=== PATIENT | male | born 1955 | race Caucasian/White ===

== ENCOUNTER → 2018-11-08 15:10 | Outpatient (CLI) | payer MEDICAID, SELFPAY ==
[2017-02-10 04:08] VITALS: BMI 25.1
[2018-11-08 17:39] LABS: Absolute Lymphocyte Count 2.79 X10^3/ul (0.83-4.51); Absolute Neutrophil Count 4.8 X10^3/uL (2.0-7.7); Basophil# 0.07 X10^3/uL; Basophil% 0.8 % (0-1); Eosinophil# 0.18 X10^3/uL; Eosinophils% 2.1 % (0-5); Hematocrit 41.3 % (40-54); Hemoglobin 13.8 g/dl (13.0-16.5); Lymphocyte # 2.79 X10^3/ul (4.0); Lymphocyte % 32.8 % (19-41); Mean Corp Hgb Conc 33.4 g/gl (32-36); Mean Corpuscular Hgb 28.4 pg (27.0-32.0); Mean Platelet Vol. 10.1 fl (6.2-12.0); Monocyte# 0.67 X10^3/uL; Monocyte% 7.9 % (0-10); Neutrophil # 4.79 X10^3/uL (2.7-7.7); Neutrophil % 56.3 % (47-70); Platelet Count 292 K/mm3 (150-450); RBC Distribution Width SD 39.9 fl (35.1-43.9); Red Blood Count 4.86 M/mm3 (4.6-6.2); White Blood Count 8.5 K/mm3 (4.4-11.0)
[2018-11-08 17:46] LABS: Amphetamine Urine VISTA NEGATIVE (<1000 ng/mL); Barbiturate Urine VISTA NEGATIVE (< 200 ng/mL); Benzodiazepine Urine VISTA NEGATIVE (< 200 ng/mL); Cocaine Urine VISTA NEGATIVE (< 300 ng/mL); Ecstacy Urine VISTA NEGATIVE (< 500 ng/mL); Methadone Urine VISTA NEGATIVE (< 300 ng/mL); PCP Urine VISTA NEGATIVE (< 25 ng/mL); POSITIVE COUNT NO; POSITIVE DIFFERENTIAL NO; POSITIVE MORPHOLOGY NO; THC Urine VISTA NEGATIVE (< 50 ng/mL); Vista UDS pH Range 7
[2018-11-08 17:51] LABS: Vitamin B12 648 pg/mL (211-911)
[2018-11-08 17:52] LABS: ALB/GLOB Ratio 0.9 RATIO (0.9-2.4); AST(SGOT) 13 U/L (15-37); Alanine Aminotransfer ALT/SGPT 19 U/L (16-61); Albumin, Serum 3.7 g/dL (3.2-5.0); Alkaline Phosphatase 95 U/L (45-117); Anion Gap 12 (5-15); BUN 20 mg/dL (7-18); BUN/Creat Ratio 15.2 RATIO (10-20); Calcium,Total 9.2 mg/dL (8.5-10.1); Chloride 95 mmol/L (98-107); Cholesterol 237 mg/dL (200); Creatinine, Serum 1.32 mg/dL (0.70-1.30); EST Glomerular Filtration Rate 59 mL/min (>60); Est Glom Filt Rate - Afr Amer 71 mL/min (>60); Globulin 4.1 g/dL (2.2-4.2); Glucose 356 mg/dL (74-106); High Density Lipoprotein 45 mg/dL; Potassium 4.4 mmol/L (3.5-5.1); Protein, Total 7.8 g/dL (6.4-8.2); Sodium Level 131 mmol/L (136-145); T4 Free Direct 1.13 ng/dL (0.76-1.46); Thyroid Stim Hormone (TSH) 1.14 uIU/mL (0.358-3.74); Triglycerides 310 mg/dL; Very Low Density Lipoprotein 62 mg/dL (5-40)
[2018-11-10 00:50] LABS: Rapid Plasmin Reagin (RPR) NONREACTIVE (NONREACTIVE)
[2018-11-13 15:20] LABS: Vitamin B1, Thiamine 103.8 nmol/L (66.5-200.0)
== END ==
PROVIDERS: Family Provider Family Medicine; PCP Family Medicine; Referring Provider Family Medicine; Visit Provider Family Medicine
DX: I10 Essential (primary) hypertension (principal); E11.9 Type 2 diabetes mellitus without complications; R41.3 Other amnesia; E04.1 Nontoxic single thyroid nodule
CPT/HCPCS: 36415; 80053; 80061; 80307; 82043; 82570; 82607; 83036; 84425; 84439; 84443; 85025; 86592

== ENCOUNTER → 2018-11-21 13:55 | Outpatient (CLI) | payer MEDICAID, SELFPAY ==
--- NOTE | 2018-11-21 14:02 | ART_ITS ---
Reason For Study: Decreased pedal pulses Procedure A bilateral lower extremity continuous wave Doppler with analog waveform analysis and ankle brachial indexes. Left Segmental Pressures Left brachial= 157mmHg. Left posterior tibial artery = 186mmHg. Left dorsalis pedis artery = 187mmHg. The left dorsalis pedis waveforms are triphasic. The left posterior tibial artery waveforms are triphasic. Right Segmental Pressures Right brachial= 151mmHg. Right posterior tibial artery = 190mmHg. Right dorsalis pedis artery = NCmmHg. Right digit = 124 mmHg. The right dorsalis pedis waveforms are triphasic. The right posterior tibial artery waveforms are triphasic. Indices The right ankle brachial index by the dorsalis pedis is NC. The right ankle brachial index by the posterior tibial artery is 1.2. The right digital-brachial index is .79. The left ankle brachial index by the dorsalis pedis is 1.2. The left ankle brachial index by the posterior tibial artery is 1.2. Interpretation Summary Triphasic Doppler waveforms are noted at ankle level bilaterally. Resting ankle-brachial indices are normal bilaterally. The right digital-brachial index is normal. The left digital brachial index was not determined due to the presence of an ulcer. There is no evidence of significant arterial occlusive disease. Ordering Physician: Tony Topete Referring Physician: Tony Topete Performed By: Tess Martin Uriel
--- NOTE | 2018-11-21 14:04 | US_ITS ---
STUDY: THYROID ULTRASOUND REASON FOR EXAM: Male, 63 years old. History of thyroid nodule. TECHNIQUE: Ultrasound evaluation of the thyroid was performed with real-time and static vera-scale imaging. COMPARISON: None. FINDINGS: RIGHT LOBE: The right lobe of the thyroid gland measures 4.4 cm x 1.9 cm x 1.9 cm. There is a homogeneous echotexture. There are no demonstrated solid, cystic or complex lesions. LEFT LOBE: The left lobe of the thyroid gland measures 4.1 cm x 1.7 cm x 1.4 cm. There is a homogeneous echotexture. There are no demonstrated solid, cystic or complex lesions. ISTHMUS: The isthmus measures 3.0 mm. The regional lymph nodes are normal. US/Thyroid IMPRESSION: Normal ultrasound examination of the thyroid. Electronically Signed: Ángel Banks, at 10:47 EST , Service support ,
== END ==
PROVIDERS: Family Provider Family Medicine; PCP Family Medicine; Referring Provider Family Medicine; Visit Provider Family Medicine
DX: E04.1 Nontoxic single thyroid nodule (principal); R09.89 Other specified symptoms and signs involving the circulatory and respiratory systems
CPT/HCPCS: 76536; 93922

== ENCOUNTER 2018-11-21 15:21 | Inpatient (IN) | payer MEDICAID, SELFPAY ==
[2018-11-21 15:23] VITALS: PULSE 86; RESP 16; TEMP 36.8; O2SAT 99; BMI 16.2
[2018-11-21 15:25] VITALS: BP 171/81; PULSE 71; RESP 14; TEMP 37.2; O2SAT 97
--- NOTE | 2018-11-21 15:47 | RAD_ITS ---
STUDY: X-RAY - LEFT FOOT CLINICAL: Male, 63 years old. PLANTAR WOUND, INFECTION TECHNIQUE: 3 view(s) of the foot. COMPARISON: 02/10/2017. FINDINGS: Status post amputations of the second, third, and fifth digits. These findings are similar to prior exam. Again seen is extensive irregularity of the first metatarsophalangeal joint with osteolysis and expansion of the bone surfaces. The appearance is consistent with a destructive process such as infection, as was considered on previous exam, but may be currently inactive. Nevertheless, active osteomyelitis or septic arthritis is not excluded. Degenerative changes of the midfoot. Markedly abnormal appearance of the soft tissues of the forefoot including in the areas of amputation. There is soft tissue gas and the findings are consistent with infection with gas-forming organism. RAD/Foot min 3 Views IMPRESSION: Relatively stable appearance of the foot with previous septations, and destructive process of the first metatarsophalangeal joint. Current osteomyelitis or septic arthritis cannot be excluded. Abnormal soft tissues with soft tissue air consistent with infection. Electronically Signed: Ha Chavez MD at 16:46 EST , Service support ,
--- NOTE | 2018-11-21 15:52 | ED.DCSUM_ITS ---
- ER Visit Summary Date of Service: 11/21/18 Chief Complaint: Left foot wound History of Present Illness: The patient is a 63 M presenting with left foot wound. Patient states he believes this began 2 days ago. He has history of previous infection to this foot. He has required previous toe amputations. He states his foot was well healed until 2 days ago when he started noticing a foul odor. He denies fever. Denies other complaints. Physical Examination: Vitals are stable. Patient is afebrile. Alert no acute distress. HEENT exam is unremarkable. Neck is supple. Lungs are clear and equal bilaterally. Heart is regular rate and rhythm. Abdomen is soft nontender nondistended. Extremities left distal foot wound with purulent drainage. Left second and third toe amputations. Normal DP pulse. Skin is warm and dry. Remainder of exam is unremarkable. Emergency Department Course and Treatment: Left foot xray shows relatively stable appearance of the foot with previous septations, and destructive process of the first metatarsophalangeal joint. Current osteomyelitis or septic arthritis cannot be excluded. Abnormal soft tissues with soft tissue air consistent with infection. CBC shows hemoglobin 11.6. Chemistries show sodium 127, glucose 402, BUN 22. CRP 60.7. ESR 78. Patient was given vancomycin and Zosyn. Discussed with the hospitalist for admission. Disposition: Admission Impression: Diabetic foot infection This note was generated with [facility] dictation software. It may contain incorrect words, spelling, and punctuation that were not noted in review of the chart mp or to signing ED Disposition - Plan for ED Patient: Referrals: Tony Topete MD [Primary Care Provider] -
[2018-11-21 16:39] LABS: Absolute Lymphocyte Count 1.82 X10^3/ul (0.83-4.51); Basophil# 0.07 X10^3/uL; Basophil% 0.7 % (0-1); Eosinophil# 0.17 X10^3/uL; Eosinophils% 1.7 % (0-5); Hematocrit 35.5 % (40-54); Hemoglobin 11.6 g/dl (13.0-16.5); Lymphocyte # 1.82 X10^3/ul (4.0); Lymphocyte % 18.1 % (19-41); Mean Corp Hgb Conc 32.7 g/gl (32-36); Mean Corpuscular Hgb 28.4 pg (27.0-32.0); Monocyte# 0.99 X10^3/uL; Monocyte% 9.8 % (0-10); Neutrophil # 6.98 X10^3/uL (2.7-7.7); Neutrophil % 69.2 % (47-70); Platelet Count 280 K/mm3 (150-450); RBC Distribution Width CV 12.6 % (11.6-14.6); RBC Distribution Width SD 40.4 fl (35.1-43.9); Red Blood Count 4.08 M/mm3 (4.6-6.2); White Blood Count 10.1 K/mm3 (4.4-11.0)
[2018-11-21 16:52] LABS: Anion Gap 10 (5-15); BUN 22 mg/dL (7-18); BUN/Creat Ratio 18.3 RATIO (10-20); Calcium,Total 9.1 mg/dL (8.5-10.1); Chloride 93 mmol/L (98-107); EST Glomerular Filtration Rate 65 mL/min (>60); Est Glom Filt Rate - Afr Amer 79 mL/min (>60); Estimated Creatinine Clearance 49.77 ml/min; Glucose 402 mg/dL (74-106); Potassium 4.5 mmol/L (3.5-5.1); Sodium Level 127 mmol/L (136-145)
[2018-11-21 16:56] LABS: POSITIVE COUNT NO; POSITIVE DIFFERENTIAL NO; POSITIVE MORPHOLOGY NO
[2018-11-21 17:17] LABS: Erythrocyte Sedimentation Rate 78 mm/hr (0-20)
[2018-11-21 17:25] VITALS: BP 168/86; PULSE 79; RESP 18; TEMP 37.2; O2SAT 99
--- NOTE | 2018-11-21 17:41 | NURSING ---
MED SURG DIABETIC FOOT INFECTION LIDIA
[2018-11-21 17:47] VITALS: BP 168/86; PULSE 79; RESP 16; O2SAT 98
--- NOTE | 2018-11-21 17:58 | CASEMGMT ---
RN CM Assessment Introduced role of RN CM to patient and sister Glory at bedside. Patient is alert, oriented and able to participate in RN CM Assessment. Care providers, pharmacy, and demographics verified. Presentation: CC: Left foot Wound, previous h/o toe amputations. PCP: Dr Tony Topete- Recently established. Has Dr Appointment tomorrow 11/22/18- to cancel if admitted. Needs re-scheduled. Specialists: Was seeing a Tractor Trailer Mechanic at the [place]- unsure of name. [facility]erred [facility] [place]. Trying to transition care [place] to [facility]. Prescription Benefit: Yes LNOK: Mother Pearl Babb Living Arrangements: [place], Lives with mother is Home with approx 4steps to enter, lives in Basement with approx 14 stairs. Independent with ambulation and ADL's. Transportation: Patient drives, sister Glory # [phone] [place]. DME: Glucometer, Preference through Insurance. HHC: None in past, Preference through Insurance. SNF: None in past, Preference through insurance. [place] PLAN: Home with possible HH RN for wound care. Possible HH IVABX. Galo Durham RNCM
--- NOTE | 2018-11-21 18:17 | HP.PCM_ITS ---
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 The patient is a 63 year old M who presents emergency room due to left foot wound. Patient asked how long the wound has been present and he states I do not know. He reports he had an infection of the left foot initially 4 years ago. He states he has had infections of the left foot intermittently. He states prior to 2 days ago his foot was healed. 2 days ago he noticed a foul odor and mild discharge from the left foot plantar area. He has a history of osteomyelitis of the left foot with previous left second, third and fifth toe amputations. He reports he had surgery on his left foot in the past against his will. He has a history of noncompliance. He does report he has been checking his blood sugar at home. He has a past medical history of type 2 diabetes mellitus, chronic renal insufficiency, peripheral neuropathy and noncompliance with medication regimen. Past Medical History Past Medical History (Chronic Problems): Chronic Problems Diabetes mellitus with polyneuropathy (Chronic) Renal insufficiency (Chronic) Left second and third toe amputation (Chronic) Peripheral neuropathy (Chronic) Hypertension (Chronic) Type 2 diabetes mellitus (Chronic) Allergies No Known Allergies Allergy (Verified 11/21/18 15:22) Home Medications: Ambulatory Orders Medication Instructions Recorded Insulin Aspart [Novolog Flexpen] 10 units SC TIDCM #1 box 02/11/17 Insulin Detemir [Levemir FlexPen] 25 units SC BID #1 box 02/11/17 Linezolid [Zyvox] 600 mg PO Q12H #14 tablet 02/11/17 Surgical History: - - Amputation of the left second, third and fifth toe. Psychiatric History: No pertinent psych hx Lives: With Family - With mother. Smoking Status: Unknown if ever smoked Tobacco Use: Non-smoker Alcohol: None Drugs: None - *Family History Maternal History Items: Diabetes Paternal History Items: - - before I was born. Unknown cause. Review of Systems Constitutional: Denies: Chills, Fever, Weight Change HEENT: Denies: Head Aches, Sinus Congestion, Sinus Drainage Cardiovascular: Denies: Chest Pain, Palpitations Respiratory: Denies: Cough, Shortness of breath at rest, Sputum production Gastrointestinal: Denies: Abdominal Pain, Nausea, Vomiting Genitourinary: Denies: Dysuria Musculoskeletal: Denies: Joint Pain, Joint Tenderness Skin: Reports: Wounds - Left foot Neurological: Denies: Numbness, Tingling, Focal weakness Psychiatric: Denies: Anxiety, Depression, Homicidal Ideations, Suicidal Ideations Hematologic/ Lymphatic: Denies: Easy Bruising, Easy Bleeding VTE Information - Inpt Only VTE Present on Admission: No VTE Mechan Device Prophylaxis: None VTE Pharm Prophylaxis ordered?: Yes - Physical Exam General: Alert, Oriented x3, Cooperative HEENT: Atraumatic, PERRLA, EOMI, Normocephalic Oral: Moist Mucosa Neck: Supple, No JVD, Negative Carotid Bruits Lungs: Clear to auscultation, Normal air movement Cardiovascular: Regular rate, Regular Rhythm, Normal S1, Normal S2, No murmurs Abdomen: Bowel Sounds Present, Soft, Non Tender, Non-Distended Extremities: No clubbing, No cyanosis, No edema Skin: No rashes, - - Left plantar foot wound with foul smelling drainage, boggy appearance. Left 2nd, 3rd and 5th toe amputations. Musculoskeletal: No Tenderness to Palpation of Joints or Extremities Neurological: Cranial nerves II-XII grossly intact, Neuro grossly intact Psych/Mental Status: Normal Affect Vital Signs Temp Pulse Resp BP Pulse Ox 99 F 79 16 168/86 H 98 11/21/18 17:25 11/21/18 17:47 11/21/18 17:47 11/21/18 17:47 11/21/18 17:47 Oxygen Delivery Method Room Air Weight: 120 lb Body Mass Index (BMI) 16.2 Finger Stick Blood Glucose 279 Laboratory Tests Past 24 Hrs 11/21/18 11/21/18 16:15 16:15 WBC 10.1 RBC 4.08 L Hgb 11.6 L Hct 35.5 L MCV 87.0 MCH 28.4 MCHC 32.7 RDW 12.6 RDW Differential 40.4 Plt Count 280 MPV 10.0 Immature Gran % (Auto) 0.500 Neut % (Auto) 69.2 Lymph % (Auto) 18.1 L Crenshaw % (Auto) 9.8 Eos % (Auto) 1.7 Baso % (Auto) 0.7 Absolute Neuts (auto) 7.0 Absolute Lymphs (auto) 1.82 Total Counted Not Reportable ESR 78 H Sodium 127 L Potassium 4.5 Chloride 93 L Carbon Dioxide 24.0 Anion Gap 10 BUN 22 H Creatinine 1.20 Estim Creat Clear Calc 49.77 Est GFR (MDRD) Af Amer 79 Est GFR (MDRD) Non-Af 65 BUN/Creatinine Ratio 18.3 Glucose 402 H Calcium 9.1 C-React Prot Ext Range 60.70 H Assessment/Plan All Active Problems Infected left foot ulcer (Acute) 1. Infected left diabetic foot ulcer-history of left second, third and fifth toe amputation and left foot osteomyelitis. Foot x-ray showed stable appearance of the foot with previous septations, and destructive process of the first metatarsophalangeal joint. Current osteomyelitis or septic arthritis cannot be excluded. Abnormal soft tissues with soft tissue air consistent with infection. ESR and CRP elevated. IV Zosyn and IV vancomycin. Consult podiatry. Wound culture. Obtain left foot MRI. Consult wound RN. 2. Type 2 diabetes mellitus, poorly controlled with associated peripheral neuropathy-glucose 402 on admission. Accu-Cheks ACHS with sliding scale insulin. Hemoglobin A1c 11/08/18 14%. Continue home Levemir and mealtime insulin. Adjust as necessary. 3. Hypertension-patient is not currently on regimen. Has been in the past. Begin lisinopril 10 mg daily. Continue to monitor. As needed hydralazine for systolic greater than 160. 4. Hyponatremia-suspect pseudohyponatremia secondary to hyperglycemia. IV fluids. Trend BMP. 5. Chronic kidney disease stage II-stable, trend BMP. DVT prophylaxis-heparin subcu This patient was seen by BAKARI Curtis under the supervision of Dr. Rich. <Jessica Milan - Last Filed: 11/21/18 21:37> History of Present Illness The patient is a 63 year old M [] Past Medical History Allergies No Known Allergies Allergy (Verified 11/21/18 15:22) - Physical Exam Vital Signs Temp Pulse Resp BP Pulse Ox 97.9 F 77 16 133/75 H 96 11/21/18 21:20 11/21/18 21:20 11/21/18 21:20 11/21/18 21:20 11/21/18 21:20 Oxygen Delivery Method Room Air Weight: 177 lb 0.499 oz Body Mass Index (BMI) 26.9 Finger Stick Blood Glucose 279 Laboratory Tests Past 24 Hrs 11/21/18 11/21/18 11/21/18 16:15 16:15 21:05 WBC 10.1 RBC 4.08 L Hgb 11.6 L Hct 35.5 L MCV 87.0 MCH 28.4 MCHC 32.7 RDW 12.6 RDW Differential 40.4 Plt Count 280 MPV 10.0 Immature Gran % (Auto) 0.500 Neut % (Auto) 69.2 Lymph % (Auto) 18.1 L Crenshaw % (Auto) 9.8 Eos % (Auto) 1.7 Baso % (Auto) 0.7 Absolute Neuts (auto) 7.0 Absolute Lymphs (auto) 1.82 Total Counted Not Reportable ESR 78 H Sodium 127 L Potassium 4.5 Chloride 93 L Carbon Dioxide 24.0 Anion Gap 10 BUN 22 H Creatinine 1.20 Estim Creat Clear Calc 49.77 Est GFR (MDRD) Af Amer 79 Est GFR (MDRD) Non-Af 65 BUN/Creatinine Ratio 18.3 Glucose 402 H Calcium 9.1 C-React Prot Ext Range 60.70 H S.aureus Protein A PCR Pending MRSA (PCR) Pending Assessment/Plan Patient seen by Kindra Mendoza under my supervision Patient admitted with a complaint of ulceration and discharge from his left foot. Patient has a history of osteomyelitis of the left foot and is status post amputation of the second, third and fifth toes. He states this current ulceration and discharge has been going on for a few days. Due to neuropathy, patient has limited sensation in his left foot. He denied any fever chills, palpitations or dizziness, abdominal pain, diarrhea vomiting. Review of systems otherwise negative. X-ray of the foot done showed stable appearance of the foot with previous septations and destructive process of the first metatarsophalangeal joint, and Current osteomyelitis or septic arthritis cannot be excluded. Abnormal soft tissues with soft tissue air consistent with infection was also visualized. o/e: Vital Signs Height 5 ft 8 in Weight: 177 lb 0.499 oz Weight in Pounds 177.0 lbs Pulse Ox 96 Temperature 97.9 F Pulse Rate 77 Respiratory Rate 16 Blood Pressure 133/75 Blood Pressure Position Semi-Fowlers General: Alert, Oriented x3, Cooperative HEENT: Atraumatic, PERRLA, EOMI, Normocephalic Oral: Moist Mucosa Neck: Supple, No JVD, Negative Carotid Bruits Lungs: Clear to auscultation, Normal air movement Cardiovascular: Regular rate, Regular Rhythm, Normal S1, Normal S2, No murmurs Abdomen: Bowel Sounds Present, Soft, Non Tender, Non-Distended Extremities: No clubbing, No cyanosis, No edema Skin: No rashes, - - Left plantar foot abscess formation, fluctuant, with very foul smelling drainage from dorsum of left foot. Foot is warm to touch, no tenderness with palpation. Left 2nd, 3rd and 5th toe amputations. Musculoskeletal: No Tenderness to Palpation of Joints or Extremities Neurological: Cranial nerves II-XII grossly intact, Neuro grossly intact Psych/Mental Status: Normal Affect Patient has been managed for diabetic foot ulceration with possible ost eomyelitis of the left foot. ESR was 78 and CRP was 60.7. Blood and wound cultures have been taken and are pending. Start IV vancomycin and Zosyn. Consult podiatry. Of note, patient also has hyponatremia which is chronic. Sodium was 127 and this is likely also affected by hypoglycemia as blood glucose was 402. Corrected sodium is 132. MRI of the left foot done and results are pending. Last A1c on November 08, 2018 was 14. Patient admits to not being compliant with his diabetes medication. Will get nutrition consult and diabetes education consult. Rest of management as per Kindra Mendoza VP OF CUST[employer]ER [employer]ATE[employer] C's note which I have reviewed and agree with. Code Visit Inpatient E&M: 50121 Subs Hosp L3
--- NOTE | 2018-11-21 18:49 | MRI_ITS ---
STUDY: MRI LEFT FOREFOOT WITH AND WITHOUT CONTRAST REASON FOR EXAM: Wound at the ball of of left foot, diabetes, prior amputation. TECHNIQUE: Standardized fat and water weighted pulse sequences were obtained in all 3 orthogonal planes, post contrast administration. Gadavist 7 IV was administered for the contrast portion of the examination. COMPARISON: Radiographs 11/21/2018 and 02/10/2017. FINDINGS: Status post amputation of the second, third and fifth toes. There is bone resorption or amputation of the of the distal phalanx of the fourth digit as on the prior study. There is bone resorption of the head of the first metatarsal and base of the first proximal phalanx as on the prior study, a sequelae of septic arthritis. There is bone edema of the distal first metatarsal and first proximal phalanx (inversion recovery sagittal image 6) with mild contrast enhancement (T1 sagittal image 7), substantially decreased since the prior study, likely representing chronic osteomyelitis. There is no bone edema of the distal phalanx of the great toe. There is bone resorption of the distal second metatarsal (T1 sagittal image 12) without corresponding bone edema is similar to the prior study, suggestive of neuropathic osteoarthropathy. There is no bone edema of the third through fifth metatarsals. There is edema in the subcutis adipose space of the forefoot with contrast enhancement consistent with cellulitis. There are ill-defined fluid collections deep to the ulcer of the forefoot distal to the third and fourth metatarsals with mild peripheral contrast enhancement suggesting a phlegmon (T1 sagittal images 18-20) without a drainable abscess. There is flexor tenosynovitis at the level of the forefoot with contrast enhancement (T1 series 9 images 16-28). There is atrophy with fat replacement of the intrinsic muscles of the forefoot consistent with peripheral neuropathy. There is mild arthrosis of the third through fifth tarsometatarsal joints (T2 series 4 images 13-20). There is no bone edema of the tarsal bones of the midfoot. MRI/Lower Ext No Joint W/WO Cont IMPRESSION: Sequelae of septic arthritis of the first metatarsophalangeal joint with bone edema of the distal first metatarsal and first proximal phalanx with contrast enhancement suggestive of chronic osteomyelitis, substantially decreased since the prior study. Ill-defined fluid collections with mild peripheral contrast enhancement forefoot distal to the third and fourth metatarsals suggesting a phlegmon without a drainable abscess at this time. Cellulitis. Flexor tenosynovitis of the forefoot. Atrophy of the intrinsic muscles of the forefoot consistent with peripheral neuropathy. Electronically Signed: Jourdan Wharton MD at 8:01 EST Tel , Service support ,
[2018-11-21 19:00] VITALS: RESP 17
--- NOTE | 2018-11-21 20:17 | ED.RN ---
1930 PT TAKEN TO MRI PER ORDERS WITH RN LACTATION
--- NOTE | 2018-11-21 20:28 | PCM.RX.CS ---
Consult Pharmacy has been consulted to manage selected antiobiotic: Vancomycin Type of Consult: New start Suspected Infection: Skin/Soft tissue Prior Doses of Antibiotics Received/Current Regimen: Vancomycin 1000mg IV x1 given in the ER on 11/21/18 at 1812 Labs: Sodium 127 mmol/L (136-145) L 11/21/18 16:15 Potassium 4.5 mmol/L (3.5-5.1) 11/21/18 16:15 Chloride 93 mmol/L (98-107) L 11/21/18 16:15 Carbon Dioxide 24.0 mmol/L (21.0-32.0) 11/21/18 16:15 Anion Gap 10 (5-15) 11/21/18 16:15 BUN 22 mg/dL (7-18) H 11/21/18 16:15 Creatinine 1.20 mg/dL (0.70-1.30) 11/21/18 16:15 Est GFR (MDRD) Af Amer 79 mL/min (>60) 11/21/18 16:15 Est GFR (MDRD) Non-Af 65 mL/min (>60) 11/21/18 16:15 BUN/Creatinine Ratio 18.3 RATIO (10-20) 11/21/18 16:15 Glucose 402 mg/dL (74-106) H 11/21/18 16:15 Weight used for dosin kg Estimated Creatinine Clearance: 55ml/min Goal Trough: 10-15 mcg/mL Pharmacy Plan for Drug Dosing: Recommend Vancomycin 1000mg IV q24h to give an est trough of 10-15. Will check trough before the 3rd total dose on 11/23/18. Pharmacy Service will continue to monitor and adjust dosing as required. Follow-Up Labs: Trough Vancomycin - 11/23/18 Labs to be done on [date and time ordered]: trough level 11/23/18 at 1730
[2018-11-21 20:48] VITALS: BMI 26.9
[2018-11-21 21:20] VITALS: BP 133/75; PULSE 77; RESP 16; TEMP 36.6; O2SAT 96
[2018-11-21] MEDS: 0.9% Normal Saline 1,000 ML 125 ML IV (21:47)
[2018-11-21] MEDS: Insulin Lispro 100 UNIT/ML INSULN.PEN SQ (21:49)
--- NOTE | 2018-11-21 21:51 | PCA ---
this HEADER SETUP OPERATOR filled out a patient valuables form with patient and with RN Adelaide in room, patient signed form and this HEADER SETUP OPERATOR witnessed signature and delivered form to be put in the safe.
[2018-11-21 22:25] LABS: Bedside Glucose 373 mg/dL (70-110)
[2018-11-21 22:59] LABS: M R Staph aureus DNA By PCR POSITIVE (Negative); Probe Check PASS; Staph aureus DNA By PCR POSITIVE (Negative)
--- NOTE | 2018-11-22 00:22 | NURSING ---
Patient is unsteady when ambulates. Patient is hooked up to IV antibiotics and he forgets to take his IV pole with him when he gets up by himself. This nurse, the charge nurse and [employer]IEF [employer]IAN [employer] have all explained to patient that if he needs to get up to use the bathroom or ambulate for his safety he call for assistance because he is unsteady and is a fall risk. Pt. very agitated with this request. Pt. states you are treating me like a child and you are not allowed to hold me against my will. This nurse explained to patient that we are not holding him against his will and that as long as he has a ride set up he is free to leave at any time. Per pt. request tried to get a hold of his mother and his sister, left voicemail. Pt. did comply and get back in bed at this time. Pt. is currently resting comfortably.
[2018-11-22 03:21] VITALS: BP 183/102; PULSE 65; RESP 16; TEMP 36.5; O2SAT 100
[2018-11-22] MEDS: Clonidine HCl 0.1 MG, Clonidine HCl 0.2 MG 0.3 MG PO (05:17)
[2018-11-22] MEDS: 0.9% Normal Saline 1,000 ML 125 ML IV (05:17)
[2018-11-22 06:35] LABS: Anion Gap 8 (5-15); BUN 17 mg/dL (7-18); BUN/Creat Ratio 14.4 RATIO (10-20); Calcium,Total 8.7 mg/dL (8.5-10.1); Chloride 100 mmol/L (98-107); Creatinine, Serum 1.18 mg/dL (0.70-1.30); EST Glomerular Filtration Rate 67 mL/min (>60); Est Glom Filt Rate - Afr Amer 81 mL/min (>60); Glucose 176 mg/dL (74-106); Potassium 3.8 mmol/L (3.5-5.1); Sodium Level 135 mmol/L (136-145)
[2018-11-22 06:54] VITALS: BP 113/72
--- NOTE | 2018-11-22 07:44 | CON.PCM_ITS ---
Problem List (1) Chronic ulcer of left foot with necrosis of muscle Status: Chronic (2) Infected left foot ulcer Status: Acute (3) Malnutrition Status: Chronic (4) Osteomyelitis Status: Chronic Qualifiers: Osteomyelitis type: subacute Osteomyelitis location: foot Laterality: left Qualified Code(s): M86.272 - Subacute osteomyelitis, left ankle and foot (5) Diabetes mellitus with polyneuropathy Status: Chronic Qualifiers: Diabetes mellitus type: type 2 Qualified Code(s): E11.42 - Type 2 diabetes mellitus with diabetic polyneuropathy (6) Left second and third toe amputation Status: Chronic Reason for Consult Date of Consultation: 11/22/18 Reason for Consultation: Left foot ulcer History of Present Illness: The patient is a 63 year old M was seen bedside for left foot infection and ulcer this morning. He reports his initial infection to the left foot was 4 years ago and when she had some toe amputations performed. He is not sure how recent his current infection has developed but it has at least been 1 week. He denies pain. He does note an odor. He is not able to provide additional details on previous workup or home care. He denies leg cramping while walking. He does report some loss of sensation of his foot at rest. Past Medical History Past Medical History (Chronic Problems): Chronic Problems Malnutrition (Chronic) Chronic ulcer of left foot with necrosis of muscle (Chronic) Osteomyelitis (Chronic) Diabetes mellitus with polyneuropathy (Chronic) Renal insufficiency (Chronic) Left second and third toe amputation (Chronic) Peripheral neuropathy (Chronic) Hypertension (Chronic) Type 2 diabetes mellitus (Chronic) Allergies No Known Allergies Allergy (Verified 11/21/18 15:22) Home Medications: Ambulatory Orders Medication Instructions Recorded Insulin Aspart [Novolog Flexpen] 10 units SC TIDCM #1 box 02/11/17 Insulin Detemir [Levemir FlexPen] 25 units SC BID #1 box 02/11/17 Linezolid [Zyvox] 600 mg PO Q12H #14 tablet 02/11/17 Surgical History: - - Amputation of the left second, third and fifth toe. Psychiatric History: No pertinent psych hx Lives: With Family - With mother. Smoking Status: Never smoker Tobacco Use: Non-smoker Alcohol: None Drugs: None - *Family History Maternal History Items: Diabetes Paternal History Items: - - before I was born. Unknown cause. Review of Systems Constitutional: Denies: Chills, Fever Cardiovascular: Reports: Edema. Denies: Chest Pain, Claudication Respiratory: Denies: Shortness of Breath Gastrointestinal: Denies: Nausea, Vomiting Musculoskeletal: Denies: Foot Pain, Joint Tenderness, Leg Pain Neurological: Reports: Numbness Psychiatric: Denies: Anxiety, Depression Hematologic/ Lymphatic: Denies: Easy Bruising, Easy Bleeding - Physical Exam General: Alert, Oriented x3, Cooperative HEENT: Atraumatic Extremities: No cyanosis, Capillary Refill Less than 3 Seconds - To the remaining digits on the left foot and stump site and all digits on the right foot, No Calf Tenderness - Negative Aric and Bowman bilateral, Diminished Peripheral Pulses - 2 out of 4 DP pulse, left and nonpalpable PT., Edema, - - Second and third toe amputation. Prominent metatarsal head left with dorsal contraction of the remaining toes Skin: Ulcer/ Wound - There is a fibrin necrotic plug to the distal plantar and dorsal distal second and third metatarsal region. There is purulence on expression and odor noted there is a partially drained bulla overlying this area. This wound does probe to bone and there is some distal stump site fluctuance on palpation. The peripheral skin is hairless and atrophic. There is no ulcer, maceration, or infection to the right lower extremity. Musculoskeletal: No Tenderness to Palpation of Joints or Extremities, Muscle Wasting Neurological: - - Lack of epicritic sensation light touch consistent with neuropathy bilateral lower extremities Psych/Mental Status: Normal Affect, Appropriate Vital Signs Temp Pulse Resp BP Pulse Ox 97.7 F L 65 16 113/72 100 11/22/18 03:21 11/22/18 03:21 11/22/18 03:21 11/22/18 06:54 11/22/18 03:21 Oxygen Delivery Method Room Air Weight: 80.3 kg Body Mass Index (BMI) 26.9 Finger Stick Blood Glucose 279 Intake and Output for Last 24 Hours 11/20/18 11/21/18 11/22/18 23:59 23:59 23:59 Intake Total 1510 / 1510 Balance 1510 / 1510 Laboratory Tests Past 24 Hrs 11/21/18 11/21/18 11/21/18 16:15 16:15 21:05 WBC 10.1 RBC 4.08 L Hgb 11.6 L Hct 35.5 L MCV 87.0 MCH 28.4 MCHC 32.7 RDW 12.6 RDW Differential 40.4 Plt Count 280 MPV 10.0 Immature Gran % (Auto) 0.500 Neut % (Auto) 69.2 Lymph % (Auto) 18.1 L [place] % (Auto) 9.8 Eos % (Auto) 1.7 Baso % (Auto) 0.7 Absolute Neuts (auto) 7.0 Absolute Lymphs (auto) 1.82 Total Counted Not Reportable ESR 78 H Sodium 127 L Potassium 4.5 Chloride 93 L Carbon Dioxide 24.0 Anion Gap 10 BUN 22 H Creatinine 1.20 Estim Creat Clear Calc 49.77 Est GFR (MDRD) Af Amer 79 Est GFR (MDRD) Non-Af 65 BUN/Creatinine Ratio 18.3 Glucose 402 H Calcium 9.1 C-React Prot Ext Range 60.70 H S.aureus Protein A PCR POSITIVE H MRSA (PCR) POSITIVE H 11/22/18 05:35 WBC RBC Hgb Hct MCV MCH MCHC RDW RDW Differential Plt Count MPV Immature Gran % (Auto) Neut % (Auto) Lymph % (Auto) [place] % (Auto) Eos % (Auto) Baso % (Auto) Absolute Neuts (auto) Absolute Lymphs (auto) Total Counted ESR Sodium 135 L Potassium 3.8 Chloride 100 Carbon Dioxide 27.0 Anion Gap 8 BUN 17 Creatinine 1.18 Estim Creat Clear Calc 63.60 Est GFR (MDRD) Af Amer 81 Est GFR (MDRD) Non-Af 67 BUN/Creatinine Ratio 14.4 Glucose 176 H Calcium 8.7 C-React Prot Ext Range S.aureus Protein A PCR MRSA (PCR) POC Glucose 11/21/18 21:23 POC Glucose 373 H Assessment/Plan All Active Problems Infected left foot ulcer (Acute) Left foot abscess and osteomyelitis Diabetes with neuropathy Previous amputations left foot Forefoot deformities left Other comorbidities I reviewed and discussed the case this morning with the patient during his clinical examination. Subcutaneous excisional debridement was performed with a pickup and medical scissor to remove nonviable and devitalized fibrous tissue and subcutaneous tissue and fibrin necrotic plug. There was purulence on expression and Betadine with gauze packing was applied deep to the wound. Pressure was applied to maintain hemostasis and this was performed after verbal consent was obtained. Due to his neuropathy he did not have pain in local anesthetic was not necessary. He tolerated this well. His x-ray was reviewed with previous amputations noted and soft tissue edema. There was no yousif osseous destruction adjacent to the ulcer site however there was demineralization noted to the distal second and third metatarsal heads and some destructive changes to the first metatarsal phalangeal joint consistent with septic joint. There was also an MRI completed and there is evidence of osteomyelitis particularly to the second and third metatarsal heads and also septic joint changes to the first metatarsal phalangeal joint complex. There is also evidence of abscess and fluid collection to the entire submetatarsal head region and this correlates clinically with his signs of infection and purulence. It is noted his vital signs remained stable and he will count is stabilizing (~10); repeat test this morning were pending. His ESR was 78 and C-reactive protein 60.7. I do recommend surgical drainage and debridement of nonviable tissue including up to a transmetatarsal amputation. Additional posterior leg lengthening to address his contracture will be considered when there is no acute infection going on. The patient reports this morning he will need to think about this prior to making final decision I will review this again with him this afternoon. I recommend performing this procedure tomorrow afternoon. The preoperative indications, planned procedure, possible benefits, risks, complications, and anticipated healing time and management were discussed with the patient. Informed surgical consent will need to be obtained. Medical management per primary team is appreciated and medical optimization will be required. I also recommend infectious disease consultation. It is noted that he had a MRSA positive PCR. He continues on vancomycin and Zosyn. I recommend he only places weight on his heel for transfers at this time and a surgical shoe will be provided. Nutrition supplement and continued proper glycemic control is recommended to optimize healing. I answered his questions and will continue to follow him closely while in house. Thank you very much for the consultation. Please not hesitate to call if you have any questions. Vashti Bailon DPM, [facility] [phone]
[2018-11-22] MEDS: Insulin Lispro 100 UNIT/ML INSULN.PEN 10 UNIT SC ×3 (08:21→17:48)
[2018-11-22] MEDS: Insulin Lispro 100 UNIT/ML INSULN.PEN SQ ×2 (08:21→11:56)
[2018-11-22 08:50] VITALS: BP 148/87; PULSE 56; RESP 16; TEMP 36.6; O2SAT 100
--- NOTE | 2018-11-22 10:19 | NURSING ---
wound photo: left foot
--- NOTE | 2018-11-22 10:20 | NURSING ---
wound photo: left foot
[2018-11-22] MEDS: Glucerna Shake 120 ML LIQUID PO ×4 (10:22→22:25)
[2018-11-22] MEDS: Lisinopril 40 MG Tablet PO (10:22)
[2018-11-22] MEDS: hydroCHLOROthiazide 25 MG Tablet PO (10:22)
[2018-11-22 12:05] LABS: Bedside Glucose 189 mg/dL (70-110)
--- NOTE | 2018-11-22 12:46 | CON.PCM_ITS ---
Reason for Consult: osteo Consulted by: Dr. Rowan History of Present Illness: The patient is a 63 year old M with DM neuropathy and recurrent MRSA osteomyelitis who presented 3/5 with 3-4 days of L foot redness, purulent drainage, swelling. No known inciting events. Last admit here was in 2016 when he left AMA for same issue. Denies fever or chills. Admitted here on vanc/zosyn. MRI shows osteo and septic arthritis. He is adamant he is not getting surgery. Full ROS performed and neg except as noted above. Denies pain, denies numbness/tingling. - Medical History Past Medical History (Chronic Problems): Chronic Problems Diabetes mellitus with polyneuropathy (Chronic) Renal insufficiency (Chronic) Left second and third toe amputation (Chronic) Peripheral neuropathy (Chronic) Hypertension (Chronic) Type 2 diabetes mellitus (Chronic) Allergies/Adverse Reactions: Allergies No Known Allergies Allergy (Verified 11/21/18 15:22) Home Medications: Ambulatory Orders Medication Instructions Recorded Insulin Aspart [Novolog Flexpen] 10 units SC TIDCM #1 box 02/11/17 Insulin Detemir [Levemir FlexPen] 25 units SC BID #1 box 02/11/17 Linezolid [Zyvox] 600 mg PO Q12H #14 tablet 02/11/17 - Social History Tobacco Use: non-smoker Vital Signs Temp Pulse Resp BP Pulse Ox 97.8 F 56 L 16 148/87 H 100 11/22/18 08:50 11/22/18 08:50 11/22/18 08:50 11/22/18 08:50 11/22/18 08:50 Oxygen Delivery Method Room Air Weight: 80.3 kg Body Mass Index (BMI) 26.9 Finger Stick Blood Glucose 279 Microbiology Past 72 Hours 11/21/18 21:05 Gram Stain - Final Wound - Left Foot Wound Culture - Preliminary Staphylococcus species Gram positive organism Laboratory Tests Past 24 Hrs 11/21/18 11/21/18 11/21/18 16:15 16:15 21:05 WBC 10.1 RBC 4.08 L Hgb 11.6 L Hct 35.5 L MCV 87.0 MCH 28.4 MCHC 32.7 RDW 12.6 RDW Differential 40.4 Plt Count 280 MPV 10.0 Immature Gran % (Auto) 0.500 Neut % (Auto) 69.2 Lymph % (Auto) 18.1 L [place] % (Auto) 9.8 Eos % (Auto) 1.7 Baso % (Auto) 0.7 Absolute Neuts (auto) 7.0 Absolute Lymphs (auto) 1.82 Total Counted Not Reportable ESR 78 H Sodium 127 L Potassium 4.5 Chloride 93 L Carbon Dioxide 24.0 Anion Gap 10 BUN 22 H Creatinine 1.20 Estim Creat Clear Calc 49.77 Est GFR (MDRD) Af Amer 79 Est GFR (MDRD) Non-Af 65 BUN/Creatinine Ratio 18.3 Glucose 402 H Calcium 9.1 C-React Prot Ext Range 60.70 H S.aureus Protein A PCR POSITIVE H MRSA (PCR) POSITIVE H 11/22/18 05:35 WBC RBC Hgb Hct MCV MCH MCHC RDW RDW Differential Plt Count MPV Immature Gran % (Auto) Neut % (Auto) Lymph % (Auto) [place] % (Auto) Eos % (Auto) Baso % (Auto) Absolute Neuts (auto) Absolute Lymphs (auto) Total Counted ESR Sodium 135 L Potassium 3.8 Chloride 100 Carbon Dioxide 27.0 Anion Gap 8 BUN 17 Creatinine 1.18 Estim Creat Clear Calc 63.60 Est GFR (MDRD) Af Amer 81 Est GFR (MDRD) Non-Af 67 BUN/Creatinine Ratio 14.4 Glucose 176 H Calcium 8.7 C-React Prot Ext Range S.aureus Protein A PCR MRSA (PCR) - Other Studies Radiology: [] reviewed Other Studies: [] Route of nutrition/ use of supplements: [] Nutritional Intake: [] IV Site: [] Crawley Catheter: [] - Physical Exam General: Alert, Oriented x3, Cooperative, No apparent distress HEENT: Atraumatic, PERRLA, EOMI Neck: Supple, No Nodes Lungs: Clear to auscultation, Normal air movement Cardiovascular: Regular rate, Regular Rhythm Abdomen: Soft, Non Tender, Non-Distended Extremities: No edema Skin: Ulcer/ Wound - L foot photo reviewed IV Site: Peripheral, without redness Musculoskeletal: No Tenderness to Palpation of Joints or Extremities Neurological: Cranial nerves II-XII grossly intact - Assessment/Plan Antibiotics: [] Assessment/Plan: [] L foot MRSA osteo and septic arthritis - pt refuses surgery. Dr. Henryone to see. I think without surgery chance of antibiotics alone being able to cure this is low. Counseled him he would risk greater limb involvement. Cont vanc/zosyn. Cxs showing staph and gram positives so far. Will follow, thank you.
--- NOTE | 2018-11-22 13:09 | PCM.RX.CS ---
Consult Pharmacy has been consulted to manage selected antiobiotic: Vancomycin Type of Consult: Follow-up Suspected Infection: Osteomyelitis Labs: Sodium 135 mmol/L (136-145) L 11/22/18 05:35 Potassium 3.8 mmol/L (3.5-5.1) 11/22/18 05:35 Chloride 100 mmol/L (98-107) 11/22/18 05:35 Carbon Dioxide 27.0 mmol/L (21.0-32.0) 11/22/18 05:35 Anion Gap 8 (5-15) 11/22/18 05:35 BUN 17 mg/dL (7-18) 11/22/18 05:35 Creatinine 1.18 mg/dL (0.70-1.30) 11/22/18 05:35 Est GFR (MDRD) Af Amer 81 mL/min (>60) 11/22/18 05:35 Est GFR (MDRD) Non-Af 67 mL/min (>60) 11/22/18 05:35 BUN/Creatinine Ratio 14.4 RATIO (10-20) 11/22/18 05:35 Glucose 176 mg/dL (74-106) H 11/22/18 05:35 Microbiology: Microbiology 11/21/18 21:05 Wound - Left Foot Gram Stain - Final 11/21/18 21:05 Wound - Left Foot Wound Culture - Preliminary Staphylococcus species Gram positive organism Weight used for dosin kg Estimated Creatinine Clearance: 64 Goal Trough: 15-20 mcg/mL Pharmacy Plan for Drug Dosing: D/W Kindra. Will increase goal trough to 15-20 mcg/mL. Keep on same schedule, will likely need homegoing antibiotics. Check prior to 4th dose from new schedule. Pharmacy Service will continue to monitor and adjust dosing as required. Follow-Up Labs: Trough Vancomycin - 11/24 @ 6188
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
--- NOTE | 2018-11-22 14:00 | PN_ITS ---
Subjective: Patient seen and examined. Upset that his breakfast has not yet arrived. States he has not eaten in 5 days. Reports he is not going to let anybody take a knife to his foot. Denies fever, chills. Denies pain. - Physical Exam General: Alert, Oriented x3, Cooperative HEENT: Atraumatic, PERRLA, EOMI, Normocephalic Oral: Moist Mucosa Neck: Supple, No JVD, Negative Carotid Bruits Lungs: Clear to auscultation, Normal air movement Cardiovascular: Regular rate, Regular Rhythm, Normal S1, Normal S2, No murmurs Abdomen: Bowel Sounds Present, Soft, Non Tender, Non-Distended Extremities: No clubbing, No cyanosis, No edema, Capillary Refill Less than 3 Seconds Skin: No rashes, - - Left 2nd, 3rd and 5th toe amputations. Left plantar foot wound, dressing applied by podiatry this morning, dressing intact. Musculoskeletal: No Tenderness to Palpation of Joints or Extremities Neurological: Cranial nerves II-XII grossly intact, Neuro grossly intact Psych/Mental Status: Agitated Vital Signs Temp Pulse Resp BP Pulse Ox 97.8 F 56 L 16 148/87 H 100 11/22/18 08:50 11/22/18 08:50 11/22/18 08:50 11/22/18 08:50 11/22/18 08:50 Oxygen Delivery Method Room Air Weight: 177 lb 0.499 oz Body Mass Index (BMI) 26.9 Finger Stick Blood Glucose 279 Intake and Output for Last 24 Hours 11/20/18 11/21/18 11/22/18 23:59 23:59 23:59 Intake Total 2880.4 / 2880.4 Balance 2880.4 / 2880.4 Microbiology Past 72 Hours 11/21/18 21:05 Gram Stain - Final Wound - Left Foot Wound Culture - Preliminary Staphylococcus species Gram positive organism Laboratory Tests Past 24 Hrs 11/21/18 11/21/18 11/21/18 16:15 16:15 21:05 WBC 10.1 RBC 4.08 L Hgb 11.6 L Hct 35.5 L MCV 87.0 MCH 28.4 MCHC 32.7 RDW 12.6 RDW Differential 40.4 Plt Count 280 MPV 10.0 Immature Gran % (Auto) 0.500 Neut % (Auto) 69.2 Lymph % (Auto) 18.1 L [place] % (Auto) 9.8 Eos % (Auto) 1.7 Baso % (Auto) 0.7 Absolute Neuts (auto) 7.0 Absolute Lymphs (auto) 1.82 Total Counted Not Reportable ESR 78 H Sodium 127 L Potassium 4.5 Chloride 93 L Carbon Dioxide 24.0 Anion Gap 10 BUN 22 H Creatinine 1.20 Estim Creat Clear Calc 49.77 Est GFR (MDRD) Af Amer 79 Est GFR (MDRD) Non-Af 65 BUN/Creatinine Ratio 18.3 Glucose 402 H Calcium 9.1 C-React Prot Ext Range 60.70 H S.aureus Protein A PCR POSITIVE H MRSA (PCR) POSITIVE H 11/22/18 05:35 WBC RBC Hgb Hct MCV MCH MCHC RDW RDW Differential Plt Count MPV Immature Gran % (Auto) Neut % (Auto) Lymph % (Auto) [place] % (Auto) Eos % (Auto) Baso % (Auto) Absolute Neuts (auto) Absolute Lymphs (auto) Total Counted ESR Sodium 135 L Potassium 3.8 Chloride 100 Carbon Dioxide 27.0 Anion Gap 8 BUN 17 Creatinine 1.18 Estim Creat Clear Calc 63.60 Est GFR (MDRD) Af Amer 81 Est GFR (MDRD) Non-Af 67 BUN/Creatinine Ratio 14.4 Glucose 176 H Calcium 8.7 C-React Prot Ext Range S.aureus Protein A PCR MRSA (PCR) POC Glucose 11/22/18 11/21/18 11:54 21:23 POC Glucose 189 H 373 H Medical Necessity - Tobacco Use Smoking Status: Never smoker Tobacco Use: Non-smoker Assessment/Plan All Active Problems Infected left foot ulcer (Acute) 1. Left foot MRSA osteomyelitis and septic arthritis secondary to diabetic foot ulceration-history of left second, third and fifth toe amputation and left foot osteomyelitis. Foot x-ray showed stable appearance of the foot with previous septations, and destructive process of the first metatarsophalangeal joint. Current osteomyelitis or septic arthritis cannot be excluded. Abnormal soft tissues with soft tissue air consistent with infection. ESR and CRP elevated. Podiatry consulted. MRSA/MSSA PCR positive. MRI of the left foot shows evidence of osteomyelitis involving the second and third metatarsal heads and also septic joint changes to the first metatarsophalangeal joint complex. Evidence of abscess and fluid collection to the entire submetatarsal head region. Surgical drainage and debridement recommended by podiatry. Patient refusing surgical intervention at this time. ID consulted. IV Zosyn and IV vancomycin. Wound culture showing staph and gram-positive preliminary, final pending. Per ID, chance of cure is low without surgical intervention. PT/OT. Wound RN consult. 2. Type 2 diabetes mellitus, poorly controlled with associated peripheral neuropathy-glucose 402 on admission. Accu-Cheks ACHS with sliding scale insulin. Hemoglobin A1c 11/08/18 14%. Continue home Levemir and mealtime insulin. Adjust as necessary. 3. Hypertension-patient is not currently on regimen. Has been in the past. Started on lisinopril 40 mg daily and HCTZ 25 mg daily. Continue to monitor. 4. Hyponatremia-suspect pseudohyponatremia secondary to hyperglycemia. Improved. Trend BMP. 5. Chronic kidney disease stage II-stable, trend BMP. DVT prophylaxis-Lovenox sc This patient was seen by BAKARI Curtis under the supervision of Dr. Rowan.
[2018-11-22 14:17] VITALS: BP 130/75; PULSE 67; RESP 14; TEMP 36.9; O2SAT 100
--- NOTE | 2018-11-22 14:53 | NURSING ---
pt ambulating childress refusing to return to room. assisted pt to room near nurses station [id number] and obtained vitals and assessment. pt resting comfortably in bed at this time.
--- NOTE | 2018-11-22 15:00 | CASEMGMT ---
SUSHILA CARPENTER NOTE: To room to talk with pt. Intro self and role of SUSHILA CARPENTER. Discussed IV antibiotics with pt and discharge planning. Pt continues to be adamant that he does not want surgery but is agreeable to IV antibiotics. Pt states he has used a [facility] agency in the past but does not remember what agency it was and states no preference of agency on discharge. Talked to pt re: if there is anyone willing/able to learn how to administer IV antibiotics and he states, My mother isn't up to doing that and I don't have anyone else that would be able to either. Discussed option of SNF on discharge and pt stated he would consider it but would like to think about it and wants to wait and see how often IV antibiotics will be needed on discharge and if there would be a C agency available. Pt states has no preference for C agency. Call placed to Jody Larson @ [facility] @ [phone]. She states they are in network with [facility] and they do have [facility] that can administer IV Antibiotics. She states they can go to a pt's home up to 3 x's/day as long as they have staffing to cover this. No referral made as of yet d/t discharge plan, medication and anticipated d/c date is unknown at this time. Pt states that if he would need a walker that his mother has several that I could use. Pt states he usually gets his medication at the [facility] but could get his medication at a local pharmacy if needed but he is unsure of where he would go. He also states he is still active with [facility], stating that he has not cut off the [place] doctors, just that wanted to start seeing another doctor locally. Call placed to [facility]. Spoke with SUSHILA Allen. Pt usually sees Shikha Pearson NP, from [facility]. Alejandro states Yocasta is usually the RN for [facility]. Alejandro states pt was just seen by Shikha Pearson NP, on Oct 26, 2018. States he does not have any follow-up appt's scheduled. He also states pt has seen the steamship agent @ the [place], but that he has not been seen by podiatry since 09/2017 and has no follow-up appts scheduled. Alejandro is aware that pt just recently started seeing a PCP from [place], [place]. [facility] *Alejandro asks if discharge summary/instructions can be faxed to [facility] on discharge @ . Call placed to Dr Topete's office. They stated pt's appt today was already cancelled with them. Ju MCKENNAN RN CM
[2018-11-22 15:19] LABS: Absolute Lymphocyte Count 3.39 X10^3/ul (0.83-4.51); Absolute Neutrophil Count 5.3 X10^3/uL (2.0-7.7); Basophil# 0.08 X10^3/uL; Basophil% 0.8 % (0-1); Eosinophil# 0.35 X10^3/uL; Eosinophils% 3.5 % (0-5); Hematocrit 33.3 % (40-54); Lymphocyte # 3.39 X10^3/ul (4.0); Mean Corpuscular Hgb 28.1 pg (27.0-32.0); Mean Corpuscular Volume 85.2 fL (80-94); Mean Platelet Vol. 9.3 fl (6.2-12.0); Monocyte# 0.81 X10^3/uL; Monocyte% 8.1 % (0-10); Neutrophil # 5.29 X10^3/uL (2.7-7.7); Platelet Count 346 K/mm3 (150-450); RBC Distribution Width CV 12.7 % (11.6-14.6); RBC Distribution Width SD 38.9 fl (35.1-43.9); Red Blood Count 3.91 M/mm3 (4.6-6.2)
[2018-11-22 15:22] LABS: POSITIVE COUNT NO; POSITIVE DIFFERENTIAL NO; POSITIVE MORPHOLOGY NO
[2018-11-22 16:56] LABS: Bedside Glucose 93 mg/dL (70-110)
[2018-11-22 22:22] VITALS: BP 109/70; PULSE 87; RESP 18; TEMP 37; O2SAT 99
[2018-11-22] MEDS: 0.9% NaCl Peripheral Flush Adult/Peds IV (22:42)
[2018-11-22 23:20] LABS: Bedside Glucose 145 mg/dL (70-110)
[2018-11-23 05:00] VITALS: BP 130/80; PULSE 79; RESP 20; TEMP 37.3; O2SAT 100
[2018-11-23] MEDS: 0.9% NaCl Peripheral Flush Adult/Peds IV ×2 (06:35→14:23)
[2018-11-23] MEDS: Insulin Lispro 100 UNIT/ML INSULN.PEN SQ ×3 (08:18→22:41)
[2018-11-23] MEDS: Insulin Lispro 100 UNIT/ML INSULN.PEN 10 UNIT SC ×3 (08:18→17:05)
--- NOTE | 2018-11-23 10:33 | PCM.PN.ID ---
Subjective: Calmer this AM. No fever, denies pain in foot. No n/v/d. - Physical Exam General: Alert, Cooperative, No apparent distress Lungs: Clear to auscultation, Normal air movement Cardiovascular: Regular rate, Regular Rhythm Abdomen: Soft, Non Tender, Non-Distended Skin: Ulcer/ Wound - foot wrapped Vital Signs Temp Pulse Resp BP Pulse Ox 99.1 F 79 20 H 130/80 H 100 11/23/18 05:00 11/23/18 05:00 11/23/18 05:00 11/23/18 05:00 11/23/18 05:00 Oxygen Delivery Method Room Air Weight: 80.3 kg Body Mass Index (BMI) 26.9 Finger Stick Blood Glucose 279 Intake and Output for Last 24 Hours 11/21/18 11/22/18 11/23/18 23:59 23:59 23:59 Intake Total 3742.4 / 3742.4 829 / 829 Balance 3742.4 / 3742.4 829 / 829 Microbiology Past 72 Hours 11/21/18 21:05 Gram Stain - Final Wound - Left Foot Wound Culture - Preliminary Staphylococcus species Gram positive organism Laboratory Tests Past 24 Hrs 11/22/18 14:45 WBC 10.0 RBC 3.91 L Hgb 11.0 L Hct 33.3 L MCV 85.2 MCH 28.1 MCHC 33.0 RDW 12.7 RDW Differential 38.9 Plt Count 346 MPV 9.3 Immature Gran % (Auto) 0.600 Neut % (Auto) 53.0 Lymph % (Auto) 34.0 [place] % (Auto) 8.1 Eos % (Auto) 3.5 Baso % (Auto) 0.8 Absolute Neuts (auto) 5.3 Absolute Lymphs (auto) 3.39 Total Counted Not Reportable POC Glucose 11/22/18 11/22/18 11/22/18 22:20 16:45 11:54 POC Glucose 145 H 93 189 H Medical Necessity - Tobacco Use Smoking Status: Never smoker Tobacco Use: Non-smoker Route of nutrition/ use of supplements: [] Nutritional Intake: [] IV Site: [] Crawley Catheter: [] - Assessment/Plan Antibiotics: [] Assessment/Plan: [] 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 Counseled him he would risk greater limb involvement. Cont vanc/zosyn. Cxs showing staph and gram positives so far. He is now willing to consider surgical debridement (not amputation) and ECF placement. Will follow, d/w case management.
--- NOTE | 2018-11-23 10:35 | CASEMGMT ---
RN CM Note: Per Dr. Luna, pt is agreeable to short term SNF stay and debridement of wound. He contacted Dr. Bailon. Referral to [facility] for possible SNF placement. Pt will need IV antibiotics on discharge. Gen MCKENNAN RN AC
[2018-11-23 10:54] VITALS: BP 98/62; PULSE 74; RESP 16; TEMP 36.6; O2SAT 100
[2018-11-23] MEDS: Calcium Carbonate 500 MG Tablet 1000 MG PO (10:58)
[2018-11-23] MEDS: Glucerna Shake 120 ML LIQUID PO ×3 (10:58→22:41)
[2018-11-23 11:15] LABS: Bedside Glucose 217 mg/dL (70-110)
[2018-11-23 11:55] LABS: Bedside Glucose 279 mg/dL (70-110)
--- NOTE | 2018-11-23 12:35 | NURSING ---
Sister Jaquelin came in and was asking about patient. She states that she has been assisting patient and their mother and is attempting to get them into an assisted living facility within the next 2 weeks or so. She states that [facility] and that they wanted a local doctor and went to Dr. Fletcher. She states that he was here this past Tuesday for blood work and that they haven't had the chance to get back to his office yet. She states that she is very concerned about his dementia and is wondering if there is anything that can be done here. She states that Dr. Fletcher had been working on- testing regarding confusion/ dementia. Notified that since this isn't the diagnosis pt came in for and due to it being chronic issue to make sure that he continues to follow Dr. Fletcher- but that hospitalist will be made aware.
[2018-11-23 14:03] VITALS: BP 135/76; PULSE 77; RESP 18; TEMP 36.6; O2SAT 98
--- NOTE | 2018-11-23 14:32 | PN_ITS ---
Subjective: This 63-year-old male with significant past medical history of diabetes with neuropathy was seen bedside for follow-up of left foot infection with abscess and osteomyelitis and septic joint. He is calmer this afternoon. He denies fever, chill, nausea, vomiting. I was informed by another provider that he may consider surgical debridement but not amputation. This option was discussed this afternoon and he continues to refuse any surgical intervention. He is amenable to proceed with antibiotics and a washout today bedside with continued wound care. - Physical Exam General: Alert, Cooperative - intermittent, Confused - intermittent Extremities: No cyanosis, Capillary Refill Less than 3 Seconds, No Calf Tenderness - Negative Aric and Bowman, Diminished Peripheral Pulses - Palpable dorsalis pedis pulse 2 out of 4, - - Digital remaining deformities of the first and fourth toe with prominent metatarsal head left foot Skin: Ulcer/ Wound - The erythema and streaking have resolved. There is continued edema and odor. There is no continued yousif purulence on expression. There is no eschar. There is continued probe to bone and fluctuance on palpation plantarly. The wound bed is fibrous and granular with deep devitalized tissue Musculoskeletal: No Tenderness to Palpation of Joints or Extremities, Muscle Wasting Neurological: - - Lack of epicritic sensation light touch consistent with neuro [place] left lower extremity Psych/Mental Status: Normal Affect, Appropriate Vital Signs Temp Pulse Resp BP Pulse Ox 97.9 F 77 18 135/76 H 98 11/23/18 14:03 11/23/18 14:03 11/23/18 14:03 11/23/18 14:03 11/23/18 14:03 Oxygen Delivery Method Room Air Weight: 80.3 kg Body Mass Index (BMI) 26.9 Finger Stick Blood Glucose 279 Intake and Output for Last 24 Hours 11/21/18 11/22/18 11/23/18 23:59 23:59 23:59 Intake Total 3742.4 / 3742.4 1429 / 1429 Balance 3742.4 / 3742.4 1429 / 1429 Microbiology Past 72 Hours 11/21/18 21:05 Gram Stain - Final Wound - Left Foot Wound Culture - Preliminary Staphylococcus aureus Gram positive organism Gram negative carrington Laboratory Tests Past 24 Hrs 11/22/18 14:45 WBC 10.0 RBC 3.91 L Hgb 11.0 L Hct 33.3 L MCV 85.2 MCH 28.1 MCHC 33.0 RDW 12.7 RDW Differential 38.9 Plt Count 346 MPV 9.3 Immature Gran % (Auto) 0.600 Neut % (Auto) 53.0 Lymph % (Auto) 34.0 [place] % (Auto) 8.1 Eos % (Auto) 3.5 Baso % (Auto) 0.8 Absolute Neuts (auto) 5.3 Absolute Lymphs (auto) 3.39 Total Counted Not Reportable POC Glucose 11/23/18 11/23/18 11/22/18 11:34 08:05 22:20 POC Glucose 279 H 217 H 145 H 11/22/18 16:45 POC Glucose 93 Medical Necessity - Tobacco Use Smoking Status: Never smoker Tobacco Use: Non-smoker Assessment/Plan All Active Problems Infected left foot ulcer (Acute) Left foot abscess and osteomyelitis Diabetes with neuropathy Previous amputations left foot Forefoot deformities left Other comorbidities I reviewed and discussed the case this afternoon with the patient during his clinical examination. Copious saline irrigation was performed with 1 mL. Antimicrobial with gauze was packed into the wound bed with additional saline wet-to-dry. I recommend this is changed daily. I do recommend surgical drainage and debridement of nonviable tissue including up to a transmetatarsal amputation. He refuses amputation and he also refuses any debridement or drainage procedure in the operating room. He is adamant about this decision and he would like to proceed with antibiotics. He has been informed that this is not expected to be a curative treatment approach. Input by infectious disease physician is greatly appreciated. Medical management per primary team is appreciated. It is noted that he had a MRSA positive PCR. His culture results are growing Staphylococcus aureus, gram-positive and gram- negative rods. He continues on vancomycin and Zosyn. I recommend he only places weight on his heel for transfers at this time and a surgical shoe will be provided. Nutrition supplement and continued proper glycemic control is recommended to optimize healing. I answered his questions. I will follow him while in house. Upon discharged I recommend he follow-up with the wound healing center. Vashti Bailon DPM, [facility] [phone]
--- NOTE | 2018-11-23 14:43 | PCM.PROGNOTE ---
Subjective: Pt intermittently agitated. Currently calm, in chair. He does have some pain and neuropathy of the LLE. He has no fever/ chills. He primarily complains about the delay in receiving food after ordering food, and that he has acid reflux that pepcid isnt helping. No n/v. - Physical Exam General: Alert, Oriented x3, Cooperative HEENT: Atraumatic, PERRLA, EOMI, Normocephalic Neck: Supple, No JVD, Negative Carotid Bruits Lungs: Clear to auscultation, Normal air movement Cardiovascular: Regular rate, No murmurs Abdomen: Bowel Sounds Present, Soft, Non Tender Extremities: No edema, Capillary Refill Less than 3 Seconds Skin: No rashes, No breakdown Musculoskeletal: No Tenderness to Palpation of Joints or Extremities, - - extremity dressed appopriately. Neurological: Cranial nerves II-XII grossly intact Psych/Mental Status: Normal Affect, Appropriate Vital Signs Temp Pulse Resp BP Pulse Ox 97.9 F 77 18 135/76 H 98 11/23/18 14:03 11/23/18 14:03 11/23/18 14:03 11/23/18 14:03 11/23/18 14:03 Oxygen Delivery Method Room Air Weight: 177 lb 0.499 oz Body Mass Index (BMI) 26.9 Finger Stick Blood Glucose 279 Intake and Output for Last 24 Hours 11/21/18 11/22/18 11/23/18 23:59 23:59 23:59 Intake Total 3742.4 / 3742.4 1429 / 1429 Balance 3742.4 / 3742.4 1429 / 1429 Microbiology Past 72 Hours 11/21/18 21:05 Gram Stain - Final Wound - Left Foot Wound Culture - Preliminary Staphylococcus aureus Gram positive organism Gram negative carrington Laboratory Tests Past 24 Hrs 11/22/18 14:45 WBC 10.0 RBC 3.91 L Hgb 11.0 L Hct 33.3 L MCV 85.2 MCH 28.1 MCHC 33.0 RDW 12.7 RDW Differential 38.9 Plt Count 346 MPV 9.3 Immature Gran % (Auto) 0.600 Neut % (Auto) 53.0 Lymph % (Auto) 34.0 [place] % (Auto) 8.1 Eos % (Auto) 3.5 Baso % (Auto) 0.8 Absolute Neuts (auto) 5.3 Absolute Lymphs (auto) 3.39 Total Counted Not Reportable POC Glucose 11/23/18 11/23/18 11/22/18 11:34 08:05 22:20 POC Glucose 279 H 217 H 145 H 11/22/18 16:45 POC Glucose 93 Medical Necessity - Tobacco Use Smoking Status: Never smoker Tobacco Use: Non-smoker Assessment/Plan All Active Problems Infected left foot ulcer (Acute) 1. LLE cellulitis/osteomyelitis/septic arthritis - ID following. Podiatry following. Pt refused surgery again after seeing podiatry - washout done and care instructions noted on chart. No fever/leukocytosis. Continue vanc and zosyn. Cultures pending. CRP 60 ESR 78. Without surgical intervention, this will likely not heal, and is potentially lethal. If he does not improve with abx and continues to refuse surgery, would likely benefit from palliative / hospice consideration. 2. T2DM - october a1c 14. Continue current regiment of insulins and titrate. fluctuant but overall improved. 3. HTN - stable. Will need new rx at dc. 4. Pseudohyponatremia 2/2 poorly controlled t2dm - improved. 5. CKDII - stable DVT ppx: lovenox DC planning: PTOT, needs SNF, will need IV abx. Consider palliative consult. This patient was seen by Ever Lozada PA-C under the supervision of Doctor Rowan.
--- NOTE | 2018-11-23 14:49 | CASEMGMT ---
RN CM Note: Intro role of CM to patient. [facility] explained. Pt does not wish to transfer to [facility] and is aware [facility] stay will be billed to insurance. Form signed and faxed to [facility] with clinicals. -Per Dr. Rowan- pt is agreeable to go to SNF on dc. Will likely need Vancomycin and another IV antibiotic. No I/D planned at this time. [facility] updated and will work on SNF placement. -PICC line needed prior to dc. Gen MCKENNAN RN ACM
--- NOTE | 2018-11-23 15:07 | CASEMGMT ---
SW informed pt will need SNF placement and pt is agreeable. SW met w/pt in room, reviewed the idea of going to a fpc for the IV antibiotics. Pt stated that this was not a bad idea. After much redirection, pt agreeable to a referral being sent to [facility]. SW called [facility], spoke w/Erin and faxed referral. SW will continue to follow. ANTONETTE Steen, ASSISTANT BRANCH MANAGER
--- NOTE | 2018-11-23 15:23 | NURSING ---
PT REFUSES TO WEAR SURGICAL SHOE.
--- NOTE | 2018-11-23 15:25 | NURSING ---
Notified Florin with head loader of order for PICC placement.
[2018-11-23] MEDS: Pantoprazole Sodium 40 MG Tablet PO (15:51)
[2018-11-23] MEDS: Acetaminophen 325 MG Tablet 650 MG PO (15:51)
[2018-11-23] MEDS: oxyCODONE 5 MG Tablet PO (16:29)
[2018-11-23 17:02] VITALS: BP 169/87; PULSE 66; RESP 18; TEMP 36.9; O2SAT 100
[2018-11-23 17:15] LABS: Bedside Glucose 98 mg/dL (70-110)
[2018-11-23] MEDS: Vancomycin IV 1,000 MG/200 ML BAG 200 MG IV (19:04)
[2018-11-23 22:05] VITALS: BP 133/67; PULSE 82; RESP 18; TEMP 37; O2SAT 100
[2018-11-23 22:55] LABS: Bedside Glucose 335 mg/dL (70-110)
[2018-11-24 03:58] VITALS: BP 148/90; PULSE 72; RESP 18; TEMP 37.3; O2SAT 100
--- NOTE | 2018-11-24 05:35 | NURSING ---
Pt can get confused and his mother stated he has undiagnosed dementia. Pt is forgetful and impulsive, twice during the shift he has snapped his Iv tubing running to his picc line in half. PICC line was inserted last night 11/23/18.
[2018-11-24] MEDS: Vancomycin IV 1,000 MG/200 ML BAG 200 MG IV (05:49)
[2018-11-24] MEDS: Enoxaparin 40 MG/0.4 ML Syringe SC (05:49)
[2018-11-24] MEDS: 0.9% NaCl Peripheral Flush Adult/Peds IV ×3 (05:50→13:55)
[2018-11-24 06:22] LABS: Anion Gap 8 (5-15); BUN 14 mg/dL (7-18); BUN/Creat Ratio 9.9 RATIO (10-20); Calcium,Total 8.6 mg/dL (8.5-10.1); Chloride 101 mmol/L (98-107); Creatinine, Serum 1.41 mg/dL (0.70-1.30); EST Glomerular Filtration Rate 54 mL/min (>60); Est Glom Filt Rate - Afr Amer 66 mL/min (>60); Estimated Creatinine Clearance 53.23 ml/min; Glucose 225 mg/dL (74-106); Sodium Level 136 mmol/L (136-145)
[2018-11-24 06:24] LABS: Vancomycin, Trough Level 16.5 ug/mL (5.0-15.0)
--- NOTE | 2018-11-24 06:42 | PCM.RX.CS ---
Consult Pharmacy has been consulted to manage selected antiobiotic: Vancomycin Type of Consult: Follow-up Suspected Infection: Skin/Soft tissue Prior Doses of Antibiotics Received/Current Regimen: Medications Vancomycin HCl (Vancomycin) 1,000 mg in 200 mls @ 200 mls/hr IV Q12H SARITHA Last Admin: 11/24/18 05:49 Dose: 200 mls/hr Labs: Sodium 136 mmol/L (136-145) 11/24/18 05:40 Potassium 4.0 mmol/L (3.5-5.1) 11/24/18 05:40 Chloride 101 mmol/L (98-107) 11/24/18 05:40 Carbon Dioxide 27.0 mmol/L (21.0-32.0) 11/24/18 05:40 Anion Gap 8 (5-15) 11/24/18 05:40 BUN 14 mg/dL (7-18) 11/24/18 05:40 Creatinine 1.41 mg/dL (0.70-1.30) H 11/24/18 05:40 Est GFR (MDRD) Af Amer 66 mL/min (>60) 11/24/18 05:40 Est GFR (MDRD) Non-Af 54 mL/min (>60) L 11/24/18 05:40 BUN/Creatinine Ratio 9.9 RATIO (10-20) L 11/24/18 05:40 Glucose 225 mg/dL (74-106) H 11/24/18 05:40 Vancomycin Trough 16.5 ug/mL (5.0-15.0) H 11/24/18 05:40 Microbiology: Microbiology 11/21/18 21:05 Wound - Left Foot Gram Stain - Final 11/21/18 21:05 Wound - Left Foot Wound Culture - Preliminary Staphylococcus aureus Gram positive organism Gram negative carrington Weight used for dosin.3 kg Estimated Creatinine Clearance: 53 Goal Trough: 10-15 mcg/mL Pharmacy Plan for Drug Dosing: Trough level of 16.5 was slightly over target of 10-15. Will continue same dose of 1g q12h and redraw trough in 4 doses. Pharmacy Service will continue to monitor and adjust dosing as required. Follow-Up Labs: Trough Vancomycin Labs to be done on [date and time ordered]: 11/25/18 @2003
[2018-11-24 07:11] LABS: Bedside Glucose 248 mg/dL (70-110)
[2018-11-24] MEDS: Insulin Lispro 100 UNIT/ML INSULN.PEN SQ ×2 (08:16→12:19)
[2018-11-24] MEDS: Insulin Lispro 100 UNIT/ML INSULN.PEN 10 UNIT SC ×2 (08:16→12:20)
--- NOTE | 2018-11-24 09:47 | PN_ITS ---
Subjective: This 63-year-old male with diabetic neuropathy was seen bedside for infected left foot. He denies pain, fever, chill, nausea, vomiting. He is pleasant and eating breakfast this morning. He is amenable to have a dressing change and irrigation, but not surgery. - Physical Exam General: Alert, Oriented x3, Cooperative Extremities: Capillary Refill Less than 3 Seconds - Hallux and remaining lesser toe, No Calf Tenderness - Negative Aric and Bowman bilateral, Diminished Peripheral Pulses - weak pt , 2/4 DP; left, Edema - Lower extremity, - - No pain with wound manipulation Skin: Ulcer/ Wound - Erythema and edema have resolved. There is still an odor however it is not as foul. There is no additional purulence on expression. The wound bed is granular and fibrous and devitalized. The open skin discontinuity is at the second and third distal metatarsal regions with deep probing to bones and the plantar foot Musculoskeletal: No Tenderness to Palpation of Joints or Extremities, Muscle Wasting, - - Central toe amputations noted. Compartments remain soft left foot Neurological: - - Lack of normal epicritic sensation light touch consistent with neuropathy left foot Psych/Mental Status: Normal Affect, Appropriate Vital Signs Temp Pulse Resp BP Pulse Ox 99.2 F H 72 18 148/90 H 100 11/24/18 03:58 11/24/18 03:58 11/24/18 03:58 11/24/18 03:58 11/24/18 03:58 Oxygen Delivery Method Room Air Weight: 80.3 kg Body Mass Index (BMI) 26.9 Finger Stick Blood Glucose 279 Intake and Output for Last 24 Hours 11/22/18 11/23/18 11/24/18 23:59 23:59 23:59 Intake Total 3742.4 / 3742.4 2409 / 2409 480 / 480 Balance 3742.4 / 3742.4 2409 / 2409 480 / 480 Microbiology Past 72 Hours 11/21/18 21:05 Gram Stain - Final Wound - Left Foot Wound Culture - Preliminary Meth. resistant Staph. aureus Strep anginosus Klebsiella pneumoniae sp pneum Anaerobic Culture - Preliminary Checking for anaerobes, further studies to follow. Laboratory Tests Past 24 Hrs 11/24/18 11/24/18 05:40 05:40 Sodium 136 Potassium 4.0 Chloride 101 Carbon Dioxide 27.0 Anion Gap 8 BUN 14 Creatinine 1.41 H Estim Creat Clear Calc 53.23 Est GFR (MDRD) Af Amer 66 Est GFR (MDRD) Non-Af 54 L BUN/Creatinine Ratio 9.9 L Glucose 225 H Calcium 8.6 Vancomycin Trough 16.5 H POC Glucose 11/24/18 11/23/18 11/23/18 07:06 22:35 17:00 POC Glucose 248 H 335 H 98 11/23/18 11/23/18 11:34 08:05 POC Glucose 279 H 217 H Medical Necessity - Tobacco Use Smoking Status: Never smoker Tobacco Use: Non-smoker Assessment/Plan All Active Problems Infected left foot ulcer (Acute) Left foot abscess and osteomyelitis Diabetes with neuropathy Previous amputations left foot Forefoot deformities left Other comorbidities Clinical improvement is noted and his foot is stabilizing. Morning CBC is pending. His vitals are stable. Copious saline irrigation was performed with 1 L. Betadine soaked gauze was packed into the wound bed with additional saline wet-to-dry. I recommend this is changed daily. He is only amendable to proceed with non surgical intervention regardless of the recommendations. To continue with IV antibiotics and local wound care at this time. Infectious disease input is greatly appreciated. Medical management per primary team is appreciated. He continues on vancomycin and Zosyn. I recommend he only places weight on his heel for transfers at this time and a surgical shoe will be provided. Nutrition supplement and continued proper glycemic control is recommended to optimize healing. I answered his questions. I will follow him while in house. Upon discharged I recommend he follow-up with the wound healing center. Vashti Bailon DPM, [facility] [phone]
[2018-11-24 10:01] LABS: Hematocrit 35.1 % (40-54); Hemoglobin 11.5 g/dl (13.0-16.5); Mean Corp Hgb Conc 32.8 g/gl (32-36); Mean Corpuscular Hgb 27.9 pg (27.0-32.0); Mean Corpuscular Volume 85.2 fL (80-94); Mean Platelet Vol. 9.6 fl (6.2-12.0); POSITIVE COUNT YES; POSITIVE DIFFERENTIAL NO; POSITIVE MORPHOLOGY YES; Platelet Count 391 K/mm3 (150-450); RBC Distribution Width CV 12.9 % (11.6-14.6); RBC Distribution Width SD 39.8 fl (35.1-43.9); Red Blood Count 4.12 M/mm3 (4.6-6.2); White Blood Count 8.3 K/mm3 (4.4-11.0)
[2018-11-24 10:02] LABS: Differential Indicated MANUAL DIFF
--- NOTE | 2018-11-24 10:18 | CASEMGMT ---
Addendum entered by Lainey Ramírez 11/24/18 11:07: SW spoke w/Erin at [facility], they have precert. The IV's have changed however, LEONIDES called Erin and left a message, faxed the new orders. LEONIDES left Erin a message to let her know the IV antibiotic scripts are being faxed over and to let this SW know if pt can still come today. ANTONETTE Steen, HEEL TURNER Original Note: Addendum entered by Lainey Ramírez 11/24/18 10:28: staffing clerk report pt's mother came in yesterday and was confused, drove here. A sister of either the pt's or mother's was also in, her name is Phoebe Berg, and she states she is working on getting both pt and pt's mother into assisted living. LEONIDES called [facility], message left in regard to pt's mother. ANTONETTE Steen, HEEL TURNER Original Note: [facility] is able to take pt, asking when to start precert. It is still not definite what antibiotics pt will need at discharge. LEONIDES called [facility], message left letting Erin know what IV's pt is on now, and faxed the med list. LEONIDES explained this may change, if she is able to start precert without the definite IV meds she can do so, otherwise SW will call her back once we know the IV's for certain. LEONIDES will continue to follow. ANTONETTE Steen, HEEL TURNER
[2018-11-24 10:31] VITALS: BP 159/81; PULSE 77; RESP 18; TEMP 36.6; O2SAT 100
[2018-11-24] MEDS: Lisinopril 40 MG Tablet PO (10:34)
[2018-11-24] MEDS: Pantoprazole Sodium 40 MG Tablet PO (10:34)
[2018-11-24] MEDS: hydroCHLOROthiazide 25 MG Tablet PO (10:34)
[2018-11-24 10:37] LABS: Basophil 3 % (0-1); Eosinophil 2 % (0-5); Lymphocyte 33 % (19-41); Monocyte 5 % (0-10); Myelocyte 1 (0-0); Neutrophil-Segmented 51 % (47-70); Plasma Cell 3 %; Platelet Estimate ADEQUATE (ADEQ); Promyelocyte 2 (0-0); Red Cell Morphology NORM C+C NORMAL (NORM C&C); Total Cells Counted 100 (MANUAL DIFF)
[2018-11-24 10:38] LABS: Absolute Neutrophil Count 4.2 X10^3/uL (2.0-7.7)
[2018-11-24 10:39] LABS: Absolute Lymphocyte Count 2.74 X10^3/ul (0.83-4.51); Lymphocyte # 2.74 X10^3/ul (4.0)
--- NOTE | 2018-11-24 11:18 | PCM.EXTCARCO ---
- Diet 11/22/18 08:25 Diet: Carbohydrate Controlled Food consistency:: Mechanical Soft/Ground Is pt able to select menu?: No Diet Comments: likes fish,meatloaf,beef tips, very soft easy to chew foods please, no peas - Routine Orders/Code Status Suppository Type: Dulcolax 10mg Suppository Frequency: Daily PRN Routine Lab Work: CBC - 1 week, BMP - 1 week - Wound(s) left foot Wound Type: Neuropathic/Diabetic Foot Ulcer Dressing Change: Betadine soaked gauze was packed into the wound bed with additional saline wet-to-dry. I recommend this is changed daily. - Therapies Weight Bearing: recommend he only places weight on his heel for transfers at this time and use the surgical shoe. - Per Podiatry Physical Therapy: Eval and Treat Occupational Therapy: Eval and Treat - Problem/Diagnosis (1) Osteomyelitis Status: Acute Current Visit: No (2) Infected left foot ulcer Status: Acute Current Visit: No (3) Dementia Status: Chronic Current Visit: Yes (4) Chronic ulcer of left foot with necrosis of muscle Status: Chronic Current Visit: Yes (5) Malnutrition Status: Chronic Current Visit: Yes (6) Diabetes mellitus with polyneuropathy Status: Chronic Current Visit: No (7) Hypertension Status: Chronic Current Visit: No (8) Left second and third toe amputation Status: Chronic Current Visit: No (9) Renal insufficiency Status: Chronic Current Visit: No (10) Type 2 diabetes mellitus Status: Chronic Current Visit: No - Allergies/Procedures Done in Hospital Allergies/Adverse Reactions: Allergies No Known Allergies Allergy (Verified 11/21/18 15:22) Procedures: None - Type of Care/Length of Stay Estimated LOS: Convalescent Care Less Than 30 days Type of Care Needed: Skilled Rehab Potential: Fair Prognosis: Fair - Additional Orders/Day of Discharge Day of Discharge: 11/24/18 - Dietary and Speech Recommendations Dietitian Recommendations/Changes: Check A1C. No dentures- will provide soft foods. Rec continue CHO controlled diet. Rec 1 packet Gerard BID for wound healing. Continue Glucerna 120 mL 4x/day until adequate PO at meals is established. - Follow Up Care Primary Care Physician: Tony Topete MD [Primary Care Provider] - Please follow up with your Primary Care Physician in: 1-2 weeks Please Follow Up With: Vashti Bailon DPM When: 1 week Please Follow Up With: Kingston Luna MD When: 1-2 weeks
--- NOTE | 2018-11-24 11:54 | PCM.PN.ID ---
Subjective: Feeling ok, no fever, no issues with picc. - Physical Exam General: Alert, Cooperative, No apparent distress Lungs: Clear to auscultation, Normal air movement Cardiovascular: Regular rate, Regular Rhythm Abdomen: Soft, Non Tender, Non-Distended Skin: Ulcer/ Wound - foot wrapped Vital Signs Temp Pulse Resp BP Pulse Ox 97.8 F 77 18 159/81 H 100 11/24/18 10:31 11/24/18 10:31 11/24/18 10:31 11/24/18 10:31 11/24/18 10:31 Oxygen Delivery Method Room Air Weight: 80.3 kg Body Mass Index (BMI) 26.9 Finger Stick Blood Glucose 279 Intake and Output for Last 24 Hours 11/22/18 11/23/18 11/24/18 23:59 23:59 23:59 Intake Total 3742.4 / 3742.4 2409 / 2409 480 / 480 Balance 3742.4 / 3742.4 2409 / 2409 480 / 480 Microbiology Past 72 Hours 11/21/18 21:05 Gram Stain - Final Wound - Left Foot Wound Culture - Preliminary Meth. resistant Staph. aureus Strep anginosus Klebsiella pneumoniae sp pneum Gram positive carrington Anaerobic Culture - Preliminary Checking for anaerobes, further studies to follow. Laboratory Tests Past 24 Hrs 11/24/18 11/24/18 11/24/18 05:40 05:40 05:40 WBC 8.3 RBC 4.12 L Hgb 11.5 L Hct 35.1 L MCV 85.2 MCH 27.9 MCHC 32.8 RDW 12.9 RDW Differential 39.8 Plt Count 391 MPV 9.6 Neut % (Auto) Not Reportable Absolute Neuts (auto) 4.2 Absolute Lymphs (auto) 2.74 Total Counted 100 Neutrophils % (Manual) 51 Lymphocytes % (Manual) 33 Monocytes % (Manual) 5 Eosinophils % (Manual) 2 Basophils % (Manual) 3 H Myelocytes % 1 H Promyelocytes % 2 H Plasma Cell % (Manual) 3 Diff Path Review May foll Platelet Estimate ADEQUATE RBC Morphology NORM C+C Sodium 136 Potassium 4.0 Chloride 101 Carbon Dioxide 27.0 Anion Gap 8 BUN 14 Creatinine 1.41 H Estim Creat Clear Calc 53.23 Est GFR (MDRD) Af Amer 66 Est GFR (MDRD) Non-Af 54 L BUN/Creatinine Ratio 9.9 L Glucose 225 H Calcium 8.6 Vancomycin Trough 16.5 H POC Glucose 11/24/18 11/23/18 11/23/18 07:06 22:35 17:00 POC Glucose 248 H 335 H 98 11/23/18 11:34 POC Glucose 279 H Medical Necessity - Tobacco Use Smoking Status: Never smoker Tobacco Use: Non-smoker Route of nutrition/ use of supplements: [] Nutritional Intake: [] IV Site: [] Crawley Catheter: [] - Assessment/Plan Antibiotics: [] Assessment/Plan: [] 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 Counseled him he would risk greater limb involvement. Cont vanc/zosyn. Cxs showing MRSA, k.pneumo, and strep. Will narrow abx to vanc/ceftriaxone and po flagyl, stop date 01/01/19. Weekly bmp, cbc, esr, and vanc trough. ID followup in 2-3 weeks. Rx written. Will follow, d/w case management.
--- NOTE | 2018-11-24 12:15 | NURSING ---
Patient's sister, Glory Aaron called in at this time and requested to know plan of care- was able to speak with psych social worker Lainey. Glory states her phone number is . She states that patient's son is GUILLERMO Retana, S.W. has phone number for him and will notify him of plan. Patient's mother called in and had home health aide ask this RN if pt will be d/c'ed home today. She states that patient called and notified her of home d/c. Notified that patient will not be coming home today but instead will need to go to a facility for IV antibiotics. Patient's mother relieved- denied further questions.
[2018-11-24] MEDS: metroNIDAZOLE 500 MG Tablet PO (12:16)
--- NOTE | 2018-11-24 12:20 | CASEMGMT ---
Addendum entered by Lainey Ramírez 11/24/18 13:38: APS called back and left a message, SW called back and left Maria Isabel a message regarding concerns for this pt's mother at home. ANTONETTE Steen [facility] Original Note: Addendum entered by Lainey Ramírez 11/24/18 13:06: SW spoke w/Erin, gave her this pt's sister's and son's contact information, and she is aware pt is set up to leave at 2pm today. ANTONETTE Steen, DESKTOP ANALYST Original Note: SW received a message from Erin at [facility] saying pt can come today with the change in antibiotics. LEONIDES completed the hospital exemption, faxed this along w/discharge instructions to [facility], also faxed information regarding pt's PICC line. Pt's sister Keyana Ferraro([phone]) called in, SW spoke w/her. Keyana explained that pt has memory issue, and has for some time. She states pt does not have any formal psychiatric diagnoses. She states she was trying to get pt and their mother into assisted living, pt's mother is insisting on staying at home. Keyana states their mother does have someone who comes in to help her a few times per week, and that there is another son who lives in the basement--though is not willing to help too much. Keyana also confirmed pt does have several children, and his son in [place] is trying to get pt to move down there into assisted living, he is trying to get pt on Medicaid in [place]. This son, Mejia(Alessio) Presley III is actually pt's POA. LEONIDES asked pt's sister to bring those papers into the hospital and to [facility] so copies can be placed on the chart. She states will do so. Keyana also gave SW pt's son's number([phone]), SW will call him shortly. LEONIDES explained to Keyana pt will be going to [facility] from here, will call her back with what time pt is leaving. She states is okay to leave a message if she does not answer, states she is relieved pt is going to a prison as she does not feel pt would be able to manage the IV antibiotics at home. LEONIDES set up a 2pm ambulance w/[facility]. SW let pt know he will be leaving today at 2pm, to [facility]. Pt still agreeable to go, states his family will not know where he is, and he has not been able to reach them. SW let pt know that SW just spoke w/his sister Keyana and let her know he is going to [facility], let him know will call Keyana back to let her know what time pt is going and will put him on the phone w/her should she answer. Pt states she never answers. SW let him know if SW leaves her a message will let her know that pt would like to speak w/her. SW left a message for Erin at [facility] letting her know pt is leaving at 2pm and to call this SW back for numbers for pt's family members. SW called sister Keyana, did leave a message letting her know pt is leaving at 2pm. SW also gave her the number to [facility] and to the pt's room here, asked if she would call him as pt would like to speak w/her. LEONIDES called pt's son and POA as identified by his sister, Mejia([place]), at the number listed above. He did not continuous pickling line pickler however and his voicemail is full. ANTONETTE Steen, DESKTOP ANALYST
[2018-11-24 12:25] LABS: Bedside Glucose 295 mg/dL (70-110)
--- NOTE | 2018-11-24 13:09 | DS.PCM_ITS ---
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 Current osteomyelitis or septic arthritis cannot be excluded. Abnormal soft tissues with soft tissue air consistent with infection. MRI/Lower Ext No Joint W/WO Cont IMPRESSION: Sequelae of septic arthritis of the first metatarsophalangeal joint with bone edema of the distal first metatarsal and first proximal phalanx with contrast enhancement suggestive of chronic osteomyelitis, substantially decreased since the prior study. Ill-defined fluid collections with mild peripheral contrast enhancement forefoot distal to the third and fourth metatarsals suggesting a phlegmon without a drainable abscess at this time. Cellulitis. Flexor tenosynovitis of the forefoot. Atrophy of the intrinsic muscles of the forefoot consistent with peripheral neuropathy. Consultations ID - [facility] - Fascione 11/21/18 18:43 Consult: Onc/Wound/manager of application development Routine Comment: Reason for Consult:: Left foot ulcer Operations: None Procedures: None Summary of Care Provided: Hospital Course: The patient is a 63 year old M with pmhx of PTSD, Dementia, DMt2, chronic foot wounds, prior left toe amputation, who presented to the ER with a large left foot wound with increased discharge and odor. He had a prior amputation here and has been dealing with this for 4 years. Foot xray showed osteo and septic arthritis, his blood sugar was elevated and he was hyponatremic. He was admitted to the med surg floor. ID and podiatry were consulted. MRI showed septic arthritis, osteomyeltitis, phlegmon, and cellulitis. He was placed on vanc and zosyn and wound care was consulted. Cultures demonstrated MRSA, Strep anginosis, and Klebsiella pneumoniae. During his stay his memory, mental status, and mood was fluctuant. We did recommend surgery as this infection may not respond to antibiotics only, however the patient refused to consider debridement or amputation, and became angry when this was discussed. He was transitioned to IV flagyl, vanc, and rocephin. He will complete this while at retirement with a stop date of 01/01/2019. A PICC line was insterted. Blood cultures are NTD. He was emotionally labile, going from excitedly telling grandiose stories, to crying, to angry. This will complicate his care going forward given that there is also some underlying dementia. BLAKE is his son in [place]. Another brother lives at his house. His sister Glory also assisted with his care plan. He was agreeable to SNF placement. He was discharged to SNF in stable condition. He will need follow up with podiatry in the wound center in the next week. He will need to see ID in 2-3 weeks. He will need to see his PCP in 1-2 weeks. He should continue wound care and weight bearing as directed per podiatry. This patient was seen by Ever Lozada PA-C under the supervision of Dr. Rowan. [] - Physical Exam General: Alert, Oriented x3, Cooperative HEENT: Atraumatic, PERRLA, EOMI, Normocephalic Neck: Supple, No JVD, Negative Carotid Bruits Lungs: Clear to auscultation, Normal air movement Cardiovascular: Regular rate, No murmurs Abdomen: Bowel Sounds Present, Soft, Non Tender Extremities: No edema, Capillary Refill Less than 3 Seconds Skin: No rashes, No breakdown Musculoskeletal: No Tenderness to Palpation of Joints or Extremities Neurological: Cranial nerves II-XII grossly intact Psych/Mental Status: Normal Affect, Appropriate, Alert and oriented to time, place, person, mood and affect Vital Signs Temp Pulse Resp BP Pulse Ox 97.8 F 77 18 159/81 H 100 11/24/18 10:31 11/24/18 10:31 11/24/18 10:31 11/24/18 10:31 11/24/18 10:31 Oxygen Delivery Method Room Air Weight: 177 lb 0.499 oz Body Mass Index (BMI) 26.9 Finger Stick Blood Glucose 279 Intake and Output for Last 24 Hours 11/22/18 11/23/18 11/24/18 23:59 23:59 23:59 Intake Total 3742.4 / 3742.4 2409 / 2409 480 / 480 Balance 3742.4 / 3742.4 2409 / 2409 480 / 480 Microbiology Past 72 Hours 11/21/18 21:05 Gram Stain - Final Wound - Left Foot Wound Culture - Preliminary Meth. resistant Staph. aureus Strep anginosus Klebsiella pneumoniae sp pneum Gram positive carrington Anaerobic Culture - Preliminary Checking for anaerobes, further studies to follow. Laboratory Tests Past 24 Hrs 11/24/18 11/24/18 11/24/18 05:40 05:40 05:40 WBC 8.3 RBC 4.12 L Hgb 11.5 L Hct 35.1 L MCV 85.2 MCH 27.9 MCHC 32.8 RDW 12.9 RDW Differential 39.8 Plt Count 391 MPV 9.6 Neut % (Auto) Not Reportable Absolute Neuts (auto) 4.2 Absolute Lymphs (auto) 2.74 Total Counted 100 Neutrophils % (Manual) 51 Lymphocytes % (Manual) 33 Monocytes % (Manual) 5 Eosinophils % (Manual) 2 Basophils % (Manual) 3 H Myelocytes % 1 H Promyelocytes % 2 H Plasma Cell % (Manual) 3 Diff Path Review May foll Platelet Estimate ADEQUATE RBC Morphology NORM C+C Sodium 136 Potassium 4.0 Chloride 101 Carbon Dioxide 27.0 Anion Gap 8 BUN 14 Creatinine 1.41 H Estim Creat Clear Calc 53.23 Est GFR (MDRD) Af Amer 66 Est GFR (MDRD) Non-Af 54 L BUN/Creatinine Ratio 9.9 L Glucose 225 H Calcium 8.6 Vancomycin Trough 16.5 H POC Glucose 11/24/18 11/24/18 11/23/18 12:14 07:06 22:35 POC Glucose 295 H 248 H 335 H 11/23/18 17:00 POC Glucose 98 Discharge Diet: Low fat/ Low Cholesterol, 1800 Calorie Control Diet, 2000 mg Sodium Diet Discharge Activity: Return to Normal Activity Home Medications: Medications to take at Discharge Insulin Aspart [Novolog Flexpen] 10 units SC TIDCM #1 box 02/11/17 Insulin Detemir [Levemir FlexPen] 25 units SC BID #1 box 02/11/17 Acetaminophen [Tylenol Tablet] 650 mg PO Q6H PRN PRN tablet 11/24/18 Ceftriaxone 2 gm IV Q24 39 Days #39 vial 11/24/18 Hydrochlorothiazide [Hctz] 25 mg PO DAILY tablet 11/24/18 Lisinopril [Zestril] 40 mg PO DAILY tablet 11/24/18 Metronidazole [Flagyl] 500 mg PO TID 39 Days #117 tab 11/24/18 Nutritional Supplement [Gerard - ORANGE FLAVOR] 1 packet PO BIDCM packet 11/24 Pantoprazole Sodium [Protonix] 40 mg PO DAILY tablet 11/24/18 Vancomycin IV [Vancomycin] 1,000 mg IV Q12H 39 Days #78 bag 11/24/18 Following Prescrptions Were Given to Patient: Ceftriaxone 2 gm IV Q24 39 Days #39 vial Metronidazole [Flagyl] 500 mg PO TID 39 Days #117 tab Vancomycin IV [Vancomycin] 1,000 mg IV Q12H 39 Days #78 bag Primary Care Physician: Tony Topete MD [Primary Care Provider] - Please follow up with your Primary Care Physician in: 1-2 weeks Please Follow Up With: Vashti Bailon DPM When: 1 week Please Follow Up With: Kingston Luna MD When: 2-3 weeks Disposition: Home Minutes spent on discharge:: 35 Patient Condition:: Stable Medical Necessity - Tobacco Use Smoking Status: Never smoker Tobacco Use: Non-smoker Meaningful Use Info Meaningful Use Diagnoses (Choose all that apply): None applicable
[2018-11-28 13:08] LABS: Pathologist Review Reviewed
== END 2018-11-24 14:43 | disposition skilled nursing facility (03) | DRG 344 ==
LOC: ED 15:59 → MS2 17:55
PROVIDERS: Nurse Practitioner Family; Physician Assistant; Podiatrist; Admitting Provider Student in an Organized Health Care Education/Training Program; Emergency Provider Emergency Medicine; Family Provider Family Medicine; PCP Family Medicine; Visit Provider Internal Medicine
DX: E11.621 Type 2 diabetes mellitus with foot ulcer (principal); E87.1 Hypo-osmolality and hyponatremia; E11.65 Type 2 diabetes mellitus with hyperglycemia; L03.116 Cellulitis of left lower limb; E11.22 Type 2 diabetes mellitus with diabetic chronic kidney disease; M00.9 Pyogenic arthritis, unspecified; E11.69 Type 2 diabetes mellitus with other specified complication; M86.172 Other acute osteomyelitis, left ankle and foot; E11.42 Type 2 diabetes mellitus with diabetic polyneuropathy; M86.672 Other chronic osteomyelitis, left ankle and foot; B95.62 Methicillin resistant Staphylococcus aureus infection as the cause of diseases classified elsewhere; L97.523 Non-pressure chronic ulcer of other part of left foot with necrosis of muscle; I12.9 Hypertensive chronic kidney disease with stage 1 through stage 4 chronic kidney disease, or unspecified chronic kidney disease; N18.2 Chronic kidney disease, stage 2 (mild); F03.90 Unspecified dementia, unspecified severity, without behavioral disturbance, psychotic disturbance, mood disturbance, and anxiety; F43.10 Post-traumatic stress disorder, unspecified; Z79.4 Long term (current) use of insulin; Z89.422 Acquired absence of other left toe(s); E46 Unspecified protein-calorie malnutrition; Z68.26 Body mass index [BMI] 26.0-26.9, adult; B95.1 Streptococcus, group B, as the cause of diseases classified elsewhere; B96.1 Klebsiella pneumoniae [K. pneumoniae] as the cause of diseases classified elsewhere; E04.1 Nontoxic single thyroid nodule; R09.89 Other specified symptoms and signs involving the circulatory and respiratory systems
CPT/HCPCS: 36415; 36569; 73630; 73720; 76536; 80048; 80202; 82962; 85025; 85652; 86140; 87040; 87070; 87075; 87077; 87186; 87205; 87640; 93922; 97161; 97165; 97802; 99284; A9585; J7030; J7040; J7050; A4216; J0696

== ENCOUNTER 2018-12-13 09:45 | Outpatient (RCR) | payer MEDICAID, SELFPAY ==
[2018-11-21 20:48] VITALS: BMI 26.9
[2018-11-29 13:33] VITALS: BP 139/87; PULSE 78; RESP 18; TEMP 36.8; BMI 24.0
--- NOTE | 2018-11-29 15:44 | PCM.WC.PN ---
(1) Chronic ulcer of left foot with necrosis of muscle Status: Chronic Code(s): L97.523 - Non-pressure chronic ulcer of other part of left foot with necrosis of muscle (2) Hammer toe of left foot Status: Chronic Code(s): M20.42 - Other hammer toe(s) (acquired), left foot (3) Malnutrition Status: Chronic Code(s): E46 - Unspecified protein-calorie malnutrition (4) Diabetes mellitus with polyneuropathy Status: Chronic Qualifiers: Diabetes mellitus type: type 2 Qualified Code(s): E11.42 - Type 2 diabetes mellitus with diabetic polyneuropathy Code(s): E11.42 - Type 2 diabetes mellitus with diabetic polyneuropathy Type of Wound Date of Service: 11/29/18 Chief Complaint: Left foot ulcer History of Wound: This 63-year-old male with multiple comorbidities was seen for follow-up of infected left foot ulcer. His MRI, previous clinical exam, and x-ray were consistent with abscess and devitalized phlebolith near the resected second and third toes, and septic first metatarsophalangeal joint. He was started on IV antibiotics via PICC during his last hospital admission and is now reside at [facility]. He denies fever, chill, nausea, vomiting. He refuses surgical intervention. He is pleasant today. Progress of Wound: Improving compared to recent hospital admission - Physical Exam Vital Signs Temp Pulse Resp BP 98.2 F 78 18 139/87 H 11/29/18 13:33 11/29/18 13:33 11/29/18 13:33 11/29/18 13:33 General: Alert, Oriented x3, Cooperative HEENT: Atraumatic Extremities: No cyanosis, No Calf Tenderness - Negative Aric and Bowman sign, Diminished Peripheral Pulses, Edema, - - Second and third toe previous amputations noted and floppy lateral lesser toe Skin: Ulcer/ Wound - No purulence, erythema, streaking, odor, or acute signs of infection today. There is no maceration. There is deep probing noted. His skin is hairless and atrophic. There is no eschar Wound Measurements and Assessment WC - Nurse 1 - General Ulcer Measurement Start: 11/29/18 13:05 Freq: Status: Active Protocol: Activity Type Activity Date Activity User E-Sign Co-Sign Detail Recorded Client Recorded Date Recorded By Document 11/29/18 13:33 [facility] [id number] 11/29/18 13:53 [facility] 11/29/18 13:33 Wound Center Nurse 1 [Ulcer Assessment] #1 L Plantar -Current Size (cm) - Length 2.2 -Current Size (cm) - Width 2.3 -Current Size (cm) - Depth 0.3 -Total Square Cm 5.06 -Photo Taken Yes -Exudate Amt Small -Exudate Type Serosanguineous -Wound Margin Thickened -Granulation Amt Large (67-100%) -Granulation Quality [place] -Necrosis Amt Small (1-33%) -Necrotic Tissue Type Adherent Slough -Structure Exposed N/A -Texture (Charlene-wound Skin Appearance) Callus Scarring -Moisture (Charlene-wound Skin Appearance Dry/Scaly ) -Color (Charlene-wound Skin Appearance) No Abnormality -Temperature (Charlene-wound Skin No Abnormality Appearance) (Pt Warm) -Tenderness on Palpation (Charlene-wound No Skin Appearance) -Ulcer Cleansing Wound Cleanser -Foul Odor after Cleansing No -Anesthetic Used 5% Lidocaine Gel [Edema Assessment] -Right Calf (cm) 35.3 -Right Ankle (cm) 21.6 -Left Calf (cm) 35.8 -Left Ankle (cm) 25.1 WC - Nurse 2 - General Ulcer CM Notes Start: 11/29/18 13:05 Freq: Status: Active Protocol: Activity Type Activity Date Activity User E-Sign Co-Sign Detail Recorded Client Recorded Date Recorded By Document 11/29/18 14:25 AN [id number] 11/29/18 14:33 AN 11/29/18 14:25 Wound Center Nurse 2 [Procedure/Treatment] #1 L Plantar -Time 14:28 -Correct Patient Yes -Correct Side, Site, Position Yes -Correct Procedure Yes -Procedure Performed Yes -Type of Procedure Debridement -Clinical Debridement Subcutaneous -Post Debridement Size (cm) - Length 2.3 -Post Debridement Size (cm) - Width 2.4 -Post Debridement Size (cm) - Depth 0.3 -Total Square Cm 5.52 -Wound/Ulcer Outcome Not Healed -Ulcer Cleansing Rinsed/ Irrigated with Saline -Foul Odor after Cleansing No -Bioengineered Tissue No -Bleeding Controlled with Pressure -Offloading Yes -Type of Offloading Surgical Shoe -Treatment Response Procedure Tolerated Well [See Physician Procedure note for Specifics] Pain Scale: 0-10 Numeric [Pain] -Is Patient Pain Free? Yes Musculoskeletal: No Tenderness to Palpation of Joints or Extremities, Muscle Wasting Neurological: - - Lack of epicritic sensation light touch consistent with neuropathy left lower extremity Psych/Mental Status: Normal Affect, Appropriate Debridement Note Post-Debridement Measurements/Treatment WC - Nurse 2 - General Ulcer CM Notes Start: 11/29/18 13:05 Freq: Status: Active Protocol: Activity Type Activity Date Activity User E-Sign Co-Sign Detail Recorded Client Recorded Date Recorded By Document 11/29/18 14:25 AN [id number] 11/29/18 14:33 AN 11/29/18 14:25 Wound Center Nurse 2 #1 L Plantar -Time 14:28 -Correct Patient Yes -Correct Side, Site, Position Yes -Correct Procedure Yes -Procedure Performed Yes -Type of Procedure Debridement -Clinical Debridement Subcutaneous -Post Debridement Size (cm) - Length 2.3 -Post Debridement Size (cm) - Width 2.4 -Post Debridement Size (cm) - Depth 0.3 -Total Square Cm 5.52 -Wound/Ulcer Outcome Not Healed -Ulcer Cleansing Rinsed/ Irrigated with Saline -Foul Odor after Cleansing No -Bioengineered Tissue No -Bleeding Controlled with Pressure -Offloading Yes -Type of Offloading Surgical Shoe -Treatment Response Procedure Tolerated Well Pain Scale: 0-10 Numeric Is Patient Pain Free? Yes Wound debrided: plantar distal foot Laterality: Left Wound Grade/Stage: grade 3 Type of Debridement: Excisional debridement Anesthesia Used: 5% Lidocaine Gel Depth: in the subcutaneous layer Percentage of wound debrided: 100 Instrument Used: #15 blade Tissue Removed: fibrous, devitalized subcutaneous, biofilm, slough Severity: Fat Layer Exposed Amount of bleeding with debridement: Mild Bleeding Controlled with: Pressure Patient tolerated procedure well Assessment/Plan Assessment: Left foot ulcer with fat layer exposed. Osteomyelitis and septic joint treated medically with PICC line at this time left foot. Diabetic neuropathy. Malnutrition. Delayed healing Plan: I reviewed and discussed his treatment plan. Subcutaneous excisional debridement was performed as noted in the clinical panel. He is clinically improved compared to his recent hospital admission. To continue IV antibiotics per infectious disease management. It is noted his previous wound cultures demonstrated multi-organism growth. His last set of labs from his hospital admission demonstrate a white blood cell count of 8.3, ESR of 78, C-reactive protein of 60.7, and hemoglobin A1c of 14%. His x-rays demonstrated previous toe amputations and edema. His MRI was consistent with septic first metatarsophalangeal joint, abscess near his open ulcer site distal to the second and third remaining partial rays he refused surgical intervention.. He currently reside at [facility]. I recommend changing his dressing daily with Aquacel AG packed into the deeper wound part and to the outer surface. To keep weight off the ulcer by wearing a surgical shoe and to continue with heel weightbearing walking pattern. I recommend nutritional supplementation optimize healing including Gerard twice daily. I reviewed his most recent noninvasive vascular studies which include triphasic waveforms and bilateral ankle-brachial indices of 1.2. It is noted he has noncompressible vessels at the ankle level and this may not render accurate result. If lack of healing is noted vascular surgery referral will be considered. I answered his questions. To return to clinic in at the wound healing center 1 week or to call sooner if he has any questions or concerns.
[2018-12-06 10:04] VITALS: BP 108/70; PULSE 87; RESP 16; TEMP 36; BMI 24.0
--- NOTE | 2018-12-06 12:58 | PCM.WC.PN ---
(1) Chronic ulcer of left foot with necrosis of muscle Status: Chronic Current Visit: Yes Code(s): L97.523 - Non-pressure chronic ulcer of other part of left foot with necrosis of muscle (2) Hammer toe of left foot Status: Chronic Current Visit: Yes Code(s): M20.42 - Other hammer toe(s) (acquired), left foot (3) Malnutrition Status: Chronic Current Visit: Yes Code(s): E46 - Unspecified protein-calorie malnutrition (4) Diabetes mellitus with polyneuropathy Status: Chronic Current Visit: Yes Qualifiers: Diabetes mellitus type: type 2 Qualified Code(s): E11.42 - Type 2 diabetes mellitus with diabetic polyneuropathy Code(s): E11.42 - Type 2 diabetes mellitus with diabetic polyneuropathy Type of Wound Date of Service: 12/06/18 Chief Complaint: Left foot ulcer History of Wound: This 63-year-old male with multiple comorbidities was seen for follow-up of infected left foot ulcer. His MRI, previous clinical exam, and x-ray were consistent with abscess and devitalized tissue near the resected second and third toes, and septic first metatarsophalangeal joint. He was started on IV antibiotics via PICC during his last hospital admission and is now reside at [facility]. He denies fever, chill, nausea, vomiting. He refuses surgical intervention. He is pleasant today. Progress of Wound: Improving - Physical Exam Vital Signs Temp Pulse Resp BP 96.8 F L 87 16 108/70 12/06/18 10:04 12/06/18 10:04 12/06/18 10:04 12/06/18 10:04 General: Alert, Oriented x3, Cooperative Extremities: No cyanosis, Capillary Refill Less than 3 Seconds, No Calf Tenderness - negative vikram and aguilera, Diminished Peripheral Pulses, Edema - mild, - - Left central ray resection and remaining toe deformities noted with contraction Skin: Ulcer/ Wound - No purulence, erythema, streaking, odor, or infection. There is deep probing to 2 cm however this is not directly to bone anymore. The peripheral skin is hairless and atrophic. The base is granular and is demonstrating peripheral epithelialization Wound Measurements and Assessment WC - Nurse 1 - General Ulcer Measurement Start: 11/29/18 13:05 Freq: Status: Active Protocol: Activity Type Activity Date Activity User E-Sign Co-Sign Detail Recorded Client Recorded Date Recorded By Document 12/06/18 10:04 JF [id number] 12/06/18 10:05 12/06/18 10:04 Wound Center Nurse 1 [Ulcer Assessment] #1 L Plantar -Combined with other wound No -Current Size (cm) - Length 2.8 -Current Size (cm) - Width 1.8 -Current Size (cm) - Depth 0.2 -Total Square Cm 5.04 -Photo Taken No -Epithelialization Small 1-33% -Tunneling No -Undermining/Tunneling No -Circular Undermining No -Exudate Amt Small -Exudate Type Serosanguineous -Wound Margin Flat & Intact -Granulation Amt Medium (34-66%) -Granulation Quality Red -Slough/Fibrin Yes -Necrosis Amt Medium (34-66%) -Necrotic Tissue Type Adherent Slough -Structure Exposed N/A -Texture (Charlene-wound Skin Appearance) Assessed Callus -Moisture (Charlene-wound Skin Appearance Assessed ) Dry/Scaly -Color (Charlene-wound Skin Appearance) Assessed -Temperature (Charlene-wound Skin No Abnormality Appearance) (Pt Warm) -Tenderness on Palpation (Charlene-wound No Skin Appearance) -Ulcer Cleansing Rinsed/ Irrigated with Saline -Foul Odor after Cleansing No -Anesthetic Used 4% Lidocaine Solution [Edema Assessment] -Lower Limb Edema Present Yes -Left Calf (cm) 36.5 -Left Ankle (cm) 23.0 WC - Nurse 2 - General Ulcer CM Notes Start: 11/29/18 13:05 Freq: Status: Active Protocol: Activity Type Activity Date Activity User E-Sign Co-Sign Detail Recorded Client Recorded Date Recorded By Document 12/06/18 10:19 JF [id number] 12/06/18 10:23 12/06/18 10:19 Wound Center Nurse 2 [Procedure/Treatment] #1 L Plantar -Time 10:21 -Correct Patient Yes -Correct Side, Site, Position Yes -Correct Procedure Yes -Procedure Performed Yes -Type of Procedure Debridement -Clinical Debridement Subcutaneous -Post Debridement Size (cm) - Length 3 -Post Debridement Size (cm) - Width 1.8 -Post Debridement Size (cm) - Depth 2.0 -Total Square Cm 5.4 -Wound/Ulcer Outcome Not Healed -Ulcer Cleansing Rinsed/ Irrigated with Saline -Foul Odor after Cleansing No -Bioengineered Tissue No -Bleeding Controlled with Pressure -Offloading Yes -Type of Offloading Surgical Shoe -Treatment Response Procedure Tolerated Well [See Physician Procedure note for Specifics] Pain Scale: 0-10 Numeric [Pain] -Is Patient Pain Free? Yes Musculoskeletal: No Tenderness to Palpation of Joints or Extremities, Muscle Wasting Neurological: - - Lack of epicritic sensation light touch consistent with neuropathy Psych/Mental Status: Normal Affect, Appropriate Debridement Note Post-Debridement Measurements/Treatment WC - Nurse 2 - General Ulcer CM Notes Start: 11/29/18 13:05 Freq: Status: Active Protocol: Activity Type Activity Date Activity User E-Sign Co-Sign Detail Recorded Client Recorded Date Recorded By Document 11/29/18 14:25 AN [id number] 11/29/18 14:33 AN Document 12/06/18 10:19 JF [id number] 12/06/18 10:23 JF 11/29/18 12/06/18 14:25 10:19 Wound Center Nurse 2 #1 L Plantar -Time 14:28 10:21 -Correct Patient Yes Yes -Correct Side, Site, Position Yes Yes -Correct Procedure Yes Yes -Procedure Performed Yes Yes -Type of Procedure Debridement Debridement -Clinical Debridement Subcutaneous Subcutaneous -Post Debridement Size (cm) - Length 2.3 3 -Post Debridement Size (cm) - Width 2.4 1.8 -Post Debridement Size (cm) - Depth 0.3 2.0 -Total Square Cm 5.52 5.4 -Wound/Ulcer Outcome Not Healed Not Healed -Ulcer Cleansing Rinsed/ Rinsed/ Irrigated with Irrigated with Saline Saline -Foul Odor after Cleansing No No -Bioengineered Tissue No No -Bleeding Controlled with Pressure Pressure -Offloading Yes Yes -Type of Offloading Surgical Shoe Surgical Shoe -Treatment Response Procedure Procedure Tolerated Well Tolerated Well Pain Scale: 0-10 Numeric Is Patient Pain Free? Yes Yes Wound debrided: central distal foot Laterality: Left Wound Grade/Stage: grade 3 Type of Debridement: Excisional debridement Anesthesia Used: 5% Lidocaine Gel Depth: in the subcutaneous layer Percentage of wound debrided: 100 Instrument Used: #15 blade Tissue Removed: fibrous, devitalized subcutaneous, biofilm, slough Severity: Fat Layer Exposed Amount of bleeding with debridement: Mild Bleeding Controlled with: Pressure Patient tolerated procedure well Assessment/Plan Active Problems Malnutrition (Chronic) Chronic ulcer of left foot with necrosis of muscle (Chronic) Hammer toe of left foot (Chronic) Diabetes mellitus with polyneuropathy (Chronic) Assessment: Left foot ulcer with fat layer exposed. Osteomyelitis and septic joint treated medically with PICC line at this time left foot. Diabetic neuropathy. Malnutrition. Delayed healing Plan: I reviewed and discussed his treatment plan. Subcutaneous excisional debridement was performed as noted in the clinical panel. He is clinically improving. To continue IV antibiotics per infectious disease management. It is noted his previous wound cultures demonstrated multi-organism growth. His last set of labs from his hospital admission demonstrate a white blood cell count of 8.3, ESR of 78, C-reactive protein of 60.7, and hemoglobin A1c of 14%. His x-rays demonstrated previous toe amputations and edema. His MRI was consistent with septic first metatarsophalangeal joint, abscess near his open ulcer site distal to the second and third remaining partial rays he refused surgical intervention. He currently resides at [facility]. I recommend changing his dressing daily with Aquacel AG packed into the deeper wound part and to the outer surface. I recommend application of an advanced wound care product to optimize healing. This is medically necessary for limb salvage. A prior authorization will be initiated for amniotic and umbilical cord cell derived advance wound care products, epi fix and epi cord. To keep weight off the ulcer by wearing a surgical shoe and to continue with heel weightbearing walking pattern. I recommend nutritional supplementation optimize healing including Gerard twice daily. I reviewed his most recent noninvasive vascular studies which include triphasic waveforms and bilateral ankle-brachial indices of 1.2. It is noted he has noncompressible vessels at the ankle level and this may not render accurate result. If lack of healing is noted vascular surgery referral will be considered. I answered his questions. To return to clinic in at the wound healing center 1 week or to call sooner if he has any questions or concerns.
[2018-12-13 10:03] VITALS: BP 126/81; PULSE 84; RESP 16; TEMP 36.8; BMI 24.0
--- NOTE | 2018-12-13 14:25 | PN.PCM_ITS ---
(1) Chronic ulcer of left foot with necrosis of muscle Status: Chronic Code(s): L97.523 - Non-pressure chronic ulcer of other part of left foot with necrosis of muscle (2) Hammer toe of left foot Status: Chronic Code(s): M20.42 - Other hammer toe(s) (acquired), left foot (3) Malnutrition Status: Chronic Code(s): E46 - Unspecified protein-calorie malnutrition (4) Diabetes mellitus with polyneuropathy Status: Chronic Qualifiers: Diabetes mellitus type: type 2 Qualified Code(s): E11.42 - Type 2 diabetes mellitus with diabetic polyneuropathy Code(s): E11.42 - Type 2 diabetes mellitus with diabetic polyneuropathy Type of Wound Date of Service: 12/13/18 Chief Complaint: Left foot ulcer History of Wound: This 63-year-old male with multiple comorbidities was seen for follow-up of infected left foot ulcer. His MRI, previous clinical exam, and x- ray were consistent with abscess and devitalized tissue near the resected second and third toes, and septic first metatarsophalangeal joint. He was started on IV antibiotics via PICC during his last hospital admission and is now reside at [facility]. He denies fever, chill, nausea, vomiting. He refuses surgical intervention. He is pleasant today. Progress of Wound: Improving - Physical Exam Vital Signs Temp Pulse Resp BP 98.2 F 84 16 126/81 H 12/13/18 10:03 12/13/18 10:03 12/13/18 10:03 12/13/18 10:03 General: Alert, Oriented x3, Cooperative HEENT: Atraumatic Extremities: No cyanosis, Capillary Refill Less than 3 Seconds, No Calf Tenderness, Diminished Peripheral Pulses, Edema Skin: Ulcer/ Wound - No purulence, erythema, streaking, odor, or infection. The ulcer bed is less deep and there is improved granulation tissue. The peripheral skin is hairless and atrophic. No new ulcers are noted. Wound Measurements and Assessment WC - Nurse 1 - General Ulcer Measurement Start: 11/29/18 13:05 Freq: Status: Active Protocol: Activity Type Activity Date Activity User E-Sign Co-Sign Detail Recorded Client Recorded Date Recorded By Document 12/13/18 10:03 [email or web address] [id number] 12/13/18 10:13 [email or web address] 12/13/18 10:03 Wound Center Nurse 1 [Ulcer Assessment] 2-left inferior plantar -Combined with other wound No -Current Size (cm) - Length 0.2 -Current Size (cm) - Width 0.2 -Current Size (cm) - Depth 2.0 -Total Square Cm 0.04 -Photo Taken Yes -Epithelialization None Present -Tunneling No -Undermining/Tunneling No -Circular Undermining No -Exudate Amt None Present -Wound Margin Flat & Intact -Granulation Amt Medium (34-66%) -Granulation Quality [place] -Slough/Fibrin Yes -Necrosis Amt Small (1-33%) -Necrotic Tissue Type Adherent Slough -Structure Exposed N/A -Texture (Charlene-wound Skin Appearance) Assessed Callus -Moisture (Charlene-wound Skin Appearance Assessed ) Dry/Scaly -Color (Charlene-wound Skin Appearance) Assessed -Temperature (Charlene-wound Skin No Abnormality Appearance) (Pt Warm) -Tenderness on Palpation (Charlene-wound No Skin Appearance) -Ulcer Cleansing Rinsed/ Irrigated with Saline -Foul Odor after Cleansing No -Anesthetic Used 4% Lidocaine Solution #1 L Plantar -Combined with other wound No -Current Size (cm) - Length 2.0 -Current Size (cm) - Width 0.8 -Current Size (cm) - Depth 0.2 -Total Square Cm 1.60 -Photo Taken No -Epithelialization Medium 34-66% -Tunneling No -Undermining/Tunneling No -Circular Undermining No -Exudate Amt Small -Exudate Type Serosanguineous -Wound Margin Flat & Intact -Granulation Amt Medium (34-66%) -Granulation Quality [place] -Slough/Fibrin Yes -Necrosis Amt Medium (34-66%) -Necrotic Tissue Type Adherent Slough -Structure Exposed N/A -Texture (Charlene-wound Skin Appearance) Assessed Callus -Moisture (Charlene-wound Skin Appearance Assessed ) Dry/Scaly -Color (Charlene-wound Skin Appearance) Assessed -Temperature (Charlene-wound Skin No Abnormality Appearance) (Pt Warm) -Tenderness on Palpation (Charlene-wound No Skin Appearance) -Ulcer Cleansing Rinsed/ Irrigated with Saline -Foul Odor after Cleansing No -Anesthetic Used 4% Lidocaine Solution [Edema Assessment] -Lower Limb Edema Present Yes -Left Calf (cm) 35.6 -Left Ankle (cm) 21.6 Musculoskeletal: No Tenderness to Palpation of Joints or Extremities, Muscle Wasting, - - Partial second and third ray amputations noted to the left foot. Compartments are soft to left foot. Neurological: - - Lack of epicritic sensation is intact to light touch consistent with neuropathy left Psych/Mental Status: Normal Affect, Appropriate Debridement Note Post-Debridement Measurements/Treatment WC - Nurse 2 - General Ulcer CM Notes Start: 11/29/18 13:05 Freq: Status: Active Protocol: Activity Type Activity Date Activity User E-Sign Co-Sign Detail Recorded Client Recorded Date Recorded By Document 11/29/18 14:25 AN [id number] 11/29/18 14:33 AN Document 12/06/18 10:19 JF [id number] 12/06/18 10:23 JF 11/29/18 12/06/18 14:25 10:19 Wound Center Nurse 2 #1 L Plantar -Time 14:28 10:21 -Correct Patient Yes Yes -Correct Side, Site, Position Yes Yes -Correct Procedure Yes Yes -Procedure Performed Yes Yes -Type of Procedure Debridement Debridement -Clinical Debridement Subcutaneous Subcutaneous -Post Debridement Size (cm) - Length 2.3 3 -Post Debridement Size (cm) - Width 2.4 1.8 -Post Debridement Size (cm) - Depth 0.3 2.0 -Total Square Cm 5.52 5.4 -Wound/Ulcer Outcome Not Healed Not Healed -Ulcer Cleansing Rinsed/ Rinsed/ Irrigated with Irrigated with Saline Saline -Foul Odor after Cleansing No No -Bioengineered Tissue No No -Bleeding Controlled with Pressure Pressure -Offloading Yes Yes -Type of Offloading Surgical Shoe Surgical Shoe -Treatment Response Procedure Procedure Tolerated Well Tolerated Well Pain Scale: 0-10 Numeric Is Patient Pain Free? Yes Yes Wound debrided: distal foot Laterality: Left Wound Grade/Stage: grade 3 Type of Debridement: Excisional debridement Anesthesia Used: 5% Lidocaine Gel Depth: in the subcutaneous layer Percentage of wound debrided: 100 Instrument Used: #15 blade Tissue Removed: fibrous, devitalized subcutaneous, biofilm, slough Severity: Fat Layer Exposed Amount of bleeding with debridement: Mild Bleeding Controlled with: Pressure Patient tolerated procedure well Assessment/Plan Assessment: Left foot ulcer with fat layer exposed. Osteomyelitis and septic joint treated medically with PICC line at this time left foot. Diabetic stewart ropathy. Malnutrition. Delayed healing Plan: I reviewed and discussed his treatment plan. Subcutaneous excisional debridement was performed as noted in the clinical panel. He is clinically improving. To continue IV antibiotics per infectious disease management. It is noted his previous wound cultures demonstrated multi-organism growth. His last set of labs from his hospital admission demonstrate a white blood cell count of 8.3, ESR of 78, C-reactive protein of 60.7, and hemoglobin A1c of 14%. His x- rays demonstrated previous toe amputations and edema. His MRI was consistent with septic first metatarsophalangeal joint, abscess near his open ulcer site distal to the second and third remaining partial rays he refused surgical intervention. He currently resides at [facility]. I recommend application of an advanced wound care product to optimize healing. This is medically necessary for limb salvage. A prior authorization will be initiated for amniotic and umbilical cord cell derived advance wound care products, epi fix and epi cord. Epi fix was applied today according to standard protocol and this was secured in place as the wound veil and Steri-Strips. To keep this clean, dry, and intact until follow-up visit next week. Verbal consent was obtained and he tolerated this well. To keep weight off the ulcer by wearing a surgical shoe and to continue with heel weightbearing walking pattern. I recommend nutritional supplementation optimize healing including Gerard twice daily. I reviewed his most recent noninvasive vascular studies which include triphasic waveforms and bilateral ankle-brachial indices of 1.2. It is noted he has noncompressible vessels at the ankle level and this may not render accurate result. If lack of healing is noted vascular surgery referral will be considered. I answered his questions. To return to clinic in at the wound healing center 1 week or to call sooner if he has any questions or concerns.
== END 2018-12-17 23:59 ==
LOC: WC 09:45
PROVIDERS: Family Provider Family Medicine; PCP Family Medicine; Visit Provider Podiatrist
DX: E11.621 Type 2 diabetes mellitus with foot ulcer (principal); E11.42 Type 2 diabetes mellitus with diabetic polyneuropathy; M20.42 Other hammer toe(s) (acquired), left foot; L97.522 Non-pressure chronic ulcer of other part of left foot with fat layer exposed; M86.8X7 Other osteomyelitis, ankle and foot
CPT/HCPCS: 11042; 15271; 99202; Q4186; G0463

== ENCOUNTER 2019-01-10 10:45 | Outpatient (RCR) | payer MEDICAID, SELFPAY ==
[2018-12-18 01:34] VITALS: BP 126/81; PULSE 84; RESP 16; TEMP 36.8
[2018-12-20 09:47] VITALS: BP 152/89; PULSE 88; RESP 16; TEMP 36.6; BMI 24.0
--- NOTE | 2018-12-20 10:41 | PN.PCM_ITS ---
(1) Osteomyelitis Status: Chronic Current Visit: Yes Qualifiers: Osteomyelitis type: chronic, with draining sinus Osteomyelitis location: foot Laterality: left Qualified Code(s): M86.472 - Chronic osteomyelitis with draining sinus, left ankle and foot Code(s): M86.9 - Osteomyelitis, unspecified (2) Chronic ulcer of left foot with necrosis of muscle Status: Chronic Current Visit: Yes Code(s): L97.523 - Non-pressure chronic ulcer of other part of left foot with necrosis of muscle (3) Malnutrition Status: Chronic Current Visit: Yes Code(s): E46 - Unspecified protein- calorie malnutrition (4) Diabetes mellitus with polyneuropathy Status: Chronic Current Visit: Yes Qualifiers: Diabetes mellitus type: type 2 Qualified Code(s): E11.42 - Type 2 diabetes mellitus with diabetic polyneuropathy Code(s): E11.42 - Type 2 diabetes mellitus with diabetic polyneuropathy (5) Delayed wound healing Status: Chronic Current Visit: Yes Code(s): T14.8XXD - Other injury of unspecified body region, subsequent encounter Type of Wound Date of Service: 12/20/18 Chief Complaint: Left foot ulcer History of Wound: This 63-year-old male with multiple comorbidities was seen for follow-up of infected left foot ulcer. His MRI, previous clinical exam, and x-ray were consistent with abscess and devitalized tissue (including chronic osteomyelitis) near the resected second and third toes, and septic first metatarsophalangeal joint (including chronic osteomyelitis). He was started on IV antibiotics via PICC during his last hospital admission and is now residing at [facility]. He denies fever, chill, nausea, vomiting. During his last hospital visit, he refused the recommended surgical intervention including transmetatarsal amputation or even local debridement and drainage in the operating room. He recently started having advanced wound healing products placed, epi fix. He has been compliant. He is scheduled to get discharged home once his IV antibiotics are completed in 2 weeks. At that time he relates he is amenable interested in proceeding forward hyperbaric oxygen therapy. He is pleasant today. Progress of Wound: Improving - Physical Exam Vital Signs Temp Pulse Resp BP 97.8 F 88 16 152/89 H 12/20/18 09:47 12/20/18 09:47 12/20/18 09:47 12/20/18 09:47 General: Alert, Oriented x3, Cooperative HEENT: Atraumatic Extremities: No cyanosis, Capillary Refill Less than 3 Seconds, No Calf Tenderness, Diminished Peripheral Pulses, Edema Skin: Ulcer/ Wound - No purulence, erythema, streaking, odor, or process. The main ulcer site has granulation progression and has granular and fibrous base. There is a satellite ulcer plantar lateral location that does probe approximately 2 cm to deep tissue but not directly to bone as compared to his last hospital admission. It is noted there was previous communication to the first, second, and third rays. His peripheral skin is hairless and atrophic. Wound Measurements and Assessment WC - Nurse 1 - General Ulcer Measurement Start: 12/20/18 09:47 Freq: Status: Active Protocol: Activity Type Activity Date Activity User E-Sign Co-Sign Detail Recorded Client Recorded Date Recorded By Document 12/20/18 09:47 [id number] 12/20/18 09:53 12/20/18 09:47 Wound Center Nurse 1 [Ulcer Assessment] 2-left inferior plantar -Combined with other wound No -Current Size (cm) - Length 0.2 -Current Size (cm) - Width 0.2 -Current Size (cm) - Depth 2.0 -Total Square Cm 0.04 -Photo Taken No -Epithelialization None Present -Tunneling No -Undermining/Tunneling No -Circular Undermining No -Exudate Amt Small -Exudate Type Serosanguineous -Wound Margin Flat & Intact -Granulation Amt None Present (0 %) -Slough/Fibrin No -Structure Exposed N/A -Texture (Charlene-wound Skin Appearance) Assessed Callus -Moisture (Charlene-wound Skin Appearance Assessed ) Dry/Scaly -Color (Charlene-wound Skin Appearance) Assessed -Temperature (Charlene-wound Skin No Abnormality Appearance) (Pt Warm) -Tenderness on Palpation (Charlene-wound No Skin Appearance) -Ulcer Cleansing Wound Cleanser -Foul Odor after Cleansing No -Anesthetic Used 4% Lidocaine Solution #1 L Plantar -Combined with other wound No -Current Size (cm) - Length 1.5 -Current Size (cm) - Width 1.2 -Current Size (cm) - Depth 0.2 -Total Square Cm 1.80 -Photo Taken No -Epithelialization Small 1-33% -Tunneling No -Undermining/Tunneling No -Circular Undermining No -Exudate Amt Small -Exudate Type Serosanguineous -Wound Margin Flat & Intact -Granulation Amt Medium (34-66%) -Granulation Quality Red -Slough/Fibrin Yes -Necrosis Amt Small (1-33%) -Necrotic Tissue Type Adherent Slough -Structure Exposed N/A -Texture (Charlene-wound Skin Appearance) Assessed Callus -Moisture (Charlene-wound Skin Appearance Assessed ) Dry/Scaly -Color (Charlene-wound Skin Appearance) Assessed -Temperature (Charlene-wound Skin No Abnormality Appearance) (Pt Warm) -Tenderness on Palpation (Charlene-wound No Skin Appearance) -Ulcer Cleansing Wound Cleanser -Foul Odor after Cleansing No -Anesthetic Used 4% Lidocaine Solution [Edema Assessment] -Lower Limb Edema Present No -Left Calf (cm) 35.7 -Left Ankle (cm) 22.0 WC - Nurse 2 - General Ulcer CM Notes Start: 12/20/18 09:47 Freq: Status: Active Protocol: Activity Type Activity Date Activity User E-Sign Co-Sign Detail Recorded Client Recorded Date Recorded By Document 12/20/18 10:20 AN [id number] 12/20/18 10:27 AN 12/20/18 10:20 Wound Center Nurse 2 [Procedure/Treatment] 2-left inferior plantar -Time 10:25 -Correct Patient Yes -Correct Side, Site, Position Yes -Correct Procedure Yes -Procedure Performed Yes -Type of Procedure Debridement -Clinical Debridement Subcutaneous -Post Debridement Size (cm) - Length 0.3 -Post Debridement Size (cm) - Width 0.3 -Post Debridement Size (cm) - Depth 2.0 -Total Square Cm 0.09 -Wound/Ulcer Outcome Not Healed -Ulcer Cleansing Rinsed/ Irrigated with Saline -Foul Odor after Cleansing No -Bioengineered Tissue Yes -Type of bioengineered Tissue EPIFIX -Expiration Date 05/20/23 -Product Lot Number [id number] -Percent Used 100 -Saline Lot Number [id number] -Bleeding Controlled with Pressure -Offloading Yes -Type of Offloading Surgical Shoe -Treatment Response Procedure Tolerated Well #1 L Plantar -Time 10:26 -Correct Patient Yes -Correct Side, Site, Position Yes -Correct Procedure Yes -Procedure Performed Yes -Type of Procedure Debridement -Clinical Debridement Subcutaneous -Post Debridement Size (cm) - Length 1.6 -Post Debridement Size (cm) - Width 1.3 -Post Debridement Size (cm) - Depth 0.2 -Total Square Cm 2.08 -Wound/Ulcer Outcome Not Healed -Ulcer Cleansing Rinsed/ Irrigated with Saline -Foul Odor after Cleansing No -Bioengineered Tissue Yes -Type of bioengineered Tissue EPIFIX -Percent Used 100 -Bleeding Controlled with Pressure -Type of Offloading Surgical Shoe -Treatment Response Procedure Tolerated Well [See Physician Procedure note for Specifics] Pain Scale: 0-10 Numeric [Pain] -Is Patient Pain Free? Yes Musculoskeletal: No Tenderness to Palpation of Joints or Extremities, Muscle Wasting, - - Second and third toe amputation previous noted. Dorsal contraction of remaining left third digit and hallux noted. Compartments remain soft left lower extremity. No pain with ulcer manipulation left foot Neurological: - - Lack of normal epicritic sensation to light touch consistent with neuropathy Psych/Mental Status: Normal Affect, Appropriate Debridement Note Post-Debridement Measurements/Treatment WC - Nurse 2 - General Ulcer CM Notes Start: 12/20/18 09:47 Freq: Status: Active Protocol: Activity Type Activity Date Activity User E-Sign Co-Sign Detail Recorded Client Recorded Date Recorded By Document 12/20/18 10:20 AN [id number] 12/20/18 10:27 AN 12/20/18 10:20 Wound Center Nurse 2 2-left inferior plantar -Time 10:25 -Correct Patient Yes -Correct Side, Site, Position Yes -Correct Procedure Yes -Procedure Performed Yes -Type of Procedure Debridement -Clinical Debridement Subcutaneous -Post Debridement Size (cm) - Length 0.3 -Post Debridement Size (cm) - Width 0.3 -Post Debridement Size (cm) - Depth 2.0 -Total Square Cm 0.09 -Wound/Ulcer Outcome Not Healed -Ulcer Cleansing Rinsed/ Irrigated with Saline -Foul Odor after Cleansing No -Bioengineered Tissue Yes -Type of bioengineered Tissue EPIFIX -Expiration Date 05/20/23 -Product Lot Number [id number] -Percent Used 100 -Saline Lot Number [id number] -Bleeding Controlled with Pressure -Offloading Yes -Type of Offloading Surgical Shoe -Treatment Response Procedure Tolerated Well #1 L Plantar -Time 10:26 -Correct Patient Yes -Correct Side, Site, Position Yes -Correct Procedure Yes -Procedure Performed Yes -Type of Procedure Debridement -Clinical Debridement Subcutaneous -Post Debridement Size (cm) - Length 1.6 -Post Debridement Size (cm) - Width 1.3 -Post Debridement Size (cm) - Depth 0.2 -Total Square Cm 2.08 -Wound/Ulcer Outcome Not Healed -Ulcer Cleansing Rinsed/ Irrigated with Saline -Foul Odor after Cleansing No -Bioengineered Tissue Yes -Type of bioengineered Tissue EPIFIX -Percent Used 100 -Bleeding Controlled with Pressure -Type of Offloading Surgical Shoe -Treatment Response Procedure Tolerated Well Pain Scale: 0-10 Numeric Is Patient Pain Free? Yes Wound debrided: distal foot Laterality: Left Wound Grade/Stage: grade 3 Type of Debridement: Excisional debridement Anesthesia Used: 4% Lidocaine Solution Depth: in the subcutaneous layer Percentage of wound debrided: 100 Instrument Used: #15 blade Tissue Removed: fibrous, devitalized subcutaneous, biofilm, slough Severity: Fat Layer Exposed Amount of bleeding with debridement: Mild Bleeding Controlled with: Pressure Assessment/Plan Active Problems Delayed wound healing (Chronic) Malnutrition (Chronic) Chronic ulcer of left foot with necrosis of muscle (Chronic) Osteomyelitis (Chronic) Diabetes mellitus with polyneuropathy (Chronic) Assessment: Left foot ulcer with fat layer exposed. Osteomyelitis (chronic) and septic joint treated medically with PICC line at this time left foot. Diabetic neuropathy. Malnutrition. Delayed healing Plan: I reviewed and discussed his treatment plan. Subcutaneous excisional debridement was performed as noted in the clinical panel. He is clinically improving. To continue IV antibiotics per infectious disease management. It is noted his previous wound cultures demonstrated multi-organism growth. His last set of labs from his hospital admission demonstrate a white blood cell count of 8.3, ESR of 78, C-reactive protein of 60.7, and hemoglobin A1c of 14%. His x- rays demonstrated previous toe amputations and edema. His MRI was consistent with septic first metatarsophalangeal joint, chronic osteomyelitis metatarsals, abscess near his open ulcer site distal to the second and third remaining partial rays. He currently resides at [place] less than and about 2 weeks left of his IV antibiotic course.has I recommend application of an advanced wound care product to optimize healing. This is medically necessary for limb salvage. Epi fix was applied today according to standard protocol and this was secured in place with wound veil and Steri-Strips. To keep this clean, dry, and intact until follow-up visit next week. Verbal consent was obtained and he tolerated this well. To keep weight off the ulcer by wearing a surgical shoe and to continue with heel weightbearing walking pattern. I recommend nutritional supplementation optimize healing including Gerard twice daily. I reviewed his most recent noninvasive vascular studies which include triphasic waveforms and bilateral ankle-brachial indices of 1.2. It is noted he has noncompressible vessels at the ankle level and this may not render accurate result. If lack of healing is noted vascular surgery referral will be considered. We also discussed the treatment option of hyperbaric oxygen therapy at this time. Indications, planned administration of approximately 40 sessions, purpose, benefits, risks, and anticipated healing time and management were discussed. I recommend he watch the hyperbaric oxygen therapy educational video. It is noted he is unable to attend due to his penitentiary status. He reports he is able to make it on a daily basis once he is discharged home; I recommend confirming this with his sister who often comes appointments with him. Medical screening and clearance will be obtained to ensure this is a safe application for him. I ordered CBC, CMP, EKG, and chest x-ray. The results are pending. A referral was provided to Dr. London for history and physical; this is greatly appreciated. He understands further workup or testing may be required. I answered his questions. To return to clinic in at the wound healing center 1 week or to call sooner if he has any questions or concerns.
[2018-12-27 10:43] VITALS: BP 163/80; PULSE 74; RESP 20; TEMP 36.6; BMI 24.0
--- NOTE | 2018-12-27 11:26 | PCM.WC.PN ---
(1) Osteomyelitis Status: Chronic Current Visit: Yes Qualifiers: Osteomyelitis type: chronic, with draining sinus Osteomyelitis location: foot Laterality: left Qualified Code(s): M86.472 - Chronic osteomyelitis with draining sinus, left ankle and foot Code(s): M86.9 - Osteomyelitis, unspecified (2) Chronic ulcer of left foot with necrosis of muscle Status: Chronic Current Visit: Yes Code(s): L97.523 - Non-pressure chronic ulcer of other part of left foot with necrosis of muscle (3) Malnutrition Status: Chronic Current Visit: Yes Code(s): E46 - Unspecified protein-calorie malnutrition (4) Diabetes mellitus with polyneuropathy Status: Chronic Current Visit: Yes Qualifiers: Diabetes mellitus type: type 2 Qualified Code(s): E11.42 - Type 2 diabetes mellitus with diabetic polyneuropathy Code(s): E11.42 - Type 2 diabetes mellitus with diabetic polyneuropathy (5) Delayed wound healing Status: Chronic Current Visit: Yes Code(s): T14.8XXD - Other injury of unspecified body region, subsequent encounter (6) Hammer toe of left foot Status: Chronic Current Visit: Yes Code(s): M20.42 - Other hammer toe(s) (acquired), left foot Type of Wound Date of Service: 12/27/18 Chief Complaint: Left foot ulcer History of Wound: This 63-year-old male with multiple comorbidities was seen for follow-up of infected left foot ulcer. His MRI, previous clinical exam, and x-ray were consistent with abscess and devitalized tissue (including chronic osteomyelitis) near the resected second and third toes, and septic first metatarsophalangeal joint (including chronic osteomyelitis). He was started on IV antibiotics via PICC during his last hospital admission and is now residing at [facility]. He denies fever, chill, nausea, vomiting. During his last hospital visit, he refused the recommended surgical intervention including transmetatarsal amputation or even local debridement and drainage in the operating room. He recently started having advanced wound healing products placed, epi fix. He has been compliant. He is scheduled to get discharged home once his IV antibiotics are completed in 1 week. At that time he relates he is amenable interested in proceeding forward hyperbaric oxygen therapy. He is pleasant today. Progress of Wound: Improving - Physical Exam Vital Signs Temp Pulse Resp BP 97.8 F 74 20 H 163/80 H 12/27/18 10:43 12/27/18 10:43 12/27/18 10:43 12/27/18 10:43 General: Alert, Oriented x3, Cooperative HEENT: Atraumatic Extremities: No cyanosis, Capillary Refill Less than 3 Seconds, No Calf Tenderness, Diminished Peripheral Pulses, Edema - Left lower extremity, - - Previous amputation of toes right foot. Dorsal contraction of all remaining toes of the right foot with prominent metatarsal head Skin: Ulcer/ Wound - No purulence, erythema, streaking, odor, or acute infection. There is deep probing and this is not to bone. There is no necrosis visualized. The peripheral skin is hairless and atrophic Wound Measurements and Assessment WC - Nurse 1 - General Ulcer Measurement Start: 12/20/18 09:47 Freq: Status: Active Protocol: Activity Type Activity Date Activity User E-Sign Co-Sign Detail Recorded Client Recorded Date Recorded By Document 12/27/18 10:43 DL [id number] 12/27/18 10:55 DL 12/27/18 10:43 Wound Center Nurse 1 [Ulcer Assessment] 2-left inferior plantar -Current Size (cm) - Length 0.4 -Current Size (cm) - Width 0.3 -Current Size (cm) - Depth 1.9 -Total Square Cm 0.12 -Photo Taken No -Exudate Amt Small -Exudate Type Serosanguineous -Wound Margin Distinct, Outline Attached -Granulation Amt Small (1-33%) -Granulation Quality [place] -Necrosis Amt Small (1-33%) -Necrotic Tissue Type Adherent Slough -Structure Exposed N/A -Texture (Charlene-wound Skin Appearance) Localized Edema Scarring -Moisture (Charlene-wound Skin Appearance Maceration ) -Color (Charlene-wound Skin Appearance) Hemosiderin Staining -Temperature (Charlene-wound Skin No Abnormality Appearance) (Pt Warm) -Tenderness on Palpation (Charlene-wound No Skin Appearance) -Ulcer Cleansing Wound Cleanser -Foul Odor after Cleansing No -Anesthetic Used 4% Lidocaine Solution #1 L Plantar -Current Size (cm) - Length 2.5 -Current Size (cm) - Width 2 -Current Size (cm) - Depth 0.1 -Total Square Cm 5.0 -Photo Taken No -Exudate Amt Small -Exudate Type Serosanguineous -Wound Margin Thickened -Granulation Amt Medium (34-66%) -Granulation Quality [place] -Necrosis Amt Medium (34-66%) -Necrotic Tissue Type Adherent Slough -Structure Exposed N/A -Texture (Charlene-wound Skin Appearance) Localized Edema Scarring -Moisture (Charlene-wound Skin Appearance Dry/Scaly ) -Color (Charlene-wound Skin Appearance) Hemosiderin Staining -Temperature (Charlene-wound Skin No Abnormality Appearance) (Pt Warm) -Tenderness on Palpation (Charlene-wound No Skin Appearance) -Ulcer Cleansing Wound Cleanser -Foul Odor after Cleansing No -Anesthetic Used 4% Lidocaine Solution [Edema Assessment] -Left Calf (cm) 34 -Left Ankle (cm) 21.5 Musculoskeletal: No Tenderness to Palpation of Joints or Extremities, Muscle Wasting, - - Compartments soft right lower extremity Neurological: - - Lack of epicritic sensation light touch consistent with neuropathy Psych/Mental Status: Normal Affect, Appropriate Debridement Note Post-Debridement Measurements/Treatment WC - Nurse 2 - General Ulcer CM Notes Start: 12/20/18 09:47 Freq: Status: Active Protocol: Activity Type Activity Date Activity User E-Sign Co-Sign Detail Recorded Client Recorded Date Recorded By Document 12/20/18 10:20 AN [id number] 12/20/18 10:27 AN 12/20/18 10:20 Wound Center Nurse 2 2-left inferior plantar -Time 10:25 -Correct Patient Yes -Correct Side, Site, Position Yes -Correct Procedure Yes -Procedure Performed Yes -Type of Procedure Debridement -Clinical Debridement Subcutaneous -Post Debridement Size (cm) - Length 0.3 -Post Debridement Size (cm) - Width 0.3 -Post Debridement Size (cm) - Depth 2.0 -Total Square Cm 0.09 -Wound/Ulcer Outcome Not Healed -Ulcer Cleansing Rinsed/ Irrigated with Saline -Foul Odor after Cleansing No -Bioengineered Tissue Yes -Type of bioengineered Tissue EPIFIX -Expiration Date 05/20/23 -Product Lot Number [id number] -Percent Used 100 -Saline Lot Number [id number] -Bleeding Controlled with Pressure -Offloading Yes -Type of Offloading Surgical Shoe -Treatment Response Procedure Tolerated Well #1 L Plantar -Time 10:26 -Correct Patient Yes -Correct Side, Site, Position Yes -Correct Procedure Yes -Procedure Performed Yes -Type of Procedure Debridement -Clinical Debridement Subcutaneous -Post Debridement Size (cm) - Length 1.6 -Post Debridement Size (cm) - Width 1.3 -Post Debridement Size (cm) - Depth 0.2 -Total Square Cm 2.08 -Wound/Ulcer Outcome Not Healed -Ulcer Cleansing Rinsed/ Irrigated with Saline -Foul Odor after Cleansing No -Bioengineered Tissue Yes -Type of bioengineered Tissue EPIFIX -Percent Used 100 -Bleeding Controlled with Pressure -Type of Offloading Surgical Shoe -Treatment Response Procedure Tolerated Well Pain Scale: 0-10 Numeric Is Patient Pain Free? Yes Wound debrided: distal foot Laterality: Right Wound Grade/Stage: grade 3 Type of Debridement: Excisional debridement Depth: in the subcutaneous layer Percentage of wound debrided: 100 Instrument Used: #15 blade Tissue Removed: fibrous, devitalized subcutaneous, biofilm, slough Severity: Fat Layer Exposed Amount of bleeding with debridement: Mild Bleeding Controlled with: Pressure Patient tolerated procedure well Assessment/Plan Active Problems Delayed wound healing (Chronic) Malnutrition (Chronic) Chronic ulcer of left foot with necrosis of muscle (Chronic) Hammer toe of left foot (Chronic) Osteomyelitis (Chronic) Diabetes mellitus with polyneuropathy (Chronic) Assessment: Left foot ulcer with fat layer exposed. Osteomyelitis (chronic) and septic joint treated medically with PICC line at this time left foot. Diabetic neuropathy. Malnutrition. Delayed healing Plan: I reviewed and discussed his treatment plan. Subcutaneous excisional debridement was performed as noted in the clinical panel. He is clinically improving. To continue IV antibiotics per infectious disease management. It is noted his previous wound cultures demonstrated multi-organism growth. His last set of labs from his hospital admission demonstrate a white blood cell count of 8.3, ESR of 78, C-reactive protein of 60.7, and hemoglobin A1c of 14%. His x-rays demonstrated previous toe amputations and edema. His MRI was consistent with septic first metatarsophalangeal joint, chronic osteomyelitis metatarsals, abscess near his open ulcer site distal to the second and third remaining partial rays. He currently resides at [facility] with less than and about one weeks left of his IV antibiotic course. I recommend application of an advanced wound care product to optimize healing. This is medically necessary for limb salvage. Epi fix was applied today according to standard protocol and this was secured in place with wound veil and Steri-Strips. To keep this clean, dry, and intact until follow-up visit next week. Verbal consent was obtained and he tolerated this well. To keep weight off the ulcer by wearing a surgical shoe and to continue with heel weightbearing walking pattern. I recommend nutritional supplementation optimize healing including Gerard twice daily. I reviewed his most recent noninvasive vascular studies which include triphasic waveforms and bilateral ankle-brachial indices of 1.2. It is noted he has noncompressible vessels at the ankle level and this may not render accurate result. If lack of healing is noted vascular surgery referral will be considered. We also discussed the treatment option of hyperbaric oxygen therapy at this time. Indications, planned administration of approximately 40 sessions, purpose, benefits, risks, and anticipated healing time and management were discussed. I recommend he watch the hyperbaric oxygen therapy educational video. It is noted he is unable to attend due to his residential status. He reports he is able to make it on a daily basis once he is discharged home; I recommend confirming this with his sister who often comes appointments with him. Medical screening and clearance will be obtained to ensure this is a safe application for him. I ordered CBC, CMP, EKG, and chest x-ray. I was informed today that the residential forgot to complete these diagnostic tests as ordered we will try again for next week. He had a reported chest x-ray performed at [facility] at the end of November and this will likely not need to be repeated. We will request for the copies of this information including the images to review. The other results are pending. A referral was recommended for next week after he completes his screening diagnostic data to Dr. London for history and physical; this is greatly appreciated. I answered his questions. To return to clinic in at the wound healing center 1 week or to call sooner if he has any questions or concerns.
[2019-01-03 10:29] VITALS: BP 141/88; PULSE 83; RESP 18; TEMP 36.7; BMI 24.0
--- NOTE | 2019-01-03 11:23 | PCM.WC.PN ---
(1) Osteomyelitis Status: Chronic Qualifiers: Osteomyelitis type: chronic, with draining sinus Osteomyelitis location: foot Laterality: left Qualified Code(s): M86.472 - Chronic osteomyelitis with draining sinus, left ankle and foot Code(s): M86.9 - Osteomyelitis, unspecified (2) Chronic ulcer of left foot with necrosis of muscle Status: Chronic Code(s): L97.523 - Non-pressure chronic ulcer of other part of left foot with necrosis of muscle (3) Malnutrition Status: Chronic Code(s): E46 - Unspecified protein-calorie malnutrition (4) Diabetes mellitus with polyneuropathy Status: Chronic Qualifiers: Diabetes mellitus type: type 2 Qualified Code(s): E11.42 - Type 2 diabetes mellitus with diabetic polyneuropathy Code(s): E11.42 - Type 2 diabetes mellitus with diabetic polyneuropathy (5) Delayed wound healing Status: Chronic Code(s): T14.8XXD - Other injury of unspecified body region, subsequent encounter (6) Hammer toe of left foot Status: Chronic Code(s): M20.42 - Other hammer toe(s) (acquired), left foot Type of Wound Date of Service: 01/06/19 Chief Complaint: Left foot ulcer History of Wound: This 63-year-old male with multiple comorbidities was seen for follow-up of infected left foot ulcer. His MRI, previous clinical exam, and x-ray were consistent with abscess and devitalized tissue (including chronic osteomyelitis) near the resected second and third toes, and septic first metatarsophalangeal joint (including chronic osteomyelitis). He was started on IV antibiotics via PICC during his last hospital admission and is now residing at [facility]. He denies fever, chill, nausea, vomiting. During his last hospital visit, he refused the recommended surgical intervention including transmetatarsal amputation or even local debridement and drainage in the operating room. He recently started having advanced wound healing products placed, epi fix. He has been compliant. He is scheduled to get discharged home once his IV antibiotics soon. At that time he relates he is amenable interested in proceeding forward hyperbaric oxygen therapy. He is pleasant today. He obtained his pre-hyperbaric oxygen initial diagnostic data screening process, and his results were reviewed from [facility]. He is also scheduled to see Dr. London for medical clearance for this treatment modality. Progress of Wound: Improving - Physical Exam Vital Signs Temp Pulse Resp BP 98.0 F 83 18 141/88 H 01/03/19 10:29 01/03/19 10:29 01/03/19 10:29 01/03/19 10:29 General: Alert, Oriented x3, Cooperative Extremities: No cyanosis, Capillary Refill Less than 3 Seconds, No Calf Tenderness - Negative Homans present bilateral, Diminished Peripheral Pulses, Edema - Left foot mild to moderate, - - Central lesser toe amputations noted and floppy left fifth toe noted. Dorsal contraction of toes with prominent metatarsal head left foot Skin: Ulcer/ Wound - No purulence, erythema patient, odor, or infection. The ulcer bed is granular and fibrous. There is reduced deep probing. There is no fluctuance or bogginess on palpation. There is no eschar or necrosis noted today. There was previous probe to bone and devitalized necrotic tissue corresponding with MRI osteomyelitis and septic joint., - - The peripheral skin is hairless and atrophic left foot Wound Measurements and Assessment WC - Nurse 1 - General Ulcer Measurement Start: 12/20/18 09:47 Freq: Status: Active Protocol: Activity Type Activity Date Activity User E-Sign Co-Sign Detail Recorded Client Recorded Date Recorded By Document 01/03/19 10:29 DV [id number] 01/03/19 10:38 DV 01/03/19 10:29 Wound Center Nurse 1 [Ulcer Assessment] 2-left inferior plantar -Combined with other wound No -Current Size (cm) - Length 0.5 -Current Size (cm) - Width 1.2 -Current Size (cm) - Depth 0.1 -Total Square Cm 0.60 -Photo Taken No -Epithelialization None Present -Tunneling No -Undermining/Tunneling No -Circular Undermining No -Wound Margin Indistinct, Non -Visible -Granulation Amt None Present (0 %) -Granulation Quality N/A -Slough/Fibrin Yes -Necrosis Amt Small (1-33%) -Necrotic Tissue Type Adherent Slough -Structure Exposed None/Limited to Skin Breakdown -Texture (Charlene-wound Skin Appearance) Assessed Scarring -Moisture (Charlene-wound Skin Appearance Assessed ) Dry/Scaly -Color (Charlene-wound Skin Appearance) No Abnormality Assessed -Temperature (Charlene-wound Skin No Abnormality Appearance) (Pt Warm) -Ulcer Cleansing Rinsed/ Irrigated with Saline -Foul Odor after Cleansing Yes -Anesthetic Used 4% Lidocaine Solution #1 L Plantar -Combined with other wound No -Current Size (cm) - Length 1.0 -Current Size (cm) - Width 0.9 -Current Size (cm) - Depth 0.1 -Total Square Cm 0.90 -Photo Taken No -Epithelialization None Present -Tunneling No -Undermining/Tunneling No -Circular Undermining No -Classification - Thickness Full Thickness without Exposed Support Structure -Exudate Amt None Present -Wound Margin Indistinct, Non -Visible -Granulation Amt None Present (0 %) -Granulation Quality N/A -Slough/Fibrin Yes -Necrosis Amt Large (67-100%) -Necrotic Tissue Type Adherent Slough -Structure Exposed None/Limited to Skin Breakdown -Texture (Charlene-wound Skin Appearance) Assessed Scarring -Moisture (Charlene-wound Skin Appearance Assessed ) Dry/Scaly -Color (Charlene-wound Skin Appearance) No Abnormality Assessed -Temperature (Charlene-wound Skin No Abnormality Appearance) (Pt Warm) -Tenderness on Palpation (Charlene-wound No Skin Appearance) -Ulcer Cleansing Rinsed/ Irrigated with Saline -Foul Odor after Cleansing No -Anesthetic Used 4% Lidocaine Solution WC - Nurse 2 - General Ulcer CM Notes Start: 12/20/18 09:47 Freq: Status: Active Protocol: Activity Type Activity Date Activity User E-Sign Co-Sign Detail Recorded Client Recorded Date Recorded By Document 01/03/19 10:46 [email or web address] [id number] 01/03/19 10:50 [email or web address] 01/03/19 10:46 Wound Center Nurse 2 [Procedure/Treatment] 2-left inferior plantar -Time 10:46 -Correct Patient Yes -Correct Side, Site, Position Yes -Correct Procedure Yes -Procedure Performed Yes -Type of Procedure Debridement -Clinical Debridement Subcutaneous -Post Debridement Size (cm) - Length 0.3 -Post Debridement Size (cm) - Width 0.2 -Post Debridement Size (cm) - Depth 1.9 -Total Square Cm 0.06 -Wound/Ulcer Outcome Not Healed -Ulcer Cleansing Rinsed/ Irrigated with Saline -Foul Odor after Cleansing No -Bioengineered Tissue Yes -Type of bioengineered Tissue EPIFIX -Expiration Date 05/20/23 -Product Lot Number [id number] -Percent Used 100 -Saline Lot Number [id number] -Bleeding Controlled with Pressure -Offloading Yes -Type of Offloading Surgical Shoe -Treatment Response Procedure Tolerated Well #1 L Plantar -Time 10:49 -Correct Patient Yes -Correct Side, Site, Position Yes -Correct Procedure Yes -Procedure Performed Yes -Type of Procedure Debridement -Clinical Debridement Subcutaneous -Post Debridement Size (cm) - Length 0.5 -Post Debridement Size (cm) - Width 1.2 -Post Debridement Size (cm) - Depth 0.2 -Total Square Cm 0.60 -Wound/Ulcer Outcome Not Healed -Ulcer Cleansing Rinsed/ Irrigated with Saline -Foul Odor after Cleansing No -Bioengineered Tissue Yes -Type of bioengineered Tissue EPIFIX -Expiration Date 05/20/23 -Product Lot Number [id number] -Percent Used 100 -Saline Lot Number [id number] -Bleeding Controlled with Pressure -Offloading Yes -Type of Offloading Surgical Shoe -Treatment Response Procedure Tolerated Well [See Physician Procedure note for Specifics] Pain Scale: 0-10 Numeric [Pain] -Is Patient Pain Free? Yes Musculoskeletal: No Tenderness to Palpation of Joints or Extremities, Muscle Wasting Neurological: - - Lack of epicritic sensation light touch consistent with neuropathy left foot Psych/Mental Status: Normal Affect, Appropriate Debridement Note Post-Debridement Measurements/Treatment WC - Nurse 2 - General Ulcer CM Notes Start: 12/20/18 09:47 Freq: Status: Active Protocol: Activity Type Activity Date Activity User E-Sign Co-Sign Detail Recorded Client Recorded Date Recorded By Document 12/20/18 10:20 AN [id number] 12/20/18 10:27 AN Document 12/27/18 11:18 AN [id number] 12/27/18 11:28 AN Document 01/03/19 10:46 [id number] 01/03/19 10:50 JF 12/20/18 12/27/18 01/03/19 10:20 11:18 10:46 Wound Center Nurse 2 2-left inferior plantar -Time 10:25 11:25 10:46 -Correct Patient Yes Yes Yes -Correct Side, Site, Position Yes Yes Yes -Correct Procedure Yes Yes Yes -Procedure Performed Yes Yes Yes -Type of Procedure Debridement Debridement Debridement -Clinical Debridement Subcutaneous Subcutaneous Subcutaneous -Post Debridement Size (cm) - Length 0.3 0.5 0.3 -Post Debridement Size (cm) - Width 0.3 0.4 0.2 -Post Debridement Size (cm) - Depth 2.0 1.9 1.9 -Total Square Cm 0.09 0.20 0.06 -Wound/Ulcer Outcome Not Healed Not Healed Not Healed -Ulcer Cleansing Rinsed/ Rinsed/ Rinsed/ Irrigated with Irrigated with Irrigated with Saline Saline Saline -Foul Odor after Cleansing No No No -Bioengineered Tissue Yes Yes Yes -Type of bioengineered Tissue EPIFIX EPIFIX EPIFIX -Expiration Date 05/20/23 05/20/23 05/20/23 -Product Lot Number [id number] -Percent Used 100 100 100 -Saline Lot Number [id number] -Bleeding Controlled with Pressure Pressure Pressure -Offloading Yes Yes Yes -Type of Offloading Surgical Shoe Surgical Shoe Surgical Shoe -Treatment Response Procedure Procedure Procedure Tolerated Well Tolerated Well Tolerated Well #1 L Plantar -Time 10:26 11:26 10:49 -Correct Patient Yes Yes Yes -Correct Side, Site, Position Yes Yes Yes -Correct Procedure Yes Yes Yes -Procedure Performed Yes Yes Yes -Type of Procedure Debridement Debridement Debridement -Clinical Debridement Subcutaneous Subcutaneous Subcutaneous -Post Debridement Size (cm) - Length 1.6 2.6 0.5 -Post Debridement Size (cm) - Width 1.3 2.1 1.2 -Post Debridement Size (cm) - Depth 0.2 0.1 0.2 -Total Square Cm 2.08 5.46 0.60 -Wound/Ulcer Outcome Not Healed Not Healed Not Healed -Ulcer Cleansing Rinsed/ Rinsed/ Rinsed/ Irrigated with Irrigated with Irrigated with Saline Saline Saline -Foul Odor after Cleansing No No No -Bioengineered Tissue Yes No Yes -Type of bioengineered Tissue EPIFIX EPIFIX -Expiration Date 05/20/23 -Product Lot Number [id number] -Percent Used 100 100 -Saline Lot Number [id number] -Bleeding Controlled with Pressure Pressure Pressure -Offloading Yes Yes -Type of Offloading Surgical Shoe Surgical Shoe Surgical Shoe -Treatment Response Procedure Procedure Procedure Tolerated Well Tolerated Well Tolerated Well Pain Scale: 0-10 Numeric Is Patient Pain Free? Yes Yes Yes Wound debrided: distal forefoot Laterality: Left Wound Grade/Stage: grade 3 Type of Debridement: Excisional debridement Anesthesia Used: 5% Lidocaine Gel Depth: in the subcutaneous layer Percentage of wound debrided: 100 Instrument Used: #15 blade Tissue Removed: fibrous, devitalized subcutaneous, biofilm, slough Severity: Fat Layer Exposed Amount of bleeding with debridement: Mild Bleeding Controlled with: Pressure Patient tolerated procedure well Assessment/Plan Assessment: Left foot ulcer with fat layer exposed. Osteomyelitis (chronic) and septic joint treated medically with PICC line at this time left foot. Diabetic neuropathy. Malnutrition. Delayed healing Plan: I reviewed and discussed his treatment plan. Subcutaneous excisional debridement was performed as noted in the clinical panel. He is clinically improving. To continue IV antibiotics per infectious disease management. It is noted his previous wound cultures demonstrated multi-organism growth. His last set of labs from his hospital admission demonstrate a white blood cell count of 8.3, ESR of 78, C-reactive protein of 60.7, and hemoglobin A1c of 14%. His x-rays demonstrated previous toe amputations and edema. His MRI was consistent with septic first metatarsophalangeal joint, chronic osteomyelitis metatarsals, abscess near his open ulcer site distal to the second and third remaining partial rays. He currently resides at [facility] with less than and about one weeks left of his IV antibiotic course. I recommend application of an advanced wound care product to optimize healing. This is medically necessary for limb salvage. Epi fix was applied today according to standard protocol and this was secured in place with wound veil and Steri-Strips. To keep this clean, dry, and intact until follow-up visit next week. Verbal consent was obtained and he tolerated this well. To keep weight off the ulcer by wearing a surgical shoe and to continue with heel weightbearing walking pattern. I recommend nutritional supplementation optimize healing including Gerard twice daily. I reviewed his most recent noninvasive vascular studies which include triphasic waveforms and bilateral ankle-brachial indices of 1.2. It is noted he has noncompressible vessels at the ankle level and this may not render accurate result. If lack of healing is noted vascular surgery referral will be considered. We also discussed the treatment option of hyperbaric oxygen therapy at this time. Indications, planned administration of approximately 40 sessions, purpose, benefits, risks, and anticipated healing time and management were discussed. I recommend he watch the hyperbaric oxygen therapy educational video. It is noted he is unable to attend due to his fci status. He reports he is able to make it on a daily basis once he is discharged home; I recommend confirming this with his sister who often comes appointments with him. Medical screening and clearance will be obtained to ensure this is a safe application for him. I ordered CBC, CMP, EKG, and chest x-ray. The lab work did not demonstrate gross abnormalities. The EKG was normal. And the chest x-ray did not demonstrate any acute cardiac or pulmonary issues. A referral was recommended with Dr. London for history and physical prehyperbarix oxygen therapy; this is greatly appreciated. I answered his questions. This modality is medically necessary for limb salvage. He is high risk for continued limb loss and due to this condition. To return to clinic in at the wound healing center 1 week or to call sooner if he has any questions or concerns.
--- NOTE | 2019-01-03 13:22 | PCM.CONHBO ---
(1) Delayed wound healing Status: Chronic Current Visit: Yes Code(s): T14.8XXD - Other injury of unspecified body region, subsequent encounter (2) Diabetes mellitus with polyneuropathy Status: Chronic Current Visit: Yes Qualifiers: Diabetes mellitus type: type 2 Qualified Code(s): E11.42 - Type 2 diabetes mellitus with diabetic polyneuropathy Code(s): E11.42 - Type 2 diabetes mellitus with diabetic polyneuropathy (3) Osteomyelitis Status: Chronic Current Visit: Yes Qualifiers: Osteomyelitis type: chronic, with draining sinus Osteomyelitis location: foot Laterality: left Qualified Code(s): M86.472 - Chronic osteomyelitis with draining sinus, left ankle and foot Code(s): M86.9 - Osteomyelitis, unspecified (4) Infected left foot ulcer Status: Acute Current Visit: Yes (5) Type 2 diabetes mellitus Status: Chronic Current Visit: Yes Code(s): E11.9 - Type 2 diabetes mellitus without complications History of Present Illness Presenting Chief Complaint: Nonhealing diabetic foot ulcer with chronic osteomyelitis. The patient is a 63 year old M who [facility] the possibility of initiating hyperbaric oxygen therapy for treatment of nonhealing diabetic foot ulcer with chronic osteomyelitis. He is status post surgical debridement, IV antibiotics and use, advance wound care with some progress so far however not optimal. Due to the chronicity, osteomyelitis and diabetic foot ulcer, hyperbaric oxygen therapy is being considered. He denies any concerns at this time and has never been in HBO chamber. He however has watched the video and raises no concerns. He has also had his EKG, chest x-ray and blood work done. 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) Dementia (Chronic) Hammer toe of left foot (Chronic) Osteomyelitis (Chronic) Diabetes mellitus with polyneuropathy (Chronic) Renal insufficiency (Chronic) Left second and third toe amputation (Chronic) Peripheral neuropathy (Chronic) Hypertension (Chronic) Type 2 diabetes mellitus (Chronic) Allergies/Adverse Reactions: Allergies No Known Allergies Allergy (Verified 11/29/18 13:58) Home Medications: Ambulatory Orders Medication Instructions Recorded Insulin Aspart [Novolog Flexpen] 10 units SC TIDCM #1 box 02/11/17 Acetaminophen [Tylenol Tablet] 650 mg PO Q6H PRN PRN tablet 11/24/18 Hydrochlorothiazide [Hctz] 25 mg PO DAILY tablet 11/24/18 Lisinopril [Zestril] 40 mg PO DAILY tablet 11/24/18 Nutritional Supplement [Gerard - 1 packet PO BIDCM packet 11/24/18 ORANGE FLAVOR] Pantoprazole Sodium [Protonix] 40 mg PO DAILY tablet 11/24/18 Bisacodyl 10 mg RC DAILY PRN 11/29/18 Dextrose [Glucose Gel] 38 gm PO X1 PRN 11/29/18 Glucagon,Human Recombinant 1 mg IJ X1 PRN 11/29/18 [Glucagon Emergency Kit] Guaifenesin [Robitussin] 10 ml PO Q4H PRN PRN 11/29/18 Insulin Glargine,Hum.rec.anlog 25 unit SQ BID 11/29/18 [Basaglar Kwikpen U-100] Mag Hydrox/Al Hydrox/Simeth 30 ml PO Q4H PRN PRN 11/29/18 [Mylanta II] Na Phos,M-B/Na Phos,Di-Ba [Fleet 1 bottle RECTAL X1 PRN 11/29/18 Enema] Povidone-Iodine [Betadine] ml TP DAILY 11/29/18 Maternal Family History: Diabetes Paternal Family History: - - before I was born. Unknown cause. Smoking Status: Never smoker Review of Systems Constitutional: Denies: Anorexia, Chills, Fever, Malaise, Weakness Eyes: Denies: Blurred vision, Pain HEENT: Denies: Difficulty Swallowing Cardiovascular: Denies: Chest Pain, Chest Tightness Respiratory: Denies: Cough, Hemoptysis Gastrointestinal: Denies: Abdominal Pain, Hematemesis, Vomiting Skin: Denies: Jaundice Psychiatric: Denies: Anxiety - Physical Exam Vital Signs Temp Pulse Resp BP 98.0 F 83 18 141/88 H 01/03/19 10:29 01/03/19 10:29 01/03/19 10:29 01/03/19 10:29 General: Alert, Oriented x3, Cooperative, No apparent distress HEENT: Atraumatic, Normocephalic - Right ear canal occluded by wax. Tympanic membrane not visualized. Also tender. Oral: Moist Mucosa Neck: Supple, No JVD Lungs: Normal air movement Cardiovascular: Regular rate, Regular Rhythm Abdomen: Soft, Non Tender Extremities: No cyanosis Skin: Ulcer/ Wound Wound Measurements and Assessment WC - Nurse 1 - General Ulcer Measurement Start: 12/20/18 09:47 Freq: Status: Active Protocol: Activity Type Activity Date Activity User E-Sign Co-Sign Detail Recorded Client Recorded Date Recorded By Document 01/03/19 10:29 DV [id number] 01/03/19 10:38 DV 01/03/19 10:29 Wound Center Nurse 1 [Ulcer Assessment] 2-left inferior plantar -Combined with other wound No -Current Size (cm) - Length 0.5 -Current Size (cm) - Width 1.2 -Current Size (cm) - Depth 0.1 -Total Square Cm 0.60 -Photo Taken No -Epithelialization None Present -Tunneling No -Undermining/Tunneling No -Circular Undermining No -Wound Margin Indistinct, Non -Visible -Granulation Amt None Present (0 %) -Granulation Quality N/A -Slough/Fibrin Yes -Necrosis Amt Small (1-33%) -Necrotic Tissue Type Adherent Slough -Structure Exposed None/Limited to Skin Breakdown -Texture (Charlene-wound Skin Appearance) Assessed Scarring -Moisture (Charlene-wound Skin Appearance Assessed ) Dry/Scaly -Color (Charlene-wound Skin Appearance) No Abnormality Assessed -Temperature (Charlene-wound Skin No Abnormality Appearance) (Pt Warm) -Ulcer Cleansing Rinsed/ Irrigated with Saline -Foul Odor after Cleansing Yes -Anesthetic Used 4% Lidocaine Solution #1 L Plantar -Combined with other wound No -Current Size (cm) - Length 1.0 -Current Size (cm) - Width 0.9 -Current Size (cm) - Depth 0.1 -Total Square Cm 0.90 -Photo Taken No -Epithelialization None Present -Tunneling No -Undermining/Tunneling No -Circular Undermining No -Classification - Thickness Full Thickness without Exposed Support Structure -Exudate Amt None Present -Wound Margin Indistinct, Non -Visible -Granulation Amt None Present (0 %) -Granulation Quality N/A -Slough/Fibrin Yes -Necrosis Amt Large (67-100%) -Necrotic Tissue Type Adherent Slough -Structure Exposed None/Limited to Skin Breakdown -Texture (Charlene-wound Skin Appearance) Assessed Scarring -Moisture (Charlene-wound Skin Appearance Assessed ) Dry/Scaly -Color (Charlene-wound Skin Appearance) No Abnormality Assessed -Temperature (Charlene-wound Skin No Abnormality Appearance) (Pt Warm) -Tenderness on Palpation (Charlene-wound No Skin Appearance) -Ulcer Cleansing Rinsed/ Irrigated with Saline -Foul Odor after Cleansing No -Anesthetic Used 4% Lidocaine Solution WC - Nurse 2 - General Ulcer CM Notes Start: 12/20/18 09:47 Freq: Status: Active Protocol: Activity Type Activity Date Activity User E-Sign Co-Sign Detail Recorded Client Recorded Date Recorded By Document 01/03/19 10:46 MARYCARMEN [id number] 01/03/19 10:50 MARYCARMEN 01/03/19 10:46 Wound Center Nurse 2 [Procedure/Treatment] 2-left inferior plantar -Time 10:46 -Correct Patient Yes -Correct Side, Site, Position Yes -Correct Procedure Yes -Procedure Performed Yes -Type of Procedure Debridement -Clinical Debridement Subcutaneous -Post Debridement Size (cm) - Length 0.3 -Post Debridement Size (cm) - Width 0.2 -Post Debridement Size (cm) - Depth 1.9 -Total Square Cm 0.06 -Wound/Ulcer Outcome Not Healed -Ulcer Cleansing Rinsed/ Irrigated with Saline -Foul Odor after Cleansing No -Bioengineered Tissue Yes -Type of bioengineered Tissue EPIFIX -Expiration Date 05/20/23 -Product Lot Number [id number] -Percent Used 100 -Saline Lot Number [id number] -Bleeding Controlled with Pressure -Offloading Yes -Type of Offloading Surgical Shoe -Treatment Response Procedure Tolerated Well #1 L Plantar -Time 10:49 -Correct Patient Yes -Correct Side, Site, Position Yes -Correct Procedure Yes -Procedure Performed Yes -Type of Procedure Debridement -Clinical Debridement Subcutaneous -Post Debridement Size (cm) - Length 0.5 -Post Debridement Size (cm) - Width 1.2 -Post Debridement Size (cm) - Depth 0.2 -Total Square Cm 0.60 -Wound/Ulcer Outcome Not Healed -Ulcer Cleansing Rinsed/ Irrigated with Saline -Foul Odor after Cleansing No -Bioengineered Tissue Yes -Type of bioengineered Tissue EPIFIX -Expiration Date 05/20/23 -Product Lot Number [id number] -Percent Used 100 -Saline Lot Number [id number] -Bleeding Controlled with Pressure -Offloading Yes -Type of Offloading Surgical Shoe -Treatment Response Procedure Tolerated Well [See Physician Procedure note for Specifics] Pain Scale: 0-10 Numeric [Pain] -Is Patient Pain Free? 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 Hyperbaric Oxygen Therapy would be an essential adjunct in the resolution and treatment of this patient's presenting problem. This patient has sufficient physiologic and psychological stamina to undergo the rigors of hyperbaric oxygen therapy. As such, I recommend the following: Hyperbaric Oxygen Treatments at 2.0 JUVENAL in 100% Oxygen for 90 minutes per treatment, for 40 treatments. I have discussed the possible benefits of hyperbaric oxygen therapy with this patient. I have also presented and described the risks, including: air gas embolism, pneumothorax, central nervous system and pulmonary oxygen toxicity, flash pulmonary edema, hypoglycemia, reversible visual refractive changes, ear and sinus dale-trauma, and confinement anxiety. The patient has verbalized understanding of these risks, and is still wanting to undergo hyperbaric oxygen therapy. The patient understands the significant time and transportation commitment involved in daily treatments of up to two hours duration and has stated that they are willing to commit to this therapy. - HBOT Diagnosis Chronic Refractory Osteomyelitis (730.1) EKG and chest x-ray reviewed. No history of heart disease or COPD. Denies tobacco abuse. No abnormality. He was advised to follow-up with and referred to an ENT physician due to wax impaction and tenderness on the right ear. He expressed understanding.
[2019-01-10 11:48] VITALS: BP 140/110; PULSE 94; RESP 16; TEMP 37.1; BMI 24.0
--- NOTE | 2019-01-10 13:54 | PN.PCM_ITS ---
(1) Osteomyelitis Status: Chronic Current Visit: Yes Qualifiers: Osteomyelitis type: other Osteomyelitis location: foot Laterality: left Qualified Code(s): M86.8X7 - Other osteomyelitis, ankle and foot Code(s): M86.9 - Osteomyelitis, unspecified Comment: chronic refractory osteomyelitis (2) Chronic ulcer of left foot with necrosis of muscle Status: Chronic Current Visit: Yes Code(s): L97.523 - Non-pressure chronic ulcer of other part of left foot with necrosis of muscle (3) Malnutrition Status: Chronic Current Visit: Yes Code(s): E46 - Unspecified protein- calorie malnutrition (4) Diabetes mellitus with polyneuropathy Status: Chronic Current Visit: Yes Qualifiers: Diabetes mellitus type: type 2 Qualified Code(s): E11.42 - Type 2 diabetes mellitus with diabetic polyneuropathy Code(s): E11.42 - Type 2 diabetes mellitus with diabetic polyneuropathy (5) Delayed wound healing Status: Chronic Current Visit: Yes Code(s): T14.8XXD - Other injury of unspecified body region, subsequent encounter (6) Hammer toe of left foot Status: Chronic Current Visit: Yes Code(s): M20.42 - Other hammer toe(s) (acquired), left foot Type of Wound Date of Service: 01/10/19 Chief Complaint: Left foot ulcer History of Wound: This 63-year-old male with multiple comorbidities was seen for follow-up of infected left foot ulcer. His MRI, previous clinical exam, and x- ray were consistent with abscess and devitalized tissue (including chronic osteomyelitis) near the resected second and third toes, and septic first metatarsophalangeal joint (including chronic osteomyelitis). He was started on IV antibiotics via PICC during his last hospital admission. This has been completed and he has recently been discharged from the senior care; he resides at home and now available to start hyperbaric oxygen therapy. He asked on the progress of this and when he can start. He denies fever, chill, nausea, vomiting. During his last hospital visit, he refused the recommended surgical intervention including transmetatarsal amputation or even local debridement and drainage in the operating room. He recently started having advanced wound healing products placed, epi fix, and is doing well. He has been compliant. Progress of Wound: Stable - Physical Exam Vital Signs Temp Pulse Resp BP 98.7 F 94 16 140/110 H 04/24/19 11:48 01/10/19 11:48 01/10/19 11:48 01/10/19 11:48 General: Alert, Oriented x3, Cooperative Extremities: No cyanosis, Capillary Refill Less than 3 Seconds, No Calf Tenderness - Negative Bowman and Aric, Diminished Peripheral Pulses, Edema - Mild left foot Skin: Ulcer/ Wound - No purulence, erythema, streaking, odor, or infection. No deep probing as previously noted. No exposed bone. The peripheral skin is hairless and atrophic. There is no maceration. Wound Measurements and Assessment WC - Nurse 1 - General Ulcer Measurement Start: 12/20/18 09:47 Freq: Status: Active Protocol: Activity Type Activity Date Activity User E-Sign Co-Sign Detail Recorded Client Recorded Date Recorded By Document 01/10/19 11:48 [facility] [id number] 01/10/19 11:56 [facility] 01/10/19 11:48 Wound Center Nurse 1 [Ulcer Assessment] 2-left inferior plantar -Combined with other wound No -Current Size (cm) - Length 0.1 -Current Size (cm) - Width 0.1 -Current Size (cm) - Depth 0.1 -Total Square Cm 0.01 -Epithelialization Large 67-100% -Tunneling No -Undermining/Tunneling No -Circular Undermining No #1 L Plantar -Combined with other wound No -Current Size (cm) - Length 1 -Current Size (cm) - Width 0.4 -Current Size (cm) - Depth 0.1 -Total Square Cm 0.4 -Photo Taken No -Epithelialization Small 1-33% -Tunneling No -Undermining/Tunneling No -Circular Undermining No -Exudate Amt Medium -Exudate Type Serosanguineous -Wound Margin Flat & Intact -Granulation Amt Small (1-33%) -Granulation Quality Red -Slough/Fibrin Yes -Necrosis Amt Medium (34-66%) -Necrotic Tissue Type Adherent Slough -Texture (Charlene-wound Skin Appearance) Callus Scarring -Moisture (Charlene-wound Skin Appearance Assessed ) Dry/Scaly -Color (Charlene-wound Skin Appearance) Assessed -Temperature (Charlene-wound Skin No Abnormality Appearance) (Pt Warm) -Tenderness on Palpation (Charlene-wound No Skin Appearance) -Ulcer Cleansing Wound Cleanser -Foul Odor after Cleansing No -Anesthetic Used 4% Lidocaine Solution [Edema Assessment] -Lower Limb Edema Present Yes -Left Calf (cm) 35.2 -Left Ankle (cm) 21.6 WC - Nurse 2 - General Ulcer CM Notes Start: 12/20/18 09:47 Freq: Status: Active Protocol: Activity Type Activity Date Activity User E-Sign Co-Sign Detail Recorded Client Recorded Date Recorded By Document 01/10/19 12:15 MARYCARMEN [id number] 01/10/19 12:25 MARYCARMEN 01/10/19 12:15 Wound Center Nurse 2 [Procedure/Treatment] 2-left inferior plantar -Time 12:23 -Correct Patient Yes -Correct Side, Site, Position Yes -Correct Procedure Yes -Procedure Performed Yes -Type of Procedure Debridement -Clinical Debridement Subcutaneous -Post Debridement Size (cm) - Length 0.1 -Post Debridement Size (cm) - Width 0.1 -Post Debridement Size (cm) - Depth 0.1 -Total Square Cm 0.01 -Wound/Ulcer Outcome Not Healed -Ulcer Cleansing Rinsed/ Irrigated with Saline -Foul Odor after Cleansing No -Bioengineered Tissue No -Bleeding Controlled with Pressure -Offloading Yes -Type of Offloading Surgical Shoe -Treatment Response Procedure Tolerated Well #1 L Plantar -Time 12:24 -Correct Patient Yes -Correct Side, Site, Position Yes -Correct Procedure Yes -Procedure Performed Yes -Type of Procedure Debridement -Clinical Debridement Subcutaneous -Post Debridement Size (cm) - Length 1 -Post Debridement Size (cm) - Width 0.5 -Post Debridement Size (cm) - Depth 0.2 -Total Square Cm 0.5 -Wound/Ulcer Outcome Not Healed -Ulcer Cleansing Rinsed/ Irrigated with Saline -Foul Odor after Cleansing No -Bioengineered Tissue Yes -Type of bioengineered Tissue [place]IN -Expiration Date 06/19/23 -Product Lot Number [id number] -Percent Used 100 -Saline Lot Number [id number] -Bleeding Controlled with Pressure -Offloading Yes -Type of Offloading Surgical Shoe -Treatment Response Procedure Tolerated Well [See Physician Procedure note for Specifics] Pain Scale: 0-10 Numeric [Pain] -Is Patient Pain Free? Yes Musculoskeletal: No Tenderness to Palpation of Joints or Extremities, Muscle Wasting, - - Left central ray resection and amputation resection of the toes Neurological: - - Lack of normal epicritic sensation light touch Psych/Mental Status: Normal Affect, Appropriate Debridement Note Post-Debridement Measurements/Treatment WC - Nurse 2 - General Ulcer CM Notes Start: 12/20/18 09:47 Freq: Status: Active Protocol: Activity Type Activity Date Activity User E-Sign Co-Sign Detail Recorded Client Recorded Date Recorded By Document 12/20/18 10:20 AN [id number] 12/20/18 10:27 AN Document 12/27/18 11:18 AN [id number] 12/27/18 11:28 AN Document 01/03/19 10:46 JF [id number] 01/03/19 10:50 JF Document 01/10/19 12:15 JF [id number] 01/10/19 12:25 JF 12/20/18 12/27/18 01/03/19 10:20 11:18 10:46 Wound Center Nurse 2 2-left inferior plantar -Time 10:25 11:25 10:46 -Correct Patient Yes Yes Yes -Correct Side, Site, Position Yes Yes Yes -Correct Procedure Yes Yes Yes -Procedure Performed Yes Yes Yes -Type of Procedure Debridement Debridement Debridement -Clinical Debridement Subcutaneous Subcutaneous Subcutaneous -Post Debridement Size (cm) - Length 0.3 0.5 0.3 -Post Debridement Size (cm) - Width 0.3 0.4 0.2 -Post Debridement Size (cm) - Depth 2.0 1.9 1.9 -Total Square Cm 0.09 0.20 0.06 -Wound/Ulcer Outcome Not Healed Not Healed Not Healed -Ulcer Cleansing Rinsed/ Rinsed/ Rinsed/ Irrigated with Irrigated with Irrigated with Saline Saline Saline -Foul Odor after Cleansing No No No -Bioengineered Tissue Yes Yes Yes -Type of bioengineered Tissue EPIFIX EPIFIX EPIFIX -Expiration Date 05/20/23 05/20/23 05/20/23 -Product Lot Number [id number] -Percent Used 100 100 100 -Saline Lot Number [id number] -Bleeding Controlled with Pressure Pressure Pressure -Offloading Yes Yes Yes -Type of Offloading Surgical Shoe Surgical Shoe Surgical Shoe -Treatment Response Procedure Procedure Procedure Tolerated Well Tolerated Well Tolerated Well #1 L Plantar -Time 10:26 11:26 10:49 -Correct Patient Yes Yes Yes -Correct Side, Site, Position Yes Yes Yes -Correct Procedure Yes Yes Yes -Procedure Performed Yes Yes Yes -Type of Procedure Debridement Debridement Debridement -Clinical Debridement Subcutaneous Subcutaneous Subcutaneous -Post Debridement Size (cm) - Length 1.6 2.6 0.5 -Post Debridement Size (cm) - Width 1.3 2.1 1.2 -Post Debridement Size (cm) - Depth 0.2 0.1 0.2 -Total Square Cm 2.08 5.46 0.60 -Wound/Ulcer Outcome Not Healed Not Healed Not Healed -Ulcer Cleansing Rinsed/ Rinsed/ Rinsed/ Irrigated with Irrigated with Irrigated with Saline Saline Saline -Foul Odor after Cleansing No No No -Bioengineered Tissue Yes No Yes -Type of bioengineered Tissue EPIFIX EPIFIX -Expiration Date 05/20/23 -Product Lot Number [id number] -Percent Used 100 100 -Saline Lot Number [id number] -Bleeding Controlled with Pressure Pressure Pressure -Offloading Yes Yes -Type of Offloading Surgical Shoe Surgical Shoe Surgical Shoe -Treatment Response Procedure Procedure Procedure Tolerated Well Tolerated Well Tolerated Well Pain Scale: 0-10 Numeric Is Patient Pain Free? Yes Yes Yes 01/10/19 12:15 Wound Center Nurse 2 2-left inferior plantar -Time 12:23 -Correct Patient Yes -Correct Side, Site, Position Yes -Correct Procedure Yes -Procedure Performed Yes -Type of Procedure Debridement -Clinical Debridement Subcutaneous -Post Debridement Size (cm) - Length 0.1 -Post Debridement Size (cm) - Width 0.1 -Post Debridement Size (cm) - Depth 0.1 -Total Square Cm 0.01 -Wound/Ulcer Outcome Not Healed -Ulcer Cleansing Rinsed/ Irrigated with Saline -Foul Odor after Cleansing No -Bioengineered Tissue No -Type of bioengineered Tissue -Expiration Date -Product Lot Number -Percent Used -Saline Lot Number -Bleeding Controlled with Pressure -Offloading Yes -Type of Offloading Surgical Shoe -Treatment Response Procedure Tolerated Well #1 L Plantar -Time 12:24 -Correct Patient Yes -Correct Side, Site, Position Yes -Correct Procedure Yes -Procedure Performed Yes -Type of Procedure Debridement -Clinical Debridement Subcutaneous -Post Debridement Size (cm) - Length 1 -Post Debridement Size (cm) - Width 0.5 -Post Debridement Size (cm) - Depth 0.2 -Total Square Cm 0.5 -Wound/Ulcer Outcome Not Healed -Ulcer Cleansing Rinsed/ Irrigated with Saline -Foul Odor after Cleansing No -Bioengineered Tissue Yes -Type of bioengineered Tissue [place] -Expiration Date 06/19/23 -Product Lot Number [id number] -Percent Used 100 -Saline Lot Number [id number] -Bleeding Controlled with Pressure -Offloading Yes -Type of Offloading Surgical Shoe -Treatment Response Procedure Tolerated Well Pain Scale: 0-10 Numeric Is Patient Pain Free? Yes Wound debrided: distal foot Laterality: Left Wound Grade/Stage: grade 3 Type of Debridement: Excisional debridement Anesthesia Used: 5% Lidocaine Gel Depth: in the subcutaneous layer Percentage of wound debrided: 100 Instrument Used: #15 blade Tissue Removed: fibrous, devitalized subcutaneous, biofilm, slough Severity: Fat Layer Exposed Amount of bleeding with debridement: Mild Bleeding Controlled with: Pressure Patient tolerated procedure well Assessment/Plan Active Problems Delayed wound healing (Chronic) Malnutrition (Chronic) Chronic ulcer of left foot with necrosis of muscle (Chronic) Hammer toe of left foot (Chronic) Osteomyelitis (Chronic) chronic refractory osteomyelitis Diabetes mellitus with polyneuropathy (Chronic) Assessment: Left foot ulcer with fat layer exposed. Osteomyelitis (chronic and refractory) and septic joint treated medically with PICC line at this time left foot. Diabetic neuropathy. Malnutrition. Delayed healing Plan: I reviewed and discussed his treatment plan. Subcutaneous excisional debridement was performed as noted in the clinical panel. He has completed IV antibiotics per infectious disease management. It is noted his previous wound cultures demonstrated multi-organism growth. His last set of labs from his hospital admission demonstrate a white blood cell count of 8.3, ESR of 78, C- reactive protein of 60.7, and hemoglobin A1c of 14%. His x-rays demonstrated previous toe amputations and edema. His MRI was consistent with septic first metatarsophalangeal joint, chronic osteomyelitis metatarsals, abscess near his open ulcer site distal to the second and third remaining partial rays. He now resides at home. I recommend application of an advanced wound care product to optimize healing. This is medically necessary for limb salvage. Epi fix was applied today according to standard protocol and this was secured in place with wound veil and Steri-Strips. To keep this clean, dry, and intact until follow- up visit next week. Verbal consent was obtained and he tolerated this well. To keep weight off the ulcer by wearing a surgical shoe and to continue with heel weightbearing walking pattern. I recommend nutritional supplementation optimize healing including Gerard twice daily. I reviewed his most recent noninvasive vascular studies which include triphasic waveforms and bilateral ankle-brachial indices of 1.2. It is noted he has noncompressible vessels at the ankle level and this may not render accurate result. If lack of healing is noted vascular surgery referral will be considered. We also discussed the treatment option of hyperbaric oxygen therapy at this time. Indications, planned administration of approximately 40 sessions, purpose, benefits, risks, and anticipated healing time and management were discussed. Medical screening and clearance is in process. He did go for a consultation with Dr. London who recommended: Hyperbaric Oxygen Treatments at 2.0 JUVENAL in 100% Oxygen for 90 minutes per treatment, for 40 treatments. It is noted that he will get an ENT clearance to the right ear tenderness prior to proceeding for treatment of chronic refractory osteomyelitis. His transportation will also be confirmed and staff is working on assisting him with this. I answered his questions. This modality is medically necessary for limb salvage. He is high risk for continued limb loss and due to this condition. To return to clinic in at the wound healing center 1 week or to call sooner if he has any questions or concerns.
== END 2019-01-16 23:59 ==
LOC: WC 10:45
PROVIDERS: Family Provider Family Medicine; PCP Family Medicine; Visit Provider Podiatrist
DX: E11.621 Type 2 diabetes mellitus with foot ulcer (principal); E11.42 Type 2 diabetes mellitus with diabetic polyneuropathy; L97.522 Non-pressure chronic ulcer of other part of left foot with fat layer exposed; M86.8X7 Other osteomyelitis, ankle and foot; M20.42 Other hammer toe(s) (acquired), left foot; E11.69 Type 2 diabetes mellitus with other specified complication; I12.9 Hypertensive chronic kidney disease with stage 1 through stage 4 chronic kidney disease, or unspecified chronic kidney disease; N18.9 Chronic kidney disease, unspecified; Z79.899 Other long term (current) drug therapy; F03.90 Unspecified dementia, unspecified severity, without behavioral disturbance, psychotic disturbance, mood disturbance, and anxiety; Z79.4 Long term (current) use of insulin
CPT/HCPCS: 15275; 99212; Q4186; G0463

== ENCOUNTER 2019-01-24 13:15 | Outpatient (RCR) | payer MEDICAID, SELFPAY ==
[2019-01-17 01:31] VITALS: BP 140/110; PULSE 94; RESP 16; TEMP 37.1
[2019-01-17 10:40] VITALS: BP 145/88; PULSE 83; RESP 18; TEMP 36.6; BMI 24.0
--- NOTE | 2019-01-17 11:39 | PN.PCM_ITS ---
(1) Chronic ulcer of left foot with necrosis of muscle Status: Chronic Current Visit: Yes Code(s): L97.523 - Non-pressure chronic ulcer of other part of left foot with necrosis of muscle (2) Delayed wound healing Status: Chronic Current Visit: Yes Code(s): T14.8XXD - Other injury of unspecified body region, subsequent encounter (3) Left foot infection Status: Acute Current Visit: Yes Code(s): L08.9 - Local infection of the skin and subcutaneous tissue, unspecified (4) Malnutrition Status: Chronic Current Visit: Yes Code(s): E46 - Unspecified protein- calorie malnutrition (5) Osteomyelitis Status: Chronic Current Visit: Yes Qualifiers: Code(s): M86.9 - Osteomyelitis, unspecified Comment: chronic refractory osteomyelitis (6) Diabetes mellitus with polyneuropathy Status: Chronic Current Visit: Yes Qualifiers: Diabetes mellitus type: type 2 Code(s): E11.42 - Type 2 diabetes mellitus with diabetic polyneuropathy Type of Wound Date of Service: 01/17/19 Chief Complaint: Left foot ulcer History of Wound: This 63-year-old male with multiple comorbidities was seen for follow-up of infected left foot ulcer. His MRI, previous clinical exam, and x- ray were consistent with abscess and devitalized tissue (including chronic osteomyelitis) near the resected second and third toes, and septic first metatarsophalangeal joint (including chronic osteomyelitis). He was started on IV antibiotics via PICC during his last hospital admission. This has been comp leted and he has recently been discharged from the [place] [facility]; he resides at home and now available to start hyperbaric oxygen therapy. He denies fever, chill, nausea, vomiting. He has kept his advanced wound care product clean and intact since his last visit and appears to be doing well. Progress of Wound: Improving - Physical Exam Vital Signs Temp Pulse Resp BP 97.8 F 83 18 145/88 H 01/17/19 10:40 01/17/19 10:40 01/17/19 10:40 01/17/19 10:40 General: Alert, Oriented x3, Cooperative Extremities: No cyanosis, Capillary Refill Less than 3 Seconds, No Calf Tenderness - Negative Aric and Bowman sign left, Diminished Peripheral Pulses, Edema - Decreased left foot, - - Previous lesser toe amputations noted left foot Skin: Ulcer/ Wound - No purulence, erythema, streaking, odor, or infection clinical signs left foot. There is no deep probing. There is a very small skin discontinuity with granular base and peripheral epithelialization is apparent. The peripheral skin is hairless and atrophic left foot and there is no interd igital maceration or necrosis. Wound Measurements and Assessment WC - Nurse 1 - General Ulcer Measurement Start: 01/17/19 10:38 Freq: Status: Active Protocol: Activity Type Activity Date Activity User E-Sign Co-Sign Detail Recorded Client Recorded Date Recorded By Document 01/17/19 10:40 [facility] [id number] 01/17/19 10:51 [facility] 01/17/19 10:40 Wound Center Nurse 1 [Ulcer Assessment] 2-left inferior plantar -Combined with other wound No -Current Size (cm) - Length 0.1 -Current Size (cm) - Width 0.1 -Current Size (cm) - Depth 0.1 -Total Square Cm 0.01 -Epithelialization Large 67-100% -Tunneling No -Undermining/Tunneling No -Circular Undermining No -Exudate Amt None Present -Temperature (Charlene-wound Skin No Abnormality Appearance) (Pt Warm) -Tenderness on Palpation (Charlene-wound No Skin Appearance) -Ulcer Cleansing Wound Cleanser -Foul Odor after Cleansing No -Anesthetic Used 5% Lidocaine Gel #1 L Plantar -Combined with other wound No -Current Size (cm) - Length 0.6 -Current Size (cm) - Width 0.1 -Current Size (cm) - Depth 0.1 -Total Square Cm 0.06 -Photo Taken No -Epithelialization Small 1-33% -Tunneling No -Undermining/Tunneling No -Circular Undermining No -Exudate Amt None Present -Wound Margin Flat & Intact -Granulation Amt Small (1-33%) -Slough/Fibrin Yes -Necrosis Amt Medium (34-66%) -Necrotic Tissue Type Adherent Slough -Texture (Charlene-wound Skin Appearance) Callus Scarring -Moisture (Charlene-wound Skin Appearance Assessed ) Dry/Scaly -Color (Charlene-wound Skin Appearance) Assessed -Temperature (Charlene-wound Skin No Abnormality Appearance) (Pt Warm) -Tenderness on Palpation (Charlene-wound No Skin Appearance) -Ulcer Cleansing Wound Cleanser -Foul Odor after Cleansing No -Anesthetic Used 5% Lidocaine Gel [Edema Assessment] -Left Calf (cm) 35.8 -Left Ankle (cm) 22.6 - Nurse 2 - General Ulcer CM Notes Start: 01/17/19 10:38 Freq: Status: Active Protocol: Activity Type Activity Date Activity User E-Sign Co-Sign Detail Recorded Client Recorded Date Recorded By Document 01/17/19 11:18 AN [id number] 01/17/19 11:22 AN 01/17/19 11:18 Wound Center Nurse 2 [Procedure/Treatment] #1 L Plantar -Time 11:20 -Correct Patient Yes -Correct Side, Site, Position Yes -Correct Procedure Yes -Procedure Performed Yes -Type of Procedure Debridement -Clinical Debridement Subcutaneous -Post Debridement Size (cm) - Length 0.7 -Post Debridement Size (cm) - Width 0.2 -Post Debridement Size (cm) - Depth 0.1 -Total Square Cm 0.14 -Wound/Ulcer Outcome Not Healed -Ulcer Cleansing Rinsed/ Irrigated with Saline -Foul Odor after Cleansing No -Bioengineered Tissue No -Bleeding Controlled with Pressure -Type of Offloading Surgical Shoe -Treatment Response Procedure Tolerated Well [See Physician Procedure note for Specifics] Pain Scale: 0-10 Numeric [Pain] -Is Patient Pain Free? Yes Musculoskeletal: No Tenderness to Palpation of Joints or Extremities, Muscle Wasting Neurological: - - Lack of normal epicritic sensation light touch consistent with neuropathy left foot Psych/Mental Status: Normal Affect, Appropriate Debridement Note Post-Debridement Measurements/Treatment - Nurse 2 - General Ulcer CM Notes Start: 01/17/19 10:38 Freq: Status: Active Protocol: Activity Type Activity Date Activity User E-Sign Co-Sign Detail Recorded Client Recorded Date Recorded By Document 01/17/19 11:18 AN [id number] 01/17/19 11:22 AN 01/17/19 11:18 Wound Center Nurse 2 #1 L Plantar -Time 11:20 -Correct Patient Yes -Correct Side, Site, Position Yes -Correct Procedure Yes -Procedure Performed Yes -Type of Procedure Debridement -Clinical Debridement Subcutaneous -Post Debridement Size (cm) - Length 0.7 -Post Debridement Size (cm) - Width 0.2 -Post Debridement Size (cm) - Depth 0.1 -Total Square Cm 0.14 -Wound/Ulcer Outcome Not Healed -Ulcer Cleansing Rinsed/ Irrigated with Saline -Foul Odor after Cleansing No -Bioengineered Tissue No -Bleeding Controlled with Pressure -Type of Offloading Surgical Shoe -Treatment Response Procedure Tolerated Well Pain Scale: 0-10 Numeric Is Patient Pain Free? Yes Wound debrided: distal foot Laterality: Left Wound Grade/Stage: grade 3 Type of Debridement: Excisional debridement Anesthesia Used: 5% Lidocaine Gel Depth: in the subcutaneous layer Percentage of wound debrided: 100 Instrument Used: #15 blade Tissue Removed: fibrous, devitalized subcutaneous, biofilm, slough Severity: Fat Layer Exposed Amount of bleeding with debridement: Mild Bleeding Controlled with: Pressure Patient tolerated procedure well Assessment/Plan Active Problems Delayed wound healing (Chronic) Left foot infection (Acute) Malnutrition (Chronic) Chronic ulcer of left foot with necrosis of muscle (Chronic) Osteomyelitis (Chronic) chronic refractory osteomyelitis Diabetes mellitus with polyneuropathy (Chronic) Assessment: Left foot ulcer with fat layer exposed. Osteomyelitis (chronic and refractory) and septic joint treated medically with PICC line at this time left foot. Diabetic neuropathy. Malnutrition. Delayed healing Plan: I reviewed and discussed his treatment plan. Subcutaneous excisional debridement was performed as noted in the clinical panel. He has completed IV antibiotics per infectious disease management. It is noted his previous wound cultures demonstrated multi-organism growth. His last set of labs from his hospital admission demonstrate a white blood cell count of 8.3, ESR of 78, C- reactive protein of 60.7, and hemoglobin A1c of 14%. His x-rays demonstrated previous toe amputations and edema. His MRI was consistent with septic first metatarsophalangeal joint, chronic osteomyelitis metatarsals, abscess near his open ulcer site distal to the second and third remaining partial rays. He now resides at home. He has done well with advanced wound care product application and the ulcer size has significantly reduced. Recommend changing the dressing daily with Aquacel. To keep weight off the ulcer by wearing a surgical shoe and to continue with heel weightbearing walking pattern. I recommend nutritional supplementation optimize healing including Gerard twice daily. I reviewed his most recent noninvasive vascular studies which include triphasic waveforms and bilateral ankle-brachial indices of 1.2. It is noted he has noncompressible vessels at the ankle level and this may not render accurate result. If lack of healing is noted vascular surgery referral will be considered. We also discussed the treatment option of hyperbaric oxygen therapy at this time. Indications, planned administration of approximately 40 sessions, purpose, benefits, risks, and anticipated healing time and management were discussed. Medical screening and clearance is in process. He did go for a consultation with Dr. London who recommended: Hyperbaric Oxygen Treatments at 2.0 JUVENAL in 100% Oxygen for 90 minutes per treatment, for 40 treatments. It is noted that he will get an ENT clearance to the right ear tenderness prior to proceeding for treatment of chronic refractory osteomyelitis. His transportation will also be confirmed and staff is working on assisting him with this. This will be canceled if his ulcer site heals; it is not healed yet. I answered his questions. This modality is medically necessary for limb salvage. He is high risk for continued limb loss and due to this condition. To return to clinic in at the wound healing center 1 week or to call sooner if he has any questions or concerns.
[2019-01-24 13:39] VITALS: BP 123/91; PULSE 86; RESP 18; TEMP 36.6; BMI 24.0
--- NOTE | 2019-01-24 17:05 | PN.PCM_ITS ---
(1) Chronic ulcer of left foot with necrosis of muscle Status: Resolved Current Visit: Yes Code(s): L97.523 - Non-pressure chronic ulcer of other part of left foot with necrosis of muscle (2) Delayed wound healing Status: Chronic Current Visit: Yes Code(s): T14.8XXD - Other injury of unspecified body region, subsequent encounter (3) Left foot infection Status: Acute Current Visit: Yes Code(s): L08.9 - Local infection of the skin and subcutaneous tissue, unspecified (4) Malnutrition Status: Chronic Current Visit: Yes Code(s): E46 - Unspecified protein- calorie malnutrition (5) Osteomyelitis Status: Chronic Current Visit: Yes Qualifiers: Code(s): M86.9 - Osteomyelitis, unspecified Comment: chronic refractory osteomyelitis (6) Diabetes mellitus with polyneuropathy Status: Chronic Current Visit: Yes Qualifiers: Diabetes mellitus type: type 2 Qualified Code(s): E11.42 - Type 2 diabetes mellitus with diabetic polyneuropathy Code(s): E11.42 - Type 2 diabetes mellitus with diabetic polyneuropathy Type of Wound Date of Service: 01/24/19 Chief Complaint: Left foot ulcer History of Wound: This 63-year-old male with multiple comorbidities was seen for follow-up of infected left foot ulcer. His MRI, previous clinical exam, and x- ray were consistent with abscess and devitalized tissue (including chronic osteomyelitis) near the resected second and third toes, and septic first metatarsophalangeal joint (including chronic osteomyelitis). He was started on IV antibiotics via PICC during his last hospital admission. This has been completed and [facility] he resides at home and now available to start hyperbaric oxygen therapy. He denies fever, chill, nausea, vomiting. He has kept his advanced wound care product clean and intact since his last visit and appears to be doing well. He denies dressing drainage and thinks his ulcer site may be healed today. Progress of Wound: Healed - Physical Exam Vital Signs Temp Pulse Resp BP 98 F 86 18 123/91 H 01/24/19 13:39 01/24/19 13:39 01/24/19 13:39 01/24/19 13:39 General: Alert, Oriented x3, Cooperative Extremities: No cyanosis, Capillary Refill Less than 3 Seconds, No Calf Tenderness - Negative Aric and Bowman, Diminished Peripheral Pulses, Edema - Decreased, - - Lesser toe amputations and dorsal contraction of remaining toes are noted. The plantar metatarsal head area is very prominent Skin: Ulcer/ Wound - No purulence, erythema, streaking, odor, or infection. The peripheral skin is hairless and atrophic. There is no ulcer noted today with full epithelialization present. There is no maceration. Wound Measurements and Assessment WC - Nurse 1 - General Ulcer Measurement Start: 01/17/19 10:38 Freq: Status: Active Protocol: Activity Type Activity Date Activity User E-Sign Co-Sign Detail Recorded Client Recorded Date Recorded By Document 01/24/19 13:39 [facility] [id number] 01/24/19 13:45 [facility] 01/24/19 13:39 Wound Center Nurse 1 [Ulcer Assessment] #1 L Plantar -Combined with other wound No -Current Size (cm) - Length 0.1 -Current Size (cm) - Width 0.1 -Current Size (cm) - Depth 0.1 -Total Square Cm 0.01 -Epithelialization Large 67-100% [Edema Assessment] -Lower Limb Edema Present No WC - Nurse 2 - General Ulcer CM Notes Start: 01/17/19 10:38 Freq: Status: Active Protocol: Activity Type Activity Date Activity User E-Sign Co-Sign Detail Recorded Client Recorded Date Recorded By Document 01/24/19 14:10 [id number] 01/24/19 14:10 01/24/19 14:10 Wound Center Nurse 2 [Procedure/Treatment] #1 L Plantar -Correct Patient No -Correct Side, Site, Position No -Correct Procedure No -Procedure Performed No -Post Debridement Size (cm) - Length 0 -Post Debridement Size (cm) - Width 0 -Post Debridement Size (cm) - Depth 0 -Total Square Cm 0 -Wound/Ulcer Outcome Healed- Epithelialized [See Physician Procedure note for Specifics] Pain Scale: 0-10 Numeric [Pain] -Is Patient Pain Free? Yes Musculoskeletal: No Tenderness to Palpation of Joints or Extremities, Muscle Wasting Neurological: - - Lack of epicritic sensation light touch consistent with neuropathy Psych/Mental Status: Normal Affect, Appropriate Debridement Note Post-Debridement Measurements/Treatment - Nurse 2 - General Ulcer CM Notes Start: 01/17/19 10:38 Freq: Status: Active Protocol: Activity Type Activity Date Activity User E-Sign Co-Sign Detail Recorded Client Recorded Date Recorded By Document 01/17/19 11:18 AN [id number] 01/17/19 11:22 AN Document 01/24/19 14:10 MARYCARMEN [id number] 01/24/19 14:10 MARYCARMEN 01/17/19 01/24/19 11:18 14:10 Wound Center Nurse 2 #1 L Plantar -Time 11:20 -Correct Patient Yes No -Correct Side, Site, Position Yes No -Correct Procedure Yes No -Procedure Performed Yes No -Type of Procedure Debridement -Clinical Debridement Subcutaneous -Post Debridement Size (cm) - Length 0.7 0 -Post Debridement Size (cm) - Width 0.2 0 -Post Debridement Size (cm) - Depth 0.1 0 -Total Square Cm 0.14 0 -Wound/Ulcer Outcome Not Healed Healed- Epithelialized -Ulcer Cleansing Rinsed/ Irrigated with Saline -Foul Odor after Cleansing No -Bioengineered Tissue No -Bleeding Controlled with Pressure -Type of Offloading Surgical Shoe -Treatment Response Procedure Tolerated Well Pain Scale: 0-10 Numeric Is Patient Pain Free? Yes Yes No debridement was completed today - The ulcer site has healed Assessment/Plan Active Problems Delayed wound healing (Chronic) Left foot infection (Acute) Malnutrition (Chronic) Osteomyelitis (Chronic) chronic refractory osteomyelitis Diabetes mellitus with polyneuropathy (Chronic) Assessment: Left foot ulcer with fat layer exposed -- healed today. Osteomyelitis (chronic and refractory) and septic joint treated medically with PICC line previously. Diabetic neuropathy. Malnutrition. Delayed healing Plan: I reviewed and discussed his treatment plan. Debridement was not performed today because the ulcer site has healed. He should discontinue all dressing care and nutritional supplementation at this time. To avoid soaking. To allow the skin to remodel protecting this fragile site. To continue offloading for couple weeks while the skin remodels. And he can transition into extra-depth diabetic shoes with dual density Plastizote liners. A referral was given to obtain this and get fitted at the [facility] to prevent recurrence. It is noted he has completed IV antibiotics per infectious disease management. It is noted his previous wound cultures demonstrated multi-organism growth. His last set of labs from his hospital admission demonstrate a white blood cell count of 8.3, ESR of 78, C-reactive protein of 60.7, and hemoglobin A1c of 14%. His x-rays demonstrated previous toe amputations and edema. His MRI was consistent with septic first metatarsophalangeal joint, chronic osteomyelitis metatarsals, abscess near his open ulcer site distal to the second and third remaining partial rays. He now resides at home. I reviewed his most recent noninvasive vascular studies which include triphasic waveforms and bilateral ankle-brachial indices of 1.2. It is noted he has noncompressible vessels at the ankle level and this may not render accurate result. If lack of healing is noted vascular surgery referral will be considered. I do not recommend proceeding with hyperbaric oxygen therapy at this time because the ulcer site has healed. To return to clinic in at the wound healing center 1 week or to call sooner if he has any questions or concerns.
== END 2019-02-16 23:59 ==
LOC: WC 13:15
PROVIDERS: Family Provider Family Medicine; PCP Family Medicine; Visit Provider Podiatrist
DX: E11.621 Type 2 diabetes mellitus with foot ulcer (principal); L97.522 Non-pressure chronic ulcer of other part of left foot with fat layer exposed; E11.42 Type 2 diabetes mellitus with diabetic polyneuropathy; M86.8X7 Other osteomyelitis, ankle and foot; E11.69 Type 2 diabetes mellitus with other specified complication
CPT/HCPCS: 11042; 99212; G0463

== ENCOUNTER 2019-03-26 14:57 | Inpatient (IN) | payer MEDICAID, SELFPAY ==
[2019-03-26] VITALS (10 sets, daily range): BP systolic 126–165; BP diastolic 68–84; PULSE 66–128; RESP 16–25; TEMP 36.4–39.4; O2SAT 95–100; BMI 27.3; BMI 26.9
--- NOTE | 2019-03-26 15:08 | ED.VIS.GEN ---
History of Present Illness Chief Complaint: Hyperglycemia Informant: Patient Limited by: Dementia Onset: Days Context: Gradual Onset Timing: Continuous Current Severity: Moderate Maximum Severity: Severe Narrative: The patient presents to the emergency department with fever and elevated blood sugar. History is hard to gather from the patient. He apparently has some baseline dementia. Gia was called because of elevated blood sugar. The patient does have a history of osteomyelitis and tenosynovitis of the foot. He was hospitalized in November and at that point refused surgery. He was given a PICC line and sent to a senior living facility on antibiotics. Today, he presents with a fever, drainage from his foot, urinary incontinence, and confusion. The patient really gives no history. History is gathered from reviewing the chart and the patient's prior records. Prior similar symptoms: Yes Recent Illness/Hospitalization: Yes Past Medical History - Allergies and Home Meds Allergies/Adverse Reactions: Allergies No Known Allergies Allergy (Verified 11/29/18 13:58) Primary Care Physician: Tony Topete MD [Primary Care Provider] - Prior records reviewed: Yes Surgical History: - - Amputation of the left second, third and fifth toe. Lives: Alone Smoking Status: Never smoker Alcohol: Occasional - Family History Maternal Family History: Reports: Diabetes Paternal Family History: Reports: - - before I was born. Unknown cause. Review of Systems ROS: Unable to Obtain Physical Exam Vital Signs/Narrative: Vital Signs Temp Pulse Resp BP Pulse Ox 03/26/19 15:04 102.9 F H 124 H 23 H 165/82 H 96 03/26/19 14:58 102.9 F H 125 H 22 H 165/82 H 96 Inital Vital Signs reviewed: Yes General: Unkempt Head: Normocephalic, Atraumatic Eyes: Perrl, EOMI ENT: Moist mucous membranes, Sinus tenderness Neck: Supple, Nontender Cardiovascular: Regular rate, Tachycardia, Bradycardia Respiratory: No distress, CTA bilaterally Abdomen: Soft, Nontender, Nondistended Back: Nontender Extremities: Tenderness Neurological: Normal Strength, Normal Sensation, Disoriented Psychological: Agitated Diagnostic/Tx/Re-eval Chest X-Ray - ED: 1 View, Normal, Heart, Lungs Abnormal Lab Results 03/26/19 03/26/19 03/26/19 15:16 15:16 15:16 WBC 12.5 H RBC 4.53 L Hgb 12.3 L Hct 36.3 L MCV 80.1 MCH 27.2 MCHC 33.9 RDW 12.2 RDW Differential 35.1 Plt Count 250 MPV 10.7 Immature Gran % (Auto) 0.300 Neut % (Auto) 88.5 H Lymph % (Auto) 4.6 L Emmons % (Auto) 6.2 Eos % (Auto) 0.2 Baso % (Auto) 0.2 Absolute Neuts (auto) 11.1 H Absolute Lymphs (auto) 0.57 L Total Counted Not Reportable Differential Comment SCANNED ESR 67 H PT INR APTT Sodium 127 L Potassium 4.1 Chloride 97 L Carbon Dioxide 22.0 Anion Gap 8 BUN 23 H Creatinine 1.53 H Estim Creat Clear Calc 52.35 Est GFR (MDRD) Af Amer 60 Est GFR (MDRD) Non-Af 49 L BUN/Creatinine Ratio 15.0 Glucose 465 H* Calcium 8.6 Total Bilirubin 0.80 AST 11 L ALT 10 L Alkaline Phosphatase 85 C-React Prot Ext Range 98.40 H Total Protein 7.6 Albumin 3.1 L Globulin 4.5 H Albumin/Globulin Ratio 0.7 L Urine Color Urine Clarity Urine pH Ur Specific [place] Urine Protein Urine Glucose (UA) Urine Ketones Urine Occult Blood Urine Nitrite Urine Bilirubin Urine Urobilinogen Ur Leukocyte Esterase Urine RBC Urine WBC Ur Squamous Epith Cells Urine Bacteria Urine Mucus Acetone Level NEGATIVE 03/26/19 03/26/19 15:16 15:22 WBC RBC Hgb Hct MCV MCH MCHC RDW RDW Differential Plt Count MPV Immature Gran % (Auto) Neut % (Auto) Lymph % (Auto) Emmons % (Auto) Eos % (Auto) Baso % (Auto) Absolute Neuts (auto) Absolute Lymphs (auto) Total Counted Differential Comment ESR PT 14.8 INR 1.2 APTT 20.2 L Sodium Potassium Chloride Carbon Dioxide Anion Gap BUN Creatinine Estim Creat Clear Calc Est GFR (MDRD) Af Amer Est GFR (MDRD) Non-Af BUN/Creatinine Ratio Glucose Calcium Total Bilirubin AST ALT Alkaline Phosphatase C-React Prot Ext Range Total Protein Albumin Globulin Albumin/Globulin Ratio Urine Color Yellow Urine Clarity Clear Urine pH 6.0 Ur Specific [place] 1.010 Urine Protein 30 H Urine Glucose (UA) 1000 H Urine Ketones Negative Urine Occult Blood 10 H Urine Nitrite Negative Urine Bilirubin Negative Urine Urobilinogen Normal Ur Leukocyte Esterase Negative Urine RBC 0 SEEN Urine WBC 0 SEEN Ur Squamous Epith Cells 0 SEEN Urine Bacteria 0 SEEN Urine Mucus 0 SEEN Acetone Level Clinical Impression(s) from Imaging Studies Chest X-Ray 03/26/19 15:15 IMPRESSION: Minimal degree of increased markings at the left lung base suggestive of atelectasis. Electronically Signed: Ángel Banks, at 15:58 EDT , Service support , Foot X-Ray 03/26/19 15:15 IMPRESSION: Status post amputation as described. Soft tissue swelling and air at the level of the second and third toes. Electronically Signed: Ángel Banks, at 15:57 EDT , Service support , - Medical Decision Making Equals presents with fever, hyperglycemia, confusion, and evidence of infection. Sepsis work-up was pursued. He did have purulent drainage from the wound on his foot. This was cultured. X-rays show some air in the tissue consistent where his ulceration is. There is no other evidence of crepitus. The patient was started on broad-spectrum antibiotics after blood cultures were obtained. He does have a leukocytosis, mildly elevated lactic acid, and he is hyperglycemic. However, his anion gap is normal. His bicarb is normal. He has no serum ketones. I did discuss the patient with podiatry, Dr. Bailon she will see the patient consultation. The patient will be admitted at this time. ED Disposition - Plan for ED Patient: Disposition: Acute Care [facility] Diagnosis: Diabetic foot infection, Sepsis Referrals: Tony Topete MD [Primary Care Provider] -
--- NOTE | 2019-03-26 15:15 | RAD_ITS ---
STUDY: X-RAY - LEFT FOOT CLINICAL: Male, 63 years old. Pain and fever. Seeping wound. TECHNIQUE: 3 view(s) of the foot. COMPARISON: Comparison is made with prior examination dated November 21, 2018. FINDINGS: There is an enthesophyte involving the posterior superior calcaneus at the site of insertion of the Achilles tendon. Small plantar spur. Normal visualized subtalar, talonavicular, calcaneocuboid, tarsal and tarsometatarsal articulations. The patient is status post amputation of the distal portion of the second metatarsal as well as the second third toes. Amputation of the fifth toe as well. There is a marked degree of degenerative arthrosis of the metatarsophalangeal joint of the hallux . There is also evidence of a sclerosis of the distal aspect of the first metatarsal. There has been amputation of the proximal pharynx of the first toe. Normal tibial and fibular sesamoid bones. Normal interphalangeal joint of the great toe. Normal phalanges of the great toe. Diffuse soft tissue swelling with air in the soft tissues overlying the second and third toes. RAD/Foot min 3 Views IMPRESSION: Status post amputation as described. Soft tissue swelling and air at the level of the second and third toes. Electronically Signed: Ángel Banks, at 15:57 EDT , Service support ,
--- NOTE | 2019-03-26 15:15 | RAD_ITS ---
STUDY: X-RAY CHEST REASON FOR EXAM: Male, 63 years old. Fever. Hyperglycemia. TECHNIQUE: Single AP portable view of the chest. COMPARISON: None. FINDINGS: EKG electrodes are seen. Minimal degree of increased markings at the left lung base suggestive of atelectasis. There is no demonstrated pleural abnormality. Normal size heart. Normal mediastinum and josé luis. Normal visualized pulmonary arteries. Normal visualized aortic arch and descending thoracic aorta. There are diffuse degenerative changes of the visualized thoracic spine. Normal visualized ribs, clavicles, and shoulders. There is no demonstrated abnormality of the visualized soft tissue structures of the upper abdomen. RAD/Chest 1 View (Portable) IMPRESSION: Minimal degree of increased markings at the left lung base suggestive of atelectasis. Electronically Signed: Ángel Banks, at 15:58 EDT , Service support ,
[2019-03-26 15:30] LABS: Bacteria 0 SEEN /hpf (None Seen); Mucous, Urine 0 SEEN /hpf (<or=2+); Red Blood Cells-Urine 0 SEEN /hpf (0-5); Squamous Epithelial Cells - UA 0 SEEN /hpf (0-5); White Blood Cells 0 SEEN /hpf (0-5)
[2019-03-26 15:35] LABS: Color, Urine Yellow (Yellow); Glucose, Dipstick 1000 mg/dl (Normal); Ketone-Dipstick Negative (Negative); Leukocyte Esterase-Dipstick Negative /ul (Negative); Nitrite-Dipstick Negative (Negative); Occult Blood-Urine 10 /ul (Negative); Protein-Dipstick 30 mg/dl (Negative); Urine Bilirubin Dipstick Negative (Negative); Urine Clarity Clear (Clear); Urine Urobilinogen Normal (Normal)
[2019-03-26 15:41] LABS: International Normalized Ratio 1.2; Partial Thromboplast Time 20.2 Seconds (24.1-36.2); Prothrombin Time (Protime)PT. 14.8 SECONDS (11.7-14.9)
[2019-03-26 15:46] LABS: Absolute Lymphocyte Count 0.57 X10^3/ul (0.83-4.51); Absolute Neutrophil Count 11.1 X10^3/uL (2.0-7.7); Basophil# 0.02 X10^3/uL; Basophil% 0.2 % (0-1); Eosinophil# 0.03 X10^3/uL; Eosinophils% 0.2 % (0-5); Hematocrit 36.3 % (40-54); Hemoglobin 12.3 g/dl (13.0-16.5); Lymphocyte # 0.57 X10^3/ul (4.0); Lymphocyte % 4.6 % (19-41); Mean Corp Hgb Conc 33.9 g/gl (32-36); Mean Corpuscular Hgb 27.2 pg (27.0-32.0); Mean Corpuscular Volume 80.1 fL (80-94); Mean Platelet Vol. 10.7 fl (6.2-12.0); Monocyte# 0.77 X10^3/uL; Monocyte% 6.2 % (0-10); Neutrophil # 11.05 X10^3/uL (2.7-7.7); Neutrophil % 88.5 % (47-70); Platelet Count 250 K/mm3 (150-450); RBC Distribution Width CV 12.2 % (11.6-14.6); RBC Distribution Width SD 35.1 fl (35.1-43.9); Red Blood Count 4.53 M/mm3 (4.6-6.2); White Blood Count 12.5 K/mm3 (4.4-11.0)
[2019-03-26 15:47] LABS: Differential Indicated SCAN CRITERIA MET; POSITIVE COUNT NO; POSITIVE DIFFERENTIAL YES; POSITIVE MORPHOLOGY NO
[2019-03-26] MEDS: Acetaminophen 500 MG Tablet 1000 MG PO (15:49)
[2019-03-26] MEDS: Ondansetron 4 MG/2 ML Vial IV (15:49)
[2019-03-26] MEDS: 0.9% Normal Saline 1,000 ML 1000 ML IV ×2 (15:50→17:17)
[2019-03-26 16:05] LABS: Differential Comment SCANNED
[2019-03-26 16:20] LABS: Erythrocyte Sedimentation Rate 67 mm/hr (0-20)
[2019-03-26 16:37] LABS: ALB/GLOB Ratio 0.7 RATIO (0.9-2.4); AST(SGOT) 11 U/L (15-37); Alanine Aminotransfer ALT/SGPT 10 U/L (16-61); Albumin, Serum 3.1 g/dL (3.2-5.0); Alkaline Phosphatase 85 U/L (45-117); Anion Gap 8 (5-15); BUN 23 mg/dL (7-18); Calcium,Total 8.6 mg/dL (8.5-10.1); Chloride 97 mmol/L (98-107); Creatinine, Serum 1.53 mg/dL (0.70-1.30); EST Glomerular Filtration Rate 49 mL/min (>60); Est Glom Filt Rate - Afr Amer 60 mL/min (>60); Estimated Creatinine Clearance 52.35 ml/min; Globulin 4.5 g/dL (2.2-4.2); Glucose 465 mg/dL (74-106); Potassium 4.1 mmol/L (3.5-5.1); Protein, Total 7.6 g/dL (6.4-8.2); Sodium Level 127 mmol/L (136-145)
--- NOTE | 2019-03-26 16:38 | ED.RN ---
lab called to report glucose of 465 and lactic acid of 2.1. notified dr. pope and primary nurse.
--- NOTE | 2019-03-26 16:55 | PCM.CONS.GEN ---
Problem List (1) Diabetic foot infection Status: Acute (2) Infected left foot ulcer Status: Deleted (3) Diabetes mellitus with polyneuropathy Status: Deleted Qualifiers: Diabetes mellitus type: type 2 Qualified Code(s): E11.42 - Type 2 diabetes mellitus with diabetic polyneuropathy (4) Sepsis Status: Acute Reason for Consult Date of Consultation: 03/26/19 Reason for Consultation: Left foot infection History of Present Illness: The patient is a 63 year old M with multiple comorbidities was seen bedside for a left foot infection. He is previously known to me in the inpatient and clinical setting for a left foot ulcer with recurrent infection. He previously refused surgery and was treated with bedside debridement and irrigations and antibiotics. With persistent wound care in the wound healing center he has been healed for a couple months. He is with his family this evening report he has had increased drainage and odor coming from the foot for the last couple days. The patient as well as his family are not aware of the exact onset of this condition. He denies injury. The patient is very hard to understand and is participating in his exam in a minimal manner. He is however very clear that he is refusing surgery at this time. He denies pain. He reports he does not have feeling to his left foot. 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) Peripheral neuropathy (Chronic) Hypertension (Chronic) Type 2 diabetes mellitus (Chronic) Allergies No Known Allergies Allergy (Verified 11/29/18 13:58) Home Medications: Ambulatory Orders Medication Instructions Recorded Hydrochlorothiazide [Hctz] 25 mg PO DAILY tablet 11/24/18 Lisinopril [Zestril] 40 mg PO DAILY tablet 11/24/18 Pantoprazole Sodium [Protonix] 40 mg PO DAILY tablet 11/24/18 Insulin Glargine,Hum.rec.anlog 30 unit SQ DAILY 11/29/18 [Basaglar Kwikpen U-100] Insulin Lispro [Humalog KwikPen] 10 units SQ TIDCM 03/26/19 Loratadine 10 mg PO DAILY 03/26/19 Surgical History: - - Amputation of the left second, third and fifth toe. Psychiatric History: No pertinent psych hx Lives: Alone Smoking Status: Former smoker Alcohol: Occasional - *Family History Maternal History Items: Diabetes Paternal History Items: - - before I was born. Unknown cause. Review of Systems Constitutional: Reports: Chills, Fever HEENT: Denies: Sore Throat Cardiovascular: Denies: Claudication Gastrointestinal: Reports: Nausea Musculoskeletal: Denies: Foot Pain Skin: Reports: Wounds Neurological: Reports: Incoordination, Numbness Patient Problems: Active and Suspected Problems Diabetic foot infection (Acute) Sepsis (Acute) - Physical Exam General: Alert, Oriented x3, Cooperative HEENT: Atraumatic Extremities: No cyanosis, Capillary Refill Less than 3 Seconds, No Calf Tenderness - negative vikram / aguilera signs left lower extremity, Diminished Peripheral Pulses, Edema, - - compartments soft to palpate left lower extremity Skin: Ulcer/ Wound - purulence, edema , odor plantar left foot at prominent metatarsal head region. positive probe to bone noted. Musculoskeletal: No Tenderness to Palpation of Joints or Extremities, Muscle Wasting, - - 2,3, 5 (partial) toe amputation and prominent metatarsal head, left Neurological: - - lack of epicritic sensation via light touch left lower extremity Psych/Mental Status: Normal Affect, Appropriate Vital Signs Temp Pulse Resp BP Pulse Ox 98.9 F 105 H 18 126/84 H 95 03/26/19 16:32 03/26/19 16:32 03/26/19 16:32 03/26/19 16:32 03/26/19 16:32 Oxygen Delivery Method Room Air Weight: 86.4 kg Body Mass Index (BMI) 27.3 Finger Stick Blood Glucose 279 Laboratory Tests Past 24 Hrs 03/26/19 03/26/19 03/26/19 15:16 15:16 15:16 WBC 12.5 H RBC 4.53 L Hgb 12.3 L Hct 36.3 L MCV 80.1 MCH 27.2 MCHC 33.9 RDW 12.2 RDW Differential 35.1 Plt Count 250 MPV 10.7 Immature Gran % (Auto) 0.300 Neut % (Auto) 88.5 H Lymph % (Auto) 4.6 L [place] % (Auto) 6.2 Eos % (Auto) 0.2 Baso % (Auto) 0.2 Absolute Neuts (auto) 11.1 H Absolute Lymphs (auto) 0.57 L Total Counted Not Reportable Differential Comment SCANNED ESR 67 H PT INR APTT Sodium 127 L Potassium 4.1 Chloride 97 L Carbon Dioxide 22.0 Anion Gap 8 BUN 23 H Creatinine 1.53 H Estim Creat Clear Calc 52.35 Est GFR (MDRD) Af Amer 60 Est GFR (MDRD) Non-Af 49 L BUN/Creatinine Ratio 15.0 Glucose 465 H* Lactic Acid Pending Calcium 8.6 Total Bilirubin 0.80 AST 11 L ALT 10 L Alkaline Phosphatase 85 C-React Prot Ext Range 98.40 H Total Protein 7.6 Albumin 3.1 L Globulin 4.5 H Albumin/Globulin Ratio 0.7 L Urine Color Urine Clarity Urine pH Ur Specific [place] Urine Protein Urine Glucose (UA) Urine Ketones Urine Occult Blood Urine Nitrite Urine Bilirubin Urine Urobilinogen Ur Leukocyte Esterase Urine RBC Urine WBC Ur Squamous Epith Cells Urine Bacteria Urine Mucus Acetone Level 03/26/19 03/26/19 03/26/19 15:16 15:16 15:22 WBC RBC Hgb Hct MCV MCH MCHC RDW RDW Differential Plt Count MPV Immature Gran % (Auto) Neut % (Auto) Lymph % (Auto) [place] % (Auto) Eos % (Auto) Baso % (Auto) Absolute Neuts (auto) Absolute Lymphs (auto) Total Counted Differential Comment ESR PT 14.8 INR 1.2 APTT 20.2 L Sodium Potassium Chloride Carbon Dioxide Anion Gap BUN Creatinine Estim Creat Clear Calc Est GFR (MDRD) Af Amer Est GFR (MDRD) Non-Af BUN/Creatinine Ratio Glucose Lactic Acid Calcium Total Bilirubin AST ALT Alkaline Phosphatase C-React Prot Ext Range Total Protein Albumin Globulin Albumin/Globulin Ratio Urine Color Yellow Urine Clarity Clear Urine pH 6.0 Ur Specific [place] 1.010 Urine Protein 30 H Urine Glucose (UA) 1000 H Urine Ketones Negative Urine Occult Blood 10 H Urine Nitrite Negative Urine Bilirubin Negative Urine Urobilinogen Normal Ur Leukocyte Esterase Negative Urine RBC 0 SEEN Urine WBC 0 SEEN Ur Squamous Epith Cells 0 SEEN Urine Bacteria 0 SEEN Urine Mucus 0 SEEN Acetone Level NEGATIVE Assessment/Plan All Active Problems Diabetic foot infection (Acute) Sepsis (Acute) Left foot infection (Acute) Left foot infection with previously known chronic osteomyelitis Sepsis Hyperglycemia Diabetes with neuropathy Foot deformities including hammertoes and prominent metatarsal head Noncompliance Other comorbidities I reviewed and discussed his case. His diagnostic data was reviewed including his left foot x-rays. He has previous second and third toe amputations with evidence of osteomyelitis of the remaining metatarsal heads. There is no soft tissue emphysema in the proximal fascial planes noted. Air is noted on x-ray and this is at the ulcer site. There are no other radiographic foreign bodies identified. He does have leukocytosis and his C-reactive protein is 98.5. He also does have sedimentation rate elevation at 67. Hemoglobin A1 C pending. He is demonstrating evidence of tachycardia. He does not appear to be in current diabetic ketoacidosis however this will be monitored. He was started on IV intravenous vancomycin and Zosyn. A deep wound culture was obtained by the emergency room staff and this was sent for aerobic and anaerobic testing. Infectious disease is recommended and consultation is greatly appreciated. I recommended operating room incision and drainage with debridement including a transmetatarsal amputation. He understands he is at high risk for this recurrent scenario and limb loss and life loss due to the situation. He refuses surgical intervention at this time and previously. He did verbally consent to bedside debridement and irrigation which was performed after Betadine prep was performed. The pre-debridement ulcer measured 1 cm x 1 cm with a depth of 2.5 cm with positive probe to bone. The post debridement ulcer measured 2.87 m x 2.5 x 2.5 cm. This is copiously irrigated with 1 L of normal saline and the remaining ulcer site was packed with Betadine soaked gauze and wick manner. This will need to be performed in a serial manner in which myself and nursing staff will perform 1-2 times daily. He is advised to remain nonweightbearing with a surgical shoe and an assistive device to help him ambulate. His refusal for surgical intervention is noted. I explained the risks and benefits and purpose of the recommendation to both the patient and the family. We will offer this again at future follow-ups. I will continue to follow him closely in house. Medical management and DVT prophylaxis per primary care and is greatly appreciate. His hyperglycemia of over 400 mg/dL is noted. This case was discussed with Dr. Miguel. Thank you for the consultation. Please do not hesitate to call if you have any questions. Vashti Bailon DPM, [facility] [phone] full note to follow
[2019-03-26 16:56] LABS: Lactic Acid 2.1 mmol/L (0.4-2.0)
[2019-03-26] MEDS: Insulin Lispro 100 UNIT/ML INSULN.PEN 20 UNIT SC (17:15)
--- NOTE | 2019-03-26 17:15 | HP.PCM_ITS ---
Problem List (1) Diabetic foot infection Status: Acute (2) Sepsis Status: Acute (3) Dementia Status: Chronic (4) Renal insufficiency Status: Chronic (5) Peripheral neuropathy Status: Chronic (6) Hypertension Status: Chronic (7) Type 2 diabetes mellitus Status: Chronic History of Present Illness Date of Admission: 03/26/19 Chief Complaint: Fever, chills, elevated blood sugar. The patient is a 63 year old M with past medical history as mentioned above presented to the emergency room because of fever, chills and elevated blood sugar. The patient is very poor informant and was not able to provide any good history. And history of dementia. Patient's mother and daughter were at the bedside. According to the patient's mother, patient has been having chills at home, not been eating or drinking. Patient's mother called the squad because his blood sugar was elevated. Denies any pain. He denied cough or sputum production. He denies abdominal pain, nausea or vomiting. He denied foot or leg pain. Patient was admitted back in November, for osteomyelitis of the left foot, refused to go for surgery and he had a PICC line placed and he was discharged to [facility] facility on IV antibiotics. Today, his daughter mentioned that his foot has been swollen, has been draining pus over the last few days. He has a history of type 2 diabetes mellitus which seemed to be uncontrolled, his last hemoglobin A1c was 14 on October,. His daughter mentioned that he has been missing his insulin dosage at home. He has history of hypertension and he has been on HCTZ and lisinopril and his blood pressure has been manageable. History of chronic renal insufficiency, serum creatinine has been fluctuating anywhere from 0.8 up to 1.6 mg/dL and his GFR has been also fluctuating and it was normal on times. In the emergency department, patient was febrile, tachycardic, blood pressure was elevated, was tachypneic, pulse ox was 96% on room air. His routine blood work was remarkable for leukocytosis, sodium of 127, BUN of 23 and creatinine of 1.53. His blood glucose was 465, serum bicarb was 22 and anion gap was 8. His lactic acid was 2.1. Both ESR and C-reactive protein was highly elevated. Acetone level was negative. Chest x- ray showed no acute findings. X-ray of the left foot revealed soft tissue swelling and air at the level of the second and third toes. He is being adm itted for acute left foot diabetic infection/cellulitis/infected wound/suspected osteomyelitis with severe sepsis as well as hyperglycemia without evidence of DKA. 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) Peripheral neuropathy (Chronic) Hypertension (Chronic) Type 2 diabetes mellitus (Chronic) Allergies No Known Allergies Allergy (Verified 11/29/18 13:58) Home Medications: Ambulatory Orders Medication Instructions Recorded Hydrochlorothiazide [Hctz] 25 mg PO DAILY tablet 11/24/18 Lisinopril [Zestril] 40 mg PO DAILY tablet 11/24/18 Pantoprazole Sodium [Protonix] 40 mg PO DAILY tablet 11/24/18 Insulin Glargine,Hum.rec.anlog 30 unit SQ DAILY 11/29/18 [Basaglar Kwikpen U-100] Insulin Lispro [Humalog KwikPen] 10 units SQ TIDCM 03/26/19 Loratadine 10 mg PO DAILY 03/26/19 Surgical History: - - Amputation of the left second, third and fifth toe. Psychiatric History: No pertinent psych hx Lives: With Family Smoking Status: Former smoker Alcohol: Occasional Drugs: None - *Family History Maternal History Items: Diabetes Paternal History Items: - - before I was born. Unknown cause. Review of Systems Constitutional: Reports: Chills. Denies: Anorexia, Fever, Weakness Eyes: Denies: Blurred vision, Double vision, Drainage, Redness HEENT: Denies: Difficulty Hearing, Ear Pain, Eye Pain, Nasal Congestion, Sore Throat Cardiovascular: Denies: Chest Pain, Chest Pressure, Edema, Heaviness, Palpitations, Syncope Respiratory: Reports: Cough. Denies: Pleuritic Pain, Shortness of Breath, Sputum production, Wheezing Gastrointestinal: Denies: Abdominal Pain, Constipation, Diarrhea, Nausea, Vomiting Genitourinary: Denies: Dysuria, Frequency, Hematuria Musculoskeletal: Denies: Arm Pain, Back Pain, Foot Pain Skin: Denies: Dryness, Rash Neurological: Denies: Balance problems, Double vision, Change in Speech, Slurred speech, Headaches, Incoordination, Numbness Psychiatric: Denies: Anxiety, Depression Endocrine: Denies: Change in Body Habitus, Polydipsia, Polyuria VTE Information - Inpt Only VTE Present on Admission: No VTE Mechan Device Prophylaxis: None VTE Pharm Prophylaxis ordered?: Yes Patient Problems: Active and Suspected Problems Diabetic foot infection (Acute) Sepsis (Acute) - Physical Exam General: Alert, Cooperative, No apparent distress, Confused HEENT: Atraumatic, PERRLA, EOMI, Normocephalic Oral: Moist Mucosa, No Gingival or Mucosal Lesions/ Ulcerations Neck: Supple, No JVD, Negative Carotid Bruits, Trachea Midline, Thyroid Normal Size and Texture Lungs: Clear to auscultation, Normal air movement, No rhonchi, No wheeze, No rales, Diminished Cardiovascular: Regular rate, Regular Rhythm, Normal S1, Normal S2, No murmurs, PMI Normal Abdomen: Bowel Sounds Present, Soft, Non Tender, Non-Distended, No Hepato-splenomegaly Extremities: No clubbing, No cyanosis, - - Right foot: No edema. Left foot: Status post amputation of the left second and third toes, swelling and erythema of the left forefoot, open wound on the plantar aspect of the left forefoot with draining pus. Skin: No rashes, Ulcer/ Wound Lymphatic: No Cervical, Supraclavicular, or Inguinal Adenopathy Neurological: Cranial nerves II-XII grossly intact, Motor Exam 5/5 strength throughout Psych/Mental Status: Impulsive Vital Signs Temp Pulse Resp BP Pulse Ox 98.9 F 85 18 127/68 H 96 03/26/19 17:04 03/26/19 17:04 03/26/19 17:04 03/26/19 17:04 03/26/19 17:04 Oxygen Delivery Method Room Air Weight: 190 lb 7.67 oz Body Mass Index (BMI) 27.3 Finger Stick Blood Glucose 455 Laboratory Tests Past 24 Hrs 03/26/19 03/26/19 03/26/19 15:16 15:16 15:16 WBC 12.5 H RBC 4.53 L Hgb 12.3 L Hct 36.3 L MCV 80.1 MCH 27.2 MCHC 33.9 RDW 12.2 RDW Differential 35.1 Plt Count 250 MPV 10.7 Immature Gran % (Auto) 0.300 Neut % (Auto) 88.5 H Lymph % (Auto) 4.6 L [place] % (Auto) 6.2 Eos % (Auto) 0.2 Baso % (Auto) 0.2 Absolute Neuts (auto) 11.1 H Absolute Lymphs (auto) 0.57 L Total Counted Not Reportable Differential Comment SCANNED ESR 67 H PT INR APTT Sodium 127 L Potassium 4.1 Chloride 97 L Carbon Dioxide 22.0 Anion Gap 8 BUN 23 H Creatinine 1.53 H Estim Creat Clear Calc 52.35 Est GFR (MDRD) Af Amer 60 Est GFR (MDRD) Non-Af 49 L BUN/Creatinine Ratio 15.0 Glucose 465 H* Lactic Acid 2.1 H Calcium 8.6 Total Bilirubin 0.80 AST 11 L ALT 10 L Alkaline Phosphatase 85 C-React Prot Ext Range 98.40 H Total Protein 7.6 Albumin 3.1 L Globulin 4.5 H Albumin/Globulin Ratio 0.7 L Urine Color Urine Clarity Urine pH Ur Specific [place] Urine Protein Urine Glucose (UA) Urine Ketones Urine Occult Blood Urine Nitrite Urine Bilirubin Urine Urobilinogen Ur Leukocyte Esterase Urine RBC Urine WBC Ur Squamous Epith Cells Urine Bacteria Urine Mucus Acetone Level 03/26/19 03/26/19 03/26/19 15:16 15:16 15:22 WBC RBC Hgb Hct MCV MCH MCHC RDW RDW Differential Plt Count MPV Immature Gran % (Auto) Neut % (Auto) Lymph % (Auto) [place] % (Auto) Eos % (Auto) Baso % (Auto) Absolute Neuts (auto) Absolute Lymphs (auto) Total Counted Differential Comment ESR PT 14.8 INR 1.2 APTT 20.2 L Sodium Potassium Chloride Carbon Dioxide Anion Gap BUN Creatinine Estim Creat Clear Calc Est GFR (MDRD) Af Amer Est GFR (MDRD) Non-Af BUN/Creatinine Ratio Glucose Lactic Acid Calcium Total Bilirubin AST ALT Alkaline Phosphatase C-React Prot Ext Range Total Protein Albumin Globulin Albumin/Globulin Ratio Urine Color Yellow Urine Clarity Clear Urine pH 6.0 Ur Specific [place] 1.010 Urine Protein 30 H Urine Glucose (UA) 1000 H Urine Ketones Negative Urine Occult Blood 10 H Urine Nitrite Negative Urine Bilirubin Negative Urine Urobilinogen Normal Ur Leukocyte Esterase Negative Urine RBC 0 SEEN Urine WBC 0 SEEN Ur Squamous Epith Cells 0 SEEN Urine Bacteria 0 SEEN Urine Mucus 0 SEEN Acetone Level NEGATIVE Clinical Impression(s) from Imaging Studies Chest X-Ray 03/26/19 15:15 IMPRESSION: Minimal degree of increased markings at the left lung base suggestive of atelectasis. Electronically Signed: Ángel Banks, at 15:58 EDT , Service support , Foot X-Ray 03/26/19 15:15 IMPRESSION: Status post amputation as described. Soft tissue swelling and air at the level of the second and third toes. Electronically Signed: Ángel Banks, at 15:57 EDT , Service support , Assessment/Plan All Active Problems Diabetic foot infection (Acute) Sepsis (Acute) Left foot infection (Acute) This is a 63 years old male patient presented to the emergency room because of chills, fever and elevated blood sugar, found to have severe sepsis secondary to acute left diabetic foot infection/cellulitis/infected wound with suspected osteomyelitis and also found to have hyperglycemia and he is being admitted for treatment. #1 severe sepsis/acute left diabetic foot infection/cellulitis/infected woun d/suspected osteomyelitis: Patient was febrile, tachycardic, tachypneic, has leukocytosis and lactic acid was 2.1. ESR and CRP was elevated. He had a recent history of left foot osteomyelitis in November, that was treated with IV antibiotics because patient refused surgery at that time. X-ray of the left foot reviewed. Plan: Admit to PCU, wound culture, blood culture, urine culture, MRSA wound screen, start IV vancomycin and Zosyn, podiatry medicine consult, wound care nurse consult, infectious disease consult, IV fluids, Tylenol PRN for pain, OxyIR as needed, IV antiemetics, repeat CBC and BMP tomorrow morning, PT OT evaluation and treatment. #2 hyperglycemia: Due to noncompliance, patient's daughter mentioned that her father has been missing insulin doses. On admission, blood sugar was 465. There was no evidence of DKA. Plan: ADA diet, Accu-Cheks every 6 hours, high- dose insulin sliding scale, continue home doses of glargine insulin as well as pre-meal Humalog 3 times daily, check hemoglobin A1c. #3 hyponatremia: Likely due to pseudohyponatremia secondary to hyperglycemia. Corrected sodium for glucose is 136. Expect sodium to correct upon resolution of the hyperglycemia. #4 uncontrolled type 2 diabetes mellitus: Patient is noncompliant, plan as above. Continue home doses of glargine and Humalog insulin, sliding scale as above. #5 hypertension: Initially, blood pressure was elevated, improved. Continue lisinopril, hold HCTZ. #6 renal insufficiency: Baseline creatinine as well as GFR has been fluctuating anywhere from 0.8 up to 1.6 mg/dL. Admission creatinine is 1.53. Plan: IV fluids, input output chart, hold HCTZ, repeat BMP tomorrow morning. #7 dementia: Supportive care. #8 DVT prophylaxis: Subcu heparin. This note was generated with [employer] dictation software. It may contain incorrect words, spelling, and punctuation that were not noted in checking the note before signing. Code Visit Inpatient E&M: 42221 Init Hosp L3
--- NOTE | 2019-03-26 18:28 | NURSING ---
Pt uncooperative w/ admission process. Interventions completed to best of this nurse's ability and use of past records.
[2019-03-26 18:52] LABS: Hemoglobin A1c 13.9 % (4.2-6.3)
[2019-03-26 19:14] LABS: M R Staph aureus DNA By PCR Negative (Negative); Probe Check PASS; Specimen Processing Control PASS; Staph aureus DNA By PCR NEGATIVE (Negative)
[2019-03-26 19:23] LABS: Reflex Lactate? Y
--- NOTE | 2019-03-26 19:40 | PCM.RX.CS ---
Consult Pharmacy has been consulted to manage selected antiobiotic: Vancomycin Type of Consult: New start Suspected Infection: Sepsis, Skin/Soft tissue Labs: Sodium 127 mmol/L (136-145) L 03/26/19 15:16 Potassium 4.1 mmol/L (3.5-5.1) 03/26/19 15:16 Chloride 97 mmol/L (98-107) L 03/26/19 15:16 Carbon Dioxide 22.0 mmol/L (21.0-32.0) 03/26/19 15:16 8 (5-15) 03/26/19 15:16 BUN 23 mg/dL (7-18) H 03/26/19 15:16 1.53 mg/dL (0.70-1.30) H 03/26/19 15:16 Est GFR (MDRD) Af Amer 60 mL/min (>60) 03/26/19 15:16 Est GFR (MDRD) Non-Af 49 mL/min (>60) L 03/26/19 15:16 15.0 RATIO (10-20) 03/26/19 15:16 Glucose 465 mg/dL (74-106) H* 03/26/19 15:16 Weight used for dosin lb 6.287 oz Estimated Creatinine Clearance: 52 Goal Trough: 15-20 mcg/mL Pharmacy Plan for Drug Dosing: Pharmacy Service will continue to monitor and adjust dosing as required. Patient received 1250mg dose in ED Calculated dose of 750mg q12h for goal trough of 15-20 Trough will be obtaine 03/28 at 03:30 Follow-Up Labs: Trough Vancomycin
[2019-03-26 19:41] LABS: Bedside Glucose 257 mg/dL (70-110)
[2019-03-26] MEDS: 0.9% Normal Saline 1,000 ML 100 ML IV (20:20)
[2019-03-26] MEDS: Insulin Lispro 100 UNIT/ML INSULN.PEN SC (20:21)
[2019-03-26 20:46] LABS: Lactic Acid 2.3 mmol/L (0.4-2.0)
[2019-03-26] MEDS: Heparin Injection (Vial) 5,000 UNIT/ML VIAL 5000 UNIT SC (21:26)
[2019-03-27] VITALS (10 sets, daily range): BP systolic 143–166; BP diastolic 68–82; PULSE 74–98; RESP 18; TEMP 36.9–37.2; O2SAT 95–97
[2019-03-27] MEDS: Insulin Lispro 100 UNIT/ML INSULN.PEN SC ×4 (01:03→22:05)
[2019-03-27 01:11] LABS: Bedside Glucose 219 mg/dL (70-110)
[2019-03-27] MEDS: 0.9% NaCl Peripheral Flush Adult/Peds IV (04:14)
[2019-03-27] MEDS: 0.9% Normal Saline 1,000 ML 100 ML IV ×2 (05:38→14:53)
[2019-03-27] MEDS: Heparin Injection (Vial) 5,000 UNIT/ML VIAL 5000 UNIT SC ×2 (05:38→14:55)
[2019-03-27 05:55] LABS: Bedside Glucose 455 mg/dL (70-110)
[2019-03-27 06:36] LABS: Bedside Glucose 175 mg/dL (70-110)
[2019-03-27 08:35] LABS: Absolute Lymphocyte Count 0.64 X10^3/ul (0.83-4.51); Absolute Neutrophil Count 7.5 X10^3/uL (2.0-7.7); Basophil# 0.03 X10^3/uL; Basophil% 0.3 % (0-1); Eosinophil# 0.07 X10^3/uL; Eosinophils% 0.8 % (0-5); Hematocrit 32.8 % (40-54); Hemoglobin 10.9 g/dl (13.0-16.5); Lymphocyte # 0.64 X10^3/ul (4.0); Lymphocyte % 7.4 % (19-41); Mean Corp Hgb Conc 33.2 g/gl (32-36); Mean Corpuscular Hgb 27.7 pg (27.0-32.0); Mean Corpuscular Volume 83.2 fL (80-94); Mean Platelet Vol. 9.5 fl (6.2-12.0); Monocyte# 0.47 X10^3/uL; Monocyte% 5.4 % (0-10); Neutrophil # 7.47 X10^3/uL (2.7-7.7); Neutrophil % 85.9 % (47-70); Platelet Count 237 K/mm3 (150-450); RBC Distribution Width CV 12.5 % (11.6-14.6); RBC Distribution Width SD 38.1 fl (35.1-43.9); Red Blood Count 3.94 M/mm3 (4.6-6.2); White Blood Count 8.7 K/mm3 (4.4-11.0)
[2019-03-27 08:36] LABS: POSITIVE COUNT NO; POSITIVE DIFFERENTIAL NO; POSITIVE MORPHOLOGY NO
[2019-03-27] MEDS: Insulin Lispro 100 UNIT/ML INSULN.PEN 10 UNIT SC ×3 (08:47→16:57)
[2019-03-27 08:59] LABS: Anion Gap 8 (5-15); BUN 17 mg/dL (7-18); BUN/Creat Ratio 13.6 RATIO (10-20); Chloride 106 mmol/L (98-107); Creatinine, Serum 1.25 mg/dL (0.70-1.30); EST Glomerular Filtration Rate 62 mL/min (>60); Est Glom Filt Rate - Afr Amer 75 mL/min (>60); Estimated Creatinine Clearance 64.08 ml/min; Glucose 212 mg/dL (74-106); Sodium Level 139 mmol/L (136-145)
[2019-03-27] MEDS: Lisinopril 40 MG Tablet PO (09:53)
[2019-03-27] MEDS: Pantoprazole Sodium 40 MG Tablet PO (09:53)
[2019-03-27] MEDS: Loratadine 10 MG Tablet PO (09:53)
--- NOTE | 2019-03-27 10:27 | CON.PCM_ITS ---
Problem List (1) Osteomyelitis Status: Chronic Qualifiers: Comment: chronic refractory osteomyelitis Reason for Consult: osteo Consulted by: Dr. Rich History of Present Illness: The patient is a 63 year old M with DM neuropathy, presented with several days of worsening L foot ulceration, swelling, redness, and drainage. Denies fever or chills. No longer follows at wound center. Admitted in 11/2018 with MR SA/klebs/strep/corynebacteria L foot abscess and osteo, discharged on iv vanc/ceftriaxone and flagyl. Foot improved and had been doing well for a while. Now presented with MEAGAN, lactic acidosis, fever to 102.9. Started on vanc/zosyn. Denies any complaints. Full ROS performed and neg except as noted above. 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) Peripheral neuropathy (Chronic) Hypertension (Chronic) Type 2 diabetes mellitus (Chronic) Allergies/Adverse Reactions: Allergies No Known Allergies Allergy (Verified 11/29/18 13:58) Home Medications: Ambulatory Orders Medication Instructions Recorded Hydrochlorothiazide [Hctz] 25 mg PO DAILY tablet 11/24/18 Lisinopril [Zestril] 40 mg PO DAILY tablet 11/24/18 Pantoprazole Sodium [Protonix] 40 mg PO DAILY tablet 11/24/18 Insulin Glargine,Hum.rec.anlog 30 unit SQ DAILY 11/29/18 [Basaglar Kwikpen U-100] Insulin Lispro [Humalog KwikPen] 10 units SQ TIDCM 03/26/19 Loratadine 10 mg PO DAILY 03/26/19 - Social History Tobacco Use: non-smoker Vital Signs Temp Pulse Resp BP Pulse Ox 98.8 F 83 18 145/68 H 95 03/27/19 04:21 03/27/19 07:14 03/27/19 04:21 03/27/19 04:21 03/27/19 07:25 Oxygen Delivery Method Room Air Weight: 85.1 kg Body Mass Index (BMI) 26.9 Finger Stick Blood Glucose 455 Microbiology Past 72 Hours 03/26/19 15:14 Gram Stain - Final Wound - Left Foot Wound Culture - Preliminary Gram negative carrington Mixed Culture Laboratory Tests Past 24 Hrs 03/26/19 03/26/19 03/26/19 15:00 15:16 15:16 WBC 12.5 H RBC 4.53 L Hgb 12.3 L Hct 36.3 L MCV 80.1 MCH 27.2 MCHC 33.9 RDW 12.2 RDW Differential 35.1 Plt Count 250 MPV 10.7 Immature Gran % (Auto) 0.300 Neut % (Auto) 88.5 H Lymph % (Auto) 4.6 L [place] % (Auto) 6.2 Eos % (Auto) 0.2 Baso % (Auto) 0.2 Absolute Neuts (auto) 11.1 H Absolute Lymphs (auto) 0.57 L Total Counted Not Reportable Differential Comment SCANNED ESR 67 H PT INR APTT Sodium 127 L Potassium 4.1 Chloride 97 L Carbon Dioxide 22.0 Anion Gap 8 BUN 23 H Creatinine 1.53 H Estim Creat Clear Calc 52.35 Est GFR (MDRD) Af Amer 60 Est GFR (MDRD) Non-Af 49 L BUN/Creatinine Ratio 15.0 Glucose 465 H* Hemoglobin A1c Lactic Acid Calcium 8.6 Total Bilirubin 0.80 AST 11 L ALT 10 L Alkaline Phosphatase 85 C-React Prot Ext Range 98.40 H Total Protein 7.6 Albumin 3.1 L Globulin 4.5 H Albumin/Globulin Ratio 0.7 L Urine Color Urine Clarity Urine pH Ur Specific [place] Urine Protein Urine Glucose (UA) Urine Ketones Urine Occult Blood Urine Nitrite Urine Bilirubin Urine Urobilinogen Ur Leukocyte Esterase Urine RBC Urine WBC Ur Squamous Epith Cells Urine Bacteria Urine Mucus Acetone Level S.aureus Protein A PCR NEGATIVE MRSA (PCR) Negative 03/26/19 03/26/19 03/26/19 15:16 15:16 15:16 WBC RBC Hgb Hct MCV MCH MCHC RDW RDW Differential Plt Count MPV Immature Gran % (Auto) Neut % (Auto) Lymph % (Auto) [place] % (Auto) Eos % (Auto) Baso % (Auto) Absolute Neuts (auto) Absolute Lymphs (auto) Total Counted Differential Comment ESR PT 14.8 INR 1.2 APTT 20.2 L Sodium Potassium Chloride Carbon Dioxide Anion Gap BUN Creatinine Estim Creat Clear Calc Est GFR (MDRD) Af Amer Est GFR (MDRD) Non-Af BUN/Creatinine Ratio Glucose Hemoglobin A1c Lactic Acid 2.1 H Calcium Total Bilirubin AST ALT Alkaline Phosphatase C-React Prot Ext Range Total Protein Albumin Globulin Albumin/Globulin Ratio Urine Color Urine Clarity Urine pH Ur Specific [place] Urine Protein Urine Glucose (UA) Urine Ketones Urine Occult Blood Urine Nitrite Urine Bilirubin Urine Urobilinogen Ur Leukocyte Esterase Urine RBC Urine WBC Ur Squamous Epith Cells Urine Bacteria Urine Mucus Acetone Level NEGATIVE S.aureus Protein A PCR MRSA (PCR) 03/26/19 03/26/19 03/26/19 15:16 15:22 18:00 WBC RBC Hgb Hct MCV MCH MCHC RDW RDW Differential Plt Count MPV Immature Gran % (Auto) Neut % (Auto) Lymph % (Auto) [place] % (Auto) Eos % (Auto) Baso % (Auto) Absolute Neuts (auto) Absolute Lymphs (auto) Total Counted Differential Comment ESR PT INR APTT Sodium Potassium Chloride Carbon Dioxide Anion Gap BUN Creatinine Estim Creat Clear Calc Est GFR (MDRD) Af Amer Est GFR (MDRD) Non-Af BUN/Creatinine Ratio Glucose Hemoglobin A1c 13.9 H Lactic Acid 2.3 H Calcium Total Bilirubin AST ALT Alkaline Phosphatase C-React Prot Ext Range Total Protein Albumin Globulin Albumin/Globulin Ratio Urine Color Yellow Urine Clarity Clear Urine pH 6.0 Ur Specific [place] 1.010 Urine Protein 30 H Urine Glucose (UA) 1000 H Urine Ketones Negative Urine Occult Blood 10 H Urine Nitrite Negative Urine Bilirubin Negative Urine Urobilinogen Normal Ur Leukocyte Esterase Negative Urine RBC 0 SEEN Urine WBC 0 SEEN Ur Squamous Epith Cells 0 SEEN Urine Bacteria 0 SEEN Urine Mucus 0 SEEN Acetone Level S.aureus Protein A PCR MRSA (PCR) 03/27/19 03/27/19 08:16 08:16 WBC 8.7 RBC 3.94 L Hgb 10.9 L Hct 32.8 L MCV 83.2 MCH 27.7 MCHC 33.2 RDW 12.5 RDW Differential 38.1 Plt Count 237 MPV 9.5 Immature Gran % (Auto) 0.200 Neut % (Auto) 85.9 H Lymph % (Auto) 7.4 L [place] % (Auto) 5.4 Eos % (Auto) 0.8 Baso % (Auto) 0.3 Absolute Neuts (auto) 7.5 Absolute Lymphs (auto) 0.64 L Total Counted Not Reportable Differential Comment ESR PT INR APTT Sodium 139 Potassium 4.0 Chloride 106 Carbon Dioxide 25.0 Anion Gap 8 BUN 17 Creatinine 1.25 Estim Creat Clear Calc 64.08 Est GFR (MDRD) Af Amer 75 Est GFR (MDRD) Non-Af 62 BUN/Creatinine Ratio 13.6 Glucose 212 H Hemoglobin A1c Lactic Acid Calcium 8.0 L Total Bilirubin AST ALT Alkaline Phosphatase C-React Prot Ext Range Total Protein Albumin Globulin Albumin/Globulin Ratio Urine Color Urine Clarity Urine pH Ur Specific [place] Urine Protein Urine Glucose (UA) Urine Ketones Urine Occult Blood Urine Nitrite Urine Bilirubin Urine Urobilinogen Ur Leukocyte Esterase Urine RBC Urine WBC Ur Squamous Epith Cells Urine Bacteria Urine Mucus Acetone Level S.aureus Protein A PCR MRSA (PCR) - Other Studies Radiology: [] reviewed Other Studies: [] Route of nutrition/ use of supplements: [] Nutritional Intake: [] IV Site: [] Crawley Catheter: [] - Physical Exam General: Alert, Oriented x3, Cooperative, No apparent distress HEENT: Atraumatic, PERRLA, EOMI Neck: Supple, No Nodes Lungs: Clear to auscultation, Normal air movement Cardiovascular: Regular rate, Regular Rhythm, No murmurs Abdomen: Soft, Non Tender, Non-Distended Extremities: No edema Skin: Ulcer/ Wound - L foot swelling, redness, ulceration IV Site: Peripheral, without redness Musculoskeletal: No Tenderness to Palpation of Joints or Extremities Neurological: Cranial nerves II-XII grossly intact - Assessment/Plan Antibiotics: [] Assessment/Plan: [] Active and Suspected Problems Diabetic foot infection (Acute) Sepsis (Acute) severe sepsis (fever, tachycardia, leukocytosis, MEAGAN, lactic acidosis) due to L foot osteo and suspected abscess - wound cx pending, pt refuses surgery, cont vanc/zosyn for now. Will follow, thank you, d/w Dr. Rich.
--- NOTE | 2019-03-27 11:00 | NURSING ---
wound photo: left foot
--- NOTE | 2019-03-27 11:01 | NURSING ---
skin photo: left foot
[2019-03-27 12:06] LABS: Bedside Glucose 158 mg/dL (70-110)
--- NOTE | 2019-03-27 13:25 | CASEMGMT ---
SUSHILA CARPENTER assessment: Face to Face with patient for initial transition planning/care coordination assessment. SUSHILA CARPENTER introduced self and role at [facility], pt voices understanding and consents to assessment at this time. Pt is sitting up in chair in no distress at this time. Pt is A/Ox4 at this time but is very forgetful at times. Pt's mother is at bedside and she is forgetful as well. Care providers, pharmacy, and demographics verified/updated at this time. PCP: Yoselyn Specialists: Pt states has several specialists but can't remember names/specialties at this time. [facility] Insurance: [facility] Prescription Benefit: [facility] Living Will/HPOA: Pt has LW/HPOA and they are currently on file at [facility] at this time. Pt's son, Gerardo Sherwood III, is HPOA. LNOK: Gerardo Sherwood III, son; Pearl Babb, mother; Keyana Ferraro, sister Living Arrangements: Pt states lives with his mother in the basement of the home. Pt states is normally independent with ADL's. Transportation: Pt states drives self and states no transportation concerns at this time. DME/HHC: Pt states has walkers at home but states does not use and states no need for any further DME at this time. Pt states has had HHC in the past and has been to [facility] in the recent past. Pt cannot be direct with answer about plan at discharge at this time. Pt is currently unemployed. Pt states does not smoke or drink ETOH. Pt states no further concerns/needs at this time. CM to follow for PT/OT evals, iv antibx, and any further discharge planning/needs. Pt Goal: Home Plan: [place] SUSHILA CARPENTER
--- NOTE | 2019-03-27 15:37 | NURSING ---
Dyan in pharmacy called regarding pt does not want another IV started and is on4hr zosyn and vanc is supposed to be hung at 4pm. told to run zosyn over 2 hours and hang vanc around 5-530. zosyn increased to 25/hr
--- NOTE | 2019-03-27 15:47 | PCM.PROGNOTE ---
Patient Problems: Active and Suspected Problems Diabetic foot infection (Acute) Sepsis (Acute) Subjective: This 63-year-old male was seen bedside for right foot infection with ulceration. He is still refusing surgery. He denies foot pain. He is very jovial but not able to participate in his exam in a meaningful manner. - Physical Exam General: Alert, Oriented x3, Cooperative Extremities: No cyanosis, Capillary Refill Less than 3 Seconds - Remaining digits, No Calf Tenderness - Negative Aric and Bowman sign right, Diminished Peripheral Pulses, Edema - Decreased left foot, - - Forefoot deformities including amputation of second and third toe and partial fifth with prominent metatarsal head Skin: Ulcer/ Wound - Decreased odor and resolution of erythema. There is still granular, fibrous, and devitalized plantar foot ulcer base with positive probe to bone. There is no longer any reliance on expression. There is no bogginess on palpation or fluctuance to the left lower extremity. The compartments of the left lower extremity also remains soft to palpate, - - The skin is hairless and atrophic to left lower extremity Musculoskeletal: No Tenderness to Palpation of Joints or Extremities, Muscle Wasting, - - Decreased ankle joint dorsiflexion noted consistent with equinus left lower extremity Neurological: - - Lack of normal epicritic sensation to touch consistent with neuropathy left lower extremity Psych/Mental Status: Normal Affect, Appropriate Vital Signs Temp Pulse Resp BP Pulse Ox 98.5 F 86 18 143/72 H 97 03/27/19 10:20 03/27/19 10:59 03/27/19 10:20 03/27/19 10:20 03/27/19 10:20 Oxygen Delivery Method Room Air Weight: 85.1 kg Body Mass Index (BMI) 26.9 Finger Stick Blood Glucose 455 Intake and Output for Last 24 Hours 03/25/19 03/26/19 03/27/19 23:59 23:59 23:59 Intake Total 710 / 710 1960 Balance 710 / 710 1960 Microbiology Past 72 Hours 03/26/19 15:14 Gram Stain - Final Wound - Left Foot Wound Culture - Preliminary Gram negative carrington Mixed Culture Laboratory Tests Past 24 Hrs 03/26/19 03/26/19 03/26/19 15:00 15:16 15:16 WBC 12.5 H RBC 4.53 L Hgb 12.3 L Hct 36.3 L MCV 80.1 MCH 27.2 MCHC 33.9 RDW 12.2 RDW Differential 35.1 Plt Count 250 MPV 10.7 Immature Gran % (Auto) 0.300 Neut % (Auto) 88.5 H Lymph % (Auto) 4.6 L [place] % (Auto) 6.2 Eos % (Auto) 0.2 Baso % (Auto) 0.2 Absolute Neuts (auto) 11.1 H Absolute Lymphs (auto) 0.57 L Total Counted Not Reportable Differential Comment SCANNED ESR 67 H PT INR APTT Sodium 127 L Potassium 4.1 Chloride 97 L Carbon Dioxide 22.0 Anion Gap 8 BUN 23 H Creatinine 1.53 H Estim Creat Clear Calc 52.35 Est GFR (MDRD) Af Amer 60 Est GFR (MDRD) Non-Af 49 L BUN/Creatinine Ratio 15.0 Glucose 465 H* Hemoglobin A1c Lactic Acid Calcium 8.6 Total Bilirubin 0.80 AST 11 L ALT 10 L Alkaline Phosphatase 85 C-React Prot Ext Range 98.40 H Total Protein 7.6 Albumin 3.1 L Globulin 4.5 H Albumin/Globulin Ratio 0.7 L Urine RBC Urine WBC Ur Squamous Epith Cells Urine Bacteria Urine Mucus Acetone Level S.aureus Protein A PCR NEGATIVE MRSA (PCR) Negative 03/26/19 03/26/19 03/26/19 15:16 15:16 15:16 WBC RBC Hgb Hct MCV MCH MCHC RDW RDW Differential Plt Count MPV Immature Gran % (Auto) Neut % (Auto) Lymph % (Auto) [place] % (Auto) Eos % (Auto) Baso % (Auto) Absolute Neuts (auto) Absolute Lymphs (auto) Total Counted Differential Comment ESR PT 14.8 INR 1.2 APTT 20.2 L Sodium Potassium Chloride Carbon Dioxide Anion Gap BUN Creatinine Estim Creat Clear Calc Est GFR (MDRD) Af Amer Est GFR (MDRD) Non-Af BUN/Creatinine Ratio Glucose Hemoglobin A1c Lactic Acid 2.1 H Calcium Total Bilirubin AST ALT Alkaline Phosphatase C-React Prot Ext Range Total Protein Albumin Globulin Albumin/Globulin Ratio Urine RBC Urine WBC Ur Squamous Epith Cells Urine Bacteria Urine Mucus Acetone Level NEGATIVE S.aureus Protein A PCR MRSA (PCR) 03/26/19 03/26/19 03/26/19 15:16 15:22 18:00 WBC RBC Hgb Hct MCV MCH MCHC RDW RDW Differential Plt Count MPV Immature Gran % (Auto) Neut % (Auto) Lymph % (Auto) [place] % (Auto) Eos % (Auto) Baso % (Auto) Absolute Neuts (auto) Absolute Lymphs (auto) Total Counted Differential Comment ESR PT INR APTT Sodium Potassium Chloride Carbon Dioxide Anion Gap BUN Creatinine Estim Creat Clear Calc Est GFR (MDRD) Af Amer Est GFR (MDRD) Non-Af BUN/Creatinine Ratio Glucose Hemoglobin A1c 13.9 H Lactic Acid 2.3 H Calcium Total Bilirubin AST ALT Alkaline Phosphatase C-React Prot Ext Range Total Protein Albumin Globulin Albumin/Globulin Ratio Urine RBC 0 SEEN Urine WBC 0 SEEN Ur Squamous Epith Cells 0 SEEN Urine Bacteria 0 SEEN Urine Mucus 0 SEEN Acetone Level S.aureus Protein A PCR MRSA (PCR) 03/27/19 03/27/19 08:16 08:16 WBC 8.7 RBC 3.94 L Hgb 10.9 L Hct 32.8 L MCV 83.2 MCH 27.7 MCHC 33.2 RDW 12.5 RDW Differential 38.1 Plt Count 237 MPV 9.5 Immature Gran % (Auto) 0.200 Neut % (Auto) 85.9 H Lymph % (Auto) 7.4 L [place] % (Auto) 5.4 Eos % (Auto) 0.8 Baso % (Auto) 0.3 Absolute Neuts (auto) 7.5 Absolute Lymphs (auto) 0.64 L Total Counted Not Reportable Differential Comment ESR PT INR APTT Sodium 139 Potassium 4.0 Chloride 106 Carbon Dioxide 25.0 Anion Gap 8 BUN 17 Creatinine 1.25 Estim Creat Clear Calc 64.08 Est GFR (MDRD) Af Amer 75 Est GFR (MDRD) Non-Af 62 BUN/Creatinine Ratio 13.6 Glucose 212 H Hemoglobin A1c Lactic Acid Calcium 8.0 L Total Bilirubin AST ALT Alkaline Phosphatase C-React Prot Ext Range Total Protein Albumin Globulin Albumin/Globulin Ratio Urine RBC Urine WBC Ur Squamous Epith Cells Urine Bacteria Urine Mucus Acetone Level S.aureus Protein A PCR MRSA (PCR) POC Glucose 03/27/19 03/27/19 03/27/19 11:58 06:32 01:01 POC Glucose 158 H 175 H 219 H 03/26/19 03/26/19 18:49 17:12 POC Glucose 257 H 455 H* Medical Necessity - Tobacco Use Smoking Status: Never smoker Assessment/Plan All Active Problems Diabetic foot infection (Acute) Sepsis (Acute) Left foot infection (Acute) Left foot infection with previously known chronic osteomyelitis Sepsis resolving Uncontrolled diabetes with neuropathy Foot deformities including hammertoes and prominent metatarsal head Noncompliance Other comorbidities I reviewed and discussed his case. His vitals are stable and he is now afebrile. His white blood cell count has decreased and he no longer has leukocytosis. His hemoglobin A1c is noted at 13.9. He was started on IV intravenous vancomycin and Zosyn. A deep wound culture was obtained by the emergency room staff and this was sent for aerobic and anaerobic testing. So far, mixed organisms have been identified and the final results pending. Infectious disease input is greatly appreciated. I recommended operating room incision and drainage with debridement including a transmetatarsal amputation. He understands he is at high risk for this recurrent scenario and limb loss and life loss due to the situation. He will refuses surgical intervention at this time. It is noted aggressive debridement and irrigation was performed bedside in the emergency room yesterday. Serial irrigation bedside have also been performed. This will be continued twice daily. A new dressing consisting of Betadine soaked gauze wicked and packed into the deep ulcer site was applied. He has also been advised to remain nonweightbearing with a surgical shoe and an assistive device to help him ambulate. Nutrition supplementation was ordered to optimize healing. I recommend [facility] facility placement after he is medically stabilized with outpatient wound care center follow up. I will continue to follow him closely in house. Medical management and DVT prophylaxis per primary care and is greatly appreciate. Please do not hesitate to call if you have any questions. Vashti Bailon DPM, [facility] [phone]
--- NOTE | 2019-03-27 16:13 | PCM.PN.HOSP ---
Patient Problems: Active and Suspected Problems Diabetic foot infection (Acute) Sepsis (Acute) Subjective: States over and over that knows he can imitate his foot. States dogs that if this was amputated then it it is not coming back. Vitals/I&O's: Vital Signs Temp Pulse Resp BP Pulse Ox 36.9 C 86 18 143/72 H 97 03/27/19 10:20 03/27/19 10:59 03/27/19 10:20 03/27/19 10:20 03/27/19 10:20 Oxygen Delivery Method Room Air Weight: 85.1 kg Body Mass Index (BMI) 26.9 Finger Stick Blood Glucose 455 Intake and Output for Last 24 Hours 03/25/19 03/26/19 03/27/19 23:59 23:59 23:59 Intake Total 710 / 710 1960 Balance 710 / 710 1960 General: Alert, - - Angry. Yelling at times. Disheveled HEENT: Atraumatic, Normocephalic Extremities: No edema Skin: - - Deep wound on lateral aspect of left foot I did not have a probe but certainly at least a stage III most likely stage IV ulcer given its appearance. Musculoskeletal: No Tenderness to Palpation of Joints or Extremities, No Muscle Wasting Psych/Mental Status: Agitated Microbiology Past 72 Hours 03/26/19 15:14 Wound - Left Foot Gram Stain - Final 03/26/19 15:14 Wound - Left Foot Wound Culture - Preliminary Gram negative carrington Mixed Culture Laboratory Results 03/26/19 15:00: S.aureus Protein A PCR NEGATIVE, MRSA (PCR) Negative 03/26/19 15:16: ESR 67 H 03/26/19 15:16: Sodium 127 L, Potassium 4.1, Chloride 97 L, Carbon Dioxide 22.0, Anion Gap 8, BUN 23 H, Creatinine 1.53 H, Estim Creat Clear Calc 52.35, Est GFR (MDRD) Af Amer 60, Est GFR (MDRD) Non-Af 49 L, BUN/Creatinine Ratio 15.0, Glucose 465 H*, Calcium 8.6, Total Bilirubin 0.80, AST 11 L, ALT 10 L, Alkaline Phosphatase 85, C-React Prot Ext Range 98.40 H, Total Protein 7.6, Albumin 3.1 L, Globulin 4.5 H, Albumin/Globulin Ratio 0.7 L 03/26/19 15:16: Lactic Acid 2.1 H 03/26/19 15:16: Hemoglobin A1c 13.9 H 03/26/19 17:12: POC Glucose 455 H* 03/26/19 18:00: Lactic Acid 2.3 H 03/26/19 18:49: POC Glucose 257 H 03/27/19 01:01: POC Glucose 219 H 03/27/19 06:32: POC Glucose 175 H 03/27/19 08:16: Sodium 139, Potassium 4.0, Chloride 106, Carbon Dioxide 25.0, Anion Gap 8, BUN 17, Creatinine 1.25, Estim Creat Clear Calc 64.08, Est GFR (MDRD) Af Amer 75, Est GFR (MDRD) Non-Af 62, BUN/Creatinine Ratio 13.6, Glucose 212 H, Calcium 8.0 L 03/27/19 08:16: WBC 8.7, RBC 3.94 L, Hgb 10.9 L, Hct 32.8 L, MCV 83.2, MCH 27.7, MCHC 33.2, RDW 12.5, RDW Differential 38.1, Plt Count 237, MPV 9.5, Immature Gran % (Auto) 0.200, Neut % (Auto) 85.9 H, Lymph % (Auto) 7.4 L, Motley % (Auto) 5.4, Eos % (Auto) 0.8, Baso % (Auto) 0.3, Absolute Neuts (auto) 7.5, Absolute Lymphs (auto) 0.64 L, Total Counted Not Reportable 03/27/19 11:58: POC Glucose 158 H Current Medications Acetaminophen (Tylenol) 650 mg PO Q6H PRN PRN PRN Reason: Mild Pain (1-3)/Temp > 100.7 F Dextrose (D50w Syringe) 0 gm IV X1 PRN; Protocol PRN Reason: Hypoglycemia Docusate Sodium (Colace) 200 mg PO BID PRN PRN PRN Reason: Constipation Glucagon () 1 mg IM .X1 PRN PRN Reason: Hypoglycemia Heparin Sodium (Porcine) (Heparin Na) 5,000 unit SC Q8 [facility] Last Admin: 03/27/19 14:55 Dose: 5,000 unit Documented by: Sodium Chloride () 1,000 mls @ 100 mls/hr IV .Q10H [facility] Last Admin: 03/27/19 14:53 Dose: 100 mls/hr Documented by: Piperacillin Sod/Tazobactam (Sod 3.375 gm/ Sodium Chloride) 50 mls @ 12.5 mls/hr IV Q8 [facility] Last Admin: 03/27/19 14:53 Dose: 12.5 mls/hr Documented by: Vancomycin HCl 750 mg/ Sodium (Chloride) 265 mls @ 250 mls/hr IV Q12H [facility] Last Admin: 03/27/19 04:14 Dose: 250 mls/hr Documented by: Insulin Glargine (Lantus (Bkc)) 30 units SC DAILY [facility] Last Admin: 03/27/19 09:53 Dose: 30 units Documented by: Insulin Human Lispro (Humalog Kwikpen ([facility])) 10 unit SC TIDCM [facility] Last Admin: 03/27/19 11:59 Dose: 10 u Documented by: Insulin Human Lispro (Humalog Kwikpen (Bk)) 0 unit SC ACHS [facility]; Protocol Last Admin: 03/27/19 11:59 Dose: 2 units Documented by: Lisinopril (Zestril) 40 mg PO DAILY [facility] Last Admin: 03/27/19 09:53 Dose: 40 mg Documented by: Loratadine (Claritin) 10 mg PO DAILY [facility] Last Admin: 03/27/19 09:53 Dose: 10 mg Documented by: Nutritional Formula (Gerard - [place] Flavor) 1 packet PO BIDCM [facility] Ondansetron HCl (Zofran) 4 mg IV Q8H PRN PRN PRN Reason: NAUSEA/VOMITING Oxycodone HCl (Oxyir) 5 mg PO Q6H PRN PRN PRN Reason: Moderate Pain (4-6/10) Pantoprazole Sodium (Protonix) 40 mg PO DAILY [facility] Last Admin: 03/27/19 09:53 Dose: 40 mg Documented by: Sodium Chloride () 10 - 40 ml IV UD PRN PRN Reason: SALINE FLUSH Last Admin: 03/27/19 04:14 Dose: 10 ml Documented by: Medical Necessity - Tobacco Use Smoking Status: Never smoker Assessment/Plan All Active Problems Diabetic foot infection (Acute) Sepsis (Acute) Left foot infection (Acute) 1. Left foot infection and osteomyelitis Wound culture showing gram-negative rods thus far Patient had an MRI of his foot back on November 22 that showed septic arthritis of the first metatarsophalangeal joints with a bone edema of the distal first metatarsal and first proximal phalanx Patient adamant that he is not going to have surgery and apparently has stated during previous admissions that anyone tends to take his foot he will kill Continue with antibiotics as directed by infectious disease Seen by podiatry, where he still refuses any surgery. They are recommending serial irrigation at bedside. Has been expanded the patient by myself as well as other providers that without more definitive therapy he is at risk for ongoing infection, limb loss or even . Nonweightbearing to the left lower extremity 2. DM type II, uncontrolled Continue basal insulin, prandial insulin and sliding scale A1c is 13.9 At least partially attributed to just noncompliance and not taking his insulin 3. Hyponatremia Resolved May been due to hyperglycemia Continue to monitor 4. Severe sepsis Secondary to #1 Clinically improving 5. Dementia Complicates care 6. VTE prophylaxis with Lovenox. Moderate risk. Advance care planning: Spent 20 minutes discussing with the patient about hospice and end-of-life care. I brought this up as patient is already expressed desire not to have the amputation and discussed risks of not having any further definitive therapy and we are providing him the option of hospice and even palliative care in regards to pursuing comfort measures if he does not wish to have aggressive care in regards to management of his foot. Code Visit Inpatient E&M: 04856 Subs Hosp L2 Procedures: 21319 Advncd Care Plan 30 Min
[2019-03-27 16:55] LABS: Bedside Glucose 147 mg/dL (70-110)
[2019-03-28] VITALS (11 sets, daily range): BP systolic 135–184; BP diastolic 74–97; PULSE 64–81; RESP 16–18; TEMP 36.6–36.9; O2SAT 95–100
[2019-03-28] MEDS: 0.9% Normal Saline 1,000 ML 100 ML IV ×3 (00:48→18:00)
[2019-03-28 01:00] LABS: Bedside Glucose 216 mg/dL (70-110)
[2019-03-28 04:05] LABS: Vancomycin, Trough Level 9.7 ug/mL (5.0-15.0)
[2019-03-28] MEDS: 0.9% NaCl Peripheral Flush Adult/Peds IV (04:43)
--- NOTE | 2019-03-28 05:44 | PCM.RX.CS ---
Consult Pharmacy has been consulted to manage selected antiobiotic: Vancomycin Type of Consult: Follow-up Suspected Infection: Sepsis, Skin/Soft tissue Labs: Sodium 139 mmol/L (136-145) 03/27/19 08:16 Potassium 4.0 mmol/L (3.5-5.1) 03/27/19 08:16 Chloride 106 mmol/L (98-107) 03/27/19 08:16 Carbon Dioxide 25.0 mmol/L (21.0-32.0) 03/27/19 08:16 8 (5-15) 03/27/19 08:16 BUN 17 mg/dL (7-18) 03/27/19 08:16 1.25 mg/dL (0.70-1.30) 03/27/19 08:16 Est GFR (MDRD) Af Amer 75 mL/min (>60) 03/27/19 08:16 Est GFR (MDRD) Non-Af 62 mL/min (>60) 03/27/19 08:16 13.6 RATIO (10-20) 03/27/19 08:16 Glucose 212 mg/dL (74-106) H 03/27/19 08:16 Vancomycin Trough 9.7 ug/mL (5.0-15.0) 03/28/19 03:24 Microbiology: Microbiology 03/26/19 15:40 Blood Culture (Wb) - Left Wrist Blood Culture - Preliminary 03/26/19 15:16 Blood Culture (Wb) - Right Hand Blood Culture - Preliminary 03/26/19 15:14 Wound - Left Foot Gram Stain - Final 03/26/19 15:14 Wound - Left Foot Wound Culture - Preliminary Gram negative carrington Mixed Culture Goal Trough: 15-20 mcg/mL Pharmacy Plan for Drug Dosing: Pharmacy Service will continue to monitor and adjust dosing as required. Medications Vancomycin HCl 1,250 mg/ (Sodium Chloride) 275 mls @ 167 mls/hr IV Q12H [facility] TROUGH 9.7 INCREASE TO 1250 Q12H NEXT TROUGH 03/30 @ 0330 Follow-Up Labs: Trough Vancomycin Labs to be done on [date and time ordered]: 03/30 @ 0330
[2019-03-28 07:01] LABS: Bedside Glucose 145 mg/dL (70-110)
[2019-03-28] MEDS: Insulin Lispro 100 UNIT/ML INSULN.PEN 10 UNIT SC ×3 (08:57→16:59)
[2019-03-28] MEDS: Lisinopril 40 MG Tablet PO (08:59)
[2019-03-28] MEDS: Loratadine 10 MG Tablet PO (08:59)
[2019-03-28] MEDS: Pantoprazole Sodium 40 MG Tablet PO (08:59)
[2019-03-28 11:40] LABS: Bedside Glucose 286 mg/dL (70-110)
[2019-03-28] MEDS: Insulin Lispro 100 UNIT/ML INSULN.PEN SC ×3 (13:53→22:52)
--- NOTE | 2019-03-28 13:54 | PN_ITS ---
Patient Problems: Active and Suspected Problems Diabetic foot infection (Acute) Sepsis (Acute) Subjective: This 63-year-old male with multiple comorbidities was seen bedside today for left foot infection with recurrent ulceration. He was admitted with sepsis and refused surgical intervention; he is continuing to refuse surgical intervention. He denies current fever, chill, nausea, pain to foot or calf pain. He is very talkative today and it is difficult for him to stay on track in regards to his medical care plan. - Physical Exam General: Alert, Oriented x3, Cooperative Extremities: No cyanosis, Capillary Refill Less than 3 Seconds, No Calf Tenderness - Negative Aric and Bowman left, Diminished Peripheral Pulses, Edema - Decreased left foot, - - Prominent metatarsal head with digital deformities and amputations noted Skin: Ulcer/ Wound - Positive probe to bone plantar central left foot ulcer site with other remaining granulation tissue in the base. There is decreased odor. There is resolved erythema and there is no streaking. The peripheral skin is hairless and atrophic. Musculoskeletal: No Tenderness to Palpation of Joints or Extremities, Muscle Wasting Neurological: - - Lack of epicritic sensation light touch consistent with neuropathy Psych/Mental Status: Anxious, Impulsive, Irrational Behavior Vital Signs Temp Pulse Resp BP Pulse Ox 98.3 F 73 16 135/74 H 95 03/28/19 11:42 03/28/19 11:42 03/28/19 11:42 03/28/19 11:42 03/28/19 11:42 Oxygen Delivery Method Room Air Weight: 85.1 kg Body Mass Index (BMI) 26.9 Finger Stick Blood Glucose 455 Intake and Output for Last 24 Hours 03/26/19 03/27/19 03/28/19 23:59 23:59 23:59 Intake Total 710 / 710 4354 / 4354 1895 / 1895 Balance 710 / 710 4354 / 4354 189 / 189 Microbiology Past 72 Hours 03/26/19 15:22 Urine Culture - Final Urine, Clean Catch Mixed Gram Positive Organisms 03/26/19 15:14 Gram Stain - Final Wound - Left Foot Wound Culture - Preliminary Enterobacter cloacae complex GPC Poss Enterococcus sp 03/26/19 15:16 Blood Culture - Preliminary Blood Culture (Wb) - Right Hand 03/26/19 15:40 Blood Culture - Preliminary Blood Culture (Wb) - Left Wrist Laboratory Tests Past 24 Hrs 03/28/19 03:24 Vancomycin Trough 9.7 POC Glucose 03/28/19 03/28/19 03/27/19 11:34 06:46 21:57 POC Glucose 286 H 145 H 216 H 03/27/19 16:45 POC Glucose 147 H Medical Necessity - Tobacco Use Smoking Status: Never smoker Assessment/Plan All Active Problems Diabetic foot infection (Acute) Sepsis (Acute) Left foot infection (Acute) Left foot infection with previously known chronic osteomyelitis Sepsis resolved Uncontrolled diabetes with neuropathy Foot deformities including hammertoes and prominent metatarsal head Noncompliance Other comorbidities I reviewed and discussed his case. His vitals are stable and he is afebrile. His white blood cell count has decreased and he no longer has leukocytosis. His hemoglobin A1c is noted at 13.9. He was started on IV intravenous vancomycin and Zosyn. A deep wound culture was obtained with enterobacter and enterococcus species. Infectious diseases on consultation. I recommended operating room incision and drainage with debridement including a transmetatarsal amputation. He understands he is at high risk for this recurrent scenario and limb loss and life loss due to the situation. He will refuses surgical intervention at this time. Serial subcutaneous excisional debridement was performed again this afternoon with copious saline irrigation (1L). Verbal consent was obtained and a 15 blade scalpel was used to excise devitalized subcutaneous tissue, biofilm, slough, and fibrous tissue. Pressure was applied to maintain hemostasis. The pre-debridement measurement was 2.5 x 2.2 x 2.5 cm the post debridement measurement was 2.8 x 2.5 x 2.5 cm. Serial irrigation will be continued twice a day. A new dressing consisting of Betadine soaked gauze wicked and packed into the deep ulcer site was applied. He has also been advised to remain nonweightbearing with a surgical shoe and an assistive device to help him ambulate. Nutrition supplementation was ordered to optimize healing. I recommend [facility] facility placement after he is medically stabilized with outpatient wound care center follow up. I will continue to follow him closely in house. Medical management and DVT prophylaxis per primary care and is greatly appreciate. Please do not hesitate to call if you have any questions. Vashti Bailon DPM, [facility] [phone]
--- NOTE | 2019-03-28 14:23 | PCM.PN.ID ---
Patient Problems: Active and Suspected Problems Diabetic foot infection (Acute) Sepsis (Acute) Subjective: Feeling ok, bedside I&D today, no fever - Physical Exam General: Alert, Cooperative, No apparent distress Lungs: Clear to auscultation, Normal air movement Cardiovascular: Regular rate, Regular Rhythm Abdomen: Soft, Non Tender, Non-Distended Skin: Ulcer/ Wound - L foot Vital Signs Temp Pulse Resp BP Pulse Ox 98.3 F 73 16 135/74 H 95 03/28/19 11:42 03/28/19 11:42 03/28/19 11:42 03/28/19 11:42 03/28/19 11:42 Oxygen Delivery Method Room Air Weight: 85.1 kg Body Mass Index (BMI) 26.9 Finger Stick Blood Glucose 455 Intake and Output for Last 24 Hours 03/26/19 03/27/19 03/28/19 23:59 23:59 23:59 Intake Total 710 / 710 4354 / 4354 1895 / 1895 Balance 710 / 710 4354 / 4354 1895 / 1895 Microbiology Past 72 Hours 03/26/19 15:22 Urine Culture - Final Urine, Clean Catch Mixed Gram Positive Organisms 03/26/19 15:14 Gram Stain - Final Wound - Left Foot Wound Culture - Preliminary Enterobacter cloacae complex GPC Poss Enterococcus sp 03/26/19 15:16 Blood Culture - Preliminary Blood Culture (Wb) - Right Hand 03/26/19 15:40 Blood Culture - Preliminary Blood Culture (Wb) - Left Wrist Laboratory Tests Past 24 Hrs 03/28/19 03:24 Vancomycin Trough 9.7 POC Glucose 03/28/19 03/28/19 03/27/19 11:34 06:46 21:57 POC Glucose 286 H 145 H 216 H 03/27/19 16:45 POC Glucose 147 H Medical Necessity - Tobacco Use Smoking Status: Never smoker Route of nutrition/ use of supplements: [] Nutritional Intake: [] IV Site: [] Crawley Catheter: [] - Assessment/Plan Antibiotics: [] Assessment/Plan: [] Active and Suspected Problems Diabetic foot infection (Acute) Sepsis (Acute) severe sepsis (fever, tachycardia, leukocytosis, MEAGAN, lactic acidosis) due to L foot osteo and suspected abscess - wound cx with enterobacter and enterococcus, pt refuses surgery, cont vanc/zosyn for now. Plan will be detention iv abx. Will follow, d/w Dr. Rich and Dr. Bailon
--- NOTE | 2019-03-28 15:05 | PN_ITS ---
Patient Problems: Active and Suspected Problems Diabetic foot infection (Acute) Sepsis (Acute) Subjective: Still refusing surgery. Vitals/I&O's: Vital Signs Temp Pulse Resp BP Pulse Ox 36.8 C 73 16 135/74 H 95 03/28/19 11:42 03/28/19 11:42 03/28/19 11:42 03/28/19 11:42 03/28/19 11:42 Oxygen Delivery Method Room Air Weight: 85.1 kg Body Mass Index (BMI) 26.9 Finger Stick Blood Glucose 455 Intake and Output for Last 24 Hours 03/26/19 03/27/19 03/28/19 23:59 23:59 23:59 Intake Total 710 / 710 4354 / 4354 1894 Balance 710 / 710 4354 / 4354 1894 General: Alert, No apparent distress HEENT: Atraumatic, Normocephalic Oral: Moist Mucosa, No Gingival or Mucosal Lesions/ Ulcerations Extremities: No edema, No Calf Tenderness Skin: - - Deep wound on his left foot with some sloughing skin around the margins and some slight very erythema plantar aspect of the foot surrounding the wound. Musculoskeletal: No Tenderness to Palpation of Joints or Extremities, No Muscle Wasting Psych/Mental Status: Agitated, Anxious Microbiology Past 72 Hours 03/26/19 15:14 Wound - Left Foot Gram Stain - Final 03/26/19 15:14 Wound - Left Foot Wound Culture - Preliminary Enterobacter cloacae complex GPC Poss Enterococcus sp Alpha Hemolytic Streptococcus Gram positive carrington 03/26/19 15:22 Urine, Clean Catch Urine Culture - Final Mixed Gram Positive Organisms 03/26/19 15:16 Blood Culture (Wb) - Right Hand Blood Culture - Preliminary 03/26/19 15:40 Blood Culture (Wb) - Left Wrist Blood Culture - Preliminary Laboratory Results 03/27/19 16:45: POC Glucose 147 H 03/27/19 21:57: POC Glucose 216 H 03/28/19 03:24: Vancomycin Trough 9.7 03/28/19 06:46: POC Glucose 145 H 03/28/19 11:34: POC Glucose 286 H Current Medications Acetaminophen (Tylenol) 650 mg PO Q6H PRN PRN PRN Reason: Mild Pain (1-3)/Temp > 100.7 F Dextrose (D50w Syringe) 0 gm IV X1 PRN; Protocol PRN Reason: Hypoglycemia Docusate Sodium (Colace) 200 mg PO BID PRN PRN PRN Reason: Constipation Glucagon () 1 mg IM .X1 PRN PRN Reason: Hypoglycemia Haloperidol Lactate (Haldol) 0.5 mg IM Q4H PRN PRN PRN Reason: AGITATION Heparin Sodium (Porcine) (Heparin Na) 5,000 unit SC Q8 [facility] Last Admin: 03/28/19 13:52 Dose: Not Given Documented by: Sodium Chloride () 1,000 mls @ 100 mls/hr IV .Q10H [facility] Last Admin: 03/28/19 09:06 Dose: 100 mls/hr Documented by: Piperacillin Sod/Tazobactam (Sod 3.375 gm/ Sodium Chloride) 50 mls @ 12.5 mls /hr IV Q8 [facility] Last Admin: 03/28/19 13:52 Dose: 12.5 mls/hr Documented by: Vancomycin HCl 1,250 mg/ (Sodium Chloride) 275 mls @ 167 mls/hr IV Q12H [facility] Insulin Glargine (Lantus (Bkc)) 30 units SC DAILY [facility] Last Admin: 03/28/19 09:00 Dose: 30 units Documented by: Insulin Human Lispro (Humalog Kwikpen (Bkc)) 10 unit SC TIDCM [facility] Last Admin: 03/28/19 13:53 Dose: 10 u Documented by: Insulin Human Lispro (Humalog Kwikpen (Bkc)) 0 unit SC ACHS [facility]; Protocol Last Admin: 03/28/19 13:53 Dose: 6 units Documented by: Lisinopril (Zestril) 40 mg PO DAILY [facility] Last Admin: 03/28/19 08:59 Dose: 40 mg Documented by: Loratadine (Claritin) 10 mg PO DAILY [facility] Last Admin: 03/28/19 08:59 Dose: 10 mg Documented by: Nutritional Formula (Gerard - [place] Flavor) 1 packet PO BIDCM [facility] Last Admin: 03/28/19 08:57 Dose: 1 packet Documented by: Nutritional Formula (Lactose Free) (Ensure Enlive) 120 ml PO 4X/DAY [facility] Last Admin: 03/28/19 13:52 Dose: Not Given Documented by: Ondansetron HCl (Zofran) 4 mg IV Q8H PRN PRN PRN Reason: NAUSEA/VOMITING Oxycodone HCl (Oxyir) 5 mg PO Q6H PRN PRN PRN Reason: Moderate Pain (4-6/10) Pantoprazole Sodium (Protonix) 40 mg PO DAILY [facility] Last Admin: 03/28/19 08:59 Dose: 40 mg Documented by: Sodium Chloride () 10 - 40 ml IV UD PRN PRN Reason: SALINE FLUSH Last Admin: 03/28/19 04:43 Dose: 10 ml Documented by: Medical Necessity - Tobacco Use Smoking Status: Never smoker Assessment/Plan All Active Problems Diabetic foot infection (Acute) Sepsis (Acute) Left foot infection (Acute) 1. Left foot infection and osteomyelitis * Wound culture showing gram-negative rods thus far * Patient had an MRI of his foot back on November 22 that showed septic arthritis of the first metatarsophalangeal joints with a bone edema of the distal first metatarsal and first proximal phalanx * Patient adamant that he is not going to have surgery and apparently has stated during previous admissions that anyone tends to take his foot he will kill * Continue with antibiotics as directed by infectious disease * Seen by podiatry, where he still refuses any surgery. They are recommending serial irrigation at bedside. Patient has permitted some bedside debridement but still against amputation. * Has been expanded the patient by myself as well as other providers that without more definitive therapy he is at risk for ongoing infection, limb loss or even . * Nonweightbearing to the left lower extremity * Patient's reasoning is based upon an uncle who 50 years ago or so he had amputations and patient is anxious that he is can require serial amputations proximally if he gets one amputation. Explained to him that I do not know the issues in regards to his uncle but that generally is not the case. But patient is at risk for further infection extending more proximally up his leg or even if he does not permit us to perform surgery. I told him antibiotics would not be sufficient enough for him. I did explain also that he is giving us conflicting information that he is here in the hospital seeking treatment but he does not want our recommendations. He states that he can follow-up with some doctor who does minerals they can help his foot. Explained to him that he certainly welcome to leave and seek out that treatment. 2. DM type II, uncontrolled * Continue basal insulin, prandial insulin and sliding scale * A1c is 13.9 * At least partially attributed to just noncompliance and not taking his insulin 3. Hyponatremia * Resolved * May been due to hyperglycemia * Continue to monitor 4. Severe sepsis * Secondary to #1 * Clinically improving 5. Dementia * Complicates care * Attempt to do a mini cog assessment the patient became distracted and so did not complete it. Patient was able to draw the face of a clock appropriately starting 1236 and 9 and following the numbers are after he put them in the appropriate positions. I asked him to draw the hands of a clock to show a 40 but he got started at that point time. Patient is not aware of the date but knows who the current president is and where he is currently. 6. VTE prophylaxis with Lovenox. Moderate risk. Advance care planning: Spent an additional 30 minutes discussing with the patient about end-of-life care if he still choosing to not proceed with surgery. And explained hospice in detail. Patient states that he is not wanting surgery but certainly not on board with hospice care at this time. Code Visit Inpatient E&M: 31026 Subs Hosp L2 Procedures: 25661 Advncd Care Plan 30 Min
--- NOTE | 2019-03-28 16:08 | CASEMGMT ---
SW received a phone call from patient's sister. She expressed concern with patient going home at d/c. She said he cannot care for himself and her mom cannot care for him as she is 83. She said he had an appt to see a Neurologist to assess cognition tomorrow. Family and patient's PCP feel he has Dementia, but there has been no official diagnosis as of yet. LEONIDES told her we are aware of situation, and are working on a safe d/c plan. Candida MONSIVAIS MSW
[2019-03-28 17:06] LABS: Bedside Glucose 166 mg/dL (70-110)
[2019-03-28 23:15] LABS: Bedside Glucose 207 mg/dL (70-110)
[2019-03-29] VITALS (8 sets, daily range): BP systolic 137–168; BP diastolic 71–94; PULSE 61–89; RESP 16–18; TEMP 36.3–36.9; O2SAT 96–99
[2019-03-29] MEDS: 0.9% Normal Saline 1,000 ML 100 ML IV ×3 (03:43→21:40)
[2019-03-29 06:27] LABS: Absolute Lymphocyte Count 2.12 X10^3/ul (0.83-4.51); Absolute Neutrophil Count 2.7 X10^3/uL (2.0-7.7); Basophil# 0.05 X10^3/uL; Basophil% 0.8 % (0-1); Hematocrit 34.3 % (40-54); Hemoglobin 11.5 g/dl (13.0-16.5); Lymphocyte # 2.12 X10^3/ul (4.0); Lymphocyte % 35.5 % (19-41); Mean Corp Hgb Conc 33.5 g/gl (32-36); Mean Corpuscular Hgb 27.2 pg (27.0-32.0); Mean Corpuscular Volume 81.1 fL (80-94); Mean Platelet Vol. 9.9 fl (6.2-12.0); Monocyte# 0.83 X10^3/uL; Monocyte% 13.9 % (0-10); Neutrophil # 2.66 X10^3/uL (2.7-7.7); Neutrophil % 44.5 % (47-70); Platelet Count 277 K/mm3 (150-450); RBC Distribution Width CV 12.4 % (11.6-14.6); RBC Distribution Width SD 35.6 fl (35.1-43.9); Red Blood Count 4.23 M/mm3 (4.6-6.2)
[2019-03-29 06:28] LABS: POSITIVE COUNT NO; POSITIVE DIFFERENTIAL NO; POSITIVE MORPHOLOGY NO
[2019-03-29 06:36] LABS: Anion Gap 8 (5-15); BUN 11 mg/dL (7-18); BUN/Creat Ratio 10.4 RATIO (10-20); Calcium,Total 8.2 mg/dL (8.5-10.1); Chloride 108 mmol/L (98-107); Creatinine, Serum 1.06 mg/dL (0.70-1.30); EST Glomerular Filtration Rate 75 mL/min (>60); Est Glom Filt Rate - Afr Amer 91 mL/min (>60); Estimated Creatinine Clearance 75.56 ml/min; Glucose 139 mg/dL (74-106); Potassium 3.3 mmol/L (3.5-5.1); Sodium Level 140 mmol/L (136-145)
[2019-03-29 07:11] LABS: Bedside Glucose 159 mg/dL (70-110)
[2019-03-29] MEDS: Insulin Lispro 100 UNIT/ML INSULN.PEN 10 UNIT SC ×3 (08:30→16:19)
[2019-03-29] MEDS: Insulin Lispro 100 UNIT/ML INSULN.PEN SC ×4 (08:30→21:41)
[2019-03-29] MEDS: Loratadine 10 MG Tablet PO (08:31)
[2019-03-29] MEDS: Pantoprazole Sodium 40 MG Tablet PO (08:32)
[2019-03-29] MEDS: Lisinopril 40 MG Tablet PO (08:33)
--- NOTE | 2019-03-29 09:18 | ECHOD_ITS ---
Reason For Study: murmur, sepsis Procedure This was a 2D Doppler, Color Flow transthoracic echocardiogram. The study was technically difficult. PT was unable to cooperate for exam, talking on phone, singing, swearing about surgeons recommendation of amputation of foot. Exam performed portable in patient room. Left Ventricle Normal size and thickness. The estimated ejection fraction is 55 %. No evidence for diastolic dysfunction. No regional wall motion abnormalities noted. Right Ventricle Normal RV size. Normal systolic function. Atria Normal left atrium. Normal right atrium. Mitral Valve No significant mitral valve stenosis. No mitral valve insufficiency. Tricuspid Valve There is no tricuspid stenosis. Trivial tricuspid valve insufficiency. Unable to estimate RV systolic pressure due to insufficient tricuspid regurgitant envelope. Aortic Valve Trisinus/trileaflet aortic valve. Aortic sclerosis, no stenosis. There is no aortic stenosis. No aortic valve insufficiency. Pulmonic Valve There is no pulmonic valvular stenosis. No pulmonic valve insufficiency. Great Vessels Normal aortic root. Pericardium/Pleural No pericardial effusion. MMode/2D Measurements & Calculations LVIDd: 4.6 cm IVSd: 1.0 cm Ao root diam: 3.1 cm LVIDs: 3.1 cm LVPWd: 1.1 cm RVDd: 3.3 cm FS: 32.4 % LAV(MOD-bp): 49.5 ml LA A4 area: 16.7 cm2 LA dimension(2D): 3.3 cm LAV(MOD-bp) Indexed: 24.4 ml/m2 LAV(MOD-sp2): 47.6 ml LAV(MOD-sp4): 48.9 ml RA A4 area: 14.7 cm2 Time Measurements MV dec time: 0.19 sec Doppler Measurements & Calculations MV E max ortega: 66.9 cm/sec Lat Peak E' Ortega: 8.9 cm/sec Med Peak E' Ortega: 8.3 cm/sec MV A max ortega: 86.9 cm/sec E/E' lat: 7.5 E/E' med: 8.1 MV E/A: 0.77 Ao V2 max: 140.6 cm/sec LV V1 max: 95.8 cm/sec PA V2 max: 85.6 cm/sec Ao max P.9 mmHg LV V1 max P.7 mmHg TR max ortega: 205.7 cm/sec TR max P.9 mmHg Interpretation Summary The study was technically difficult. Pt. was uncooperative during the exam The estimated ejection fraction is 55 %. No evidence for diastolic dysfunction. The study was technically difficult. Pt. was uncooperative during the exam. Ordering Physician: Kingston Luna Referring Physician: Tony Topete Performed By: Ofelia Pino, BLANCA, RVT
--- NOTE | 2019-03-29 10:28 | PN.ID_ITS ---
Patient Problems: Active and Suspected Problems Diabetic foot infection (Acute) Sepsis (Acute) Subjective: Feeling about the same, no fever - Physical Exam General: Alert, Cooperative, No apparent distress Lungs: Clear to auscultation, Normal air movement Cardiovascular: Regular rate, Regular Rhythm Abdomen: Soft, Non Tender, Non-Distended Skin: Ulcer/ Wound - foot wrapped Vital Signs Temp Pulse Resp BP Pulse Ox 97.4 F L 75 16 168/94 H 97 03/29/19 04:45 03/29/19 04:45 03/29/19 04:45 03/29/19 04:45 03/29/19 04:45 Oxygen Delivery Method Room Air Weight: 85.1 kg Body Mass Index (BMI) 26.9 Finger Stick Blood Glucose 455 Intake and Output for Last 24 Hours 03/27/19 03/28/19 03/29/19 23:59 23:59 23:59 Intake Total 4354 / 4354 4429 / 4429 1241 / 1241 Balance 4354 / 4354 4429 / 4429 1241 / 1241 Microbiology Past 72 Hours 03/26/19 15:40 Blood Culture - Final Blood Culture (Wb) - Left Wrist Alpha Hemolytic Streptococcus 03/26/19 15:16 Blood Culture - Final Blood Culture (Wb) - Right Hand Streptococcus mitis/ oralis 03/26/19 15:14 Gram Stain - Final Wound - Left Foot Wound Culture - Final Enterobacter cloacae complex Enterococcus faecalis Streptococcus mitis/ oralis Gram positive carrington 03/26/19 15:22 Urine Culture - Final Urine, Clean Catch Mixed Gram Positive Organisms Laboratory Tests Past 24 Hrs 03/29/19 03/29/19 05:35 05:35 WBC 6.0 RBC 4.23 L Hgb 11.5 L Hct 34.3 L MCV 81.1 MCH 27.2 MCHC 33.5 RDW 12.4 RDW Differential 35.6 Plt Count 277 MPV 9.9 Immature Gran % (Auto) 0.300 Neut % (Auto) 44.5 L Lymph % (Auto) 35.5 [place] % (Auto) 13.9 H Eos % (Auto) 5.0 Baso % (Auto) 0.8 Absolute Neuts (auto) 2.7 Absolute Lymphs (auto) 2.12 Total Counted Not Reportable Sodium 140 Potassium 3.3 L Chloride 108 H Carbon Dioxide 24.0 Anion Gap 8 BUN 11 Creatinine 1.06 Estim Creat Clear Calc 75.56 Est GFR (MDRD) Af Amer 91 Est GFR (MDRD) Non-Af 75 BUN/Creatinine Ratio 10.4 Glucose 139 H Calcium 8.2 L POC Glucose 03/29/19 03/28/19 03/28/19 07:03 22:50 16:54 POC Glucose 159 H 207 H 166 H 03/28/19 11:34 POC Glucose 286 H Medical Necessity - Tobacco Use Smoking Status: Never smoker Route of nutrition/ use of supplements: [] Nutritional Intake: [] IV Site: [] Crawley Catheter: [] - Assessment/Plan Antibiotics: [] Assessment/Plan: [] Active and Suspected Problems Diabetic foot infection (Acute) Sepsis (Acute) severe sepsis (fever, tachycardia, leukocytosis, MEAGAN, lactic acidosis) due to L foot osteo and suspected abscess, complicated by strep mitis bacteremia - wound cx with enterobacter, strep mitis, and enterococcus, pt refuses surgery, cont zosyn, will stop vanc. Plan will be senior care iv abx. Will check TTE and repeat bcx today. Will follow, d/w case investigator
--- NOTE | 2019-03-29 11:36 | NURSING ---
pt cursing out loud, went into room to discuss frustrations. pt expressed concerns with personal matters with banking. pt wanted to leave hospital for a few hours to take care of issues. advised pt that is not allowed and he would need to leave AMA. pt aware, more calm at this time and will call back
--- NOTE | 2019-03-29 11:49 | PCM.PN.HOSP ---
Patient Problems: Active and Suspected Problems Diabetic foot infection (Acute) Sepsis (Acute) Subjective: Expresses frustration that there should be something, non-surgical, to salvage his foot. Vitals/I&O's: Vital Signs Temp Pulse Resp BP Pulse Ox 36.9 C 67 18 160/75 H 97 03/29/19 10:40 03/29/19 10:40 03/29/19 10:40 03/29/19 10:40 03/29/19 10:40 Oxygen Delivery Method Room Air Weight: 85.1 kg Body Mass Index (BMI) 26.9 Finger Stick Blood Glucose 455 Intake and Output for Last 24 Hours 03/27/19 03/28/19 03/29/19 23:59 23:59 23:59 Intake Total 4354 / 4354 4429 / 4429 2153 Balance 4354 / 4354 4429 / 4429 2153 General: Alert, No apparent distress, - - up at side of bed eating breakfast. HEENT: Atraumatic, Normocephalic Oral: Moist Mucosa, No Gingival or Mucosal Lesions/ Ulcerations Extremities: - - left foot bandaged--did not remove Psych/Mental Status: Agitated, Anxious Microbiology Past 72 Hours 03/26/19 15:40 Blood Culture (Wb) - Left Wrist Blood Culture - Final Alpha Hemolytic Streptococcus 03/26/19 15:16 Blood Culture (Wb) - Right Hand Blood Culture - Final Streptococcus mitis/ oralis 03/26/19 15:14 Wound - Left Foot Gram Stain - Final 03/26/19 15:14 Wound - Left Foot Wound Culture - Final Enterobacter cloacae complex Enterococcus faecalis Streptococcus mitis/ oralis Gram positive carrington 03/26/19 15:22 Urine, Clean Catch Urine Culture - Final Mixed Gram Positive Organisms Laboratory Results 03/28/19 16:54: POC Glucose 166 H 03/28/19 22:50: POC Glucose 207 H 03/29/19 05:35: WBC 6.0, RBC 4.23 L, Hgb 11.5 L, Hct 34.3 L, MCV 81.1, MCH 27.2, MCHC 33.5, RDW 12.4, RDW Differential 35.6, Plt Count 277, MPV 9.9, Immature Gran % (Auto) 0.300, Neut % (Auto) 44.5 L, Lymph % (Auto) 35.5, [place] % (Auto) 13.9 H, Eos % (Auto) 5.0, Baso % (Auto) 0.8, Absolute Neuts (auto) 2.7, Absolute Lymphs (auto) 2.12, Total Counted Not Reportable 03/29/19 05:35: Sodium 140, Potassium 3.3 L, Chloride 108 H, Carbon Dioxide 24.0, Anion Gap 8, BUN 11, Creatinine 1.06, Estim Creat Clear Calc 75.56, Est GFR (MDRD) Af Amer 91, Est GFR (MDRD) Non-Af 75, BUN/Creatinine Ratio 10.4, Glucose 139 H, Calcium 8.2 L 03/29/19 07:03: POC Glucose 159 H Current Medications Acetaminophen (Tylenol) 650 mg PO Q6H PRN PRN PRN Reason: Mild Pain (1-3)/Temp > 100.7 F Dextrose (D50w Syringe) 0 gm IV X1 PRN; Protocol PRN Reason: Hypoglycemia Docusate Sodium (Colace) 200 mg PO BID PRN PRN PRN Reason: Constipation Glucagon () 1 mg IM .X1 PRN PRN Reason: Hypoglycemia Haloperidol Lactate (Haldol) 0.5 mg IM Q4H PRN PRN PRN Reason: AGITATION Heparin Sodium (Porcine) (Heparin Na) 5,000 unit SC Q8 [facility] Last Admin: 03/29/19 07:03 Dose: Not Given Documented by: Sodium Chloride () 1,000 mls @ 100 mls/hr IV .Q10H [facility] Last Admin: 03/29/19 03:43 Dose: 100 mls/hr Documented by: Piperacillin Sod/Tazobactam (Sod 3.375 gm/ Sodium Chloride) 50 mls @ 12.5 mls/hr IV Q8 [facility] Last Admin: 03/29/19 07:00 Dose: 12.5 mls/hr Documented by: Insulin Glargine (Lantus (Bkc)) 30 units SC DAILY [facility] Last Admin: 03/29/19 08:32 Dose: 30 units Documented by: Insulin Human Lispro (Humalog Kwikpen (Bk)) 10 unit SC TIDCM [facility] Last Admin: 03/29/19 11:15 Dose: 10 u Documented by: Insulin Human Lispro (Humalog Kwikpen (Bkc)) 0 unit SC ACHS [facility]; Protocol Last Admin: 03/29/19 11:15 Dose: 4 units Documented by: Lidocaine HCl (Xylocaine Viscous) 15 ml PO Q6H PRN PRN PRN Reason: MOUTH PAIN Last Admin: 03/28/19 18:35 Dose: 15 ml Documented by: Lisinopril (Zestril) 40 mg PO DAILY [facility] Last Admin: 03/29/19 08:33 Dose: 40 mg Documented by: Loratadine (Claritin) 10 mg PO DAILY [facility] Last Admin: 03/29/19 08:31 Dose: 10 mg Documented by: Nutritional Formula (Gerard - [place] Flavor) 1 packet PO BIDCM [facility] Last Admin: 03/29/19 08:31 Dose: 1 packet Documented by: Nutritional Formula (Lactose Free) (Ensure Enlive) 120 ml PO 4X/DAY [facility] Last Admin: 03/29/19 08:31 Dose: Not Given Documented by: Ondansetron HCl (Zofran) 4 mg IV Q8H PRN PRN PRN Reason: NAUSEA/VOMITING Oxycodone HCl (Oxyir) 5 mg PO Q6H PRN PRN PRN Reason: Moderate Pain (4-6/10) Pantoprazole Sodium (Protonix) 40 mg PO DAILY [facility] Last Admin: 03/29/19 08:32 Dose: 40 mg Documented by: Sodium Chloride () 10 - 40 ml IV UD PRN PRN Reason: SALINE FLUSH Last Admin: 03/28/19 04:43 Dose: 10 ml Documented by: Medical Necessity - Tobacco Use Smoking Status: Never smoker Assessment/Plan All Active Problems Diabetic foot infection (Acute) Sepsis (Acute) Left foot infection (Acute) 1. Left foot infection and osteomyelitis Wound culture showing gram-negative rods thus far Patient had an MRI of his foot back on November 22 that showed septic arthritis of the first metatarsophalangeal joints with a bone edema of the distal first metatarsal and first proximal phalanx Patient adamant that he is not going to have surgery and apparently has stated during previous admissions that anyone tends to take his foot he will kill Continue with antibiotics as directed by infectious disease Seen by podiatry, where he still refuses any surgery. They are recommending serial irrigation at bedside. Patient has permitted some bedside debridement but still against amputation. Has been explained to the patient by myself as well as other providers that without more definitive therapy he is at risk for ongoing infection, limb loss or even . Nonweightbearing to the left lower extremity Patient's reasoning is based upon an uncle who 50 years ago or so he had amputations and patient is anxious that he is can require serial amputations proximally if he gets one amputation. Explained to him that I do not know the issues in regards to his uncle but that generally is not the case. But patient is at risk for further infection extending more proximally up his leg or even if he does not permit us to perform surgery. I told him antibiotics would not be sufficient enough for him. I did explain also that he is giving us conflicting information that he is here in the hospital seeking treatment but he does not want our recommendations. He states that he can follow-up with some doctor who does minerals they can help his foot. Explained to him that he certainly welcome to leave and seek out that treatment. I had to press the patient explicitly to state that he understood the risks of him not wishing to pursue with imitation, including worsening infection and . Eventually he stated that he did ask understand the risks associated with that and still does not wish to have any amputation of his foot. He states that he would like for his sister to be presents for further discussions would also have his son, who lives in [place], on the phone as well to discuss his current situation. Stated I would be happy to discuss with them. 2. Bacteremia Likely secondary to his underlying foot infection Repeat blood culture ordered Echocardiogram ordered 3. DM type II, uncontrolled Continue basal insulin, prandial insulin and sliding scale A1c is 13.9 At least partially attributed to just noncompliance and not taking his insulin 4. Hyponatremia Resolved May been due to hyperglycemia Continue to monitor 5. Severe sepsis Secondary to #1 Clinically improving 6. Dementia Complicates care Attempt to do a mini cog assessment the patient became distracted and so did not complete it. Patient was able to draw the face of a clock appropriately starting 1236 and 9 and following the numbers are after he put them in the appropriate positions. I asked him to draw the hands of a clock to show a 40 but he got started at that point time. Patient is not aware of the date but knows who the current president is and where he is currently. 7. VTE prophylaxis with Lovenox. Moderate risk. Greater than 35 minutes of which greater than 50% of the time was discussing with the patient about surgery, antibiotics risks associated by not having a definitive therapy, including worsening infection and even . Code Visit Inpatient E&M: 94222 Subs Hosp L3
--- NOTE | 2019-03-29 12:39 | CASEMGMT ---
Addendum entered by Candida Quijano 03/29/19 15:02: Patient's daughter's name is Ashli Gallego and her phone number is [phone]. Candida MONSIVAIS [employer] Addendum entered by Candida Quijano 03/29/19 14:57: LEONIDES met with patient, introduced self and role at [facility]. Patient was on his cell phone, but told SW he was on hold. SW let him know his daughter, Ashli called and wanted to know how he was doing. SW asked patient if he was okay with [facility] talking with his daughter. He said he was okay with [facility] giving Ashli information. SW also let him know Ashli would like him to go to a penitentiary at discharge while his wound heals. LEONIDES told him she was interested in [facility] because she lives in [place]. He told SW that Things are up in the air right now. I'm on hold and getting an ultrasound. Patient then went on to talk about his car and the sound system he has. Patient does not always make sense when he is talking. SW to continue to follow. Candida HARDY Original Note: SW received a call from patient's daughter, Ashli Gallego. She asked if patient could go to [facility] at discharge. LEONIDES told her we are working with patient on a discharge plan. LEONIDES told her if patient is in agreement we could look into this. She asked if SW could bump her name up on patient's POA papers. LEONIDES told her SW cannot do this. LEONIDES explained patient's mental status is too questionable for SW to complete new documents. She said her siblings want to move him to [place] and then put him in a penitentiary. She wants to keep him in [place] and help care for him. LEONIDES told her SW will continue to work on discharge plan with patient. She wanted medical information and LEONIDES told her SW cannot give out this information. LEONIDES told her the nurse or Dr would have to do this. LEONIDES wrote down her name and number. Staff would need to get patient's permission before they could talk with patient's daughter. Candida HARDY
--- NOTE | 2019-03-29 17:20 | PCM.PROGNOTE ---
Patient Problems: Active and Suspected Problems Diabetic foot infection (Acute) Sepsis (Acute) Subjective: This 63-year-old male was seen bedside today for left foot infection with recurrent ulceration. He denies current fever, chill, nausea, pain to foot or calf pain. - Physical Exam General: Alert, Oriented x3, Cooperative Extremities: No cyanosis, Capillary Refill Less than 3 Seconds - Left foot, No Calf Tenderness - Negative Aric and Bowman sign left, Diminished Peripheral Pulses, Edema - Decreased left foot, - - Prominent metatarsal heads with multiple digital amputations of left foot Skin: Ulcer/ Wound - Ulcer noted to the plantar central left forefoot. No purulence, erythema, streaking noted left foot. There is a mild odor that is still present and positive probe to bone. His peripheral skin is hairless and atrophic. Musculoskeletal: No Tenderness to Palpation of Joints or Extremities, Muscle Wasting Neurological: - - Lack of normal epicritic sensation light touch consistent with neuropathy left Psych/Mental Status: Normal Affect, Appropriate Vital Signs Temp Pulse Resp BP Pulse Ox 98.4 F 89 18 137/71 H 96 03/29/19 16:40 03/29/19 16:40 03/29/19 16:40 03/29/19 16:40 03/29/19 16:40 Oxygen Delivery Method Room Air Weight: 85.1 kg Body Mass Index (BMI) 26.9 Finger Stick Blood Glucose 455 Intake and Output for Last 24 Hours 03/27/19 03/28/19 03/29/19 23:59 23:59 23:59 Intake Total 4354 / 4354 4429 / 4429 3122 / 3122 Balance 4354 / 4354 4429 / 4429 3122 / 3122 Microbiology Past 72 Hours 03/26/19 15:40 Blood Culture - Final Blood Culture (Wb) - Left Wrist Alpha Hemolytic Streptococcus 03/26/19 15:16 Blood Culture - Final Blood Culture (Wb) - Right Hand Streptococcus mitis/ oralis 03/26/19 15:14 Gram Stain - Final Wound - Left Foot Wound Culture - Final Enterobacter cloacae complex Enterococcus faecalis Streptococcus mitis/ oralis Gram positive carrington 03/26/19 15:22 Urine Culture - Final Urine, Clean Catch Mixed Gram Positive Organisms Laboratory Tests Past 24 Hrs 03/29/19 03/29/19 05:35 05:35 WBC 6.0 RBC 4.23 L Hgb 11.5 L Hct 34.3 L MCV 81.1 MCH 27.2 MCHC 33.5 RDW 12.4 RDW Differential 35.6 Plt Count 277 MPV 9.9 Immature Gran % (Auto) 0.300 Neut % (Auto) 44.5 L Lymph % (Auto) 35.5 [place] % (Auto) 13.9 H Eos % (Auto) 5.0 Baso % (Auto) 0.8 Absolute Neuts (auto) 2.7 Absolute Lymphs (auto) 2.12 Total Counted Not Reportable Sodium 140 Potassium 3.3 L Chloride 108 H Carbon Dioxide 24.0 Anion Gap 8 BUN 11 Creatinine 1.06 Estim Creat Clear Calc 75.56 Est GFR (MDRD) Af Amer 91 Est GFR (MDRD) Non-Af 75 BUN/Creatinine Ratio 10.4 Glucose 139 H Calcium 8.2 L POC Glucose 03/29/19 03/28/19 07:03 22:50 POC Glucose 159 H 207 H Medical Necessity - Tobacco Use Smoking Status: Never smoker Assessment/Plan All Active Problems Diabetic foot infection (Acute) Sepsis (Acute) Left foot infection (Acute) Left foot infection with previously known chronic osteomyelitis Sepsis resolved Bacteremia is noted Uncontrolled diabetes with neuropathy Foot deformities including hammertoes and prominent metatarsal head Noncompliance Other comorbidities I reviewed and discussed his case. His vitals are stable and he is afebrile. He no longer has leukocytosis. The wound culture demonstrates enterobacter, strep mitis, and enterococcus. He refused surgical intervention. To continue on Zosyn. He will plan to complete a long-term course. Repeat blood cultures and a TTE were ordered per infectious disease. Bedside debridement was previously performed. Serial irrigation also been performed twice a day. A new dressing consisting of Betadine soaked gauze wicked and packed into the deep ulcer site was applied. He has also been advised to remain nonweightbearing with a surgical shoe and an assistive device to help him ambulate. Nutrition supplementation was ordered to optimize healing. I recommend senior living facility placement after he is medically stabilized with outpatient wound care center follow up. His foot has stabilized and I will continue to see him every few days while in house. It is okay to discharge to a senior living facility or home with home health from a podiatric standpoint pending medical stabilization. I recommend he goes to senior living facility and I am concerned he is not able to care properly for himself at home. Medical management and DVT prophylaxis per primary care and is greatly appreciate. Please do not hesitate to call if you have any questions. Vashti Bailon DPM, [facility] [phone]
[2019-03-29 17:51] LABS: Bedside Glucose 217 mg/dL (70-110)
--- NOTE | 2019-03-29 17:53 | DCINST_ITS ---
Discharge Activity: Use Walker Weight Bearing Status: No weight bearing - left Keep extremity elevated above heart level: Left Leg Call your doctor if your incision/area has: Continuous Slow Oozing, Sudden Increased Bleeding, Increased Pain/ Swelling, Increased Redness, Foul Smelling Discharge Call your doctor if you observe: Fever of 101 or Higher, Calf discomfort, Uncontrolled pain Cleanse incision/area with: Soap & Water - do not soak, Normal Saline - irrigate with 0.5 L normal saline into deep wound with each dressing change, - - change dressing daily with betadine soaked wicked gauze to ulcer site, cover with gauze, abdominal pad, kerlix, radha wrap Allergies/Adverse Reactions: Allergies No Known Allergies Allergy (Verified 11/29/18 13:58) Medications to take at Discharge Hydrochlorothiazide [Hctz] 25 mg PO DAILY tablet 11/24/18 Lisinopril [Zestril] 40 mg PO DAILY tablet 11/24/18 Pantoprazole Sodium [Protonix] 40 mg PO DAILY tablet 11/24/18 Insulin Glargine,Hum.rec.anlog [Basaglar Kwikpen U-100] 30 unit SQ DAILY 11/29/18 Insulin Lispro [Humalog KwikPen] 10 units SQ TIDCM 03/26/19 Loratadine 10 mg PO DAILY 03/26/19 Primary Care Physician: Tony Topete MD [Primary Care Provider] - Test Results: Test results from this visit will be discussed in further detail at your follow- up appointment, if applicable. Please Follow Up With: Clinic,Wound When: Wed at wound healing center with dr. josue Proposed Discharge Date: 03/31/19
[2019-03-29 21:56] LABS: Bedside Glucose 173 mg/dL (70-110)
[2019-03-30] VITALS (9 sets, daily range): BP systolic 149–167; BP diastolic 66–97; PULSE 61–96; RESP 16–18; TEMP 36.2–36.9; O2SAT 97–99
[2019-03-30 00:21] LABS: Bedside Glucose 223 mg/dL (70-110)
[2019-03-30] MEDS: 0.9% Normal Saline 1,000 ML 100 ML IV ×2 (06:38→16:43)
[2019-03-30 06:45] LABS: Bedside Glucose 147 mg/dL (70-110)
[2019-03-30] MEDS: Insulin Lispro 100 UNIT/ML INSULN.PEN 10 UNIT SC ×3 (08:01→18:05)
[2019-03-30] MEDS: Pantoprazole Sodium 40 MG Tablet PO (08:02)
[2019-03-30] MEDS: Loratadine 10 MG Tablet PO (08:02)
[2019-03-30] MEDS: Lisinopril 40 MG Tablet PO (08:03)
[2019-03-30] MEDS: Insulin Lispro 100 UNIT/ML INSULN.PEN SC ×2 (11:47→18:05)
[2019-03-30 11:50] LABS: Bedside Glucose 244 mg/dL (70-110)
--- NOTE | 2019-03-30 12:48 | CASEMGMT ---
SW spoke with patient regarding going to [facility]. He agreed and said his daughter lives in [place]. SW called [place] regarding referral and SW faxed referral. Patient will require pre-cert. Plan: d/c to [facility] pending their acceptance and insurance approval. Candida MONSIVAIS MSW
--- NOTE | 2019-03-30 13:18 | PN_ITS ---
Patient Problems: Active and Suspected Problems Diabetic foot infection (Acute) Sepsis (Acute) Subjective: Once again still insisting that he is not having any surgery on his foot. He did seem to have trouble grasping that he would not require complete imitation of his foot but partial imitation but unclear the extent of which. Patient then went on to talk about [place] and said if anyone tries to come out of office that he will get his arms. Vitals/I&O's: Vital Signs Temp Pulse Resp BP Pulse Ox 36.9 C 79 18 155/81 H 97 03/30/19 09:30 03/30/19 09:30 03/30/19 09:30 03/30/19 09:30 03/30/19 09:30 Oxygen Delivery Method Room Air Weight: 85.1 kg Body Mass Index (BMI) 26.9 Finger Stick Blood Glucose 455 Intake and Output for Last 24 Hours 03/28/19 03/29/19 03/30/19 23:59 23:59 23:59 Intake Total 4429 / 4429 4246 / 4246 1442 / 1442 Balance 4429 / 4429 4246 / 4246 1442 / 1442 General: Alert, No apparent distress, - - up at side of bed eating breakfast. HEENT: Atraumatic, Normocephalic Extremities: - - left foot bandaged--did not remove Psych/Mental Status: Agitated Microbiology Past 72 Hours 03/26/19 15:40 Blood Culture (Wb) - Left Wrist Blood Culture - Final Alpha Hemolytic Streptococcus 03/26/19 15:16 Blood Culture (Wb) - Right Hand Blood Culture - Final Streptococcus mitis/ oralis 03/26/19 15:14 Wound - Left Foot Gram Stain - Final 03/26/19 15:14 Wound - Left Foot Wound Culture - Final Enterobacter cloacae complex Enterococcus faecalis Streptococcus mitis/ oralis Gram positive carrington 03/26/19 15:22 Urine, Clean Catch Urine Culture - Final Mixed Gram Positive Organisms Laboratory Results 03/29/19 11:14: POC Glucose 217 H 03/29/19 16:19: POC Glucose 223 H 03/29/19 21:37: POC Glucose 173 H 03/30/19 06:36: POC Glucose 147 H 03/30/19 11:45: POC Glucose 244 H Current Medications Acetaminophen (Tylenol) 650 mg PO Q6H PRN PRN PRN Reason: Mild Pain (1-3)/Temp > 100.7 F Dextrose (D50w Syringe) 0 gm IV X1 PRN; Protocol PRN Reason: Hypoglycemia Docusate Sodium (Colace) 200 mg PO BID PRN PRN PRN Reason: Constipation Glucagon () 1 mg IM .X1 PRN PRN Reason: Hypoglycemia Haloperidol Lactate (Haldol) 0.5 mg IM Q4H PRN PRN PRN Reason: AGITATION Heparin Sodium (Porcine) (Heparin Na) 5,000 unit SC Q8 [facility] Last Admin: 03/30/19 05:46 Dose: Not Given Documented by: Sodium Chloride () 1,000 mls @ 100 mls/hr IV .Q10H [facility] Last Admin: 03/30/19 06:38 Dose: 100 mls/hr Documented by: Piperacillin Sod/Tazobactam (Sod 3.375 gm/ Sodium Chloride) 50 mls @ 12.5 mls/hr IV Q8 [facility] Last Admin: 03/30/19 05:44 Dose: 12.5 mls/hr Documented by: Insulin Glargine (Lantus (Bkc)) 30 units SC DAILY [facility] Last Admin: 03/30/19 08:02 Dose: 30 units Documented by: Insulin Human Lispro (Humalog Kwikpen (Bkc)) 10 unit SC TIDCM [facility] Last Admin: 03/30/19 11:46 Dose: 10 u Documented by: Insulin Human Lispro (Humalog Kwikpen (Bkc)) 0 unit SC ACHS [facility]; Protocol Last Admin: 03/30/19 11:47 Dose: 4 units Documented by: Lidocaine HCl (Xylocaine Viscous) 15 ml PO Q6H PRN PRN PRN Reason: MOUTH PAIN Last Admin: 03/30/19 09:49 Dose: 15 ml Documented by: Lisinopril (Zestril) 40 mg PO DAILY [facility] Last Admin: 03/30/19 08:03 Dose: 40 mg Documented by: Loratadine (Claritin) 10 mg PO DAILY [facility] Last Admin: 03/30/19 08:02 Dose: 10 mg Documented by: Nutritional Formula (Gerard - Wolfe Flavor) 1 packet PO BIDCM [facility] Last Admin: 03/30/19 08:02 Dose: 1 packet Documented by: Nutritional Formula (Lactose Free) (Ensure Enlive) 120 ml PO 4X/DAY [facility] Last Admin: 03/30/19 08:02 Dose: 120 ml Documented by: Ondansetron HCl (Zofran) 4 mg IV Q8H PRN PRN PRN Reason: NAUSEA/VOMITING Oxycodone HCl (Oxyir) 5 mg PO Q6H PRN PRN PRN Reason: Moderate Pain (4-6/10) Pantoprazole Sodium (Protonix) 40 mg PO DAILY [facility] Last Admin: 03/30/19 08:02 Dose: 40 mg Documented by: Sodium Chloride () 10 - 40 ml IV UD PRN PRN Reason: SALINE FLUSH Last Admin: 03/28/19 04:43 Dose: 10 ml Documented by: Medical Necessity - Tobacco Use Smoking Status: Never smoker Assessment/Plan All Active Problems Diabetic foot infection (Acute) Sepsis (Acute) Left foot infection (Acute) 1. Left foot infection and osteomyelitis * Wound culture showing gram-negative rods thus far * Patient had an MRI of his foot back on November 22 that showed septic arthritis of the first metatarsophalangeal joints with a bone edema of the distal first metatarsal and first proximal phalanx * Patient adamant that he is not going to have surgery and apparently has stated during previous admissions that anyone tends to take his foot he will kill * Continue with antibiotics as directed by infectious disease * Seen by podiatry, where he still refuses any surgery. They are recommending serial irrigation at bedside. Patient has permitted some bedside debridement but still against amputation. * Has been explained to the patient by myself as well as other providers that without more definitive therapy he is at risk for ongoing infection, limb loss or even . * Nonweightbearing to the left lower extremity * Patient's reasoning is based upon an uncle who 50 years ago or so he had amputations and patient is anxious that he is can require serial amputations proximally if he gets one amputation. Explained to him that I do not know the issues in regards to his uncle but that generally is not the case. But patient is at risk for further infection extending more proximally up his leg or even if he does not permit us to perform surgery. I told him antibiotics would not be sufficient enough for him. I did explain also that he is giving us conflicting information that he is here in the hospital seeking treatment but he does not want our recommendations. He states that he can follow-up with some doctor who does minerals they can help his foot. Explained to him that he certainly welcome to leave and seek out that treatment. * 03/29: I had to press the patient explicitly to state that he understood the risks of him not wishing to pursue with imitation, including worsening infection and . Eventually he stated that he did ask understand the risks associated with that and still does not wish to have any amputation of his foot. He states that he would like for his sister to be presents for further discussions would also have his son, who lives in [place], on the phone as well to discuss his current situation. Stated I would be happy to discuss with them. * 03/30: Explained the patient has been going to go to a group home facility with IV antibiotics. He seemed quite surprised by that notion but did not provide definitive now for that. Explained the patient is not being able to adequately care for his foot though he did refute that statement. 2. Bacteremia * Likely secondary to his underlying foot infection * Repeat blood culture ordered * Echocardiogram ordered 3. DM type II, uncontrolled * Continue basal insulin, prandial insulin and sliding scale * A1c is 13.9 * At least partially attributed to just noncompliance and not taking his insulin 4. Hyponatremia * Resolved * May been due to hyperglycemia * Continue to monitor 5. Severe sepsis * Secondary to #1 * Clinically improving 6. Dementia * Complicates care * Attempt to do a mini cog assessment the patient became distracted and so did not complete it. Patient was able to draw the face of a clock appropriately starting 1236 and 9 and following the numbers are after he put them in the appropriate positions. I asked him to draw the hands of a clock to show a 40 but he got started at that point time. Patient is not aware of the date but knows who the current president is and where he is currently. 7. VTE prophylaxis with Lovenox. Moderate risk. Greater than 25 minutes of which greater than 50% of the time was discussing wi th the patient about surgery, antibiotics risks associated by not having a definitive therapy, including worsening infection and even . Patient is also making bad decisions in regards to refusing to have surgery but does have insight understand the risks of not having surgery, including worsening infection and even . I do not feel the patient is suicidal but did is almost at the patient would rather than lose part of his foot. Code Visit Inpatient E&M: 22742 Subs Hosp L2
--- NOTE | 2019-03-30 13:32 | PCM.PN.ID ---
Patient Problems: Active and Suspected Problems Diabetic foot infection (Acute) Sepsis (Acute) Subjective: No fever, no n/v/d. - Physical Exam General: Alert, Cooperative, No apparent distress Lungs: Clear to auscultation, Normal air movement Cardiovascular: Regular rate, Regular Rhythm Abdomen: Soft, Non Tender, Non-Distended Skin: Ulcer/ Wound - foot wrapped Vital Signs Temp Pulse Resp BP Pulse Ox 98.4 F 79 18 155/81 H 97 03/30/19 09:30 03/30/19 09:30 03/30/19 09:30 03/30/19 09:30 03/30/19 09:30 Oxygen Delivery Method Room Air Weight: 85.1 kg Body Mass Index (BMI) 26.9 Finger Stick Blood Glucose 455 Intake and Output for Last 24 Hours 03/28/19 03/29/19 03/30/19 23:59 23:59 23:59 Intake Total 4429 / 4429 4246 / 4246 1442 / 1442 Balance 4429 / 4429 4246 / 4246 1442 / 1442 Microbiology Past 72 Hours 03/26/19 15:40 Blood Culture - Final Blood Culture (Wb) - Left Wrist Alpha Hemolytic Streptococcus 03/26/19 15:16 Blood Culture - Final Blood Culture (Wb) - Right Hand Streptococcus mitis/ oralis 03/26/19 15:14 Gram Stain - Final Wound - Left Foot Wound Culture - Final Enterobacter cloacae complex Enterococcus faecalis Streptococcus mitis/ oralis Gram positive carrington 03/26/19 15:22 Urine Culture - Final Urine, Clean Catch Mixed Gram Positive Organisms POC Glucose 03/30/19 03/30/19 03/29/19 11:45 06:36 21:37 POC Glucose 244 H 147 H 173 H 03/29/19 03/29/19 16:19 11:14 POC Glucose 223 H 217 H Medical Necessity - Tobacco Use Smoking Status: Never smoker Route of nutrition/ use of supplements: [] Nutritional Intake: [] IV Site: [] Crawley Catheter: [] - Assessment/Plan Antibiotics: [] Assessment/Plan: [] Active and Suspected Problems Diabetic foot infection (Acute) Sepsis (Acute) severe sepsis (fever, tachycardia, leukocytosis, MEAGAN, lactic acidosis) due to L foot osteo and suspected abscess, complicated by strep mitis bacteremia - wound cx with enterobacter, strep mitis, and enterococcus, pt refuses surgery, cont zosyn. Plan will be long term iv abx, stop date of zosyn is 05/06/19, weekly bmp, cbc, and esr. Rx written. TTE difficult study due to pt noncompliance, no veg seen. Will follow, d/w case management social worker
--- NOTE | 2019-03-30 15:06 | CASEMGMT ---
LEONIDES spoke with Iris at [facility]. She said her business continuity director is looking at the referral. Await response from [facility]. Plan: Plan: d/c to [facility] pending their acceptance and insurance approval. Candida MONSIVAIS MSW
--- NOTE | 2019-03-30 15:55 | CASEMGMT ---
LEONIDES called patient's daughter Ashli to let her know patient is in agreement with [facility]. SW let her know they have not gotten back to LEONIDES yet regarding whether or not they will accept him. LEONIDES explained he will be here through weekend as we need insurance authorization. Plan: Referral made to [facility]. Awaiting call back to see if they can accept patient. We will also need insurance authorization. Candida MONSIVAIS MSW
[2019-03-30 18:16] LABS: Bedside Glucose 265 mg/dL (70-110)
[2019-03-30] MEDS: 0.9% NaCl Peripheral Flush Adult/Peds IV (21:26)
[2019-03-30 22:16] LABS: Bedside Glucose 129 mg/dL (70-110)
[2019-03-31 03:04] VITALS: PULSE 65
[2019-03-31 03:23] VITALS: BP 100/64; PULSE 65; RESP 16; TEMP 36.7; O2SAT 97
[2019-03-31] MEDS: 0.9% Normal Saline 1,000 ML 100 ML IV (03:30)
[2019-03-31 07:01] LABS: Bedside Glucose 138 mg/dL (70-110)
[2019-03-31 07:27] VITALS: PULSE 66
[2019-03-31 09:34] VITALS: BP 116/76; PULSE 78; RESP 19; TEMP 36.9; O2SAT 97
[2019-03-31] MEDS: Insulin Lispro 100 UNIT/ML INSULN.PEN 10 UNIT SC ×3 (09:46→17:38)
--- NOTE | 2019-03-31 11:02 | PN_ITS ---
Patient Problems: Active and Suspected Problems Diabetic foot infection (Acute) Sepsis (Acute) Subjective: This 63-year-old male was seen bedside today for left foot infection with recurrent ulceration. He denies current fever, chill, nausea, pain to foot or calf pain. His daughter is bedside. He is eager to be discharged today. - Physical Exam General: Alert, Oriented x3, Cooperative Extremities: Capillary Refill Less than 3 Seconds, No Calf Tenderness - Negative Aric and Bowman sign left, Diminished Peripheral Pulses, Edema Skin: Ulcer/ Wound - Left foot ulcer still probes to bone there is scant odor which has significantly resolved. The erythema and streaking in purulent drainage has also resolved. The peripheral skin is hairless atrophic. Musculoskeletal: No Tenderness to Palpation of Joints or Extremities, Muscle Wasting, - - Forefoot deformities noted with pronounced metatarsal head prominent area Neurological: - - Lack of normal sensation light touch is consistent with neuropathy Psych/Mental Status: Normal Affect, Anxious Vital Signs Temp Pulse Resp BP Pulse Ox 98.5 F 78 19 H 116/76 97 03/31/19 09:34 03/31/19 09:34 03/31/19 09:34 03/31/19 09:34 03/31/19 09:34 Oxygen Delivery Method Room Air Weight: 85.1 kg Body Mass Index (BMI) 26.9 Finger Stick Blood Glucose 455 Intake and Output for Last 24 Hours 03/29/19 03/30/19 03/31/19 23:59 23:59 23:59 Intake Total 4246 / 4246 5355 / 5355 799.5 / 799.5 Balance 4246 / 4246 5355 / 5355 799.5 / 799.5 Microbiology Past 72 Hours 03/26/19 15:40 Blood Culture - Final Blood Culture (Wb) - Left Wrist Alpha Hemolytic Streptococcus 03/26/19 15:16 Blood Culture - Final Blood Culture (Wb) - Right Hand Streptococcus mitis/ oralis 03/26/19 15:14 Gram Stain - Final Wound - Left Foot Wound Culture - Final Enterobacter cloacae complex Enterococcus faecalis Streptococcus mitis/ oralis Gram positive carrington 03/26/19 15:22 Urine Culture - Final Urine, Clean Catch Mixed Gram Positive Organisms POC Glucose 03/31/19 03/30/19 03/30/19 06:54 22:01 18:04 POC Glucose 138 H 129 H 265 H 03/30/19 11:45 POC Glucose 244 H Medical Necessity - Tobacco Use Smoking Status: Never smoker Assessment/Plan All Active Problems Diabetic foot infection (Acute) Sepsis (Acute) Left foot infection (Acute) Left foot infection with previously known chronic osteomyelitis Sepsis resolved Bacteremia is noted Uncontrolled diabetes with neuropathy Foot deformities including hammertoes and prominent metatarsal head Noncompliance Other comorbidities I reviewed and discussed his case. His vitals are stable and he is afebrile. He no longer has leukocytosis. The wound culture demonstrates enterobacter, strep mitis, and enterococcus. He refused surgical intervention. To continue on Zosyn; a long-term course is planned. Bedside debridement was previously performed. Serial irrigation also been performed daily. A new dressing consisting of Betadine soaked gauze wicked and packed into the deep ulcer site was applied. He has also been advised to remain nonweightbearing with a surgical shoe and an assistive device to help him ambulate. Nutrition supplementation was ordered to optimize healing. It is okay to discharge to a retirement facility or home with home health from a podiatric standpoint pending medical stabilization. assisted facility placement is pending. After discharge he can follow-up with the wound healing center for comprehensive wound healing plan and potential hyperbaric oxygen therapy. Medical management and DVT prophylaxis per primary care and is greatly appreciate. This plan was reviewed with Dr. Rich. Please do not hesitate to call if you have any questions. Vashti Bailon DPM, [facility] [phone]
[2019-03-31 11:56] LABS: Bedside Glucose 253 mg/dL (70-110)
--- NOTE | 2019-03-31 13:46 | PCM.PN.HOSP ---
Patient Problems: Active and Suspected Problems Diabetic foot infection (Acute) Sepsis (Acute) Subjective: No new complaints. Vitals/I&O's: Vital Signs Temp Pulse Resp BP Pulse Ox 36.9 C 78 19 H 116/76 97 03/31/19 09:34 03/31/19 09:34 03/31/19 09:34 03/31/19 09:34 03/31/19 09:34 Oxygen Delivery Method Room Air Weight: 85.1 kg Body Mass Index (BMI) 26.9 Finger Stick Blood Glucose 455 Intake and Output for Last 24 Hours 03/29/19 03/30/19 03/31/19 23:59 23:59 23:59 Intake Total 4246 / 4246 5355 / 5355 1424.5 / 1424.5 Balance 4246 / 4246 5355 / 5355 1424.5 / 1424.5 General: Alert, No apparent distress, - - up at side of bed eating breakfast. HEENT: Atraumatic, Normocephalic Oral: Moist Mucosa, No Gingival or Mucosal Lesions/ Ulcerations Extremities: No edema, - - left foot bandaged--did not remove. Psych/Mental Status: Normal Affect, Appropriate Microbiology Past 72 Hours 03/29/19 12:00 Blood Culture (Wb) - Left Hand Blood Culture - Preliminary No growth in 48 hours. 03/26/19 15:40 Blood Culture (Wb) - Left Wrist Blood Culture - Final Alpha Hemolytic Streptococcus 03/26/19 15:16 Blood Culture (Wb) - Right Hand Blood Culture - Final Streptococcus mitis/ oralis 03/26/19 15:14 Wound - Left Foot Gram Stain - Final 03/26/19 15:14 Wound - Left Foot Wound Culture - Final Enterobacter cloacae complex Enterococcus faecalis Streptococcus mitis/ oralis Gram positive carrington Laboratory Results 03/30/19 18:04: POC Glucose 265 H 03/30/19 22:01: POC Glucose 129 H 03/31/19 06:54: POC Glucose 138 H 03/31/19 11:42: POC Glucose 253 H Current Medications Acetaminophen (Tylenol) 650 mg PO Q6H PRN PRN PRN Reason: Mild Pain (1-3)/Temp > 100.7 F Dextrose (D50w Syringe) 0 gm IV X1 PRN; Protocol PRN Reason: Hypoglycemia Docusate Sodium (Colace) 200 mg PO BID PRN PRN PRN Reason: Constipation Glucagon () 1 mg IM .X1 PRN PRN Reason: Hypoglycemia Haloperidol Lactate (Haldol) 0.5 mg IM Q4H PRN PRN PRN Reason: AGITATION Heparin Sodium (Beef Lung) () 50 units IV UD PRN PRN Reason: HEPARIN FLUSH Heparin Sodium (Porcine) (Heparin Na) 5,000 unit SC Q8 [facility] Last Admin: 03/31/19 06:11 Dose: Not Given Documented by: Piperacillin Sod/Tazobactam (Sod 3.375 gm/ Sodium Chloride) 50 mls @ 12.5 mls/hr IV Q8 [facility] Last Admin: 03/31/19 06:11 Dose: 12.5 mls/hr Documented by: Insulin Glargine (Lantus ([facility])) 30 units SC DAILY [facility] Last Admin: 03/31/19 09:47 Dose: 30 units Documented by: Insulin Human Lispro (Humalog Kwikpen ([facility])) 10 unit SC TIDCM [facility] Last Admin: 03/31/19 09:46 Dose: 10 u Documented by: Insulin Human Lispro (Humalog Kwikpen ([facility])) 0 unit SC ACHS [facility]; Protocol Last Admin: 03/31/19 09:46 Dose: Not Given Documented by: Lidocaine HCl (Xylocaine Viscous) 15 ml PO Q6H PRN PRN PRN Reason: MOUTH PAIN Last Admin: 03/30/19 09:49 Dose: 15 ml Documented by: Lisinopril (Zestril) 40 mg PO DAILY [facility] Last Admin: 03/31/19 09:51 Dose: Not Given Documented by: Loratadine (Claritin) 10 mg PO DAILY [facility] Last Admin: 03/31/19 09:50 Dose: Not Given Documented by: Nutritional Formula (Gerard - Logan Flavor) 1 packet PO BIDCM [facility] Last Admin: 03/31/19 09:50 Dose: 1 packet Documented by: Nutritional Formula (Lactose Free) (Ensure Enlive) 120 ml PO 4X/DAY [facility] Last Admin: 03/31/19 09:50 Dose: Not Given Documented by: Ondansetron HCl (Zofran) 4 mg IV Q8H PRN PRN PRN Reason: NAUSEA/VOMITING Oxycodone HCl (Oxyir) 5 mg PO Q6H PRN PRN PRN Reason: Moderate Pain (4-6/10) Pantoprazole Sodium (Protonix) 40 mg PO DAILY [facility] Last Admin: 03/31/19 09:51 Dose: Not Given Documented by: Sodium Chloride () 10 - 40 ml IV UD PRN PRN Reason: SALINE FLUSH Last Admin: 03/30/19 21:26 Dose: 10 ml Documented by: Sodium Chloride () 10 - 40 ml IV UD PRN PRN Reason: PICC FLUSH Medical Necessity - Tobacco Use Smoking Status: Never smoker Assessment/Plan All Active Problems Diabetic foot infection (Acute) Sepsis (Acute) Left foot infection (Acute) 1. Left foot infection and osteomyelitis Wound culture showing gram-negative rods thus far Patient had an MRI of his foot back on November 22 that showed septic arthritis of the first metatarsophalangeal joints with a bone edema of the distal first metatarsal and first proximal phalanx Patient adamant that he is not going to have surgery and apparently has stated during previous admissions that anyone tends to take his foot he will kill Continue with antibiotics as directed by infectious disease Seen by podiatry, where he still refuses any surgery. They are recommending serial irrigation at bedside. Patient has permitted some bedside debridement but still against amputation. Has been explained to the patient by myself as well as other providers that without more definitive therapy he is at risk for ongoing infection, limb loss or even . Nonweightbearing to the left lower extremity Patient's reasoning is based upon an uncle who 50 years ago or so he had amputations and patient is anxious that he is can require serial amputations proximally if he gets one amputation. Explained to him that I do not know the issues in regards to his uncle but that generally is not the case. But patient is at risk for further infection extending more proximally up his leg or even if he does not permit us to perform surgery. I told him antibiotics would not be sufficient enough for him. I did explain also that he is giving us conflicting information that he is here in the hospital seeking treatment but he does not want our recommendations. He states that he can follow-up with some doctor who does minerals they can help his foot. Explained to him that he certainly welcome to leave and seek out that treatment. 03/29: I had to press the patient explicitly to state that he understood the risks of him not wishing to pursue with imitation, including worsening infection and . Eventually he stated that he did ask understand the risks associated with that and still does not wish to have any amputation of his foot. He states that he would like for his sister to be presents for further discussions would also have his son, who lives in [place], on the phone as well to discuss his current situation. Stated I would be happy to discuss with them. 03/30: Explained the patient [facility]. He seemed quite surprised by that notion but did not provide definitive now for that. Explained the patient is not being able to adequately care for his foot though he did refute that statement. 2. Bacteremia Likely secondary to his underlying foot infection Repeat blood culture ordered Echocardiogram ordered 3. DM type II, uncontrolled Continue basal insulin, prandial insulin and sliding scale A1c is 13.9 At least partially attributed to just noncompliance and not taking his insulin 4. Hyponatremia Resolved May been due to hyperglycemia Continue to monitor 5. Severe sepsis Secondary to #1 Clinically improving 6. Dementia Complicates care Attempt to do a mini cog assessment the patient became distracted and so did not complete it. Patient was able to draw the face of a clock appropriately starting 1236 and 9 and following the numbers are after he put them in the appropriate positions. I asked him to draw the hands of a clock to show a 40 but he got started at that point time. Patient is not aware of the date but knows who the current president is and where he is currently. 7. VTE prophylaxis with Lovenox. Moderate risk. Patient is also making bad decisions in regards to refusing to have surgery but does have insight understand the risks of not having surgery, including worsening infection and even . I do not feel the patient is suicidal but did is almost at the patient would rather than lose part of his foot. Plan for transfer to SNF ([facility]) pending insurance authorization. Code Visit Inpatient E&M: 38700 Subs Hosp L2
[2019-03-31] MEDS: Insulin Lispro 100 UNIT/ML INSULN.PEN SC ×3 (14:36→21:15)
[2019-03-31 15:47] VITALS: BP 131/83; PULSE 74; RESP 18; TEMP 36.3; O2SAT 98
[2019-03-31 17:01] LABS: Bedside Glucose 174 mg/dL (70-110)
--- NOTE | 2019-03-31 20:30 | NURSING ---
Pt called this RN into room and was angry because he feels he is not being heard and had asked to be allowed to leave the hospital to go to [facility] in the am tomorrow. This RN explained that this was not something that we do as we are acute care and pt needs to be discharged prior to leaving facility. Pt was very angry and would not accept this for an answer. Other suggestions by this RN were made and this RN offered to contact [employer] Ray to see if he would be able to come by tomorrow for a private prayer session or that we could take him down to our chapel on property. Pt stated that he felt like he was a prisoner here. This RN informed pt that he had the right to leave AMA and explained some of the risks related to this option. Pt felt that was not an option because he would lose my social security. Pt was extremely tangential and unfocused and changed direction of conversation multiple times. Upon excusing myself from pt's room this RN reinforced pt's options r/t desire to attend [facility] and followed up with pt's primary nurse to continue to reinforce that pt will not be able to leave for [facility] tomorrow. Will continue to monitor and attempt to de-escalate pt behavior.
[2019-03-31 21:15] VITALS: BP 161/77; PULSE 75; RESP 18; TEMP 37.3; O2SAT 95
[2019-03-31 21:21] LABS: Bedside Glucose 322 mg/dL (70-110)
[2019-04-01 03:15] VITALS: BP 159/86; PULSE 61; RESP 18; TEMP 37.4; O2SAT 97
[2019-04-01 08:55] VITALS: BP 144/81; PULSE 76; RESP 18; TEMP 36.4; O2SAT 97
[2019-04-01 09:06] LABS: Bedside Glucose 160 mg/dL (70-110)
[2019-04-01] MEDS: Insulin Lispro 100 UNIT/ML INSULN.PEN SC ×2 (10:32→17:02)
[2019-04-01] MEDS: Insulin Lispro 100 UNIT/ML INSULN.PEN 10 UNIT SC ×2 (10:32→17:01)
[2019-04-01] MEDS: Lisinopril 40 MG Tablet PO (10:36)
--- NOTE | 2019-04-01 10:48 | PCM.PN.HOSP ---
Patient Problems: Active and Suspected Problems Diabetic foot infection (Acute) Subjective: Does not know where he is, does not know who I am. Patient states that he spoke to his friend Andres, got the patient thinking that maybe he would require surgery but does not definitely say that he will permit any type of surgery on his foot. Vitals/I&O's: Vital Signs Temp Pulse Resp BP Pulse Ox 36.4 C L 76 18 144/81 H 97 04/01/19 08:55 04/01/19 08:55 04/01/19 08:55 04/01/19 08:55 04/01/19 08:55 Oxygen Delivery Method Room Air Weight: 85.1 kg Body Mass Index (BMI) 26.9 Finger Stick Blood Glucose 455 Intake and Output for Last 24 Hours 03/30/19 03/31/19 04/01/19 23:59 23:59 23:59 Intake Total 5355 / 5355 3134.5 / 3134.5 476 / 476 Balance 5355 / 5355 3134.5 / 3134.5 476 / 476 General: Alert, No apparent distress, - - Became slightly tearful during encounter HEENT: Atraumatic, Normocephalic Extremities: - - Foot bandaged, did not remove. Psych/Mental Status: Appropriate, Anxious Microbiology Past 72 Hours 03/26/19 15:16 Blood Culture (Wb) - Right Hand Blood Culture - Final Streptococcus mitis/ oralis 03/29/19 12:00 Blood Culture (Wb) - Left Hand Blood Culture - Preliminary No growth in 48 hours. 03/26/19 15:40 Blood Culture (Wb) - Left Wrist Blood Culture - Final Alpha Hemolytic Streptococcus 03/26/19 15:14 Wound - Left Foot Gram Stain - Final 03/26/19 15:14 Wound - Left Foot Wound Culture - Final Enterobacter cloacae complex Enterococcus faecalis Streptococcus mitis/ oralis Gram positive [facility] Results 03/31/19 11:42: POC Glucose 253 H 03/31/19 16:56: POC Glucose 174 H 03/31/19 21:13: POC Glucose 322 H 04/01/19 08:48: POC Glucose 160 H Current Medications Acetaminophen (Tylenol) 650 mg PO Q6H PRN PRN PRN Reason: Mild Pain (1-3)/Temp > 100.7 F Dextrose (D50w Syringe) 0 gm IV X1 PRN; Protocol PRN Reason: Hypoglycemia Docusate Sodium (Colace) 200 mg PO BID PRN PRN PRN Reason: Constipation Glucagon () 1 mg IM .X1 PRN PRN Reason: Hypoglycemia Haloperidol Lactate (Haldol) 0.5 mg IM Q4H PRN PRN PRN Reason: AGITATION Heparin Sodium (Beef Lung) () 50 units IV UD PRN PRN Reason: HEPARIN FLUSH Heparin Sodium (Porcine) (Heparin Na) 5,000 unit SC Q8 ON LICENSE OF [facility] Last Admin: 04/01/19 06:10 Dose: Not Given Documented by: Piperacillin Sod/Tazobactam (Sod 3.375 gm/ Sodium Chloride) 50 mls @ 12.5 mls/hr IV Q8 ON LICENSE OF [facility] Last Admin: 04/01/19 06:10 Dose: 12.5 mls/hr Documented by: Insulin Glargine (Lantus (Bkc)) 30 units SC DAILY ON LICENSE OF [facility] Last Admin: 04/01/19 10:31 Dose: 30 units Documented by: Insulin Human Lispro (Humalog Kwikpen (Bkc)) 10 unit SC TIDCM ON LICENSE OF [facility] Last Admin: 04/01/19 10:32 Dose: 10 u Documented by: Insulin Human Lispro (Humalog Kwikpen (Bkc)) 0 unit SC ACHS ON LICENSE OF [facility]; Protocol Last Admin: 04/01/19 10:32 Dose: 2 units Documented by: Lidocaine HCl (Xylocaine Viscous) 15 ml PO Q6H PRN PRN PRN Reason: MOUTH PAIN Last Admin: 03/30/19 09:49 Dose: 15 ml Documented by: Lisinopril (Zestril) 40 mg PO DAILY ON LICENSE OF [facility] Last Admin: 04/01/19 10:36 Dose: 40 mg Documented by: Loratadine (Claritin) 10 mg PO DAILY ON LICENSE OF [facility] Last Admin: 04/01/19 10:45 Dose: Not Given Documented by: Nutritional Formula (Gerard - [place] Flavor) 1 packet PO BIDCM ON LICENSE OF [facility] Last Admin: 04/01/19 10:37 Dose: 1 packet Documented by: Nutritional Formula (Lactose Free) (Ensure Enlive) 120 ml PO 4X/DAY ON LICENSE OF [facility] Last Admin: 04/01/19 10:46 Dose: Not Given Documented by: Ondansetron HCl (Zofran) 4 mg IV Q8H PRN PRN PRN Reason: NAUSEA/VOMITING Oxycodone HCl (Oxyir) 5 mg PO Q6H PRN PRN PRN Reason: Moderate Pain (4-6/10) Pantoprazole Sodium (Protonix) 40 mg PO DAILY [facility] Last Admin: 04/01/19 10:46 Dose: Not Given Documented by: Sodium Chloride () 10 - 40 ml IV UD PRN PRN Reason: SALINE FLUSH Last Admin: 03/30/19 21:26 Dose: 10 ml Documented by: Sodium Chloride () 10 - 40 ml IV UD PRN PRN Reason: PICC FLUSH Medical Necessity - Tobacco Use Smoking Status: Never smoker Assessment/Plan All Active Problems Bacteremia (Resolved) Diabetic foot infection (Acute) Sepsis (Resolved) Left foot infection (Acute) 1. Left foot infection and osteomyelitis Wound culture showing gram-negative rods thus far Patient had an MRI of his foot back on November 22 that showed septic arthritis of the first metatarsophalangeal joints with a bone edema of the distal first metatarsal and first proximal phalanx Patient adamant that he is not going to have surgery and apparently has stated during previous admissions that anyone tends to take his foot he will kill Continue with antibiotics as directed by infectious disease Seen by podiatry, where he still refuses any surgery. They are recommending serial irrigation at bedside. Patient has permitted some bedside debridement but still against amputation. Has been explained to the patient by myself as well as other providers that without more definitive therapy he is at risk for ongoing infection, limb loss or even . Nonweightbearing to the left lower extremity Patient's reasoning is based upon an uncle who 50 years ago or so he had amputations and patient is anxious that he is can require serial amputations proximally if he gets one amputation. Explained to him that I do not know the issues in regards to his uncle but that generally is not the case. But patient is at risk for further infection extending more proximally up his leg or even if he does not permit us to perform surgery. I told him antibiotics would not be sufficient enough for him. I did explain also that he is giving us conflicting information that he is here in the hospital seeking treatment but he does not want our recommendations. He states that he can follow-up with some doctor who does minerals they can help his foot. Explained to him that he certainly welcome to leave and seek out that treatment. 03/29: I had to press the patient explicitly to state that he understood the risks of him not wishing to pursue with imitation, including worsening infection and . Eventually he stated that he did ask understand the risks associated with that and still does not wish to have any amputation of his foot. He states that he would like for his sister to be presents for further discussions would also have his son, who lives in [place], on the phone as well to discuss his current situation. Stated I would be happy to discuss with them. 03/30: Explained the patient has been going to go to a half-way facility with IV antibiotics. Explained the patient is not being able to adequately care for his foot though he did refute that statement. 04/01: Spent to 10 minutes discussing with the patient again about surgery or neurosurgery. Explained potential risks in regards to further propagation of the infection that may require more aggressive amputation and later point if not done so at early point, such as now or even . Again reiterated that patient is expressed understanding of the risks and will plan on continue with IV antibiotics and ventilator point, which I do suspect that the infection persists and surgery would really be the choice. Patient did not definitively say that he would permit that to happen. 2. Bacteremia Likely secondary to his underlying foot infection Repeat blood culture ordered Echocardiogram ordered 3. DM type II, uncontrolled Continue basal insulin, prandial insulin and sliding scale A1c is 13.9 At least partially attributed to just noncompliance and not taking his insulin 4. Hyponatremia Resolved May been due to hyperglycemia Continue to monitor 5. Severe sepsis Secondary to #1 Clinically improving 6. Dementia Complicates care Attempt to do a mini cog assessment the patient became distracted and so did not complete it. Patient was able to draw the face of a clock appropriately starting 1236 and 9 and following the numbers are after he put them in the appropriate positions. I asked him to draw the hands of a clock to show a 40 but he got started at that point time. Patient is not aware of the date but knows who the current president is and where he is currently. Follow-up with geriatrics as outpatient 7. VTE prophylaxis with Lovenox. Moderate risk. Patient is also making bad decisions in regards to refusing to have surgery but does have insight understand the risks of not having surgery, including worsening infection and even . I do not feel the patient is suicidal but did is almost at the patient would rather than lose part of his foot. Plan for transfer to SNF ([facility]) pending insurance authorization. To than 35 minutes of which greater than 50% of the time was discussing with the patient about surgery, antibiotics, risk associated with no surgery. Code Visit Inpatient E&M: 54619 Subs Hosp L3
[2019-04-01 12:15] LABS: Bedside Glucose 287 mg/dL (70-110)
[2019-04-01 15:26] VITALS: BP 159/74; PULSE 78; RESP 17; TEMP 36.7; O2SAT 97
[2019-04-01 17:11] LABS: Bedside Glucose 171 mg/dL (70-110)
[2019-04-01 20:25] VITALS: BP 156/77; PULSE 68; RESP 18; TEMP 36.8; O2SAT 100
[2019-04-01 22:36] LABS: Bedside Glucose 226 mg/dL (70-110)
[2019-04-02 02:25] VITALS: BP 163/92; PULSE 72; RESP 18; TEMP 36.6; O2SAT 99
[2019-04-02 07:10] LABS: Bedside Glucose 130 mg/dL (70-110)
[2019-04-02 09:16] VITALS: BP 139/79; PULSE 69; RESP 17; TEMP 36.7; O2SAT 98
[2019-04-02] MEDS: Insulin Lispro 100 UNIT/ML INSULN.PEN 10 UNIT SC ×3 (09:40→18:00)
--- NOTE | 2019-04-02 11:13 | CASEMGMT ---
LEONIDES called [facility] to see if they are able to accept patient. Iris said it looks like they are going to take him. LEONIDES faxed updates and she needs to check with pharmacy on medication costs. She will get back with LEONIDES. LEONIDES received a call from patient's daughter. She wanted to know the status of patient's discharge. LEONIDES told her SW is still waiting on [facility] to let SW know if they will accept him. LEONIDES told her we will then need to wait on insurance to approve him to go. LEONIDES told her it would not be today. She asked if she would need to transport patient and LEONIDES told her that would be helpful. She plans on transporting patient to [facility]. Plan: [facility] pending their acceptance and insurance approval. Candida MONSIVAIS MSW
--- NOTE | 2019-04-02 11:54 | NURSING ---
wound photo: left foot
[2019-04-02 11:56] LABS: Bedside Glucose 181 mg/dL (70-110)
--- NOTE | 2019-04-02 13:01 | PCM.PN.ID ---
Patient Problems: Active and Suspected Problems Diabetic foot infection (Acute) Subjective: Feeling ok, no fever, wants to leave - Physical Exam General: Alert, Cooperative, No apparent distress Lungs: Clear to auscultation, Normal air movement Cardiovascular: Regular rate, Regular Rhythm Abdomen: Soft, Non Tender, Non-Distended Skin: No rashes, Ulcer/ Wound - reviewed photo Vital Signs Temp Pulse Resp BP Pulse Ox 98.0 F 69 17 139/79 H 98 04/02/19 09:16 04/02/19 09:16 04/02/19 09:16 04/02/19 09:16 04/02/19 09:16 Oxygen Delivery Method Room Air Weight: 85.1 kg Body Mass Index (BMI) 26.9 Finger Stick Blood Glucose 455 Intake and Output for Last 24 Hours 03/31/19 04/01/19 04/02/19 23:59 23:59 23:59 Intake Total 3134.5 / 3134.5 3086 / 3086 722.7 / 722.7 Balance 3134.5 / 3134.5 3086 / 3086 722.7 / 722.7 Microbiology Past 72 Hours 03/26/19 15:16 Blood Culture - Final Blood Culture (Wb) - Right Hand Streptococcus mitis/ oralis 03/29/19 12:00 Blood Culture - Preliminary Blood Culture (Wb) - Left Hand No growth in 48 hours. POC Glucose 04/02/19 04/02/19 04/01/19 11:45 07:04 22:28 POC Glucose 181 H 130 H 226 H 04/01/19 16:58 POC Glucose 171 H Medical Necessity - Tobacco Use Smoking Status: Never smoker Route of nutrition/ use of supplements: [] Nutritional Intake: [] IV Site: [] Crawley Catheter: [] - Assessment/Plan Antibiotics: [] Assessment/Plan: [] Active and Suspected Problems Diabetic foot infection (Acute) Sepsis (Acute) severe sepsis (fever, tachycardia, leukocytosis, MEAGAN, lactic acidosis) due to L foot osteo and suspected abscess, complicated by strep mitis bacteremia - wound cx with enterobacter, strep mitis, and enterococcus, pt refuses surgery, cont zosyn. Plan will be retirement iv abx, stop date of zosyn is 05/06/19, weekly bmp, cbc, and esr. Rx written. TTE difficult study due to pt noncompliance, no veg seen. Will follow, d/w social work case manager
[2019-04-02] MEDS: Insulin Lispro 100 UNIT/ML INSULN.PEN SC ×3 (13:19→21:55)
--- NOTE | 2019-04-02 14:34 | CASEMGMT ---
LEONIDES spoke with Iris at [facility] and she is pretty sure they are going to accept patient. She said she submitted for insurance approval. Candida MONSIVAIS MSW
--- NOTE | 2019-04-02 14:43 | PCM.PN.HOSP ---
Patient Problems: Active and Suspected Problems Diabetic foot infection (Acute) Subjective: No acute events overnight. No fevers or chills. Vitals/I&O's: Vital Signs Temp Pulse Resp BP Pulse Ox 98.0 F 69 17 139/79 H 98 04/02/19 09:16 04/02/19 09:16 04/02/19 09:16 04/02/19 09:16 04/02/19 09:16 Oxygen Delivery Method Room Air Weight: 187 lb 9.814 oz Body Mass Index (BMI) 26.9 Finger Stick Blood Glucose 455 Intake and Output for Last 24 Hours 03/31/19 04/01/19 04/02/19 23:59 23:59 23:59 Intake Total 3134.5 / 3134.5 3086 / 3086 722.7 / 722.7 Balance 3134.5 / 3134.5 3086 / 3086 722.7 / 722.7 General: Alert, Cooperative, No apparent distress HEENT: Atraumatic, PERRLA, EOMI, Normocephalic Oral: Moist Mucosa Neck: Supple, No JVD Lungs: Clear to auscultation, Normal air movement, No rhonchi, No wheeze, No rales Cardiovascular: Regular rate, Regular Rhythm, Normal S1, Normal S2, No murmurs Abdomen: Soft, Non Tender, Non-Distended, No Hepato-splenomegaly Extremities: No edema, Capillary Refill Less than 3 Seconds Skin: Ulcer/ Wound - Dressing intact left foot Neurological: Neuro grossly intact, Sensory exam intact to light touch and pain Psych/Mental Status: Normal Affect, Appropriate Microbiology Past 72 Hours 03/26/19 15:16 Blood Culture (Wb) - Right Hand Blood Culture - Final Streptococcus mitis/ oralis 03/29/19 12:00 Blood Culture (Wb) - Left Hand Blood Culture - Preliminary No growth in 48 hours. Laboratory Results 04/01/19 16:58: POC Glucose 171 H 04/01/19 22:28: POC Glucose 226 H 04/02/19 07:04: POC Glucose 130 H 04/02/19 11:45: POC Glucose 181 H Current Medications Acetaminophen (Tylenol) 650 mg PO Q6H PRN PRN PRN Reason: Mild Pain (1-3)/Temp > 100.7 F Dextrose (D50w Syringe) 0 gm IV X1 PRN; Protocol PRN Reason: Hypoglycemia Docusate Sodium (Colace) 200 mg PO BID PRN PRN PRN Reason: Constipation Glucagon () 1 mg IM .X1 PRN PRN Reason: Hypoglycemia Haloperidol Lactate (Haldol) 0.5 mg IM Q4H PRN PRN PRN Reason: AGITATION Heparin Sodium (Beef Lung) () 50 units IV UD PRN PRN Reason: HEPARIN FLUSH Heparin Sodium (Porcine) (Heparin Na) 5,000 unit SC Q8 COUNTS INCLUDE 234 BEDS AT THE [facility] Last Admin: 04/02/19 06:58 Dose: Not Given Documented by: Piperacillin Sod/Tazobactam (Sod 3.375 gm/ Sodium Chloride) 50 mls @ 12.5 mls/hr IV Q8 COUNTS INCLUDE 234 BEDS AT THE [facility] Last Admin: 04/02/19 06:58 Dose: 12.5 mls/hr Documented by: Insulin Glargine (Lantus (Bkc)) 30 units SC DAILY COUNTS INCLUDE 234 BEDS AT THE [facility] Last Admin: 04/02/19 09:42 Dose: 30 units Documented by: Insulin Human Lispro (Humalog Kwikpen (Bkc)) 10 unit SC TIDCM COUNTS INCLUDE 234 BEDS AT THE [facility] Last Admin: 04/02/19 13:18 Dose: 10 u Documented by: Insulin Human Lispro (Humalog Kwikpen (Bkc)) 0 unit SC ACHS COUNTS INCLUDE 234 BEDS AT THE [facility]; Protocol Last Admin: 04/02/19 13:19 Dose: 2 units Documented by: Lidocaine HCl (Xylocaine Viscous) 15 ml PO Q6H PRN PRN PRN Reason: MOUTH PAIN Last Admin: 03/30/19 09:49 Dose: 15 ml Documented by: Lisinopril (Zestril) 40 mg PO DAILY COUNTS INCLUDE 234 BEDS AT THE [facility] Last Admin: 04/02/19 09:39 Dose: Not Given Documented by: Loratadine (Claritin) 10 mg PO DAILY COUNTS INCLUDE 234 BEDS AT THE [facility] Last Admin: 04/02/19 09:37 Dose: Not Given Documented by: Nutritional Formula (Gerard - [place] Flavor) 1 packet PO BIDCM COUNTS INCLUDE 234 BEDS AT THE [facility] Last Admin: 04/02/19 09:44 Dose: 1 packet Documented by: Nutritional Formula (Lactose Free) (Ensure Enlive) 120 ml PO 4X/DAY COUNTS INCLUDE 234 BEDS AT THE [facility] Last Admin: 04/02/19 09:37 Dose: Not Given Documented by: Ondansetron HCl (Zofran) 4 mg IV Q8H PRN PRN PRN Reason: NAUSEA/VOMITING Oxycodone HCl (Oxyir) 5 mg PO Q6H PRN PRN PRN Reason: Moderate Pain (4-6/10) Pantoprazole Sodium (Protonix) 40 mg PO DAILY COUNTS INCLUDE 234 BEDS AT THE [facility] Last Admin: 04/02/19 09:38 Dose: Not Given Documented by: Sodium Chloride () 10 - 40 ml IV UD PRN PRN Reason: SALINE FLUSH Last Admin: 03/30/19 21:26 Dose: 10 ml Documented by: Sodium Chloride () 10 - 40 ml IV UD PRN PRN Reason: PICC FLUSH Medical Necessity - Tobacco Use Smoking Status: Never smoker Assessment/Plan All Active Problems Bacteremia (Resolved) Diabetic foot infection (Acute) Sepsis (Resolved) Left foot infection (Acute) 1. Left foot abscess with surrounding cellulitis and osteomyelitis with resolved sepsis -Appreciate infectious disease recommendations -Complete Zosyn course on May 06, 2019 -Plan for discharge to SNF in the morning pending insurance approval -Multiple physicians have recommended to him amputation which she is refusing. He has been deemed previously competent to make that decision -Discussed it with him again today and he still does not want surgery 2. DM 2 -Continue with his basal insulin and mealtime insulin as well as sliding scale. -He is noncompliant as his A1c is 13.9 3. GERD -Stable -Continue with PPI 4. HTN -SBP in the 140s -Continue with HCTZ and lisinopril -Repeat BMP in the morning DVT: Heparin Code Visit Inpatient E&M: 38583 Subs Hosp L2
[2019-04-02 15:15] VITALS: BP 160/84; PULSE 70; RESP 17; TEMP 36.8; O2SAT 99
[2019-04-02] MEDS: 0.9% NaCl Peripheral Flush Adult/Peds IV ×2 (15:36→17:59)
[2019-04-02 16:20] LABS: Bedside Glucose 176 mg/dL (70-110)
--- NOTE | 2019-04-02 18:09 | NURSING ---
Patient's sister, Keyana phones and states that if possible she would like for patient to be placed closer to his mother because it is difficult for her to get to [place]. Keyana stated that patient had been at [facility] several months ago and that worked well for his mother to visit. RN informed patient's sister that she needs to call tomorrow and speak with LEONIDES Tirado who is handling patient's care. Sister agrees to same. Phone number of PCU given to patient's sister.
[2019-04-02 20:49] VITALS: BP 159/91; PULSE 95; RESP 20; TEMP 36.8; O2SAT 98
[2019-04-02 22:10] LABS: Bedside Glucose 227 mg/dL (70-110)
[2019-04-03 00:10] VITALS: BP 146/67; PULSE 67; RESP 18; TEMP 36.8; O2SAT 96
[2019-04-03] MEDS: 0.9% NaCl PICC Flush IV (04:58)
[2019-04-03 05:16] VITALS: BP 187/90; PULSE 58; RESP 18; TEMP 36.6; O2SAT 98
[2019-04-03 05:17] LABS: Absolute Lymphocyte Count 4.02 X10^3/ul (0.83-4.51); Absolute Neutrophil Count 2.5 X10^3/uL (2.0-7.7); Basophil# 0.07 X10^3/uL; Basophil% 0.9 % (0-1); Eosinophil# 0.33 X10^3/uL; Eosinophils% 4.2 % (0-5); Hematocrit 32.6 % (40-54); Hemoglobin 10.9 g/dl (13.0-16.5); Lymphocyte # 4.02 X10^3/ul (4.0); Lymphocyte % 51.5 % (19-41); Mean Corp Hgb Conc 33.4 g/gl (32-36); Mean Corpuscular Hgb 27.6 pg (27.0-32.0); Mean Corpuscular Volume 82.5 fL (80-94); Mean Platelet Vol. 9.2 fl (6.2-12.0); Monocyte# 0.78 X10^3/uL; Neutrophil # 2.51 X10^3/uL (2.7-7.7); Neutrophil % 32.2 % (47-70); Platelet Count 368 K/mm3 (150-450); RBC Distribution Width CV 12.7 % (11.6-14.6); RBC Distribution Width SD 37.2 fl (35.1-43.9); Red Blood Count 3.95 M/mm3 (4.6-6.2); White Blood Count 7.8 K/mm3 (4.4-11.0)
[2019-04-03 05:20] LABS: POSITIVE COUNT NO; POSITIVE DIFFERENTIAL NO; POSITIVE MORPHOLOGY NO
[2019-04-03 05:30] LABS: Anion Gap 7 (5-15); BUN 21 mg/dL (7-18); BUN/Creat Ratio 16.3 RATIO (10-20); Calcium,Total 8.3 mg/dL (8.5-10.1); Chloride 107 mmol/L (98-107); Creatinine, Serum 1.29 mg/dL (0.70-1.30); EST Glomerular Filtration Rate 60 mL/min (>60); Est Glom Filt Rate - Afr Amer 73 mL/min (>60); Estimated Creatinine Clearance 62.09 ml/min; Glucose 185 mg/dL (74-106); Potassium 3.6 mmol/L (3.5-5.1); Sodium Level 140 mmol/L (136-145)
[2019-04-03 05:38] VITALS: BP 138/71
[2019-04-03 07:46] LABS: Bedside Glucose 170 mg/dL (70-110)
--- NOTE | 2019-04-03 09:28 | CASEMGMT ---
LEONIDES received a phone call from patient's sister. She inquired where patient was going and when. LEONIDES told her he will be going to [facility] once insurance approves him. She asked if he could go some place closer. LEONIDES told her it is too late to start everything over now as it would delay the discharge. LEONIDES explained his daughter called him several times and requested [place] as she could transport him to [facility] etc. LEONIDES spoke with patient last week and he was in agreement with this plan. She thanked LEONIDES for the return call. Plan: d/c to [facility] pending insurance approval. Candida MONSIVAIS MSW
[2019-04-03 10:13] VITALS: BP 113/52; PULSE 86; RESP 17; TEMP 36.4; O2SAT 100
[2019-04-03] MEDS: Insulin Lispro 100 UNIT/ML INSULN.PEN SC ×4 (10:32→21:54)
[2019-04-03] MEDS: Insulin Lispro 100 UNIT/ML INSULN.PEN 10 UNIT SC ×3 (10:32→17:30)
[2019-04-03 12:40] LABS: Bedside Glucose 306 mg/dL (70-110)
--- NOTE | 2019-04-03 14:46 | CASEMGMT ---
LEONIDES called [facility] and Iris said she has not heard anything from [facility]. She said she has called 3 times at least and they tell her they have 72 hours to make decision. Candida MONSIVAIS MSW
[2019-04-03] MEDS: 0.9% NaCl Peripheral Flush Adult/Peds IV (14:50)
[2019-04-03 14:56] VITALS: BP 140/58; PULSE 68; RESP 16; TEMP 36.9; O2SAT 98
[2019-04-03 17:40] LABS: Bedside Glucose 293 mg/dL (70-110)
--- NOTE | 2019-04-03 18:04 | PCM.PN.HOSP ---
Patient Problems: Active and Suspected Problems Diabetic foot infection (Acute) Subjective: No new issues, no acute events overnight Vitals/I&O's: Vital Signs Temp Pulse Resp BP Pulse Ox 98.4 F 68 16 140/58 H 98 04/03/19 14:56 04/03/19 14:56 04/03/19 14:56 04/03/19 14:56 04/03/19 14:56 Oxygen Delivery Method Room Air Weight: 187 lb 9.814 oz Body Mass Index (BMI) 26.9 Finger Stick Blood Glucose 455 Intake and Output for Last 24 Hours 04/01/19 04/02/19 04/03/19 23:59 23:59 23:59 Intake Total 3086 / 3086 1879.0 / 1879.0 726.8 / 726.8 Balance 3086 / 3086 1879.0 / 1879.0 726.8 / 726.8 General: Alert, Cooperative, No apparent distress HEENT: Atraumatic, PERRLA, EOMI, Normocephalic Oral: Moist Mucosa Neck: Supple, No JVD Lungs: Clear to auscultation, Normal air movement, No rhonchi, No wheeze, No rales Cardiovascular: Regular rate, Regular Rhythm, Normal S1, Normal S2, No murmurs Abdomen: Soft, Non Tender, Non-Distended, No Hepato-splenomegaly Extremities: No edema, Capillary Refill Less than 3 Seconds Skin: Ulcer/ Wound - Dressing intact left foot Neurological: Neuro grossly intact, Sensory exam intact to light touch and pain Psych/Mental Status: Normal Affect, Appropriate Microbiology Past 72 Hours 03/29/19 12:00 Blood Culture (Wb) - Left Hand Blood Culture - Final No growth in 5 days. 03/26/19 15:16 Blood Culture (Wb) - Right Hand Blood Culture - Final Streptococcus mitis/ oralis Laboratory Results 04/02/19 21:50: POC Glucose 227 H 04/03/19 04:55: WBC 7.8, RBC 3.95 L, Hgb 10.9 L, Hct 32.6 L, MCV 82.5, MCH 27.6, MCHC 33.4, RDW 12.7, RDW Differential 37.2, Plt Count 368, MPV 9.2, Immature Gran % (Auto) 1.200 H, Neut % (Auto) 32.2 L, Lymph % (Auto) 51.5 H, [place] % (Auto) 10.0, Eos % (Auto) 4.2, Baso % (Auto) 0.9, Absolute Neuts (auto) 2.5, Absolute Lymphs (auto) 4.02, Total Counted Not Reportable 04/03/19 04:55: Sodium 140, Potassium 3.6, Chloride 107, Carbon Dioxide 26.0, Anion Gap 7, BUN 21 H, Creatinine 1.29, Estim Creat Clear Calc 62.09, Est GFR (MDRD) Af Amer 73, Est GFR (MDRD) Non-Af 60, BUN/Creatinine Ratio 16.3, Glucose 185 H, Calcium 8.3 L 04/03/19 07:39: POC Glucose 170 H 04/03/19 12:26: POC Glucose 306 H 04/03/19 17:22: POC Glucose 293 H Current Medications Acetaminophen (Tylenol) 650 mg PO Q6H PRN PRN PRN Reason: Mild Pain (1-3)/Temp > 100.7 F Dextrose (D50w Syringe) 0 gm IV X1 PRN; Protocol PRN Reason: Hypoglycemia Docusate Sodium (Colace) 200 mg PO BID PRN PRN PRN Reason: Constipation Glucagon () 1 mg IM .X1 PRN PRN Reason: Hypoglycemia Haloperidol Lactate (Haldol) 0.5 mg IM Q4H PRN PRN PRN Reason: AGITATION Heparin Sodium (Beef Lung) () 50 units IV UD PRN PRN Reason: HEPARIN FLUSH Heparin Sodium (Porcine) (Heparin Na) 5,000 unit SC Q8 [facility] Last Admin: 04/03/19 12:51 Dose: Not Given Documented by: Piperacillin Sod/Tazobactam (Sod 3.375 gm/ Sodium Chloride) 50 mls @ 12.5 mls/hr IV Q8 [facility] Last Admin: 04/03/19 14:55 Dose: 12.5 mls/hr Documented by: Insulin Glargine (Lantus (Bk)) 30 units SC DAILY [facility] Last Admin: 04/03/19 10:34 Dose: 30 units Documented by: Insulin Human Lispro (Humalog Kwikpen ([facility])) 10 unit SC TIDCM [facility] Last Admin: 04/03/19 17:30 Dose: 10 u Documented by: Insulin Human Lispro (Humalog Kwikpen (Bkc)) 0 unit SC ACHS [facility]; Protocol Last Admin: 04/03/19 17:30 Dose: 6 units Documented by: Lidocaine HCl (Xylocaine Viscous) 15 ml PO Q6H PRN PRN PRN Reason: MOUTH PAIN Last Admin: 03/30/19 09:49 Dose: 15 ml Documented by: Lisinopril (Zestril) 40 mg PO DAILY [facility] Last Admin: 04/03/19 10:19 Dose: Not Given Documented by: Loratadine (Claritin) 10 mg PO DAILY [facility] Last Admin: 04/03/19 09:35 Dose: Not Given Documented by: Nutritional Formula ([facility] - [place] Flavor) [facility] Admin: 04/03/19 17:33 Dose: Not Given Documented by: Ondansetron HCl (Zofran) 4 mg IV Q8H PRN PRN PRN Reason: NAUSEA/VOMITING Oxycodone HCl (Oxyir) 5 mg PO Q6H PRN PRN PRN Reason: Moderate Pain (4-6/10) Pantoprazole Sodium (Protonix) 40 mg PO DAILY [facility] Last Admin: 04/03/19 09:35 Dose: Not Given Documented by: Sodium Chloride () 10 - 40 ml IV UD PRN PRN Reason: SALINE FLUSH Last Admin: 04/03/19 14:50 Dose: 30 ml Documented by: Sodium Chloride () 10 - 40 ml IV UD PRN PRN Reason: PICC FLUSH Last Admin: 04/03/19 04:58 Dose: 20 ml Documented by: Medical Necessity - Tobacco Use Smoking Status: Never smoker Assessment/Plan All Active Problems Bacteremia (Resolved) Diabetic foot infection (Acute) Sepsis (Resolved) Left foot infection (Acute) 1. Left foot abscess with surrounding cellulitis and osteomyelitis with resolved sepsis -Appreciate infectious disease recommendations -Complete Zosyn course on May 06, 2019 -Plan for discharge to SNF in the morning pending insurance approval -Multiple physicians have recommended to him amputation which he is refusing. He has been deemed previously competent to make that decision -Discussed it with him again today and he still does not want surgery 2. DM 2 -Continue with his basal insulin and mealtime insulin as well as sliding scale. -He is noncompliant as his A1c is 13.9 3. GERD -Stable -Continue with PPI 4. HTN -SBP in the 140s -Continue with HCTZ and lisinopril -Repeat BMP in the morning DVT: Heparin Code Visit Inpatient E&M: 74260 Subs Hosp L2
[2019-04-03 20:55] VITALS: BP 159/87; PULSE 73; RESP 16; TEMP 36.3; O2SAT 97
[2019-04-03 22:45] LABS: Bedside Glucose 236 mg/dL (70-110)
[2019-04-04 02:11] VITALS: BP 150/85; PULSE 79; RESP 16; TEMP 37; O2SAT 97
[2019-04-04] MEDS: 0.9% NaCl Peripheral Flush Adult/Peds IV ×2 (02:37→11:48)
[2019-04-04 08:02] VITALS: BP 173/84; PULSE 65; RESP 15; TEMP 36.6; O2SAT 100
[2019-04-04] MEDS: Lisinopril 40 MG Tablet PO (08:13)
[2019-04-04] MEDS: Pantoprazole Sodium 40 MG Tablet PO (08:13)
[2019-04-04] MEDS: Loratadine 10 MG Tablet PO (08:14)
[2019-04-04 08:16] LABS: Bedside Glucose 171 mg/dL (70-110)
[2019-04-04] MEDS: Insulin Lispro 100 UNIT/ML INSULN.PEN SC (08:26)
[2019-04-04] MEDS: Insulin Lispro 100 UNIT/ML INSULN.PEN 10 UNIT SC ×2 (08:26→11:49)
--- NOTE | 2019-04-04 09:59 | PCM.TXEXTCAR ---
- Diet 03/26/19 18:22 Diet: Calorie Controlled Food consistency:: Regular Liquid Consistency:: Regular/Thin How many daily calories?: 1800 calorie Diet: Cardiac/Low Cholesterol Food consistency:: Regular Liquid Consistency:: Regular/Thin - Wound(s) left foot Wound Type: Neuropathic/Diabetic Foot Ulcer Dressing Change: betadine moistened gauze - Therapies Weight Bearing: Non weight bearing Extremity Affected:: Left Lower Physical Therapy: Eval and Treat Occupational Therapy: Eval and Treat - Allergies/Procedures Done in Hospital Allergies/Adverse Reactions: Allergies No Known Allergies Allergy (Verified 11/29/18 13:58) - Type of Care/Length of Stay Estimated LOS: Convalescent Care Less Than 30 days Type of Care Needed: Skilled Rehab Potential: Good Prognosis: Good - Additional Orders/Day of Discharge Day of Discharge: 04/04/19 - Dietary and Speech Recommendations Dietitian Recommendations/Changes: 1.) Continue 1800 calorie/cardiac, Gerard 1 packet BID & 1 scoop Beneprotein TID with meals for wound healing. 2.) Will d/c ensure enlive on medpass as pt is refusing. - Follow Up Care Primary Care Physician: Tony Topete MD [Primary Care Provider] - Please follow up with your Primary Care Physician in: 3-5 days Please Follow Up With: Clinic,Wound When: Wed at wound healing center with dr. josue
--- NOTE | 2019-04-04 10:01 | DS.PCM_ITS ---
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 L Foot XR: IMPRESSION: Status post amputation as described. Soft tissue swelling and air at the level of the second and third toes. Consultations 03/26/19 18:22 Consult: Onc/Wound/home theater specialist Routine Comment: Operations: None Procedures: 2-D Echocardiogram - Interpretation Summary The study was technically difficult. Pt. was uncooperative during the exam The estimated ejection fraction is 55 %. No evidence for diastolic dysfunction. The study was technically difficult. Pt. was uncooperative during the exam. Summary of Care Provided: Per HPI: The patient is a 63 year old M with past medical history as mentioned above presented to the emergency room because of fever, chills and elevated blood sugar. The patient is very poor informant and was not able to provide any good history. And history of dementia. Patient's mother and daughter were at the bedside. According to the patient's mother, patient has been having chills at home, not been eating or drinking. Patient's mother called the squad because his blood sugar was elevated. Denies any pain. He denied cough or sputum production. He denies abdominal pain, nausea or vomiting. He denied foot or leg pain. Patient was admitted back in November, for osteomyelitis of the left foot, refused to go for surgery and he had a PICC line placed and he was discharged to nursing home facility on IV antibiotics. Today, his daughter mentioned that his foot has been swollen, has been draining pus over the last few days. He has a history of type 2 diabetes mellitus which seemed to be uncontrolled, his last hemoglobin A1c was 14 on October,. His daughter mentioned that he has been missing his insulin dosage at home. He has history of hypertension and he has been on HCTZ and lisinopril and his blood pressure has been manageable. History of chronic renal insufficiency, serum creatinine has been fluctuating anywhere from 0.8 up to 1.6 mg/dL and his GFR has been also fluctuating and it was normal on times. In the emergency department, patient was febrile, tachycardic, blood pressure was elevated, was tachypneic, pulse ox was 96% on room air. His routine blood work was remarkable for leukocytosis, sodium of 127, BUN of 23 and creatinine of 1.53. His blood glucose was 465, serum bicarb was 22 and anion gap was 8. His lactic acid was 2.1. Both ESR and C-reactive protein was highly elevated. Acetone level was negative. Chest x- ray showed no acute findings. X-ray of the left foot revealed soft tissue swelling and air at the level of the second and third toes. He is being admitted for acute left foot diabetic infection/cellulitis/infected wound/suspected osteomyelitis with severe sepsis as well as hyperglycemia without evidence of DKA. Hospital Course: 1. Left foot abscess with surrounding cellulitis and osteomyelitis with resolved [id number] male with a history of diabetes and dementia, presenting with sepsis. He was found to have cellulitis and an abscess in his left foot and imaging demonstrated probable osteomyelitis. Podiatry was consulted who recommended amputation however he refused adamantly to have an amputation because his uncle years ago, had an amputation and said that he continued to have pieces removed and eventually from his multiple surgeries. He is continued to have multiple debridement procedures at bedside by podiatry who will see him in follow-up as an outpatient. Infectious disease was consulted and recommended long-term IV antibiotics and he has a left upper extremity PIC placed. He will be discharged on IV Zosyn to get to be completed May 06, 2019. He did have positive blood cultures with Streptococcus, however repeat blood cultures on the showed that it was cleared and an echo was unremarkable. His wound culture on the left from the demonstrated Enterobacter, enterococcus, Streptococcus mitis, all should be covered with Zosyn. He is to be nonweightbearing on that wound and to have wound care at the snf as well. He is okay with this plan and is willing to be discharged today. 2. DM 2-blood sugars have been well controlled while here on his basal insulin and mealtime insulin as well as a sliding scale, which should be continued at the snf. He is noncompliant at home and his A1c was 13.9. 3. His other medical diagnoses were evaluated and his home medications were continued where appropriate Patient Problems: Active and Suspected Problems Diabetic foot infection (Acute) Objective: General: Alert, Cooperative, No apparent distress HEENT: Atraumatic, PERRLA, EOMI, Normocephalic Oral: Moist Mucosa Neck: Supple, No JVD Lungs: Clear to auscultation, Normal air movement, No rhonchi, No wheeze, No rales Cardiovascular: Regular rate, Regular Rhythm, Normal S1, Normal S2, No murmurs Abdomen: Soft, Non Tender, Non-Distended, No Hepato-splenomegaly Extremities: No edema, Capillary Refill Less than 3 Seconds Skin: Ulcer/ Wound - Dressing intact left foot Neurological: Neuro grossly intact, Sensory exam intact to light touch and pain Psych/Mental Status: Normal Affect, Appropriate - Physical Exam Vital Signs Temp Pulse Resp BP Pulse Ox 97.8 F 65 15 173/84 H 100 04/04/19 08:02 04/04/19 08:02 04/04/19 08:02 04/04/19 08:02 04/04/19 08:02 Oxygen Delivery Method Room Air Weight: 187 lb 9.814 oz Body Mass Index (BMI) 26.9 Finger Stick Blood Glucose 455 Intake and Output for Last 24 Hours 04/02/19 04/03/19 04/04/19 23:59 23:59 23:59 Intake Total 1879.0 / 1879.0 1833.6 / 1833.6 256.6 / 256.6 Balance 1879.0 / 1879.0 1833.6 / 1833.6 256.6 / 256.6 Microbiology Past 72 Hours 03/29/19 12:00 Blood Culture - Final Blood Culture (Wb) - Left Hand No growth in 5 days. POC Glucose 04/04/19 04/03/19 04/03/19 08:09 21:52 17:22 POC Glucose 171 H 236 H 293 H 04/03/19 12:26 POC Glucose 306 H Discharge Activity: Use Walker Weight Bearing Status: No weight bearing - left Keep extremity elevated above heart level: Left Leg Call your doctor if your incision/area has: Continuous Slow Oozing, Sudden Increased Bleeding, Increased Pain/ Swelling, Increased Redness, Foul Smelling Discharge Call your doctor if you observe: Fever of 101 or Higher, Calf discomfort, Uncontrolled pain Cleanse incision/area with: Soap & Water - do not soak, Normal Saline - irrigate with 0.5 L normal saline into deep wound with each dressing change, - - change dressing daily with betadine soaked wicked gauze to ulcer site, cover with gauze, abdominal pad, kerlix, radha wrap Home Medications: Medications to take at Discharge Hydrochlorothiazide [Hctz] 25 mg PO DAILY tablet 11/24/18 Lisinopril [Zestril] 40 mg PO DAILY tablet 11/24/18 Pantoprazole Sodium [Protonix] 40 mg PO DAILY tablet 11/24/18 Insulin Glargine,Hum.rec.anlog [Basaglar Kwikpen U-100] 30 unit SQ DAILY 11/29/18 Insulin Lispro [Humalog KwikPen] 10 units SQ TIDCM 03/26/19 Loratadine 10 mg PO DAILY 03/26/19 Piperacil/Tazobactam [Zosyn] 3.375 gm IV Q8 40 Days #120 vial 03/28/19 Docusate Sodium [Colace] 200 mg PO BID PRN PRN cap 04/04/19 Following Prescrptions Were Given to Patient: Piperacil/Tazobactam [Zosyn] 3.375 gm IV Q8 40 Days #120 vial Prescription Printed Primary Care Physician: Tony Topete MD [Primary Care Provider] - Please follow up with your Primary Care Physician in: 3-5 days Please Follow Up With: Clinic,Wound When: Wed at wound healing center with dr. josue Disposition: Correction facility Minutes spent on discharge:: 35 Patient Condition:: Good Medical Necessity - Tobacco Use Smoking Status: Never smoker Meaningful Use Info Meaningful Use Diagnoses (Choose all that apply): None applicable Code Visit Inpatient E&M: 86672 Disch Hosp
--- NOTE | 2019-04-04 10:14 | CASEMGMT ---
Addendum entered by Candida Quijano 04/04/19 11:14: Faxed orders to [facility]. LEONIDES called Iris at [facility] and she received orders etc. Convalescent completed on HENS. Plan: d/c to [facility] under skilled level of care on a convalescent stay. Patient's daughter will transport him via private vehicle. Candida HARDY Original Note: Received insurance authorization for patient to go to [facility]. LEONIDES called patient's daughter and she can be at [facility] at noon. SW notified physician. Await orders. Plan: d/c to [facility] under skilled level of care on a convalescent stay. Patient's daughter will transport him via private vehicle. Candida HARDY
[2019-04-04 11:56] VITALS: BP 140/89; PULSE 66; RESP 16; TEMP 36.8; O2SAT 100
[2019-04-04 11:56] LABS: Bedside Glucose 120 mg/dL (70-110)
--- NOTE | 2019-04-04 15:32 | NURSING ---
REPORT CALLED TO CHACHA AT [facility]
== END 2019-04-04 12:45 | disposition skilled nursing facility (03) | DRG 720 ==
LOC: ED 16:55 → PCU 17:20
PROVIDERS: Podiatrist; Admitting Provider Hospitalist; Emergency Provider Emergency Medicine; Family Provider Family Medicine; PCP Family Medicine; Visit Provider Family Medicine
DX: A41.9 Sepsis, unspecified organism (principal); E87.1 Hypo-osmolality and hyponatremia; E11.40 Type 2 diabetes mellitus with diabetic neuropathy, unspecified; F03.90 Unspecified dementia, unspecified severity, without behavioral disturbance, psychotic disturbance, mood disturbance, and anxiety; M20.42 Other hammer toe(s) (acquired), left foot; L02.612 Cutaneous abscess of left foot; E11.69 Type 2 diabetes mellitus with other specified complication; M86.9 Osteomyelitis, unspecified; E11.628 Type 2 diabetes mellitus with other skin complications; B95.2 Enterococcus as the cause of diseases classified elsewhere; B95.4 Other streptococcus as the cause of diseases classified elsewhere; I10 Essential (primary) hypertension; Z89.422 Acquired absence of other left toe(s); Z87.891 Personal history of nicotine dependence; Z91.19 Patient's noncompliance with other medical treatment and regimen; Z79.4 Long term (current) use of insulin
CPT/HCPCS: 36415; 36569; 71045; 73630; 80048; 80053; 80202; 81001; 82009; 82962; 83036; 83605; 85025; 85610; 85652; 85730; 86140; 87040; 87070; 87077; 87086; 87088; 87186; 87205; 87640; 93306; 97162; 97166; 97530; 97535; 97802; 99285; J7030; J7040; J7050; A4216; J2405

== ENCOUNTER 2019-04-18 15:00 | Outpatient (RCR) | payer MEDICAID, SELFPAY ==
[2019-03-26 18:17] VITALS: BMI 26.9
[2019-04-11 15:18] VITALS: BP 126/75; PULSE 86; RESP 16; TEMP 36.9; BMI 24.4
--- NOTE | 2019-04-11 16:04 | PN.PCM_ITS ---
(1) Chronic ulcer of left foot with fat layer exposed Status: Chronic Current Visit: Yes Code(s): L97.522 - Non-pressure chronic ulcer of other part of left foot with fat layer exposed (2) Type 2 diabetes mellitus with diabetic polyneuropathy Status: Chronic Current Visit: Yes Code(s): E11.42 - Type 2 diabetes mellitus with diabetic polyneuropathy (3) Hammertoe of left foot Status: Chronic Current Visit: Yes Code(s): M20.42 - Other hammer toe(s) (acquired), left foot (4) Malnutrition Status: Chronic Current Visit: Yes Code(s): E46 - Unspecified protein- calorie malnutrition (5) Osteomyelitis Status: Chronic Current Visit: Yes Qualifiers: Code(s): M86.9 - Osteomyelitis, unspecified Comment: chronic refractory osteomyelitis Type of Wound Date of Service: 04/11/19 Chief Complaint: Left foot ulcer History of Wound: This 63-year-old male with multiple comorbidities was seen for follow-up of infected left foot ulcer. He has a previous history of osteomyelitis and sepsis with recurrence. His most recent hospitalization was on March 26, 2019 with ongoing osteomyelitis and sepsis. He was started on IV antibiotics via PICC during his last hospital admission and is currently under the management of infectious disease. [facility] He denies fever, chill, nausea, vomiting today. He refuses amputation. He is with his daughter today. Progress of Wound: Improved compared to recent hospital admission mainly due to resolution of local infection - Physical Exam Vital Signs Temp Pulse Resp BP 98.4 F 86 16 126/75 H 04/11/19 15:18 04/11/19 15:18 04/11/19 15:18 04/11/19 15:18 General: Alert, Oriented x3, Cooperative, No apparent distress HEENT: Atraumatic Extremities: No cyanosis, Capillary Refill Less than 3 Seconds, No Calf Tenderness - Negative Aric breath and bilateral, Diminished Peripheral Pulses, Edema Skin: Ulcer/ Wound - No purulence, erythema hamstring, odor. There is positive probe to bone and joint. The peripheral skin is hairless and atrophic. There is no interdigital maceration Wound Measurements and Assessment WC - Nurse 1 - General Ulcer Measurement Start: 04/11/19 15:17 Freq: Status: Active Protocol: Activity Type Activity Date Activity User E-Sign Co-Sign Detail Recorded Client Recorded Date Recorded By Document 04/11/19 15:18 [facility] [id number] 04/11/19 15:31 [facility] 04/11/19 15:18 Wound Center Nurse 1 [Ulcer Assessment] #3- L PLANTAR -Combined with other wound No -Current Size (cm) - Length 1.8 -Current Size (cm) - Width 1.7 -Current Size (cm) - Depth 2.1 -Total Square Cm 3.06 -Date of Last Picture (Recall this 04/11/19 field) -Photo Taken Yes -Epithelialization None Present -Tunneling No -Undermining/Tunneling No -Circular Undermining No -Exudate Amt Medium -Exudate Type Serosanguineous -Wound Margin Distinct, Outline Attached -Granulation Amt Large (67-100%) -Granulation Quality [place] -Slough/Fibrin No -Necrosis Amt None Present (0 %) -Texture (Charlene-wound Skin Appearance) Assessed,Callus ,Scarring -Moisture (Charlene-wound Skin Appearance Maceration ) -Color (Charlene-wound Skin Appearance) Assessed,Palor -Temperature (Charlene-wound Skin No Abnormality Appearance) (Pt Warm) -Tenderness on Palpation (Charlene-wound No Skin Appearance) -Ulcer Cleansing SOAP AND WATER -Foul Odor after Cleansing No -Anesthetic Used 4% Lidocaine Solution [Edema Assessment] -Lower Limb Edema Present Yes -Left Calf (cm) 35.6 -Left Ankle (cm) 22.4 WC - Nurse 2 - General Ulcer CM Notes Start: 04/11/19 15:17 Freq: Status: Active Protocol: Activity Type Activity Date Activity User E-Sign Co-Sign Detail Recorded Client Recorded Date Recorded By Document 04/11/19 15:55 AN [id number] 04/11/19 15:58 AN 04/11/19 15:55 Wound Center Nurse 2 [Procedure/Treatment] #3- L PLANTAR -Time 15:57 -Correct Patient Yes -Correct Side, Site, Position Yes -Correct Procedure Yes -Procedure Performed Yes -Type of Procedure Debridement -Clinical Debridement Subcutaneous -Post Debridement Size (cm) - Length 1.9 -Post Debridement Size (cm) - Width 1.8 -Post Debridement Size (cm) - Depth 2.1 -Total Square Cm 3.42 -Wound/Ulcer Outcome Not Healed -Ulcer Cleansing Rinsed/ Irrigated with Saline -Foul Odor after Cleansing No -Bioengineered Tissue No -Bleeding Controlled with Pressure -Offloading Yes -Type of Offloading Surgical Shoe -Treatment Response Procedure Tolerated Well [See Physician Procedure note for Specifics] Pain Scale: 0-10 Numeric [Pain] -Is Patient Pain Free? Yes Musculoskeletal: No Tenderness to Palpation of Joints or Extremities, Muscle Wasting, - - Prominent metatarsal head. Toe amputations are noted foot Neurological: - - Lack of normal epicritic sensation light touch consistent with neuropathy Psych/Mental Status: Normal Affect, Appropriate Debridement Note Post-Debridement Measurements/Treatment WC - Nurse 2 - General Ulcer CM Notes Start: 04/11/19 15:17 Freq: Status: Active Protocol: Activity Type Activity Date Activity User E-Sign Co-Sign Detail Recorded Client Recorded Date Recorded By Document 04/11/19 15:55 AN [id number] 04/11/19 15:58 AN 04/11/19 15:55 Wound Center Nurse 2 #3- L PLANTAR -Time 15:57 -Correct Patient Yes -Correct Side, Site, Position Yes -Correct Procedure Yes -Procedure Performed Yes -Type of Procedure Debridement -Clinical Debridement Subcutaneous -Post Debridement Size (cm) - Length 1.9 -Post Debridement Size (cm) - Width 1.8 -Post Debridement Size (cm) - Depth 2.1 -Total Square Cm 3.42 -Wound/Ulcer Outcome Not Healed -Ulcer Cleansing Rinsed/ Irrigated with Saline -Foul Odor after Cleansing No -Bioengineered Tissue No -Bleeding Controlled with Pressure -Offloading Yes -Type of Offloading Surgical Shoe -Treatment Response Procedure Tolerated Well Pain Scale: 0-10 Numeric Is Patient Pain Free? Yes Wound debrided: plantar foot Laterality: Left Wound Grade/Stage: grade 3 Type of Debridement: Excisional debridement Anesthesia Used: 5% Lidocaine Gel Depth: in the subcutaneous layer Percentage of wound debrided: 100 Instrument Used: 7mm curette Tissue Removed: fibrous, devitalized subcutaneous, biofilm, slough Severity: Fat Layer Exposed Amount of bleeding with debridement: Mild Bleeding Controlled with: Pressure Patient tolerated procedure well Assessment/Plan Active Problems Chronic ulcer of left foot with fat layer exposed (Chronic) Type 2 diabetes mellitus with diabetic polyneuropathy (Chronic) Hammertoe of left foot (Chronic) Malnutrition (Chronic) Osteomyelitis (Chronic) chronic refractory osteomyelitis Assessment: Left foot ulcer with fat layer exposed. Osteomyelitis (chronic and refractory) and septic joint treated medically with PICC line previously. Diabetic neuropathy. Malnutrition. Delayed healing Plan: I reviewed and discussed his treatment plan. Debridement was performed today as noted in the clinical panel. To change dressing daily with iodoform packing. To avoid soaking. It is okay to gently clean the skin with Dial soap and water and saline during dressing changes. To continue offloading by keeping weight completely off of this foot with an assistive device. To wear protective surgical shoe as well. To follow-up with infectious disease for continued IV antibiotic management. To continue nutritional supplementation to optimize healing; I recommend Gerard supplementation. We discussed hyperbaric oxygen therapy and I do recommend this. We will check and see if he is able to receive the service while he is at a [facility] and will proceed forward with clearance if this is possible. The indications purpose and anticipated healing time is were discussed in detail with him. I also recommend application of advanced wound healing product, epi-fix. Prior authorization will be initiated. The purpose and indication and anticipated management were also discussed. I answered his questions. This is medically necessary for limb salvage. He does demonstrate overall perfusion adequate for healing. His edema has been controlled with the Tubigrip. I answered his questions. To return to the wound healing center 1 week or call sooner if he is any questions or concerns.
[2019-04-18 15:11] VITALS: BP 161/86; PULSE 80; RESP 18; TEMP 36.9; BMI 24.4
--- NOTE | 2019-04-18 15:47 | PN.PCM_ITS ---
(1) Chronic ulcer of left foot with fat layer exposed Status: Chronic Current Visit: Yes Code(s): L97.522 - Non-pressure chronic ulcer of other part of left foot with fat layer exposed (2) Type 2 diabetes mellitus with diabetic polyneuropathy Status: Chronic Current Visit: Yes Code(s): E11.42 - Type 2 diabetes mellitus with diabetic polyneuropathy (3) Hammertoe of left foot Status: Chronic Current Visit: Yes Code(s): M20.42 - Other hammer toe(s) (acquired), left foot (4) Malnutrition Status: Chronic Current Visit: Yes Code(s): E46 - Unspecified protein- calorie malnutrition (5) Osteomyelitis Status: Chronic Current Visit: Yes Qualifiers: Code(s): M86.9 - Osteomyelitis, unspecified Comment: chronic refractory osteomyelitis Type of Wound Date of Service: 04/18/19 Chief Complaint: Left foot ulcer History of Wound: This 63-year-old male with multiple comorbidities was seen for follow-up of infected left foot ulcer. He has a previous history of osteomyelitis and sepsis with recurrence. His most recent hospitalization was on March 26, 2019 with ongoing osteomyelitis and sepsis. He was started on IV antibiotics via PICC during his last hospital admission and is currently under the management of infectious disease. He will resides at a half-way facility. He denies fever, chill, nausea, vomiting today. He refuses amputation. He is with his daughter today. Progress of Wound: Improving - Physical Exam Vital Signs Temp Pulse Resp BP 98.4 F 80 18 161/86 H 04/18/19 15:11 04/18/19 15:11 04/18/19 15:11 04/18/19 15:11 General: Alert, Oriented x3, Cooperative, No apparent distress Extremities: No cyanosis, Capillary Refill Less than 3 Seconds, No Calf Tenderness - Negative Aric and Bowman, Diminished Peripheral Pulses, Edema - Decreased, - - Prominent metatarsal head and toe deformity and amputations noted Skin: Ulcer/ Wound - No purulence, erythema, streaking, odor, infection, necrosis, maceration. There is deep probing and granular base noted. The peripheral skin is hairless and atrophic Wound Measurements and Assessment WC - Nurse 1 - General Ulcer Measurement Start: 04/11/19 15:17 Freq: Status: Active Protocol: Activity Type Activity Date Activity User E-Sign Co-Sign Detail Recorded Client Recorded Date Recorded By Document 04/18/19 15:11 JF [id number] 04/18/19 15:20 04/18/19 15:11 Wound Center Nurse 1 [Ulcer Assessment] #3- L PLANTAR -Combined with other wound No -Current Size (cm) - Length 2.0 -Current Size (cm) - Width 1.7 -Current Size (cm) - Depth 2.8 -Total Square Cm 3.40 -Photo Taken No -Epithelialization None Present -Tunneling No -Undermining/Tunneling No -Circular Undermining No -Exudate Amt Large -Exudate Type Serosanguineous -Wound Margin Flat & Intact -Granulation Amt Large (67-100%) -Granulation Quality Red -Slough/Fibrin Yes -Necrosis Amt Small (1-33%) -Necrotic Tissue Type Adherent Slough -Structure Exposed N/A -Texture (Charlene-wound Skin Appearance) Assessed -Moisture (Charlene-wound Skin Appearance Assessed, ) Maceration -Color (Charlene-wound Skin Appearance) Assessed -Temperature (Charlene-wound Skin No Abnormality Appearance) (Pt Warm) -Tenderness on Palpation (Charlene-wound No Skin Appearance) -Ulcer Cleansing Wound Cleanser -Foul Odor after Cleansing No -Anesthetic Used 4% Lidocaine Solution [Edema Assessment] -Lower Limb Edema Present Yes -Left Calf (cm) 36.5 -Left Ankle (cm) 22.5 WC - Nurse 2 - General Ulcer CM Notes Start: 04/11/19 15:17 Freq: Status: Active Protocol: Activity Type Activity Date Activity User E-Sign Co-Sign Detail Recorded Client Recorded Date Recorded By Document 04/18/19 15:27 AN [id number] 04/18/19 15:29 AN 04/18/19 15:27 Wound Center Nurse 2 [Procedure/Treatment] #3- L PLANTAR -Time 15:28 -Correct Patient Yes -Correct Side, Site, Position Yes -Correct Procedure Yes -Procedure Performed Yes -Type of Procedure Debridement -Clinical Debridement Subcutaneous -Post Debridement Size (cm) - Length 2.1 -Post Debridement Size (cm) - Width 1.8 -Post Debridement Size (cm) - Depth 2.8 -Total Square Cm 3.78 -Wound/Ulcer Outcome Not Healed -Ulcer Cleansing Rinsed/ Irrigated with Saline -Foul Odor after Cleansing No -Bioengineered Tissue No -Bleeding Controlled with Pressure -Offloading Yes -Type of Offloading Surgical Shoe -Treatment Response Procedure Tolerated Well [See Physician Procedure note for Specifics] Pain Scale: 0-10 Numeric [Pain] -Is Patient Pain Free? Yes Musculoskeletal: No Tenderness to Palpation of Joints or Extremities, Muscle Wasting Neurological: - - Lack of epicritic sensation light touch consistent with neuropathy Psych/Mental Status: Normal Affect, Appropriate Debridement Note Post-Debridement Measurements/Treatment WC - Nurse 2 - General Ulcer CM Notes Start: 04/11/19 15:17 Freq: Status: Active Protocol: Activity Type Activity Date Activity User E-Sign Co-Sign Detail Recorded Client Recorded Date Recorded By Document 04/11/19 15:55 AN [id number] 04/11/19 15:58 AN Document 04/18/19 15:27 AN [id number] 04/18/19 15:29 AN 04/11/19 04/18/19 15:55 15:27 Wound Center Nurse 2 #3- L PLANTAR -Time 15:57 15:28 -Correct Patient Yes Yes -Correct Side, Site, Position Yes Yes -Correct Procedure Yes Yes -Procedure Performed Yes Yes -Type of Procedure Debridement Debridement -Clinical Debridement Subcutaneous Subcutaneous -Post Debridement Size (cm) - Length 1.9 2.1 -Post Debridement Size (cm) - Width 1.8 1.8 -Post Debridement Size (cm) - Depth 2.1 2.8 -Total Square Cm 3.42 3.78 -Wound/Ulcer Outcome Not Healed Not Healed -Ulcer Cleansing Rinsed/ Rinsed/ Irrigated with Irrigated with Saline Saline -Foul Odor after Cleansing No No -Bioengineered Tissue No No -Bleeding Controlled with Pressure Pressure -Offloading Yes Yes -Type of Offloading Surgical Shoe Surgical Shoe -Treatment Response Procedure Procedure Tolerated Well Tolerated Well Pain Scale: 0-10 Numeric Is Patient Pain Free? Yes Yes Wound debrided: plantar forefoot Laterality: Left Wound Grade/Stage: grade 3 Type of Debridement: Excisional debridement Anesthesia Used: 5% Lidocaine Gel Depth: in the subcutaneous layer Percentage of wound debrided: 100 Instrument Used: #15 blade Tissue Removed: fibrous, devitalized subcutaneous, biofilm, slough Severity: Fat Layer Exposed Amount of bleeding with debridement: Mild Bleeding Controlled with: Pressure Patient tolerated procedure well Assessment/Plan Active Problems Chronic ulcer of left foot with fat layer exposed (Chronic) Type 2 diabetes mellitus with diabetic polyneuropathy (Chronic) Hammertoe of left foot (Chronic) Malnutrition (Chronic) Osteomyelitis (Chronic) chronic refractory osteomyelitis Assessment: Left foot ulcer with fat layer exposed. Osteomyelitis (chronic and refractory) and septic joint treated medically with PICC line previously. Diabetic neuropathy. Malnutrition. Delayed healing Plan: I reviewed and discussed his treatment plan. Debridement was performed today as noted in the clinical panel. To change dressing daily with iodoform packing. To avoid soaking. It is okay to gently clean the skin with Dial soap and water and saline during dressing changes. To continue offloading by keeping weight completely off of this foot with an assistive device. To wear protective surgical shoe as well. To follow-up with infectious disease for continued IV antibiotic management. To continue nutritional supplementation to optimize healing; I recommend Gerard supplementation. We discussed hyperbaric oxygen therapy and I do recommend this. We will check and see if he is able to receive the service while he is at a half-way facility and will proceed forward with clearance if this is possible. The indications purpose and anticipated healing time is were discussed in detail with him. I also recommend application of advanced wound healing product, epi-fix. Prior authorization will be initiated. The purpose and indication and anticipated management were also discussed. I answered his questions. This is medically necessary for limb salvage. He does demonstrate overall perfusion adequate for healing. His edema has been controlled with the Tubigrip. I answered his questions. To return to the wound healing center 1 week or call sooner if he is any questions or concerns.
== END 2019-04-18 23:59 ==
LOC: WC 15:00
PROVIDERS: Family Provider Family Medicine; PCP Family Medicine; Visit Provider Podiatrist
DX: E11.621 Type 2 diabetes mellitus with foot ulcer (principal); E11.42 Type 2 diabetes mellitus with diabetic polyneuropathy; M20.42 Other hammer toe(s) (acquired), left foot; L97.522 Non-pressure chronic ulcer of other part of left foot with fat layer exposed; M86.8X7 Other osteomyelitis, ankle and foot; E11.69 Type 2 diabetes mellitus with other specified complication
CPT/HCPCS: 11042; 99212; G0463

== ENCOUNTER 2019-05-09 14:15 | Outpatient (RCR) | payer MEDICAID, SELFPAY ==
[2019-04-19 01:19] VITALS: BP 161/86; PULSE 80; RESP 18; TEMP 36.9
[2019-04-25 14:16] VITALS: BP 154/84; PULSE 97; RESP 16; TEMP 37.1; BMI 24.4
--- NOTE | 2019-04-25 15:38 | PN.PCM_ITS ---
(1) Chronic ulcer of left foot with fat layer exposed Status: Chronic Current Visit: Yes Code(s): L97.522 - Non-pressure chronic ulcer of other part of left foot with fat layer exposed (2) Other acquired deformities of left foot Status: Chronic Current Visit: Yes Code(s): M21.6X2 - Other acquired deformities of left foot (3) Type 2 diabetes mellitus with diabetic polyneuropathy Status: Chronic Current Visit: Yes Code(s): E11.42 - Type 2 diabetes mellitus with diabetic polyneuropathy (4) Malnutrition Status: Chronic Current Visit: Yes Code(s): E46 - Unspecified protein- calorie malnutrition (5) Osteomyelitis Status: Chronic Current Visit: Yes Qualifiers: Code(s): M86.9 - Osteomyelitis, unspecified Comment: chronic refractory osteomyelitis Type of Wound Date of Service: 04/26/19 Chief Complaint: Left foot ulcer History of Wound: This 63-year-old male with multiple comorbidities was seen for follow-up of infected left foot ulcer. He has a previous history of osteomyelitis and sepsis with recurrence. His most recent hospitalization was on March 26, 2019 with ongoing osteomyelitis and sepsis. He was started on IV antibiotics via PICC during his last hospital admission and is currently under the management of infectious disease. He will resides at a retirement facility. He denies fever, chill, nausea, vomiting today. He refuses amputation. He is with his daughter today. Progress of Wound: Improving - Physical Exam Vital Signs Temp Pulse Resp BP 98.7 F 97 16 154/84 H 04/25/19 14:16 04/25/19 14:16 04/25/19 14:16 04/25/19 14:16 General: Alert, Oriented x3, Cooperative, No apparent distress Extremities: No cyanosis, Capillary Refill Less than 3 Seconds, No Calf Tenderness - Negative Aric and Bowman sign bilateral, Diminished Peripheral Pulses, Edema, - - Dorsal contracture lesser toes with prominent metatarsal heads and some partial toe amputations noted left foot Skin: Ulcer/ Wound - No purulence, erythema, streaking, odor, infection. There is granulation tissue to the plantar ulcer site with peripheral maceration. Probed deep structures noted. The peripheral skin is hairless and atrophic Wound Measurements and Assessment WC - Nurse 1 - General Ulcer Measurement Start: 04/25/19 14:16 Freq: Status: Active Protocol: Activity Type Activity Date Activity User E-Sign Co-Sign Detail Recorded Client Recorded Date Recorded By Document 04/25/19 14:16 [id number] 04/25/19 14:18 04/25/19 14:16 Wound Center Nurse 1 [Ulcer Assessment] #3- L PLANTAR -Combined with other wound No -Current Size (cm) - Length 2.0 -Current Size (cm) - Width 1.7 -Current Size (cm) - Depth 2.0 -Total Square Cm 3.40 -Photo Taken No -Epithelialization None Present -Tunneling No -Undermining/Tunneling No -Circular Undermining No -Exudate Amt Medium -Exudate Type Serosanguineous -Wound Margin Flat & Intact -Granulation Amt Large (67-100%) -Granulation Quality Red -Slough/Fibrin Yes -Necrosis Amt Small (1-33%) -Necrotic Tissue Type Adherent Slough -Structure Exposed N/A -Texture (Charlene-wound Skin Appearance) Assessed,Callus -Moisture (Charlene-wound Skin Appearance Assessed,Dry/ ) Scaly -Color (Charlene-wound Skin Appearance) Assessed -Temperature (Charlene-wound Skin No Abnormality Appearance) (Pt Warm) -Tenderness on Palpation (Charlene-wound No Skin Appearance) -Ulcer Cleansing Rinsed/ Irrigated with Saline -Foul Odor after Cleansing No -Anesthetic Used 4% Lidocaine Solution [Edema Assessment] -Lower Limb Edema Present Yes -Left Calf (cm) 36.4 -Left Ankle (cm) 23.5 WC - Nurse 2 - General Ulcer CM Notes Start: 04/25/19 14:16 Freq: Status: Active Protocol: Activity Type Activity Date Activity User E-Sign Co-Sign Detail Recorded Client Recorded Date Recorded By Document 04/25/19 14:49 AN [id number] 04/25/19 14:57 AN 04/25/19 14:49 Wound Center Nurse 2 [Procedure/Treatment] #3- L PLANTAR -Time 14:55 -Correct Patient Yes -Correct Side, Site, Position Yes -Correct Procedure Yes -Procedure Performed Yes -Type of Procedure Debridement -Clinical Debridement Subcutaneous -Post Debridement Size (cm) - Length 2.1 -Post Debridement Size (cm) - Width 1.8 -Post Debridement Size (cm) - Depth 0.2 -Total Square Cm 3.78 -Wound/Ulcer Outcome Not Healed -Ulcer Cleansing Rinsed/ Irrigated with Saline -Foul Odor after Cleansing No -Bioengineered Tissue No -Type of bioengineered Tissue EPIFIX -Product Lot Number [id number] -Bleeding Controlled with Pressure -Offloading Yes -Type of Offloading Surgical Shoe -Treatment Response Procedure Tolerated Well [See Physician Procedure note for Specifics] Pain Scale: 0-10 Numeric [Pain] -Is Patient Pain Free? Yes Musculoskeletal: No Tenderness to Palpation of Joints or Extremities, Muscle Wasting Neurological: - - Lack of normal epicritic sensation to light touch consistent with neuropathy Psych/Mental Status: Normal Affect, Appropriate Debridement Note Post-Debridement Measurements/Treatment WC - Nurse 2 - General Ulcer CM Notes Start: 04/25/19 14:16 Freq: Status: Active Protocol: Activity Type Activity Date Activity User E-Sign Co-Sign Detail Recorded Client Recorded Date Recorded By Document 04/25/19 14:49 AN [id number] 04/25/19 14:57 AN 04/25/19 14:49 Wound Center Nurse 2 #3- L PLANTAR -Time 14:55 -Correct Patient Yes -Correct Side, Site, Position Yes -Correct Procedure Yes -Procedure Performed Yes -Type of Procedure Debridement -Clinical Debridement Subcutaneous -Post Debridement Size (cm) - Length 2.1 -Post Debridement Size (cm) - Width 1.8 -Post Debridement Size (cm) - Depth 0.2 -Total Square Cm 3.78 -Wound/Ulcer Outcome Not Healed -Ulcer Cleansing Rinsed/ Irrigated with Saline -Foul Odor after Cleansing No -Bioengineered Tissue No -Type of bioengineered Tissue EPIFIX -Product Lot Number [id number] -Bleeding Controlled with Pressure -Offloading Yes -Type of Offloading Surgical Shoe -Treatment Response Procedure Tolerated Well Pain Scale: 0-10 Numeric Is Patient Pain Free? Yes Wound debrided: plantar foot Laterality: Left Wound Grade/Stage: grade 3 Type of Debridement: Excisional debridement Anesthesia Used: 5% Lidocaine Gel Depth: in the subcutaneous layer Percentage of wound debrided: 100 Instrument Used: #15 blade Tissue Removed: fibrous, devitalized subcutaneous, biofilm, slough, callous Severity: Fat Layer Exposed Amount of bleeding with debridement: Mild Bleeding Controlled with: Pressure Patient tolerated procedure well Assessment/Plan Active Problems Chronic ulcer of left foot with fat layer exposed (Chronic) Type 2 diabetes mellitus with diabetic polyneuropathy (Chronic) Other acquired deformities of left foot (Chronic) Malnutrition (Chronic) Osteomyelitis (Chronic) chronic refractory osteomyelitis Assessment: Left foot ulcer with fat layer exposed. Osteomyelitis (chronic and refractory) and septic joint treated medically with PICC line previously. Diabetic neuropathy. Malnutrition. Delayed healing Plan: I reviewed and discussed his treatment plan. Debridement was performed today as noted in the clinical panel. Verbal consent was obtained for application of advanced wound healing product, epi-fix. The indication purpose, and anticipated healing time management were discussed need with the patient. He understands and elects to proceed at this time. This is applied according to standard protocol and he tolerated this well. This was secured in place with Steri-Strips and a wound veil. He was advised to keep this clean and intact until follow-up visit next week. To continue offloading by keeping weight completely off of this foot with an assistive device. To wear protective surgical shoe as well. To follow-up with infectious disease for continued IV antibiotic management. To continue nutritional supplementation to optimize healing; I recommend Gerard supplementation. We discussed hyperbaric oxygen therapy and I do recommend this. We will check and see if he is able to receive the service while he is at a retirement facility and will proceed forward with clearance if this is possible. The indications purpose and anticipated healing time is were discussed in detail with him. His edema has been control led with the Tubigrip. I answered his questions. To return to the wound healing center 1 week or call sooner if he is any questions or concerns.
--- NOTE | 2019-05-04 14:02 | PCM.PN.ID ---
Subjective: Feeling ok, no pain in foot. No fever. No n/v/d. No issues with picc. - Physical Exam General: Alert, Cooperative, No apparent distress Lungs: Clear to auscultation, Normal air movement Cardiovascular: Regular rate, Regular Rhythm Abdomen: Soft, Non Tender, Non-Distended Skin: Ulcer/ Wound - L foot ulcer, dry, some odor, no redness. Vital Signs Temp Pulse Resp BP 98.7 F 97 16 154/84 H 04/25/19 14:16 04/25/19 14:16 04/25/19 14:16 04/25/19 14:16 Weight: 81.647 kg Body Mass Index (BMI) 24.4 Finger Stick Blood Glucose 455 Medical Necessity - Tobacco Use Smoking Status: Never smoker Route of nutrition/ use of supplements: [] Nutritional Intake: [] IV Site: [] Crawley Catheter: [] - Assessment/Plan Antibiotics: [] Assessment/Plan: [] L foot osteo - completes course of abx, ok to stop zosyn and remove picc. Foot doing well. Will give orders to [facility] on printed sheet. Will follow as needed, d/w Dr. Bailon.
[2019-05-04 14:17] VITALS: BP 139/75; PULSE 83; RESP 18; TEMP 36.6; BMI 24.4
--- NOTE | 2019-05-04 16:54 | PCM.WC.PN ---
(1) Chronic ulcer of left foot with fat layer exposed Status: Chronic Current Visit: Yes Code(s): L97.522 - Non-pressure chronic ulcer of other part of left foot with fat layer exposed (2) Other acquired deformities of left foot Status: Chronic Current Visit: Yes Code(s): M21.6X2 - Other acquired deformities of left foot (3) Type 2 diabetes mellitus with diabetic polyneuropathy Status: Chronic Current Visit: Yes Code(s): E11.42 - Type 2 diabetes mellitus with diabetic polyneuropathy (4) Malnutrition Status: Chronic Current Visit: Yes Code(s): E46 - Unspecified protein-calorie malnutrition (5) Osteomyelitis Status: Chronic Current Visit: Yes Qualifiers: Code(s): M86.9 - Osteomyelitis, unspecified Comment: chronic refractory osteomyelitis Type of Wound Date of Service: 05/06/19 Chief Complaint: Left foot ulcer History of Wound: This 63-year-old male with multiple comorbidities was seen for follow-up of infected left foot ulcer. He has a previous history of osteomyelitis and sepsis with recurrence. His most recent hospitalization was on March 26, 2019 with ongoing osteomyelitis and sepsis. He was started on IV antibiotics via PICC during his last hospital admission and is currently under the management of infectious disease. He has a follow-up visit with Dr. Luna today and has completed a 6-week course of IV antibiotics via PICC line. He will resides at a intermediate facility. He denies fever, chill, nausea, vomiting today. He refuses amputation. He is with his daughter today. He is amenable to have advanced wound healing product and total contact cast applied today. He informed me that she did well previously with a custom shoe and insole and would be interested in going this route again after his ulcer is healed. Progress of Wound: Improving - Physical Exam Vital Signs Temp Pulse Resp BP 97.8 F 83 18 139/75 H 05/04/19 14:17 05/04/19 14:17 05/04/19 14:17 05/04/19 14:17 General: Alert, Oriented x3, Cooperative, No apparent distress HEENT: Atraumatic Extremities: No cyanosis, Capillary Refill Less than 3 Seconds, No Calf Tenderness - Negative Aric and Bowman sign, Diminished Peripheral Pulses, Edema, - - Left prominent metatarsal head region with toe deformities and partial toe amputations noted. Decreased ankle dorsiflexion consistent with equinus Skin: Ulcer/ Wound - No purulence, erythema, streaking, odor, infection. No deep probing to deeper tissue or bone at this time. Granulation tissue noted. The peripheral skin is hairless and atrophic. There are no other signs of ulcers noted Wound Measurements and Assessment WC - Nurse 1 - General Ulcer Measurement Start: 04/25/19 14:16 Freq: Status: Active Protocol: Activity Type Activity Date Activity User E-Sign Co-Sign Detail Recorded Client Recorded Date Recorded By Document 05/04/19 14:17 RB [id number] 05/04/19 14:19 RB 05/04/19 14:17 Wound Center Nurse 1 [Ulcer Assessment] #3- L PLANTAR -Combined with other wound No -Current Size (cm) - Length 2 -Current Size (cm) - Width 1.6 -Current Size (cm) - Depth 0.1 -Total Square Cm 3.2 -Tunneling No -Undermining/Tunneling Yes -Undermining/Tunneling Starts (O' 12 clock) -Undermining/Tunneling Ends (O'clock) 12 -Maximum Distance (cm) 0.2 -Circular Undermining Yes -Exudate Amt Small -Exudate Type Serosanguineous -Wound Margin Flat & Intact -Granulation Amt Large (67-100%) -Granulation Quality [place],Red -Slough/Fibrin Yes -Necrosis Amt Small (1-33%) -Necrotic Tissue Type Adherent Slough -Structure Exposed N/A -Texture (Charlene-wound Skin Appearance) Callus -Moisture (Charlene-wound Skin Appearance Assessed ) -Color (Charlene-wound Skin Appearance) Assessed -Temperature (Charlene-wound Skin No Abnormality Appearance) (Pt Warm) -Tenderness on Palpation (Charlene-wound No Skin Appearance) -Ulcer Cleansing Wound Cleanser -Foul Odor after Cleansing No -Anesthetic Used 5% Lidocaine Gel WC - Nurse 2 - General Ulcer CM Notes Start: 04/25/19 14:16 Freq: Status: Active Protocol: Activity Type Activity Date Activity User E-Sign Co-Sign Detail Recorded Client Recorded Date Recorded By Document 05/04/19 14:47 DV [id number] 05/04/19 14:51 DV 05/04/19 14:47 Wound Center Nurse 2 [Procedure/Treatment] -Time 14:47 -Correct Patient Yes -Correct Side, Site, Position Yes -Correct Procedure Yes -Procedure Performed Yes -Type of Procedure Debridement -Clinical Debridement Subcutaneous -Post Debridement Size (cm) - Length 2.1 -Post Debridement Size (cm) - Width 2.0 -Post Debridement Size (cm) - Depth 0.2 -Total Square Cm 4.20 -Wound/Ulcer Outcome Not Healed -Ulcer Cleansing Rinsed/ Irrigated with Saline -Foul Odor after Cleansing No -Bioengineered Tissue Yes -Type of bioengineered Tissue EPIFIX -Expiration Date 09/19/23 -Product Lot Number [id number] -Percent Used 100 -Saline Lot Number [id number] -Topical Lidocaine (%) 5 -Bleeding Controlled with Pressure -Offloading Yes -Type of Offloading Total Contact Cast (TCC) -Treatment Response Procedure Tolerated Well [See Physician Procedure note for Specifics] Pain Scale: 0-10 Numeric [Pain] -Is Patient Pain Free? Yes Musculoskeletal: No Tenderness to Palpation of Joints or Extremities, Muscle Wasting Neurological: - - Lack of normal epicritic sensation light touch consistent with neuropathy left foot Psych/Mental Status: Normal Affect, Appropriate Debridement Note Post-Debridement Measurements/Treatment WC - Nurse 2 - General Ulcer CM Notes Start: 04/25/19 14:16 Freq: Status: Active Protocol: Activity Type Activity Date Activity User E-Sign Co-Sign Detail Recorded Client Recorded Date Recorded By Document 04/25/19 14:49 AN [id number] 04/25/19 14:57 AN Document 05/04/19 14:47 DV [id number] 05/04/19 14:51 DV 04/25/19 05/04/19 14:49 14:47 Wound Center Nurse 2 #3- L PLANTAR -Time 14:55 14:47 -Correct Patient Yes Yes -Correct Side, Site, Position Yes Yes -Correct Procedure Yes Yes -Procedure Performed Yes Yes -Type of Procedure Debridement Debridement -Clinical Debridement Subcutaneous Subcutaneous -Post Debridement Size (cm) - Length 2.1 2.1 -Post Debridement Size (cm) - Width 1.8 2.0 -Post Debridement Size (cm) - Depth 0.2 0.2 -Total Square Cm 3.78 4.20 -Wound/Ulcer Outcome Not Healed Not Healed -Ulcer Cleansing Rinsed/ Rinsed/ Irrigated with Irrigated with Saline Saline -Foul Odor after Cleansing No No -Bioengineered Tissue No Yes -Type of bioengineered Tissue EPIFIX EPIFIX -Expiration Date 09/19/23 -Product Lot Number [id number] -Percent Used 100 -Saline Lot Number [id number] -Topical Lidocaine (%) 5 -Bleeding Controlled with Pressure Pressure -Offloading Yes Yes -Type of Offloading Surgical Shoe Total Contact Cast (TCC) -Treatment Response Procedure Procedure Tolerated Well Tolerated Well Pain Scale: 0-10 Numeric Is Patient Pain Free? Yes Yes Wound debrided: plantar foot Laterality: Left Wound Grade/Stage: grade 3 Type of Debridement: Excisional debridement Anesthesia Used: 5% Lidocaine Gel Depth: in the subcutaneous layer Percentage of wound debrided: 100 Instrument Used: #15 blade Tissue Removed: fibrous, devitalized subcutaneous, biofilm, slough Severity: Fat Layer Exposed Amount of bleeding with debridement: Mild Bleeding Controlled with: Pressure Patient tolerated procedure well Assessment/Plan Active Problems Chronic ulcer of left foot with fat layer exposed (Chronic) Type 2 diabetes mellitus with diabetic polyneuropathy (Chronic) Other acquired deformities of left foot (Chronic) Malnutrition (Chronic) Osteomyelitis (Chronic) chronic refractory osteomyelitis Assessment: Left foot ulcer with fat layer exposed. Osteomyelitis (chronic and refractory) and septic joint treated medically with PICC line previously. Diabetic neuropathy. Malnutrition. Delayed healing Plan: I reviewed and discussed his treatment plan. Debridement was performed today as noted in the clinical panel. Verbal consent was obtained for application of advanced wound healing product, epi-fix. The indication purpose, and anticipated healing time management were discussed need with the patient. He understands and elects to proceed at this time. This is applied according to standard protocol and he tolerated this well. This was secured in place with Steri-Strips and a wound veil. He was advised to keep this clean and intact until follow-up visit next week. To continue offloading by keeping weight completely off of this foot with an assistive device. A well-padded total contact cast was applied in the neutral position according standard protocol also today. Verbal consent was obtained prior to proceeding. He tolerated this well. He understands he needs to avoid getting the sweats and also to avoid excessive walking. To monitor for any signs of new injuries or signs of new infection in which neither is noted today. To follow-up with infectious disease for continued IV antibiotic management and care plan. He was seen today and has completed his course of antibiotics; additional antibiotics were not recommended at this time. His PICC line will be discontinued. To continue nutritional supplementation to optimize healing; I recommend Gerard supplementation. We discussed hyperbaric oxygen therapy and I do recommend this. We will check and see if he is able to receive the service while he is at a intermediate facility and will proceed forward with clearance if this is possible. The indications purpose and anticipated healing time is were discussed in detail with him. His edema has been controlled with the Tubigrip. I answered his questions. To return to the wound healing center 1 week or call sooner if he is any questions or concerns.
[2019-05-09 14:49] VITALS: BP 146/78; PULSE 91; RESP 18; TEMP 36.9; BMI 24.4
--- NOTE | 2019-05-09 15:36 | PN.PCM_ITS ---
(1) Chronic ulcer of left foot with fat layer exposed Status: Chronic Current Visit: No Code(s): L97.522 - Non-pressure chronic ulcer of other part of left foot with fat layer exposed (2) Other acquired deformities of left foot Status: Chronic Current Visit: No Code(s): M21.6X2 - Other acquired deformities of left foot (3) Type 2 diabetes mellitus with diabetic polyneuropathy Status: Chronic Current Visit: No Code(s): E11.42 - Type 2 diabetes mellitus with diabetic polyneuropathy (4) Malnutrition Status: Chronic Current Visit: No Code(s): E46 - Unspecified protein-calorie malnutrition (5) Osteomyelitis Status: Chronic Current Visit: No Qualifiers: Code(s): M86.9 - Osteomyelitis, unspecified Comment: chronic refractory osteomyelitis Type of Wound Date of Service: 05/09/19 Chief Complaint: Left foot ulcer History of Wound: This 63-year-old male with multiple comorbidities was seen for follow-up of infected left foot ulcer. He has a previous history of osteomyelitis and sepsis with recurrence. His most recent hospitalization was on March 26, 2019 with ongoing osteomyelitis and sepsis. He was started on IV antibiotics via PICC during his last hospital admission and is currently under the management of infectious disease. This has been completed and is he doing well. He will resides at a correction facility. He denies fever, chill, nausea, vomiting today. He refuses amputation. He is with his daughter today. He is amenable to have advanced wound healing product and total contact cast applied again today. Progress of Wound: Improving - Physical Exam Vital Signs Temp Pulse Resp BP 98.4 F 91 18 146/78 H 05/09/19 14:49 05/09/19 14:49 05/09/19 14:49 05/09/19 14:49 General: Alert, Oriented x3, Cooperative, No apparent distress Extremities: No cyanosis, Capillary Refill Less than 3 Seconds, No Calf Tenderness - Negative Aric and Bowman sign, Diminished Peripheral Pulses, Edema - Mild, - - Forefoot deformity with toe amputations, hammertoes, and prominent metatarsal head is noted left Skin: Ulcer/ Wound - There is no purulence, erythema, streaking, odor, continue to current infection, deep tissue exposure, necrosis, or maceration noted. The ulcer does have some hyper granulation tissue and is granular and healthy. Peripheral skin is hairless and atrophic left Wound Measurements and Assessment WC - Nurse 1 - General Ulcer Measurement Start: 04/25/19 14:16 Freq: Status: Active Protocol: Activity Type Activity Date Activity User E-Sign Co-Sign Detail Recorded Client Recorded Date Recorded By Document 05/09/19 14:49 RB [id number] 05/09/19 14:50 RB 05/09/19 14:49 Wound Center Nurse 1 [Ulcer Assessment] #3- L PLANTAR -Combined with other wound No -Current Size (cm) - Length 1.7 -Current Size (cm) - Width 1.6 -Current Size (cm) - Depth 0.1 -Total Square Cm 2.72 -Tunneling No -Undermining/Tunneling No -Circular Undermining No -Exudate Amt Medium -Exudate Type Serosanguineous -Wound Margin Fibrotic Scar, Thickened Scar -Granulation Amt Large (67-100%) -Granulation Quality [place] -Slough/Fibrin Yes -Necrosis Amt Small (1-33%) -Necrotic Tissue Type Adherent Slough -Structure Exposed N/A -Texture (Charlene-wound Skin Appearance) Callus -Moisture (Charlene-wound Skin Appearance Assessed ) -Color (Charlene-wound Skin Appearance) Assessed -Temperature (Charlene-wound Skin No Abnormality Appearance) (Pt Warm) -Tenderness on Palpation (Charlene-wound No Skin Appearance) -Ulcer Cleansing Wound Cleanser -Foul Odor after Cleansing No -Anesthetic Used 5% Lidocaine Gel WC - Nurse 2 - General Ulcer CM Notes Start: 04/25/19 14:16 Freq: Status: Active Protocol: Activity Type Activity Date Activity User E-Sign Co-Sign Detail Recorded Client Recorded Date Recorded By Document 05/09/19 15:04 AN [id number] 05/09/19 15:15 AN 05/09/19 15:04 Wound Center Nurse 2 [Procedure/Treatment] -Time 15:04 -Correct Patient Yes -Correct Side, Site, Position Yes -Correct Procedure Yes -Procedure Performed Yes -Type of Procedure Debridement -Clinical Debridement Subcutaneous -Post Debridement Size (cm) - Length 1.8 -Post Debridement Size (cm) - Width 1.7 -Post Debridement Size (cm) - Depth 0.1 -Total Square Cm 3.06 -Wound/Ulcer Outcome Not Healed -Ulcer Cleansing Rinsed/ Irrigated with Saline -Foul Odor after Cleansing No -Bioengineered Tissue Yes -Type of bioengineered Tissue EPIFIX -Bleeding Controlled with Pressure -Offloading Yes -Type of Offloading Total Contact Cast (TCC) -Treatment Response Procedure Tolerated Well [See Physician Procedure note for Specifics] Pain Scale: 0-10 Numeric [Pain] -Is Patient Pain Free? Yes Musculoskeletal: No Tenderness to Palpation of Joints or Extremities, Muscle W asting Neurological: - - Lack of normal epicritic sensation to light touch is noted Psych/Mental Status: Normal Affect, Appropriate Debridement Note Post-Debridement Measurements/Treatment WC - Nurse 2 - General Ulcer CM Notes Start: 04/25/19 14:16 Freq: Status: Active Protocol: Activity Type Activity Date Activity User E-Sign Co-Sign Detail Recorded Client Recorded Date Recorded By Document 04/25/19 14:49 AN [id number] 04/25/19 14:57 AN Document 05/04/19 14:47 DV [id number] 05/04/19 14:51 DV Document 05/09/19 15:04 AN [id number] 05/09/19 15:15 AN 04/25/19 05/04/19 05/09/19 14:49 14:47 15:04 Wound Center Nurse 2 #3- L PLANTAR -Time 14:55 14:47 15:04 -Correct Patient Yes Yes Yes -Correct Side, Site, Position Yes Yes Yes -Correct Procedure Yes Yes Yes -Procedure Performed Yes Yes Yes -Type of Procedure Debridement Debridement Debridement -Clinical Debridement Subcutaneous Subcutaneous Subcutaneous -Post Debridement Size (cm) - Length 2.1 2.1 1.8 -Post Debridement Size (cm) - Width 1.8 2.0 1.7 -Post Debridement Size (cm) - Depth 0.2 0.2 0.1 -Total Square Cm 3.78 4.20 3.06 -Wound/Ulcer Outcome Not Healed Not Healed Not Healed -Ulcer Cleansing Rinsed/ Rinsed/ Rinsed/ Irrigated with Irrigated with Irrigated with Saline Saline Saline -Foul Odor after Cleansing No No No -Bioengineered Tissue No Yes Yes -Type of bioengineered Tissue EPIFIX EPIFIX EPIFIX -Expiration Date 09/19/23 -Product Lot Number [id number] -Percent Used 100 -Saline Lot Number [id number] -Topical Lidocaine (%) 5 -Bleeding Controlled with Pressure Pressure Pressure -Offloading Yes Yes Yes -Type of Offloading Surgical Shoe Total Contact Total Contact Cast (TCC) Cast (TCC) -Treatment Response Procedure Procedure Procedure Tolerated Well Tolerated Well Tolerated Well Pain Scale: 0-10 Numeric Is Patient Pain Free? Yes Yes Yes Wound debrided: plantar foot Laterality: Left Wound Grade/Stage: grade 3 Type of Debridement: Excisional debridement Anesthesia Used: 5% Lidocaine Gel Depth: in the subcutaneous layer Percentage of wound debrided: 100 Instrument Used: #15 blade Tissue Removed: fibrous, devitalized subcutaneous, biofilm, slough Severity: Fat Layer Exposed Amount of bleeding with debridement: Mild Bleeding Controlled with: Pressure Patient tolerated procedure well Assessment/Plan Assessment: Left foot ulcer with fat layer exposed. Osteomyelitis (chronic and refractory) and septic joint treated medically with PICC line previously. Diabetic neuropathy. Malnutrition. Delayed healing Plan: I reviewed and discussed his treatment plan. Debridement was performed today as noted in the clinical panel. Verbal consent was obtained for application of advanced wound healing product, epi-fix. The indication purpose, and anticipated healing time management were discussed need with the patient. He understands and elects to proceed at this time. This is applied according to standard protocol and he tolerated this well. This was secured in place with Adaptic touch. He was advised to keep this clean and intact until follow-up visit next week. To continue offloading by keeping weight completely off of this foot with an assistive device. A well-padded total contact cast was applied in the neutral position according standard protocol also today. Verbal consent was obtained prior to proceeding. He tolerated this well. He understands he needs to avoid getting the sweats and also to avoid excessive walking. To monitor for any signs of new injuries or signs of new infection in which neither is noted today. To follow-up with infectious disease for continued IV antibiotic management and care plan. He was seen recently and has completed his course of antibiotics; additional antibiotics were not recommended at this time. His PICC line will be discontinued. To continue nutritional supplementation to optimize healing; I recommend Gerard supplementation. We discussed hyperbaric oxygen therapy and I do recommend this. We will check and see if he is able to receive the service while he is at a [facility] and will proceed forward with clearance if this is possible. The indications purpose and anticipated healing time is were discussed in detail with him. His edema has been controlled with the Tubigrip. I answered his questions. To return to the wound healing center 1 week or call sooner if he is any questions or concerns.
--- NOTE | 2019-05-09 16:09 | RAD_ITS ---
STUDY: X-RAY - LEFT ANKLE REASON FOR EXAM: Male, 63 years old. Pain due to fall TECHNIQUE: 3 view(s) of the ankle. COMPARISON: None. FINDINGS: Nonspecific soft tissue calcifications in the distal lower leg. Intact distal tibia, distal fibula, and also ankle mortise. Unremarkable subtalar joint. Mild to moderate Achilles enthesophyte and also plantar heel spur. Mild nonspecific soft tissue swelling. RAD/Ankle min 3 Views IMPRESSION: No acute displaced fracture, or traumatic subluxation based on current assessment. Mild nonspecific soft tissue swelling. Electronically Signed: Tevin Willis MD at 8:07 EDT Tel [phone], Service support ,
--- NOTE | 2019-05-09 16:09 | RAD_ITS ---
STUDY: X-RAY - LEFT FOOT CLINICAL: Male, 63 years old. Injury due to fall TECHNIQUE: 3 view(s) of the foot. COMPARISON: None. 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 Unremarkable alignment of the Lisfranc joint. Intact base of the fifth metatarsal. Nonspecific soft tissue swelling RAD/Foot min 3 Views IMPRESSION: No acute displaced fracture, or traumatic subluxation based on current assessment. 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 Electronically Signed: Tevin Willis MD at 8:15 EDT Tel [phone], Service support ,
== END 2019-05-19 23:59 ==
LOC: WC 14:15
PROVIDERS: Family Provider Family Medicine; PCP Family Medicine; Referring Provider Podiatrist; Visit Provider Podiatrist
DX: E11.621 Type 2 diabetes mellitus with foot ulcer (principal); E11.42 Type 2 diabetes mellitus with diabetic polyneuropathy; E11.69 Type 2 diabetes mellitus with other specified complication; M86.8X7 Other osteomyelitis, ankle and foot; M21.6X2 Other acquired deformities of left foot; L97.522 Non-pressure chronic ulcer of other part of left foot with fat layer exposed
CPT/HCPCS: 15275; 29445; 73610; 73630; Q4186

== ENCOUNTER 2019-05-14 16:37 | Inpatient (IN) | payer MEDICAID, SELFPAY ==
[2019-05-14 16:40] VITALS: BP 180/83; PULSE 125; RESP 20; TEMP 38.8; O2SAT 97; BMI 26.7
--- NOTE | 2019-05-14 16:48 | EKG12_ITS ---
Test Reason : GEN ILLNESS Blood Pressure : / mmHG Vent. Rate : 125 BPM Atrial Rate : 125 BPM P-R Int : 134 ms QRS Dur : 076 ms QT Int : 298 ms P-R-T Axes : 060 012 057 degrees QTc Int : 430 ms Sinus tachycardia Possible Inferior infarct , age undetermined Abnormal ECG Confirmed by PA TIPTON, MISHEL ([id number]), scientific editor KIMBERLY WELLS ([id number]) on 05/16/2019 11:56:51 AM Referred By: Edmond Miguel Confirmed By:MISHEL WINN MD
--- NOTE | 2019-05-14 16:50 | RAD_ITS ---
STUDY: X-RAY - LEFT FOOT CLINICAL: Male, 63 years old. Infection of the left foot. Altered mental status. TECHNIQUE: 3 view(s) of the foot. COMPARISON: May 09, 2019 FINDINGS: Stable superior and inferior calcaneal spurs. Stable resection changes of the second through fifth digits. Charcot changes of the first MTP joint. Flexion deformities of the first and fourth digits unchanged. Stable soft tissue swelling distal to the second through fifth digits. No bony erosion to suggest osteomyelitis. RAD/Foot min 3 Views IMPRESSION: Stable Charcot postsurgical changes of the left foot. Stable calcaneal spurs. Marked soft tissue swelling with no resorption of bone to suggest osteomyelitis. Electronically Signed: Mateo Chandler MD at 17:16 EDT , Service support ,
--- NOTE | 2019-05-14 16:58 | RAD_ITS ---
STUDY: X-RAY CHEST REASON FOR EXAM: Male, 63 years old. Altered mental status. TECHNIQUE: Single frontal view of the chest. COMPARISON: March 26, 2019 FINDINGS: Stable mild hyperexpansion. There is no demonstrated pleural abnormality. Normal size heart. Normal mediastinum and josé luis. Normal visualized pulmonary arteries. Normal visualized aortic arch and descending thoracic aorta. Normal visualized thoracic spine. Normal visualized ribs, clavicles, and shoulders. There is no demonstrated abnormality of the visualized soft tissue structures of the upper abdomen. RAD/Chest 1 View (Portable) IMPRESSION: Mild hyperexpansion with no acute finding. Electronically Signed: Mateo Chandler MD at 17:17 EDT , Service support ,
--- NOTE | 2019-05-14 17:00 | ED.DCSUM_ITS ---
History of Present Illness Chief Complaint: General Illness Informant: Patient Onset: Today Context: Gradual Onset Timing: Continuous Current Severity: Moderate Maximum Severity: Moderate Narrative: The patient presents to the emergency department with fever and confusion. Patient has a history of insulin-dependent diabetes and recurrent osteomyelitis. Patient was recently hospitalized with osteomyelitis of the foot. He had a PICC placed and was on broad-spectrum antibiotics. He had refused any intervention from podiatry standpoint as far as amputation. He has been followed in the wound care center. He was recently discharged from his intermediate facility about a week ago. The mother the bedside states he has been trying to take care of his wound. It appears as if the dressing has not been changed. Today, he was more confused and had a fever. This is similar to his presentation when he had severe sepsis in the past. Prior similar symptoms: Yes Recent Illness/Hospitalization: Yes Past Medical History - Allergies and Home Meds Allergies/Adverse Reactions: Allergies No Known Allergies Allergy (Verified 05/14/19 16:47) Primary Care Physician: Tony Topete MD [Primary Care Provider] - Prior records reviewed: Yes Past Medical History: - Surgical History: - - Amputation of the left second, third and fifth toe. Lives: With Family Smoking Status: Never smoker - Family History Maternal Family History: Reports: Diabetes Paternal Family History: Reports: - - before I was born. Unknown cause. Review of Systems General: Reports: Fever, Malaise. Denies: Chills, Sweats Eyes: Denies: Visual changes - bilaterally, Diplopia ENT: Denies: Rhinorrhea, Sore throat Cardiovascular: Denies: Chest pain, Palpitations Respiratory: Denies: Dyspnea, Cough, Dyspnea on exertion Gastrointestinal: Denies: Abdominal pain, Nausea, Vomiting, Diarrhea, Melena, Hematochezia Genitourinary: Denies: Dysuria, Hematuria, Frequency Musculoskeletal: Reports: Myalgias. Denies: Back pain, Extremity Pain Skin: Denies: Rash, Wounds Neurological: Denies: Headache, Weakness, Numbness Psych: Denies: Depression Endocrine: Denies: Polyuria Physical Exam Vital Signs/Narrative: Vital Signs Temp Pulse Resp BP Pulse Ox 05/14/19 16:40 102 F H 125 H 20 H 180/83 H 97 Inital Vital Signs reviewed: Yes General: Unkempt Head: Normocephalic, Atraumatic Eyes: Perrl, EOMI ENT: Moist mucous membranes, No rhinorrhea Neck: Supple, Nontender Cardiovascular: Regular rhythm, Tachycardia Respiratory: No distress, CTA bilaterally Abdomen: Soft, Nontender, Nondistended Back: Nontender Extremities: Tenderness, Edema Neurological: Confused, Disoriented Psychological: Normal affect Diagnostic/Tx/Re-eval Chest X-Ray - ED: 1 View, Normal, Heart, Lungs Clinical Impression(s) from Imaging Studies Foot X-Ray 05/14/19 16:50 IMPRESSION: Stable Charcot postsurgical changes of the left foot. Stable calcaneal spurs. Marked soft tissue swelling with no resorption of bone to suggest osteomyelitis. Electronically Signed: Mateo Chandler MD at 17:16 EDT , Service support , Chest X-Ray 05/14/19 16:58 IMPRESSION: Mild hyperexpansion with no acute finding. Electronically Signed: Mateo Chandler MD at 17:17 EDT , Service support , Abnormal Lab Results 05/14/19 05/14/19 05/14/19 17:30 17:32 17:32 WBC 16.9 H RBC 4.04 L Hgb 11.4 L Hct 34.4 L MCV 85.1 MCH 28.2 MCHC 33.1 RDW Std Deviation 41.7 RDW Coeff of Debra 13.3 Plt Count 353 MPV 9.8 Immature Gran % (Auto) 0.600 Neut % (Auto) 84.0 H Lymph % (Auto) 7.5 L Kenton % (Auto) 7.6 Eos % (Auto) 0.0 Baso % (Auto) 0.3 Absolute Neuts (auto) 14.2 H Absolute Lymphs (auto) 1.26 Nucleated RBC % 0 ESR 27 H PT 16.2 H INR 1.3 APTT 33.8 Sodium Potassium Chloride Carbon Dioxide Anion Gap BUN Creatinine Estim Creat Clear Calc Est GFR (MDRD) Af Amer Est GFR (MDRD) Non-Af BUN/Creatinine Ratio Glucose Lactic Acid Calcium Total Bilirubin AST ALT Alkaline Phosphatase C-React Prot Ext Range Total Protein Albumin Globulin Albumin/Globulin Ratio Urine Color Yellow Urine Clarity Clear Urine pH 5.0 Ur Specific [place] 1.015 Urine Protein 100 H Urine Glucose (UA) 50 H Urine Ketones Negative Urine Occult Blood Negative Urine Nitrite Negative Urine Bilirubin Negative Urine Urobilinogen Normal Ur Leukocyte Esterase Negative Urine RBC 0 SEEN Urine WBC 0 SEEN Ur Squamous Epith Cells 0 SEEN Urine Bacteria 0 SEEN Urine Mucus 0 SEEN 05/14/19 05/14/19 17:32 17:32 WBC RBC Hgb Hct MCV MCH MCHC RDW Std Deviation RDW Coeff of Debra Plt Count MPV Immature Gran % (Auto) Neut % (Auto) Lymph % (Auto) [place] % (Auto) Eos % (Auto) Baso % (Auto) Absolute Neuts (auto) Absolute Lymphs (auto) Nucleated RBC % ESR PT INR APTT Sodium 134 L Potassium 4.4 Chloride 102 Carbon Dioxide 26.0 Anion Gap 6 BUN 35 H Creatinine 1.64 H Estim Creat Clear Calc 51.92 Est GFR (MDRD) Af Amer 55 L Est GFR (MDRD) Non-Af 46 L BUN/Creatinine Ratio 21.3 H Glucose 166 H Lactic Acid 1.2 Calcium 8.9 Total Bilirubin 0.70 AST 11 L ALT 22 Alkaline Phosphatase 71 C-React Prot Ext Range 157.00 H Total Protein 8.1 Albumin 3.2 Globulin 4.9 H Albumin/Globulin Ratio 0.7 L Urine Color Urine Clarity Urine pH Ur Specific [place] Urine Protein Urine Glucose (UA) Urine Ketones Urine Occult Blood Urine Nitrite Urine Bilirubin Urine Urobilinogen Ur Leukocyte Esterase Urine RBC Urine WBC Ur Squamous Epith Cells Urine Bacteria Urine Mucus - Rhythm Strip Rhythm Strip: Sinus Tach Rate: 120 Ectopy: None - EKG Initial EKG Interpretation: No Acute Injury Pattern, Sinus Tachycardia Prior: Unchanged - Medical Decision Making The patient presents to the emergency department with fever and delirium. He has obvious drainage coming from his foot infection. This was immediately cultured. Sepsis work-up was pursued. I did discuss the patient also immediately with podiatry. X-rays do not show any subcutaneous gas or evidence of necrotizing fasciitis. The patient was started on broad-spectrum antibiotics. His fever was treated. He was given fluids. Screening labs do demonstrate leukocytosis and elevation of his inflammatory markers. Obviously, this patient is high risk for osteomyelitis and recurrent infection. He was going to require admission for IV antibiotics and podiatry follow-up. Family is comfortable with this plan of care. Impression 1. Sepsis 2. Diabetic foot infection 3. Delirium ED Disposition - Plan for ED Patient: Referrals: Tony Topete MD [Primary Care Provider] -
[2019-05-14] MEDS: Acetaminophen 500 MG Tablet 1000 MG PO (17:18)
[2019-05-14] MEDS: 0.9% Normal Saline 1,000 ML 1000 ML IV ×2 (17:18)
[2019-05-14 17:45] VITALS: BP 160/76; PULSE 118; RESP 16; TEMP 39.6; O2SAT 95
[2019-05-14 17:51] LABS: Bacteria 0 SEEN /hpf (None Seen); Mucous, Urine 0 SEEN /hpf (<or=2+); Red Blood Cells-Urine 0 SEEN /hpf (0-5); Squamous Epithelial Cells - UA 0 SEEN /hpf (0-5); White Blood Cells 0 SEEN /hpf (0-5)
[2019-05-14 17:56] LABS: Color, Urine Yellow (Yellow); Glucose, Dipstick 50 mg/dl (Normal); Ketone-Dipstick Negative (Negative); Leukocyte Esterase-Dipstick Negative /ul (Negative); Nitrite-Dipstick Negative (Negative); Occult Blood-Urine Negative /ul (Negative); Protein-Dipstick 100 mg/dl (Negative); Specific Gravity, Urine 1.015 (1.002-1.030); Urine Bilirubin Dipstick Negative (Negative); Urine Clarity Clear (Clear); Urine Urobilinogen Normal (Normal)
[2019-05-14 17:57] LABS: ALB/GLOB Ratio 0.7 RATIO (0.9-2.4); AST(SGOT) 11 U/L (15-37); Alanine Aminotransfer ALT/SGPT 22 U/L (16-61); Albumin, Serum 3.2 g/dL (3.2-5.0); Alkaline Phosphatase 71 U/L (45-117); Anion Gap 6 (5-15); BUN 35 mg/dL (7-18); BUN/Creat Ratio 21.3 RATIO (10-20); Calcium,Total 8.9 mg/dL (8.5-10.1); Chloride 102 mmol/L (98-107); Creatinine, Serum 1.64 mg/dL (0.70-1.30); EST Glomerular Filtration Rate 46 mL/min (>60); Est Glom Filt Rate - Afr Amer 55 mL/min (>60); Estimated Creatinine Clearance 51.92 ml/min; Globulin 4.9 g/dL (2.2-4.2); Glucose 166 mg/dL (74-106); Potassium 4.4 mmol/L (3.5-5.1); Protein, Total 8.1 g/dL (6.4-8.2); Sodium Level 134 mmol/L (136-145)
[2019-05-14 18:00] LABS: Erythrocyte Sedimentation Rate 27 mm/hr (0-20)
[2019-05-14 18:01] LABS: International Normalized Ratio 1.3; Prothrombin Time (Protime)PT. 16.2 SECONDS (11.7-14.9)
[2019-05-14 18:02] LABS: Partial Thromboplast Time 33.8 Seconds (24.1-36.2)
[2019-05-14 18:04] LABS: Lactic Acid 1.2 mmol/L (0.4-2.0)
[2019-05-14 18:07] LABS: Absolute Lymphocyte Count 1.26 X10^3/uL (0.83-4.51); Absolute Neutrophil Count 14.2 X10^3/uL (2.0-7.7); Basophil# 0.05 X10^3/uL; Basophil% 0.3 % (0-1); Hematocrit 34.4 % (40-54); Hemoglobin 11.4 g/dL (13.0-16.5); Lymphocyte # 1.26 X10^3/ul (4.0); Lymphocyte % 7.5 % (19-41); Mean Corp Hgb Conc 33.1 g/dL (32-36); Mean Corpuscular Hgb 28.2 pg (27.0-32.0); Mean Corpuscular Volume 85.1 fL (80-94); Mean Platelet Vol. 9.8 fl (6.2-12.0); Monocyte# 1.28 X10^3/uL; Monocyte% 7.6 % (0-10); NRBC Flagged by Analyzer 0 % (0-5); Neutrophil # 14.22 X10^3/uL (2.7-7.7); Platelet Count 353 K/mm3 (150-450); RBC Distribution Width CV 13.3 % (11.6-14.6); RBC Distribution Width SD 41.7 fl (35.1-43.9); Red Blood Count 4.04 M/mm3 (4.6-6.2); White Blood Count 16.9 K/mm3 (4.4-11.0)
--- NOTE | 2019-05-14 18:48 | HP.PCM_ITS ---
Problem List (1) Diabetic foot infection Status: Acute (2) Dementia Status: Chronic (3) Osteomyelitis Status: Chronic Qualifiers: Comment: chronic refractory osteomyelitis (4) Peripheral neuropathy Status: Chronic (5) Hypertension Status: Chronic (6) Type 2 diabetes mellitus Status: Chronic History of Present Illness Date of Admission: 05/14/19 Chief Complaint: Fever and confusion. The patient is a 63 year old M with past medical history as mentioned above presented to the emergency room because of fever and confusion. At this time, patient is very poor informant and was not able to provide any detailed history. There was no family members at the bedside. According to the ER physician, patient was diagnosed with recurrent osteomyelitis and recurrent left diabetic foot infection around 6 weeks ago, was discharged from the hospital on IV antibiotics to prison and he was discharged from prison around a week ago. Reportedly, patient has been having increased drainage and pus coming from the left foot diabetic ulcer and he has been having fevers as well. He completed the IV broad-spectrum antibiotics around 1 week ago and the PICC line was removed. He was discharged home from the prison around 1 week ago and he supposed to take care of his wound but apparently, he is not able to do dressing change and his mother also was not able to take care of the wound. Today according to patient's family, he is more confused and had a fever at home. He had a history of recurrent left diabetic foot infection with recurrent osteomyelitis, was admitted to the hospital on multiple occasions and patient refused any type of surgery or amputation of his left foot. He has history of uncontrolled type 2 diabetes mellitus and his most recent hemoglobin A1c was 13.9 on March,. He had a history of hypertension and he has been on HCTZ and lisinopril and his blood pressure has been stable. History of dementia but he is not on any type of medications for it. In the emergency department, patient was febrile, tachycardic, blood pressure was elevated and his pulse ox was normal on room air. Routine blood work was remarkable for leukocytosis, BUN of 35 and creatinine of 1.64. His ESR and CRP was elevated. Urinalysis showed no acute cystitis. X-ray of the left foot showed stable postsurgical changes, soft tissue swelling, no findings suggestive of osteomyelitis. Chest x-ray showed no acute findings. EKG revealed sinus tachycardia, otherwise unremarkable. He is being admitted for sepsis secondary to recurrent left diabetic foot infection/infected wound with nonhealing ulcer. Past Medical History Past Medical History (Chronic Problems): Chronic Problems Chronic ulcer of left foot with fat layer exposed (Chronic) Type 2 diabetes mellitus with diabetic polyneuropathy (Chronic) Hammertoe of left foot (Chronic) Other acquired deformities of left foot (Chronic) Malnutrition (Chronic) Dementia (Chronic) Hammer toe of left foot (Chronic) Osteomyelitis (Chronic) chronic refractory osteomyelitis Renal insufficiency (Chronic) Left second and third toe amputation (Chronic) Peripheral neuropathy (Chronic) Hypertension (Chronic) Type 2 diabetes mellitus (Chronic) Allergies No Known Allergies Allergy (Verified 05/14/19 16:47) Home Medications: Ambulatory Orders Medication Instructions Recorded Hydrochlorothiazide [Hctz] 25 mg PO DAILY tablet 11/24/18 Lisinopril [Zestril] 40 mg PO DAILY tablet 11/24/18 Pantoprazole Sodium [Protonix] 40 mg PO DAILY tablet 11/24/18 Insulin Glargine,Hum.rec.anlog 30 unit SQ DAILY 11/29/18 [Basaglar Kwikpen U-100] Loratadine 10 mg PO DAILY 03/26/19 Docusate Sodium [Colace] 100 mg PO BID PRN PRN 05/14/19 Insulin Lispro [Admelog] 10 units SQ DAILY 05/14/19 Multivitamin with Folic Acid 1 tab PO DAILY 05/14/19 [Thera Tablet] Surgical History: - - Amputation of the left second, third and fifth toe. Psychiatric History: No pertinent psych hx Lives: With Family Smoking Status: Never smoker Alcohol: None Drugs: None - *Family History Maternal History Items: Diabetes Paternal History Items: - - before I was born. Unknown cause. Review of Systems Constitutional: Reports: Fever. Denies: Anorexia, Chills, Weakness Eyes: Denies: Blurred vision, Double vision, Drainage, Redness HEENT: Denies: Difficulty Hearing, Ear Pain, Eye Pain, Nasal Congestion, Sore Throat Cardiovascular: Denies: Chest Pain, Chest Pressure, Chest Tightness, Heaviness, Palpitations, Syncope Respiratory: Denies: Cough, Pleuritic Pain, Shortness of Breath, Sputum production, Wheezing Gastrointestinal: Denies: Abdominal Pain, Constipation, Diarrhea, Nausea, Vomiting Genitourinary: Denies: Dysuria, Frequency, Hematuria Musculoskeletal: Denies: Arm Pain, Back Pain, Foot Pain Skin: Denies: Dryness, Rash Neurological: Reports: Confusion. Denies: Balance problems, Double vision, Slurred speech, Headaches, Incoordination, Numbness Psychiatric: Denies: Anxiety, Depression Endocrine: Denies: Change in Body Habitus, Polydipsia, Polyuria VTE Information - Inpt Only VTE Present on Admission: No VTE Mechan Device Prophylaxis: None VTE Pharm Prophylaxis ordered?: Yes - Physical Exam General: Alert, Cooperative, No apparent distress, Well nourished HEENT: Atraumatic, PERRLA, EOMI, Normocephalic Oral: Moist Mucosa, No Gingival or Mucosal Lesions/ Ulcerations Neck: Supple, No JVD, Negative Carotid Bruits, Trachea Midline, Thyroid Normal Size and Texture Lungs: Clear to auscultation, Normal air movement, No rhonchi, No wheeze, No rales, Diminished Cardiovascular: Regular rate, Regular Rhythm, Normal S1, Normal S2, PMI Normal, Tachycardic Abdomen: Bowel Sounds Present, Soft, Non Tender, Non-Distended, No Hepato- splenomegaly Extremities: No clubbing, No cyanosis, Edema - Trace edema. Skin: No rashes, Ulcer/ Wound - Left foot: Swelling and erythema on the plantar and dorsal aspect of the left forefoot, nonhealing ulcer on the plantar aspect of the left forefoot measuring about 2 x 2 cm with serous drainage. Lymphatic: No Cervical, Supraclavicular, or Inguinal Adenopathy Neurological: Cranial nerves II-XII grossly intact, Motor Exam 5/5 strength throughout Psych/Mental Status: Appropriate, Flat Affect Vital Signs Temp Pulse Resp BP Pulse Ox 103.2 F H 118 H 16 160/76 H 95 05/14/19 17:45 05/14/19 17:45 05/14/19 17:45 05/14/19 17:45 05/14/19 17:45 Oxygen Delivery Method Room Air Weight: 197 lb 1.492 oz Body Mass Index (BMI) 26.7 Finger Stick Blood Glucose 455 Intake and Output for Last 24 Hours 05/12/19 05/13/19 05/14/19 23:59 23:59 23:59 Intake Total 0 / 0 Balance 0 / 0 Laboratory Tests Past 24 Hrs 05/14/19 05/14/19 05/14/19 17:30 17:32 17:32 WBC 16.9 H RBC 4.04 L Hgb 11.4 L Hct 34.4 L MCV 85.1 MCH 28.2 MCHC 33.1 RDW Std Deviation 41.7 RDW Coeff of Debra 13.3 Plt Count 353 MPV 9.8 Immature Gran % (Auto) 0.600 Neut % (Auto) 84.0 H Lymph % (Auto) 7.5 L [place] % (Auto) 7.6 Eos % (Auto) 0.0 Baso % (Auto) 0.3 Absolute Neuts (auto) 14.2 H Absolute Lymphs (auto) 1.26 Nucleated RBC % 0 ESR 27 H PT 16.2 H INR 1.3 APTT 33.8 Sodium Potassium Chloride Carbon Dioxide Anion Gap BUN Creatinine Estim Creat Clear Calc Est GFR (MDRD) Af Amer Est GFR (MDRD) Non-Af BUN/Creatinine Ratio Glucose Lactic Acid Calcium Total Bilirubin AST ALT Alkaline Phosphatase C-React Prot Ext Range Total Protein Albumin Globulin Albumin/Globulin Ratio Urine Color Yellow Urine Clarity Clear Urine pH 5.0 Ur Specific [place] 1.015 Urine Protein 100 H Urine Glucose (UA) 50 H Urine Ketones Negative Urine Occult Blood Negative Urine Nitrite Negative Urine Bilirubin Negative Urine Urobilinogen Normal Ur Leukocyte Esterase Negative Urine RBC 0 SEEN Urine WBC 0 SEEN Ur Squamous Epith Cells 0 SEEN Urine Bacteria 0 SEEN Urine Mucus 0 SEEN 05/14/19 05/14/19 17:32 17:32 WBC RBC Hgb Hct MCV MCH MCHC RDW Std Deviation RDW Coeff of Debra Plt Count MPV Immature Gran % (Auto) Neut % (Auto) Lymph % (Auto) [place] % (Auto) Eos % (Auto) Baso % (Auto) Absolute Neuts (auto) Absolute Lymphs (auto) Nucleated RBC % ESR PT INR APTT Sodium 134 L Potassium 4.4 Chloride 102 Carbon Dioxide 26.0 Anion Gap 6 BUN 35 H Creatinine 1.64 H Estim Creat Clear Calc 51.92 Est GFR (MDRD) Af Amer 55 L Est GFR (MDRD) Non-Af 46 L BUN/Creatinine Ratio 21.3 H Glucose 166 H Lactic Acid 1.2 Calcium 8.9 Total Bilirubin 0.70 AST 11 L ALT 22 Alkaline Phosphatase 71 C-React Prot Ext Range 157.00 H Total Protein 8.1 Albumin 3.2 Globulin 4.9 H Albumin/Globulin Ratio 0.7 L Urine Color Urine Clarity Urine pH Ur Specific [place] Urine Protein Urine Glucose (UA) Urine Ketones Urine Occult Blood Urine Nitrite Urine Bilirubin Urine Urobilinogen Ur Leukocyte Esterase Urine RBC Urine WBC Ur Squamous Epith Cells Urine Bacteria Urine Mucus Clinical Impression(s) from Imaging Studies Foot X-Ray 05/14/19 16:50 IMPRESSION: Stable Charcot postsurgical changes of the left foot. Stable calcaneal spurs. Marked soft tissue swelling with no resorption of bone to suggest osteomyelitis. Electronically Signed: Mateo Chandler MD at 17:16 EDT , Service support , Chest X-Ray 05/14/19 16:58 IMPRESSION: Mild hyperexpansion with no acute finding. Electronically Signed: Mateo Chandler MD at 17:17 EDT , Service support , Assessment/Plan All Active Problems Diabetic foot infection (Acute) This is a 63 years old male patient presented to the emergency room because of fever and confusion, found to have sepsis secondary to recurrent left diabetic foot infection/infected wound/nonhealing left foot ulcer and he is being admitted for treatment. #1 sepsis/recurrent left diabetic foot infection/cellulitis/infected wound/nonhealing plantar left foot ulcer: In context of history of recurrent diabetic foot infections and recurrent osteomyelitis, patient completed IV antibiotics around 1 week ago. Patient is febrile, tachycardic, have leukocytosis. Patient was informed multiple times in the past that he may need surgery or amputation but he refused. Apparently, patient is not able to comprehend what ever we inform him and it is very difficult to have the patient understand that his infection will keep coming back if it is not treated appropriately with surgery and that may include amputation. X-ray of the left knee reviewed, revealed no findings suggestive of osteomyelitis. His ESR and CRP are elevated. Plan: Admit to PCU, cardiac monitoring, IV fluids, wound culture, blood culture, MRSA wound screen, start IV vancomycin and Zosyn, podiatry medicine consult, infectious disease consult, repeat CBC and BMP tomorrow morning, PT OT evaluation and treatment. #2 uncontrolled type 2 diabetes mellitus: Patient is noncompliant, most recent hemoglobin A1c was 13.9 on March,. Plan: ADA diet, Accu-Cheks, insulin sliding scale, continue home doses of Basaglar insulin and insulin lispro. #3 hypertension: Blood pressure was slightly elevated, plan to continue lisinopril, hold HCTZ, start IV hydralazine PRN. #4 renal insufficiency: Baseline kidney function has been fluctuating anywhere between 0.8 up to 1.6 mg/dL. Admission creatinine is 1.64. Plan for IV fluids, input output chart, repeat BMP tomorrow morning. #5 dementia: Supportive care. #6 DVT prophylaxis: Subcu heparin. This note was generated with [employer] dictation software. It may contain incorrect words, spelling, and punctuation that were not noted in checking the note before signing. Code Visit Inpatient E&M: 07622 Init Hosp L3
--- NOTE | 2019-05-14 18:57 | PCM.CONS.GEN ---
Problem List (1) Chronic ulcer of left foot with fat layer exposed Status: Chronic (2) Type 2 diabetes mellitus with diabetic polyneuropathy Status: Chronic (3) Other acquired deformities of left foot Status: Chronic (4) Diabetic foot infection Status: Acute (5) Malnutrition Status: Chronic Reason for Consult Date of Consultation: 05/14/19 Reason for Consultation: left diabetic foot infection History of Present Illness: The patient is a 63 year old M with multiple comorbidities was consulted to podiatry after presenting to the emergency room with left diabetic foot infection. This patient was recently admitted to the hospital in early March for the same issue. The patient follows with Dr. Bailon at the wound healing center. The patient had 2 family members present with one being his mother. Patient has a history of chronic diabetic foot infections as well as suspected chronic osteomyelitis. He has already had previous amputation of the middle 3 digits of the left foot in the past. The patient and the family members all relate that the patient is adamant about not having any further surgical procedures in the operating room to drain the area or amputations. Patient came to the ER due to fever and confusion. They also noticed some drainage coming from the foot. He was just recently discharged from the custodial about a week ago and finished his IV broad-spectrum antibiotics a little over a week ago and the PICC line was removed. Since his discharge from the custodial he is not been able to properly care for his wound even though he has shown up to his visits at the wound healing center. Patient is a poor historian and is hard to get to participate in his examination. Patient denies pain to the left foot. 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) Peripheral neuropathy (Chronic) Hypertension (Chronic) Type 2 diabetes mellitus (Chronic) Allergies No Known Allergies Allergy (Verified 05/14/19 16:47) Home Medications: Ambulatory Orders Medication Instructions Recorded Hydrochlorothiazide [Hctz] 25 mg PO DAILY tablet 11/24/18 Lisinopril [Zestril] 40 mg PO DAILY tablet 11/24/18 Pantoprazole Sodium [Protonix] 40 mg PO DAILY tablet 11/24/18 Insulin Glargine,Hum.rec.anlog 30 unit SQ DAILY 11/29/18 [Basaglar Kwikpen U-100] Loratadine 10 mg PO DAILY 03/26/19 Docusate Sodium [Colace] 100 mg PO BID PRN PRN 05/14/19 Insulin Lispro [Admelog] 10 units SQ DAILY 05/14/19 Multivitamin with Folic Acid 1 tab PO DAILY 05/14/19 [Thera Tablet] Surgical History: - - Amputation of the left second, third and fifth toe. Psychiatric History: No pertinent psych hx Lives: With Family Smoking Status: Never smoker Alcohol: None Drugs: None - *Family History Maternal History Items: Diabetes Paternal History Items: - - before I was born. Unknown cause. Review of Systems Constitutional: Reports: Fever. Denies: Anorexia, Chills, Weakness Eyes: Denies: Blurred vision, Double vision, Drainage, Redness HEENT: Denies: Head Aches, Sinus Congestion, Sinus Drainage Cardiovascular: Denies: Chest Pain, Palpitations Respiratory: Denies: Cough, Shortness of breath at rest, Sputum production Gastrointestinal: Denies: Abdominal Pain, Nausea, Vomiting Genitourinary: Denies: Dysuria Musculoskeletal: Denies: Foot Pain, Joint Pain, Joint Tenderness Skin: Reports: - - Ulcer left foot Neurological: Denies: Numbness, Tingling, Focal weakness Psychiatric: Denies: Anxiety, Depression - Physical Exam General: Alert, Cooperative, Well nourished Extremities: No cyanosis, Capillary Refill Less than 3 Seconds - To distal left foot, No Calf Tenderness - Negative Aric and Bowman sign of left lower extremity, Diminished Peripheral Pulses, - - Compartments soft and palpable to left lower extremity Skin: Ulcer/ Wound - Ulcer to plantar distal left foot. Ulcer probes to bone. There is some very scant purulence expressed with mostly sanguinous drainage. No significant malodor noted bedside. Some minor erythema noted to left dorsal foot distally. Some edema appreciated to the left foot as well (however family states that this is a normal size of the patient's foot). Patient also has an unstageable pressure wound to the distal right third toe. Musculoskeletal: No Tenderness to Palpation of Joints or Extremities, - - History of partial toe amputation of central digits of left foot. Neurological: - - Lack of epicritic sensation to left lower extremity consistent with patient's diabetic status Psych/Mental Status: Normal Affect, Appropriate Vital Signs Temp Pulse Resp BP Pulse Ox 103.2 F H 118 H 16 160/76 H 95 05/14/19 17:45 05/14/19 17:45 05/14/19 17:45 05/14/19 17:45 05/14/19 17:45 Oxygen Delivery Method Room Air Weight: 89.4 kg Body Mass Index (BMI) 26.7 Finger Stick Blood Glucose 455 Intake and Output for Last 24 Hours 05/12/19 05/13/19 05/14/19 23:59 23:59 23:59 Intake Total 0 / 0 Balance 0 / 0 Laboratory Tests Past 24 Hrs 05/14/19 05/14/19 05/14/19 17:30 17:32 17:32 WBC 16.9 H RBC 4.04 L Hgb 11.4 L Hct 34.4 L MCV 85.1 MCH 28.2 MCHC 33.1 RDW Std Deviation 41.7 RDW Coeff of Debra 13.3 Plt Count 353 MPV 9.8 Immature Gran % (Auto) 0.600 Neut % (Auto) 84.0 H Lymph % (Auto) 7.5 L [place] % (Auto) 7.6 Eos % (Auto) 0.0 Baso % (Auto) 0.3 Absolute Neuts (auto) 14.2 H Absolute Lymphs (auto) 1.26 Nucleated RBC % 0 ESR 27 H PT 16.2 H INR 1.3 APTT 33.8 Sodium Potassium Chloride Carbon Dioxide Anion Gap BUN Creatinine Estim Creat Clear Calc Est GFR (MDRD) Af Amer Est GFR (MDRD) Non-Af BUN/Creatinine Ratio Glucose Lactic Acid Calcium Total Bilirubin AST ALT Alkaline Phosphatase C-React Prot Ext Range Total Protein Albumin Globulin Albumin/Globulin Ratio Urine Color Yellow Urine Clarity Clear Urine pH 5.0 Ur Specific [place] 1.015 Urine Protein 100 H Urine Glucose (UA) 50 H Urine Ketones Negative Urine Occult Blood Negative Urine Nitrite Negative Urine Bilirubin Negative Urine Urobilinogen Normal Ur Leukocyte Esterase Negative Urine RBC 0 SEEN Urine WBC 0 SEEN Ur Squamous Epith Cells 0 SEEN Urine Bacteria 0 SEEN Urine Mucus 0 SEEN 05/14/19 05/14/19 17:32 17:32 WBC RBC Hgb Hct MCV MCH MCHC RDW Std Deviation RDW Coeff of Debra Plt Count MPV Immature Gran % (Auto) Neut % (Auto) Lymph % (Auto) [place] % (Auto) Eos % (Auto) Baso % (Auto) Absolute Neuts (auto) Absolute Lymphs (auto) Nucleated RBC % ESR PT INR APTT Sodium 134 L Potassium 4.4 Chloride 102 Carbon Dioxide 26.0 Anion Gap 6 BUN 35 H Creatinine 1.64 H Estim Creat Clear Calc 51.92 Est GFR (MDRD) Af Amer 55 L Est GFR (MDRD) Non-Af 46 L BUN/Creatinine Ratio 21.3 H Glucose 166 H Lactic Acid 1.2 Calcium 8.9 Total Bilirubin 0.70 AST 11 L ALT 22 Alkaline Phosphatase 71 C-React Prot Ext Range 157.00 H Total Protein 8.1 Albumin 3.2 Globulin 4.9 H Albumin/Globulin Ratio 0.7 L Urine Color Urine Clarity Urine pH Ur Specific [place] Urine Protein Urine Glucose (UA) Urine Ketones Urine Occult Blood Urine Nitrite Urine Bilirubin Urine Urobilinogen Ur Leukocyte Esterase Urine RBC Urine WBC Ur Squamous Epith Cells Urine Bacteria Urine Mucus Assessment/Plan All Active Problems Diabetic foot infection (Acute) Left diabetic foot infection with history of suspected chronic osteomyelitis DM with neuropathy Left foot deformity with prominent metatarsal heads Noncompliance Other comorbidities This patient was carefully examined and evaluated resting in his bed in the emergency room this evening. His WBC is 16.9. ESR is 27. CRP is 157. Lactic acid is 1.2. As of 707 this evening, patient is afebrile. Patient's x-ray exam that was taken earlier this evening was reviewed. Patient has a previous history of toe amputations with evidence of chronic osteomyelitis in the metatarsal heads. Deep wound cultures were taken by the ER physician and sent for aerobic, anaerobic and MRSA PCR evaluation. Blood cultures also taken and results are pending. We will continue to monitor for results from these. Patient is started on IV antibiotics at this time. Infectious disease consultation is appreciated. I discussed the patient's case with both the patient and his family members in great detail. I continue to suggest and recommend incision and drainage with debridement of soft tissue and bone as well as transmetatarsal amputation. I explained the risks involved in avoiding surgical procedures such as continued recurrent infections and admission to the hospital. I also explained that these recurrent infections and refusing a surgical procedure could potentially cause the patient his life as well. He and his family demonstrated understanding of all of this. The patient continues to refuse any type of surgical intervention at this time as he is done previously at his other stays in the hospital. The patient did consent to a light bedside debridement as well as an irrigation after Betadine prep was performed. Pre-debridement the ulcer measured approximately 1.5 cm x 1.5 cm x 2.5 cm with probe to bone appreciated. Post debridement the ulcer measured approximately 1.8 x 1.8 x 2.5 cm. Once complete, the site was irrigated with copious amounts of normal sterile saline. The ulcer site was then dressed with Betadine soaked gauze, 4 x 4's, ABD, Kerlix, and Kishan bandage. I recommend 1-2 irrigations in this manner per day. The patient is to be nonweightbearing to the left forefoot. Medical management and DVT prophylaxis per primary team is appreciated. Podiatry will continue to follow this patient closely while in house.
[2019-05-14 19:07] VITALS: BP 145/67; PULSE 103; RESP 18; TEMP 37.3; O2SAT 98
[2019-05-14 19:31] VITALS: BMI 26.4
[2019-05-14 19:35] VITALS: BP 131/69; PULSE 94; RESP 16; TEMP 37.3; O2SAT 99
[2019-05-14 19:41] VITALS: BMI 26.4
[2019-05-14 19:45] VITALS: PULSE 95
--- NOTE | 2019-05-14 20:05 | PCM.RX.CS ---
Consult Pharmacy has been consulted to manage selected antiobiotic: Vancomycin Type of Consult: New start Suspected Infection: Sepsis Labs: Sodium 134 mmol/L (136-145) L 05/14/19 17:32 Potassium 4.4 mmol/L (3.5-5.1) 05/14/19 17:32 Chloride 102 mmol/L (98-107) 05/14/19 17:32 Carbon Dioxide 26.0 mmol/L (21.0-32.0) 05/14/19 17:32 6 (5-15) 05/14/19 17:32 BUN 35 mg/dL (7-18) H 05/14/19 17:32 1.64 mg/dL (0.70-1.30) H 05/14/19 17:32 Est GFR (MDRD) Af Amer 55 mL/min (>60) L 05/14/19 17:32 Est GFR (MDRD) Non-Af 46 mL/min (>60) L 05/14/19 17:32 21.3 RATIO (10-20) H 05/14/19 17:32 Glucose 166 mg/dL (74-106) H 05/14/19 17:32 Weight used for dosin lb 0.108 oz Estimated Creatinine Clearance: 52 Goal Trough: 15-20 mcg/mL Pharmacy Plan for Drug Dosing: Pharmacy Service will continue to monitor and adjust dosing as required. Dose of 1250mg given in ED. Entered dose of 750mg q12h is correct Will obtain trough on 05/16 at 0530. Will dose to maintain trough of 15-20 Follow-Up Labs: Trough Vancomycin - 05/16 0530
[2019-05-14 20:20] LABS: Bedside Glucose 157 mg/dL (70-110)
[2019-05-14] MEDS: CLARIFY ORDER 1 EACH NOTE (21:12)
[2019-05-14] MEDS: 0.9% Normal Saline 1,000 ML 100 ML IV (21:24)
[2019-05-14] MEDS: Heparin Injection (Vial) 5,000 UNIT/ML VIAL 5000 UNIT SC (22:14)
[2019-05-14 22:21] LABS: Bedside Glucose 122 mg/dL (70-110)
[2019-05-14 23:24] VITALS: PULSE 117
[2019-05-15] VITALS (9 sets, daily range): BP systolic 136–154; BP diastolic 68–87; PULSE 89–114; RESP 16–18; TEMP 37.1–37.7; O2SAT 94–97
[2019-05-15 00:38] LABS: Probe Check PASS; Staph aureus DNA By PCR POSITIVE (Negative)
[2019-05-15 00:39] LABS: M R Staph aureus DNA By PCR POSITIVE (Negative)
[2019-05-15 06:04] LABS: Absolute Lymphocyte Count 1.29 X10^3/uL (0.83-4.51); Absolute Neutrophil Count 9.1 X10^3/uL (2.0-7.7); Basophil# 0.07 X10^3/uL; Basophil% 0.6 % (0-1); Hematocrit 29.6 % (40-54); Hemoglobin 9.8 g/dL (13.0-16.5); Lymphocyte # 1.29 X10^3/ul (4.0); Lymphocyte % 11.2 % (19-41); Mean Corp Hgb Conc 33.1 g/dL (32-36); Mean Corpuscular Hgb 27.8 pg (27.0-32.0); Mean Corpuscular Volume 84.1 fL (80-94); Mean Platelet Vol. 10.1 fl (6.2-12.0); Monocyte# 1.01 X10^3/uL; Monocyte% 8.8 % (0-10); NRBC Flagged by Analyzer 0 % (0-5); Neutrophil # 9.08 X10^3/uL (2.7-7.7); Neutrophil % 79.1 % (47-70); Platelet Count 291 K/mm3 (150-450); RBC Distribution Width CV 13.5 % (11.6-14.6); RBC Distribution Width SD 41.8 fl (35.1-43.9); Red Blood Count 3.52 M/mm3 (4.6-6.2); White Blood Count 11.5 K/mm3 (4.4-11.0)
[2019-05-15 06:11] LABS: Anion Gap 8 (5-15); BUN 27 mg/dL (7-18); BUN/Creat Ratio 20.1 RATIO (10-20); Calcium,Total 8.2 mg/dL (8.5-10.1); Chloride 107 mmol/L (98-107); Creatinine, Serum 1.34 mg/dL (0.70-1.30); EST Glomerular Filtration Rate 57 mL/min (>60); Est Glom Filt Rate - Afr Amer 70 mL/min (>60); Estimated Creatinine Clearance 63.54 ml/min; Glucose 97 mg/dL (74-106); Potassium 3.9 mmol/L (3.5-5.1); Sodium Level 138 mmol/L (136-145)
--- NOTE | 2019-05-15 08:30 | NURSING ---
Patient yelling out, threatening staff. He refuses pills and insulin. Ever [facility] aware, in to see patient.
[2019-05-15] MEDS: 0.9% Normal Saline 1,000 ML 100 ML IV ×2 (08:35→17:47)
[2019-05-15] MEDS: Haloperidol Lactate 5 MG/ML Vial IM (09:37)
--- NOTE | 2019-05-15 10:35 | CON.PCM_ITS ---
Problem List (1) Osteomyelitis Status: Chronic Qualifiers: Comment: chronic refractory osteomyelitis Reason for Consult: osteo Consulted by: Dr. Garcia History of Present Illness: The patient is a 63 year old M with recurrent L foot osteo. Recently completed course of iv abx at [facility], went home past week, readmitted with worsening L foot. Denies any complaints, says his foot is fine. On vanc/zosyn currently. Full ROS performed and neg except as noted above. 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) Peripheral neuropathy (Chronic) Hypertension (Chronic) Type 2 diabetes mellitus (Chronic) Allergies/Adverse Reactions: Allergies No Known Allergies Allergy (Verified 05/14/19 16:47) Home Medications: Ambulatory Orders Medication Instructions Recorded Hydrochlorothiazide [Hctz] 25 mg PO DAILY tablet 11/24/18 Lisinopril [Zestril] 40 mg PO DAILY tablet 11/24/18 Pantoprazole Sodium [Protonix] 40 mg PO DAILY tablet 11/24/18 Insulin Glargine,Hum.rec.anlog 30 unit SQ DAILY 11/29/18 [Basaglar Kwikpen U-100] Loratadine 10 mg PO DAILY 03/26/19 Docusate Sodium [Colace] 100 mg PO BID PRN PRN 05/14/19 Insulin Lispro [Admelog] 10 units SQ DAILY 05/14/19 Multivitamin with Folic Acid 1 tab PO DAILY 05/14/19 [Thera Tablet] - Social History Tobacco Use: cigarettes Vital Signs Temp Pulse Resp BP Pulse Ox 99.8 F H 99 18 148/68 H 94 05/15/19 05:19 05/15/19 07:14 05/15/19 05:19 05/15/19 05:19 05/15/19 07:54 Oxygen Delivery Method Room Air Weight: 88.4 kg Body Mass Index (BMI) 26.4 Finger Stick Blood Glucose 455 Microbiology Past 72 Hours 05/14/19 17:00 Blood Culture - Preliminary Blood Culture (Wb) - Right Hand Laboratory Tests Past 24 Hrs 05/14/19 05/14/19 05/14/19 16:50 17:30 17:32 WBC 16.9 H RBC 4.04 L Hgb 11.4 L Hct 34.4 L MCV 85.1 MCH 28.2 MCHC 33.1 RDW Std Deviation 41.7 RDW Coeff of Debra 13.3 Plt Count 353 MPV 9.8 Immature Gran % (Auto) 0.600 Neut % (Auto) 84.0 H Lymph % (Auto) 7.5 L [place] % (Auto) 7.6 Eos % (Auto) 0.0 Baso % (Auto) 0.3 Absolute Neuts (auto) 14.2 H Absolute Lymphs (auto) 1.26 Nucleated RBC % 0 ESR 27 H PT INR APTT Sodium Potassium Chloride Carbon Dioxide Anion Gap BUN Creatinine Estim Creat Clear Calc Est GFR (MDRD) Af Amer Est GFR (MDRD) Non-Af BUN/Creatinine Ratio Glucose Lactic Acid Calcium Total Bilirubin AST ALT Alkaline Phosphatase C-React Prot Ext Range Total Protein Albumin Globulin Albumin/Globulin Ratio Urine Color Yellow Urine Clarity Clear Urine pH 5.0 Ur Specific [place] 1.015 Urine Protein 100 H Urine Glucose (UA) 50 H Urine Ketones Negative Urine Occult Blood Negative Urine Nitrite Negative Urine Bilirubin Negative Urine Urobilinogen Normal Ur Leukocyte Esterase Negative Urine RBC 0 SEEN Urine WBC 0 SEEN Ur Squamous Epith Cells 0 SEEN Urine Bacteria 0 SEEN Urine Mucus 0 SEEN S.aureus Protein A PCR POSITIVE H MRSA (PCR) POSITIVE H 05/14/19 05/14/19 05/14/19 17:32 17:32 17:32 WBC RBC Hgb Hct MCV MCH MCHC RDW Std Deviation RDW Coeff of Debra Plt Count MPV Immature Gran % (Auto) Neut % (Auto) Lymph % (Auto) [place] % (Auto) Eos % (Auto) Baso % (Auto) Absolute Neuts (auto) Absolute Lymphs (auto) Nucleated RBC % ESR PT 16.2 H INR 1.3 APTT 33.8 Sodium 134 L Potassium 4.4 Chloride 102 Carbon Dioxide 26.0 Anion Gap 6 BUN 35 H Creatinine 1.64 H Estim Creat Clear Calc 51.92 Est GFR (MDRD) Af Amer 55 L Est GFR (MDRD) Non-Af 46 L BUN/Creatinine Ratio 21.3 H Glucose 166 H Lactic Acid 1.2 Calcium 8.9 Total Bilirubin 0.70 AST 11 L ALT 22 Alkaline Phosphatase 71 C-React Prot Ext Range 157.00 H Total Protein 8.1 Albumin 3.2 Globulin 4.9 H Albumin/Globulin Ratio 0.7 L Urine Color Urine Clarity Urine pH Ur Specific [place] Urine Protein Urine Glucose (UA) Urine Ketones Urine Occult Blood Urine Nitrite Urine Bilirubin Urine Urobilinogen Ur Leukocyte Esterase Urine RBC Urine WBC Ur Squamous Epith Cells Urine Bacteria Urine Mucus S.aureus Protein A PCR MRSA (PCR) 05/15/19 05/15/19 05:20 05:20 WBC 11.5 H RBC 3.52 L Hgb 9.8 L Hct 29.6 L MCV 84.1 MCH 27.8 MCHC 33.1 RDW Std Deviation 41.8 RDW Coeff of Debra 13.5 Plt Count 291 MPV 10.1 Immature Gran % (Auto) 0.300 Neut % (Auto) 79.1 H Lymph % (Auto) 11.2 L [place] % (Auto) 8.8 Eos % (Auto) 0.0 Baso % (Auto) 0.6 Absolute Neuts (auto) 9.1 H Absolute Lymphs (auto) 1.29 Nucleated RBC % 0 ESR PT INR APTT Sodium 138 Potassium 3.9 Chloride 107 Carbon Dioxide 23.0 Anion Gap 8 BUN 27 H Creatinine 1.34 H Estim Creat Clear Calc 63.54 Est GFR (MDRD) Af Amer 70 Est GFR (MDRD) Non-Af 57 L BUN/Creatinine Ratio 20.1 H Glucose 97 Lactic Acid Calcium 8.2 L Total Bilirubin AST ALT Alkaline Phosphatase C-React Prot Ext Range Total Protein Albumin Globulin Albumin/Globulin Ratio Urine Color Urine Clarity Urine pH Ur Specific [place] Urine Protein Urine Glucose (UA) Urine Ketones Urine Occult Blood Urine Nitrite Urine Bilirubin Urine Urobilinogen Ur Leukocyte Esterase Urine RBC Urine WBC Ur Squamous Epith Cells Urine Bacteria Urine Mucus S.aureus Protein A PCR MRSA (PCR) - Other Studies Radiology: [] reviewed Other Studies: [] Route of nutrition/ use of supplements: [] Nutritional Intake: [] IV Site: [] Crawley Catheter: [] Pt refuses physical exam. - Physical Exam General: Alert, Non-Cooperative - Assessment/Plan Antibiotics: [] Assessment/Plan: [] L foot osteo - recurrent infections. Has repeatedly refused surgical debridement/amputation. On vanc/zosyn, cx pending, podiatry following. Will follow, thank you.
--- NOTE | 2019-05-15 11:13 | PCM.PROGNOTE ---
Subjective: This patient was seen again this morning for left diabetic foot ulcer with history of chronic osteo. Nurses informed me that earlier before my arrival the patient has been combative and yelling at them. Patient has since calmed down and is resting comfortably in his bed. He continues to relate that he feels fine. He denies any feelings of nausea, vomiting, chills. He continues to relate that he is not having any type of surgical procedure performed on his foot. - Physical Exam General: Alert, Cooperative, Well nourished Extremities: No cyanosis, Capillary Refill Less than 3 Seconds - To distal left foot, No Calf Tenderness - Negative Aric and Bowman sign left lower extremity, Diminished Peripheral Pulses, - - Compartments soft and palpable to left lower extremity Skin: Ulcer/ Wound - Ulcer to plantar distal left foot. Ulcer continues to probe to bone. No significant purulence expressed today with mostly sanguinous drainage noted. No significant malodor noted today. Improving erythema noted to left dorsal foot distally. Slightly improved edema appreciated to the left foot as well. Patient also has an unstageable pressure wound to the distal right third toe. Musculoskeletal: No Tenderness to Palpation of Joints or Extremities, - - History of partial toe amputation digits 2 3 and 5 of the left foot. Neurological: - - Lack of epicritic sensation to left lower extremity consistent with patient's diabetic status Psych/Mental Status: Normal Affect, Appropriate Vital Signs Temp Pulse Resp BP Pulse Ox 99.8 F H 99 18 148/68 H 94 05/15/19 05:19 05/15/19 07:14 05/15/19 05:19 05/15/19 05:19 05/15/19 07:54 Oxygen Delivery Method Room Air Weight: 88.4 kg Body Mass Index (BMI) 26.4 Finger Stick Blood Glucose 455 Intake and Output for Last 24 Hours 05/13/19 05/14/19 05/15/19 23:59 23:59 23:59 Intake Total 1603.34 / 1603.34 1086.66 / 1086.66 Output Total 125 / 125 Balance 1478.34 / 1478.34 1086.66 / 1086.66 Microbiology Past 72 Hours 05/14/19 17:00 Blood Culture - Preliminary Blood Culture (Wb) - Right Hand Laboratory Tests Past 24 Hrs 05/14/19 05/14/19 05/14/19 16:50 17:30 17:32 WBC 16.9 H RBC 4.04 L Hgb 11.4 L Hct 34.4 L MCV 85.1 MCH 28.2 MCHC 33.1 RDW Std Deviation 41.7 RDW Coeff of Debra 13.3 Plt Count 353 MPV 9.8 Immature Gran % (Auto) 0.600 Neut % (Auto) 84.0 H Lymph % (Auto) 7.5 L [place] % (Auto) 7.6 Eos % (Auto) 0.0 Baso % (Auto) 0.3 Absolute Neuts (auto) 14.2 H Absolute Lymphs (auto) 1.26 Nucleated RBC % 0 ESR 27 H PT INR APTT Sodium Potassium Chloride Carbon Dioxide Anion Gap BUN Creatinine Estim Creat Clear Calc Est GFR (MDRD) Af Amer Est GFR (MDRD) Non-Af BUN/Creatinine Ratio Glucose Lactic Acid Calcium Total Bilirubin AST ALT Alkaline Phosphatase C-React Prot Ext Range Total Protein Albumin Globulin Albumin/Globulin Ratio Urine Color Yellow Urine Clarity Clear Urine pH 5.0 Ur Specific [place] 1.015 Urine Protein 100 H Urine Glucose (UA) 50 H Urine Ketones Negative Urine Occult Blood Negative Urine Nitrite Negative Urine Bilirubin Negative Urine Urobilinogen Normal Ur Leukocyte Esterase Negative Urine RBC 0 SEEN Urine WBC 0 SEEN Ur Squamous Epith Cells 0 SEEN Urine Bacteria 0 SEEN Urine Mucus 0 SEEN S.aureus Protein A PCR POSITIVE H MRSA (PCR) POSITIVE H 05/14/19 05/14/19 05/14/19 17:32 17:32 17:32 WBC RBC Hgb Hct MCV MCH MCHC RDW Std Deviation RDW Coeff of Debra Plt Count MPV Immature Gran % (Auto) Neut % (Auto) Lymph % (Auto) [place] % (Auto) Eos % (Auto) Baso % (Auto) Absolute Neuts (auto) Absolute Lymphs (auto) Nucleated RBC % ESR PT 16.2 H INR 1.3 APTT 33.8 Sodium 134 L Potassium 4.4 Chloride 102 Carbon Dioxide 26.0 Anion Gap 6 BUN 35 H Creatinine 1.64 H Estim Creat Clear Calc 51.92 Est GFR (MDRD) Af Amer 55 L Est GFR (MDRD) Non-Af 46 L BUN/Creatinine Ratio 21.3 H Glucose 166 H Lactic Acid 1.2 Calcium 8.9 Total Bilirubin 0.70 AST 11 L ALT 22 Alkaline Phosphatase 71 C-React Prot Ext Range 157.00 H Total Protein 8.1 Albumin 3.2 Globulin 4.9 H Albumin/Globulin Ratio 0.7 L Urine Color Urine Clarity Urine pH Ur Specific [place] Urine Protein Urine Glucose (UA) Urine Ketones Urine Occult Blood Urine Nitrite Urine Bilirubin Urine Urobilinogen Ur Leukocyte Esterase Urine RBC Urine WBC Ur Squamous Epith Cells Urine Bacteria Urine Mucus S.aureus Protein A PCR MRSA (PCR) 05/15/19 05/15/19 05:20 05:20 WBC 11.5 H RBC 3.52 L Hgb 9.8 L Hct 29.6 L MCV 84.1 MCH 27.8 MCHC 33.1 RDW Std Deviation 41.8 RDW Coeff of Debra 13.5 Plt Count 291 MPV 10.1 Immature Gran % (Auto) 0.300 Neut % (Auto) 79.1 H Lymph % (Auto) 11.2 L [place] % (Auto) 8.8 Eos % (Auto) 0.0 Baso % (Auto) 0.6 Absolute Neuts (auto) 9.1 H Absolute Lymphs (auto) 1.29 Nucleated RBC % 0 ESR PT INR APTT Sodium 138 Potassium 3.9 Chloride 107 Carbon Dioxide 23.0 Anion Gap 8 BUN 27 H Creatinine 1.34 H Estim Creat Clear Calc 63.54 Est GFR (MDRD) Af Amer 70 Est GFR (MDRD) Non-Af 57 L BUN/Creatinine Ratio 20.1 H Glucose 97 Lactic Acid Calcium 8.2 L Total Bilirubin AST ALT Alkaline Phosphatase C-React Prot Ext Range Total Protein Albumin Globulin Albumin/Globulin Ratio Urine Color Urine Clarity Urine pH Ur Specific [place] Urine Protein Urine Glucose (UA) Urine Ketones Urine Occult Blood Urine Nitrite Urine Bilirubin Urine Urobilinogen Ur Leukocyte Esterase Urine RBC Urine WBC Ur Squamous Epith Cells Urine Bacteria Urine Mucus S.aureus Protein A PCR MRSA (PCR) POC Glucose 05/14/19 05/14/19 22:14 20:10 POC Glucose 122 H 157 H Medical Necessity - Tobacco Use Smoking Status: Never smoker Assessment/Plan All Active Problems Diabetic foot infection (Acute) Left diabetic foot infection with history of suspected chronic osteomyelitis DM with neuropathy Left foot deformity with prominent metatarsal heads Noncompliance Other comorbidities This patient was carefully examined and evaluated resting in his bed this morning. Prior to my arrival the nurses stated that the patient is being combative and yelling this morning. His WBC is 11.5 today. ESR was 27 and CRP was 157 yesterday. Patient currently has low-grade fever but vital signs are stabilizing compared to last night in the emergency room. Deep wound cultures were taken and sent for aerobic, anaerobic and MRSA PCR evaluation. MRSA PCR was positive. We will continue to monitor for further results. Blood cultures also taken and preliminary results are showing gram-positive cocci in clusters. Continue to follow for further results. Patient is started on IV antibiotics at this time after being seen by infectious disease this morning. I again discussed the patient's case with him this morning with Shruthi Julien in the room with me. I continue to suggest and recommend incision and drainage with debridement of soft tissue and bone as well as at least partial foot amputation. I explained the risks involved in avoiding surgical procedures such as continued recurrent infections and admissions to the hospital. I also explained that these recurrent infections and refusing a surgical procedure to get rid of the infection could potentially cost the patient his life as well. He again says he knows this and begins to mock me. The patient continues to refuse any type of surgical intervention at this time as he is done previously at his other stays in the hospital. The site was carefully examined and evaluated in detail again today. Once complete, the site was irrigated with copious amounts of normal sterile saline. The ulcer site was then dressed with Betadine soaked gauze wicked into ulcer site, 4 x 4's, ABD, Kerlix, and Kishan bandage. I recommend 2 irrigations in this manner per day. This was related to Shruthi Julien who helped with dressing change today. The patient is to be nonweightbearing to the left forefoot. Medical management and DVT prophylaxis per primary team is appreciated. Podiatry will continue to follow this patient closely while in house.
--- NOTE | 2019-05-15 11:54 | NURSING ---
wound photo: left foot
--- NOTE | 2019-05-15 11:55 | NURSING ---
wound photo: right 3rd toe
--- NOTE | 2019-05-15 14:21 | PCM.PROGNOTE ---
Subjective: The patient was very confused this morning and agitated, making threatening gestures towards the nursing staff. I attempted to speak to him to find out what his concerns were. He stated we were keeping him against his will and that the only reason we we wanted to keep him in the system and denied that his infection was an issue. I advised him on the potentially lethal outcomes of untreated bacteremia. He did not respond. I asked him where he would go if he left the hospital today and he refused to answer. I asked him questions such as his name, location, and what today is and he refused to respond. He was ambulating on the foot that is infected around the room. He refused to allow me to examine him. Due to increasingly irrational, and aggressive behavior he received IM haldol. - Physical Exam Comment: Pt refused to allow me to examine him. Vital Signs Temp Pulse Resp BP Pulse Ox 99 F 89 16 142/78 H 96 05/15/19 08:00 05/15/19 08:00 05/15/19 08:00 05/15/19 08:00 05/15/19 08:00 Oxygen Delivery Method Room Air Weight: 194 lb 14.218 oz Body Mass Index (BMI) 26.4 Finger Stick Blood Glucose 455 Intake and Output for Last 24 Hours 05/13/19 05/14/19 05/15/19 23:59 23:59 23:59 Intake Total 1603.34 / 1603.34 1326.66 / 1326.66 Output Total 125 / 125 Balance 1478.34 / 1478.34 1326.66 / 1326.66 Microbiology Past 72 Hours 05/14/19 16:50 Wound Culture - Preliminary Wound Abcess - Left Foot Staphylococcus aureus Proteus sp. 05/14/19 17:00 Blood Culture - Preliminary Blood Culture (Wb) - Right Hand Laboratory Tests Past 24 Hrs 05/14/19 05/14/19 05/14/19 16:50 17:30 17:32 WBC 16.9 H RBC 4.04 L Hgb 11.4 L Hct 34.4 L MCV 85.1 MCH 28.2 MCHC 33.1 RDW Std Deviation 41.7 RDW Coeff of Debra 13.3 Plt Count 353 MPV 9.8 Immature Gran % (Auto) 0.600 Neut % (Auto) 84.0 H Lymph % (Auto) 7.5 L [place] % (Auto) 7.6 Eos % (Auto) 0.0 Baso % (Auto) 0.3 Absolute Neuts (auto) 14.2 H Absolute Lymphs (auto) 1.26 Nucleated RBC % 0 ESR 27 H PT INR APTT Sodium Potassium Chloride Carbon Dioxide Anion Gap BUN Creatinine Estim Creat Clear Calc Est GFR (MDRD) Af Amer Est GFR (MDRD) Non-Af BUN/Creatinine Ratio Glucose Lactic Acid Calcium Total Bilirubin AST ALT Alkaline Phosphatase C-React Prot Ext Range Total Protein Albumin Globulin Albumin/Globulin Ratio Urine Color Yellow Urine Clarity Clear Urine pH 5.0 Ur Specific [place] 1.015 Urine Protein 100 H Urine Glucose (UA) 50 H Urine Ketones Negative Urine Occult Blood Negative Urine Nitrite Negative Urine Bilirubin Negative Urine Urobilinogen Normal Ur Leukocyte Esterase Negative Urine RBC 0 SEEN Urine WBC 0 SEEN Ur Squamous Epith Cells 0 SEEN Urine Bacteria 0 SEEN Urine Mucus 0 SEEN S.aureus Protein A PCR POSITIVE H MRSA (PCR) POSITIVE H 05/14/19 05/14/19 05/14/19 17:32 17:32 17:32 WBC RBC Hgb Hct MCV MCH MCHC RDW Std Deviation RDW Coeff of Debra Plt Count MPV Immature Gran % (Auto) Neut % (Auto) Lymph % (Auto) [place] % (Auto) Eos % (Auto) Baso % (Auto) Absolute Neuts (auto) Absolute Lymphs (auto) Nucleated RBC % ESR PT 16.2 H INR 1.3 APTT 33.8 Sodium 134 L Potassium 4.4 Chloride 102 Carbon Dioxide 26.0 Anion Gap 6 BUN 35 H Creatinine 1.64 H Estim Creat Clear Calc 51.92 Est GFR (MDRD) Af Amer 55 L Est GFR (MDRD) Non-Af 46 L BUN/Creatinine Ratio 21.3 H Glucose 166 H Lactic Acid 1.2 Calcium 8.9 Total Bilirubin 0.70 AST 11 L ALT 22 Alkaline Phosphatase 71 C-React Prot Ext Range 157.00 H Total Protein 8.1 Albumin 3.2 Globulin 4.9 H Albumin/Globulin Ratio 0.7 L Urine Color Urine Clarity Urine pH Ur Specific [place] Urine Protein Urine Glucose (UA) Urine Ketones Urine Occult Blood Urine Nitrite Urine Bilirubin Urine Urobilinogen Ur Leukocyte Esterase Urine RBC Urine WBC Ur Squamous Epith Cells Urine Bacteria Urine Mucus S.aureus Protein A PCR MRSA (PCR) 05/15/19 05/15/19 05:20 05:20 WBC 11.5 H RBC 3.52 L Hgb 9.8 L Hct 29.6 L MCV 84.1 MCH 27.8 MCHC 33.1 RDW Std Deviation 41.8 RDW Coeff of Debra 13.5 Plt Count 291 MPV 10.1 Immature Gran % (Auto) 0.300 Neut % (Auto) 79.1 H Lymph % (Auto) 11.2 L [place] % (Auto) 8.8 Eos % (Auto) 0.0 Baso % (Auto) 0.6 Absolute Neuts (auto) 9.1 H Absolute Lymphs (auto) 1.29 Nucleated RBC % 0 ESR PT INR APTT Sodium 138 Potassium 3.9 Chloride 107 Carbon Dioxide 23.0 Anion Gap 8 BUN 27 H Creatinine 1.34 H Estim Creat Clear Calc 63.54 Est GFR (MDRD) Af Amer 70 Est GFR (MDRD) Non-Af 57 L BUN/Creatinine Ratio 20.1 H Glucose 97 Lactic Acid Calcium 8.2 L Total Bilirubin AST ALT Alkaline Phosphatase C-React Prot Ext Range Total Protein Albumin Globulin Albumin/Globulin Ratio Urine Color Urine Clarity Urine pH Ur Specific [place] Urine Protein Urine Glucose (UA) Urine Ketones Urine Occult Blood Urine Nitrite Urine Bilirubin Urine Urobilinogen Ur Leukocyte Esterase Urine RBC Urine WBC Ur Squamous Epith Cells Urine Bacteria Urine Mucus S.aureus Protein A PCR MRSA (PCR) POC Glucose 05/14/19 05/14/19 22:14 20:10 POC Glucose 122 H 157 H Medical Necessity - Tobacco Use Smoking Status: Never smoker Assessment/Plan All Active Problems Diabetic foot infection (Acute) 1. Severe sepsis/Bacteremia from Recurrent osteomyelitis - Left diabetic foot wound. Podiatry and ID following. Wound serology positive for MRSA, wound culture with Staph and Proteus blood with GPC. Vanc zosyn. Prior Left 2nd toe amputation. Recently completed 6 weeks of IV abx in a alf for prior bacteremia. Tmax 103.2. WBC improving. Tachycardia improving. This infection will continue to be difficult to manage given his ongoing behavioral issues and noncompliance, complicated by poorly controlled diabetes and charcot foot. -CRP 157, ESR 27 -foot xray with charcot foot -cxr with hyperexpansion -UA negative 2. Acute metabolic encephalopathy 2/2 Above - complicated by underlying memory and behavioral problems. Due to his inability to ehxibit rational behavior or thought processes he has received IV haldol and will be started on scheduled seroquel. We will contact his son who is POA for help with making medical decisions. EKG in AM. 3. T2DM - uncontrolled. Basaglar/lispro. SSI. Titrate to response. 4. Dementia is listed in his hx however it is unclear about the circumstances of this diagnosis. 5. CKDIII - IV fluids, improving. 6. Normocytic anemia - trend. 7. GERD - protonix 8. HTN - HCTZ held. On lisinopril. DVT ppx: heparin DC planning: PTOT This patient was seen by Ever Lozada PA-C under the supervision of Dr. Garcia
--- NOTE | 2019-05-15 15:43 | CPS ---
started by nursing
[2019-05-15 15:56] LABS: Bedside Glucose 127 mg/dL (70-110)
--- NOTE | 2019-05-15 16:22 | CHAPLAIN ---
did not visit this patient due to sign for no visitors' on door and on advice of education coordinator
[2019-05-15] MEDS: Haloperidol Lactate 5 MG/ML Vial 2 MG IV ×3 (16:26→17:46)
[2019-05-15] MEDS: 0.9% NaCl IVPB Med Flush (250 mL) 15 ML IV (22:29)
--- NOTE | 2019-05-15 22:40 | NURSING ---
vsa due at 2100. unable to obtain vital signs. md order to do not disturb pt if sleeping. will attempt to obtain vital signs when pt is awake.
[2019-05-16] MEDS: 0.9% Normal Saline 1,000 ML 100 ML IV ×3 (03:32→22:35)
[2019-05-16 04:32] VITALS: BP 160/81; PULSE 94; RESP 16; TEMP 37.2; O2SAT 98
[2019-05-16 04:41] LABS: Bedside Glucose 176 mg/dL (70-110)
--- NOTE | 2019-05-16 05:55 | EKG12_ITS ---
Test Reason : AM EKG Blood Pressure : / mmHG Vent. Rate : 089 BPM Atrial Rate : 089 BPM P-R Int : 144 ms QRS Dur : 084 ms QT Int : 358 ms P-R-T Axes : 076 042 070 degrees QTc Int : 435 ms Normal sinus rhythm Normal ECG Confirmed by PA TIPTON, MISHEL ([id number]), commissioning editor KRISTYN ALMANZAR ([id number]) on 05/22/2019 11:57:21 AM Referred By: Edmond Miguel Confirmed By:MISHEL WINN MD
[2019-05-16 05:59] LABS: Absolute Lymphocyte Count 1.35 X10^3/uL (0.83-4.51); Absolute Neutrophil Count 7.1 X10^3/uL (2.0-7.7); Basophil# 0.08 X10^3/uL; Basophil% 0.8 % (0-1); Eosinophil# 0.17 X10^3/uL; Eosinophils% 1.7 % (0-5); Hematocrit 27.5 % (40-54); Hemoglobin 8.8 g/dL (13.0-16.5); Lymphocyte # 1.35 X10^3/ul (4.0); Lymphocyte % 13.8 % (19-41); Mean Corpuscular Hgb 27.7 pg (27.0-32.0); Mean Corpuscular Volume 86.5 fL (80-94); Mean Platelet Vol. 9.6 fl (6.2-12.0); Monocyte# 1.06 X10^3/uL; Monocyte% 10.8 % (0-10); NRBC Flagged by Analyzer 0 % (0-5); Neutrophil # 7.11 X10^3/uL (2.7-7.7); Neutrophil % 72.5 % (47-70); Platelet Count 260 K/mm3 (150-450); RBC Distribution Width CV 13.3 % (11.6-14.6); Red Blood Count 3.18 M/mm3 (4.6-6.2); White Blood Count 9.8 K/mm3 (4.4-11.0)
[2019-05-16 06:28] LABS: Anion Gap 7 (5-15); BUN 24 mg/dL (7-18); BUN/Creat Ratio 16.6 RATIO (10-20); Chloride 108 mmol/L (98-107); Creatinine, Serum 1.45 mg/dL (0.70-1.30); EST Glomerular Filtration Rate 52 mL/min (>60); Est Glom Filt Rate - Afr Amer 63 mL/min (>60); Estimated Creatinine Clearance 58.72 ml/min; Glucose 197 mg/dL (74-106); Potassium 3.8 mmol/L (3.5-5.1); Sodium Level 138 mmol/L (136-145)
--- NOTE | 2019-05-16 06:54 | PN_ITS ---
Subjective: This patient was seen again this morning for left diabetic foot ulcer with history of chronic osteo. Patient sleeping this morning when I got to his room. He states that he feels well again today. He was not combative today as was reported by nursing staff yesterday. He denies any feelings of nausea, vomiting, chills. He continues to relate that he is not having any type of surgical procedure performed on his foot. - Physical Exam General: Alert, Cooperative, No apparent distress Extremities: No cyanosis, Capillary Refill Less than 3 Seconds - To distal left foot, No Calf Tenderness - Negative Aric and Bowman sign left lower extremity, Diminished Peripheral Pulses, - - Compartments soft and palpable to left lower extremity Skin: Ulcer/ Wound - Ulcer to plantar distal left foot. Ulcer continues to probe to bone. Very scant amount of sero-purulence expressed. Mostly sanguinous drainage noted again this morning. No significant malodor noted today. Continued improving erythema noted to left dorsal foot distally. Slowly continued improving edema appreciated to the left foot as well. Patient also has an unstageable pressure wound to the distal right third toe. Musculoskeletal: No Tenderness to Palpation of Joints or Extremities, - - History of partial toe amputation digits 2 3 and 5 of the left foot Neurological: - - Lack of epicritic sensation to left lower extremity consistent with patient's diabetic status Psych/Mental Status: Normal Affect, Appropriate Vital Signs Temp Pulse Resp BP Pulse Ox 98.9 F 94 16 160/81 H 98 05/16/19 04:32 05/16/19 04:32 05/16/19 04:32 05/16/19 04:32 05/16/19 04:32 Oxygen Delivery Method Room Air Weight: 88.4 kg Body Mass Index (BMI) 26.4 Finger Stick Blood Glucose 455 Intake and Output for Last 24 Hours 05/14/19 05/15/19 05/16/19 23:59 23:59 23:59 Intake Total 1603.34 / 1603.34 3192.95 / 3192.95 765.84 / 765.84 Output Total 125 / 125 600 / 600 Balance 1478.34 / 1478.34 2592.95 / 2592.95 765.84 / 765.84 Microbiology Past 72 Hours 05/14/19 16:50 Gram Stain - Final Wound Abcess - Left Foot Wound Culture - Preliminary Staphylococcus aureus Proteus sp. 05/14/19 17:00 Blood Culture - Preliminary Blood Culture (Wb) - Right Hand Laboratory Tests Past 24 Hrs 05/16/19 05/16/19 05/16/19 05:50 05:50 05:50 WBC 9.8 RBC 3.18 L Hgb 8.8 L Hct 27.5 L MCV 86.5 MCH 27.7 MCHC 32.0 RDW Std Deviation 42.0 RDW Coeff of Debra 13.3 Plt Count 260 MPV 9.6 Immature Gran % (Auto) 0.400 Neut % (Auto) 72.5 H Lymph % (Auto) 13.8 L Woodson % (Auto) 10.8 H Eos % (Auto) 1.7 Baso % (Auto) 0.8 Absolute Neuts (auto) 7.1 Absolute Lymphs (auto) 1.35 Nucleated RBC % 0 Sodium 138 Potassium 3.8 Chloride 108 H Carbon Dioxide 23.0 Anion Gap 7 BUN 24 H Creatinine 1.45 H Estim Creat Clear Calc 58.72 Est GFR (MDRD) Af Amer 63 Est GFR (MDRD) Non-Af 52 L BUN/Creatinine Ratio 16.6 Glucose 197 H Calcium 8.0 L Vancomycin Trough 10.0 POC Glucose 05/16/19 05/15/19 04:30 15:48 POC Glucose 176 H 127 H Medical Necessity - Tobacco Use Smoking Status: Never smoker Assessment/Plan All Active Problems Diabetic foot infection (Acute) Left diabetic foot infection with history of suspected chronic osteomyelitis DM with neuropathy Left foot deformity with prominent metatarsal heads Noncompliance Other comorbidities This patient was carefully examined and evaluated resting in his bed early this morning. Patient had no adverse events over night. His WBC is down to 9.8 today. Vital signs are currently stable. Deep wound cultures were taken and sent for aerobic, anaerobic and MRSA PCR evaluation. MRSA PCR was positive. Preliminary cultures growing staph aureus and Proteus sp. Blood cultures also taken and preliminary results are showing gram-positive cocci in clusters. Continue to follow for further results. Patient is started on IV antibiotics at this time and continues to be followed by ID. I again discussed the patient's case with him this morning. I continue to suggest and recommend incision and drainage with debridement of soft tissue and bone as well as at least partial foot amputation. I again explained the risks involved in avoiding surgical procedures such as continued recurrent infections and admissions to the hospital. I also explained that these recurrent infections and refusing a surgical procedure to get rid of the infection could potentially cost the patient his life as well. He continues to not be interested in this option and says he is not having any surgery on his foot. The site was carefully examined and evaluated in detail again today. Once complete, the site was irrigated with copious amounts of normal sterile saline. The ulcer site was then dressed with Betadine soaked gauze wicked into ulcer site, 4 x 4's, ABD, Kerlix, and Kishan bandage. I recommend 2 irrigations in this manner per day. The patient is to be nonweightbearing to the left forefoot. Medical management and DVT prophylaxis per primary team is appreciated. Podiatry will continue to follow this patient closely while in house.
--- NOTE | 2019-05-16 09:06 | NURSING ---
Pt currently eating breakfast, refuses to allow RN to check blood glucose and give scheduled insulin. He also is continuing to refuse to wear Telemetry unit. He has already been up to the RR twice this shift putting weight on let foot despite MD order to not bear weight on it.
--- NOTE | 2019-05-16 09:08 | PCM.RX.CS ---
Consult Pharmacy has been consulted to manage selected antiobiotic: Vancomycin Type of Consult: Follow-up Suspected Infection: Osteomyelitis Prior Doses of Antibiotics Received/Current Regimen: Has been on 750mg iv q12h Labs: Sodium 138 mmol/L (136-145) 05/16/19 05:50 Potassium 3.8 mmol/L (3.5-5.1) 05/16/19 05:50 Chloride 108 mmol/L (98-107) H 05/16/19 05:50 Carbon Dioxide 23.0 mmol/L (21.0-32.0) 05/16/19 05:50 7 (5-15) 05/16/19 05:50 BUN 24 mg/dL (7-18) H 05/16/19 05:50 1.45 mg/dL (0.70-1.30) H 05/16/19 05:50 Est GFR (MDRD) Af Amer 63 mL/min (>60) 05/16/19 05:50 Est GFR (MDRD) Non-Af 52 mL/min (>60) L 05/16/19 05:50 16.6 RATIO (10-20) 05/16/19 05:50 Glucose 197 mg/dL (74-106) H 05/16/19 05:50 Vancomycin Trough 10.0 ug/mL (5.0-15.0) 05/16/19 05:50 Microbiology: Microbiology 05/14/19 16:50 Wound Abcess - Left Foot Gram Stain - Final 05/14/19 16:50 Wound Abcess - Left Foot Wound Culture - Preliminary Staphylococcus aureus Proteus mirabilis 05/14/19 17:00 Blood Culture (Wb) - Right Hand Blood Culture - Preliminary Staphylococcus aureus Weight used for dosin.4 kg Estimated Creatinine Clearance: ~59 ml/min Goal Trough: 15-20 mcg/mL Pharmacy Plan for Drug Dosing: Trough level today 10 (goal 15-20 mcg/ml). Will increase dose to 1250mg iv q12h and get another trough level before 4th dose of this new regimen. Pharmacy Service will continue to monitor and adjust dosing as required. Follow-Up Labs: Trough Vancomycin - 8.30.19 @0530 before 0600 dose
[2019-05-16] MEDS: Insulin Lispro 100 UNIT/ML INSULN.PEN 10 UNIT SC (09:31)
[2019-05-16] MEDS: Insulin Lispro 100 UNIT/ML INSULN.PEN SC ×4 (09:32→22:07)
[2019-05-16 09:46] LABS: Bedside Glucose 211 mg/dL (70-110)
[2019-05-16 10:38] VITALS: BP 137/73; PULSE 96; RESP 16; TEMP 36.8; O2SAT 98
--- NOTE | 2019-05-16 11:31 | CASEMGMT ---
LEONIDES met with patient and his mom. Introduced self and role at [facility]. When SW went into room he was convinced the [employer] were playing football today. He was impatiently telling the [employer]CAR[employer] MOLDER to turn the game on several times. LEONIDES told him that it is Tuesday and the Gerry are playing tomorrow at 730p. LEONIDES then spoke with patient letting him know he is going to need to go to a long term again. His mom spoke up and said not [place] as that is too far for her. She asked about [facility]. SW asked patient if this is okay with him. He told SW, You heard the burgess bee. LEONIDES gave them a list of local SNF's in the event [facility] cannot accept patient. LEONIDES told them LEONIDES will let them know as soon as LEONIDES hears anything. Candida MONSIVAIS MSW
--- NOTE | 2019-05-16 11:38 | CASEMGMT ---
LW/POA forms in summary tab of echart for pt in [employer]. Both Financial and Medical POA scanned in, avtar Sherwood is listed as POA.
--- NOTE | 2019-05-16 12:28 | ECHOL_ITS ---
Reason For Study: bacteremia Procedure This was a limited 2D transthoracic echocardiogram. The study was technically difficult. Exam performed with patient's consent, in the recliner. Dr. Luna approved limited echo with look at valves. Exam performed portable in patient room. Left Ventricle Normal LV size. The estimated ejection fraction is 60 %. Right Ventricle Normal RV size. Normal systolic function. Atria Normal left atrium. Normal right atrium. Mitral Valve Mild diffuse mitral valve calcification. There is no vegetation seen on the mitral valve. Tricuspid Valve No vegetations identified. Aortic Valve Trisinus/trileaflet aortic valve. There is no aortic valvular vegetation. MMode/2D Measurements & Calculations LVIDd: 4.9 cm IVSd: 1.0 cm Ao root diam: 3.0 cm LVIDs: 3.6 cm LVPWd: 1.1 cm LA dimension: 3.4 cm FS: 26.8 % LAV(MOD-bp): 42.4 ml LA A4 area: 14.7 cm2 RA A4 area: 14.7 cm2 LAV(MOD-bp) Indexed: 20.2 ml/m2 LAV(MOD-sp2): 46.4 ml LAV(MOD-sp4): 35.5 ml Interpretation Summary Limited views were obtained to look for endocarditis. Please see recent previous echo for other details. The estimated ejection fraction is 60 %. No obvious vegetations seen Limited views were obtained. Ordering Physician: Kingston Luna Referring Physician: Tony Topete Performed By: Ofelia Pino, RDCS, RVT
--- NOTE | 2019-05-16 12:53 | CHAPLAIN ---
Type of Pastoral Visit _x__ Initial Visit ___ Follow-up Visit ___ On-call Visit ___ General Patient Visit ___ Spiritual Assessment ___ Family Conference ___ Bereavement ___ Rapid Response ___ Code Blue ___ Other (describe below) Pastoral Care Referral From _x__ Patient ___ Family ___ Nurse ___ Physician ___ Lead Application Architect ___ Billboard Mechanic ___ Other (describe below) Sacrament/Intervention _x__ Active listening ___ Anointing ___ Samaritan ___ Bereavement ___ Communion _x__ Yelitza exploration ___ _x__ Life review _x__ Prayer ___ Reconciliation ___ Sacrament of Sick _x__ Supportive presence ___ Wedding ___ Other (describe below) Pastoral Comments long listening session with patient who spoke of life history, family relationships, spiritual yelitza, and other matters; OT and PT came to work with patient so this session ended
--- NOTE | 2019-05-16 14:14 | CASEMGMT ---
LEONIDES received a call from Haley at [facility] and they can accept patient. She started the pre-cert and will need therapy evaluations once in the computer. LEONIDES let patient know [facility] can accept him and we just need to wait on insurance to give us the approval. He asked SW to call his mom. LEONIDES called patient's mom to let her know and a recording came on indicating voice mail has not been set up and to try call again later. LEONIDES will try again later. LEONIDES faxed therapy evaluations to [facility]. Candida MONSIVAIS MSW
--- NOTE | 2019-05-16 14:31 | PN_ITS ---
Subjective: Patient is more amenable today however he is still belligerent towards staff. He has no fever/chills. He has no cough/SOB, no CP or palp. No events on monitor. He allowed me to examine him today. He continues to walk on the affected foot today despite being advised not to multiple times. - Physical Exam General: Alert, Oriented x3, Cooperative HEENT: Atraumatic, PERRLA, EOMI, Normocephalic Neck: Supple, No JVD, Negative Carotid Bruits Lungs: Clear to auscultation, Normal air movement Cardiovascular: Regular rate, No murmurs Abdomen: Bowel Sounds Present, Soft, Non Tender Extremities: No edema, Capillary Refill Less than 3 Seconds Skin: No rashes, No breakdown Musculoskeletal: No Tenderness to Palpation of Joints or Extremities Neurological: Cranial nerves II-XII grossly intact Psych/Mental Status: Normal Affect, Appropriate, Alert and oriented to time, place, person, mood and affect Vital Signs Temp Pulse Resp BP Pulse Ox 98.2 F 96 16 137/73 H 98 05/16/19 10:38 05/16/19 10:38 05/16/19 10:38 05/16/19 10:38 05/16/19 10:38 Oxygen Delivery Method Room Air Weight: 194 lb 14.218 oz Body Mass Index (BMI) 26.4 Finger Stick Blood Glucose 455 Intake and Output for Last 24 Hours 05/14/19 05/15/19 05/16/19 23:59 23:59 23:59 Intake Total 1603.34 / 1603.34 3192.95 / 3192.95 2238.55 / 2238.55 Output Total 125 / 125 600 / 600 Balance 1478.34 / 1478.34 2592.95 / 2592.95 2238.55 / 2238.55 Microbiology Past 72 Hours 05/14/19 16:50 Gram Stain - Final Wound Abcess - Left Foot Wound Culture - Preliminary Staphylococcus aureus Proteus mirabilis 05/14/19 17:00 Blood Culture - Preliminary Blood Culture (Wb) - Right Hand Staphylococcus aureus Laboratory Tests Past 24 Hrs 05/16/19 05/16/19 05/16/19 05:50 05:50 05:50 WBC 9.8 RBC 3.18 L Hgb 8.8 L Hct 27.5 L MCV 86.5 MCH 27.7 MCHC 32.0 RDW Std Deviation 42.0 RDW Coeff of Debra 13.3 Plt Count 260 MPV 9.6 Immature Gran % (Auto) 0.400 Neut % (Auto) 72.5 H Lymph % (Auto) 13.8 L [place]rentiss % (Auto) 10.8 H Eos % (Auto) 1.7 Baso % (Auto) 0.8 Absolute Neuts (auto) 7.1 Absolute Lymphs (auto) 1.35 Nucleated RBC % 0 Sodium 138 Potassium 3.8 Chloride 108 H Carbon Dioxide 23.0 Anion Gap 7 BUN 24 H Creatinine 1.45 H Estim Creat Clear Calc 58.72 Est GFR (MDRD) Af Amer 63 Est GFR (MDRD) Non-Af 52 L BUN/Creatinine Ratio 16.6 Glucose 197 H Calcium 8.0 L Vancomycin Trough 10.0 POC Glucose 05/16/19 05/16/19 05/15/19 09:20 04:30 15:48 POC Glucose 211 H 176 H 127 H Medical Necessity - Tobacco Use Smoking Status: Never smoker Assessment/Plan All Active Problems Diabetic foot infection (Acute) 1. Severe sepsis/Bacteremia from Recurrent osteomyelitis - Left diabetic foot wound. Podiatry and ID following. Wound serology positive for MRSA, wound culture with Staph and Proteus blood with the same. Continue Vanc zosyn. Prior Left 2nd toe amputation. Recently completed 6 weeks of IV abx in a senior living for prior bacteremia. Fever and leukocytosis resolved. This infection will continue to be difficult to manage given his ongoing behavioral issues and noncompliance, complicated by poorly controlled diabetes and charcot foot. -ideally the patient would need more surgery, an Echo to rule out endocarditis, a PICC line, IV abx senior living, and strict nonweightbearing. He unfortunately is highly resistant to recommended therapies and tests. -repeat blood cultures pending -Echo is ordered. -podiatry plans for ongoing daily irrigations. 2. Acute metabolic encephalopathy 2/2 Above - improved. prn haldol on standby, BID seroquel. He has on going underlying behavioral disturbances and memory issues. 3. T2DM - uncontrolled. Basaglar/lispro. SSI. Titrate to response. Last A1C 13.9. 4. Dementia with behavioral disturbances - pt is unable to properly care for himself and does not seem to grasp the mortality of his condition. 5. CKDIII - stable 6. Normocytic anemia - trend. Check iron/tibc/ferritin 7. GERD - protonix 8. HTN - HCTZ held. On lisinopril. DVT ppx: heparin DC planning: PTOT This patient was seen by Ever Lozada PA-C under the supervision of Dr. Garcia
--- NOTE | 2019-05-16 14:33 | CASEMGMT ---
LEONIDES called patient's son, Mejia who is listed as his Healthcare POA. LEONIDES told him that patient is going to need to go to a chcf for IV antibiotics again. LEONIDES told him he and his mom agreed to [facility] as it is closer than the last facility he went to. SW explained to him it is questionable whether or not patient can make his own decisions. SW asked if he is aware of the seriousness of patient's infected foot. He said patient is adamant he does not want surgery on his foot. He said patient told him, He would rather than have an amputation. SW told him that the physician said this is going to be a constant repeat. He will be on IV antibiotics and once done the infection will return and we will have to star the process over. LEONIDES said the only way to avoid these constant infections would be amputation. He said patient is okay except when he is hungry, tired, or stressed. He said patient has been known to do weird bizarre things when he is hungry tired or stressed. He said the other day when he was on the phone with patient, patient asked him 5 times where he was. He feels he must have caught patient when he was hungry, stressed, or tired. He said patient and patient's brother are arch enemies. He said patient's brother started a rumor that patient has Dementia. He does not think patient has Dementia. He feels patient can make his own decisions unless he is hungry, tired or stressed. He thanked LEONIDES for updating him on the plan. Plan: d/c to [place] pending insurance approval. Candida HARDY
--- NOTE | 2019-05-16 14:39 | PCM.PN.ID ---
Subjective: Feeling better, no fever, no new joint pain, no n/v/d. - Physical Exam General: Alert, Cooperative, No apparent distress Lungs: Clear to auscultation, Normal air movement Cardiovascular: Regular rate, Regular Rhythm Abdomen: Soft, Non Tender, Non-Distended Skin: Ulcer/ Wound - reviewed photos Vital Signs Temp Pulse Resp BP Pulse Ox 98.2 F 96 16 137/73 H 98 05/16/19 10:38 05/16/19 10:38 05/16/19 10:38 05/16/19 10:38 05/16/19 10:38 Oxygen Delivery Method Room Air Weight: 88.4 kg Body Mass Index (BMI) 26.4 Finger Stick Blood Glucose 455 Intake and Output for Last 24 Hours 05/14/19 05/15/19 05/16/19 23:59 23:59 23:59 Intake Total 1603.34 / 1603.34 3192.95 / 3192.95 2238.55 / 2238.55 Output Total 125 / 125 600 / 600 Balance 1478.34 / 1478.34 2592.95 / 2592.95 2238.55 / 2238.55 Microbiology Past 72 Hours 05/14/19 16:50 Gram Stain - Final Wound Abcess - Left Foot Wound Culture - Preliminary Staphylococcus aureus Proteus mirabilis 05/14/19 17:00 Blood Culture - Preliminary Blood Culture (Wb) - Right Hand Staphylococcus aureus Laboratory Tests Past 24 Hrs 05/16/19 05/16/19 05/16/19 05:50 05:50 05:50 WBC 9.8 RBC 3.18 L Hgb 8.8 L Hct 27.5 L MCV 86.5 MCH 27.7 MCHC 32.0 RDW Std Deviation 42.0 RDW Coeff of Debra 13.3 Plt Count 260 MPV 9.6 Immature Gran % (Auto) 0.400 Neut % (Auto) 72.5 H Lymph % (Auto) 13.8 L [place] % (Auto) 10.8 H Eos % (Auto) 1.7 Baso % (Auto) 0.8 Absolute Neuts (auto) 7.1 Absolute Lymphs (auto) 1.35 Nucleated RBC % 0 Sodium 138 Potassium 3.8 Chloride 108 H Carbon Dioxide 23.0 Anion Gap 7 BUN 24 H Creatinine 1.45 H Estim Creat Clear Calc 58.72 Est GFR (MDRD) Af Amer 63 Est GFR (MDRD) Non-Af 52 L BUN/Creatinine Ratio 16.6 Glucose 197 H Calcium 8.0 L Vancomycin Trough 10.0 POC Glucose 05/16/19 05/16/19 05/15/19 09:20 04:30 15:48 POC Glucose 211 H 176 H 127 H Medical Necessity - Tobacco Use Smoking Status: Never smoker Route of nutrition/ use of supplements: [] Nutritional Intake: [] IV Site: [] Crawley Catheter: [] - Assessment/Plan Antibiotics: [] Assessment/Plan: [] L foot osteo with staph aureus bacteremia - recurrent infections. Has repeatedly refused surgical debridement/amputation. On vanc/zosyn, cx pending, podiatry following. Will repeat bcx and check echo. Discussed with him that with recurrent life threatening infections, abx only are not enough to cure this. Choice is either surgery or try lifelong abx to suppress once he completes another course of iv abx. He is interested in discussing with Dr. Bailon. Will follow, d/w primary team.
[2019-05-16 14:56] LABS: Bedside Glucose 161 mg/dL (70-110)
[2019-05-16 15:38] LABS: Ferritin 609 ng/mL (26-388); Iron 11 ug/dL (65-175); Iron Binding Capacity,Total 157 ug/dL (250-450)
[2019-05-16 16:00] VITALS: BP 151/83; PULSE 98; RESP 16; TEMP 37.1; O2SAT 97
[2019-05-16 17:46] LABS: Bedside Glucose 185 mg/dL (70-110)
--- NOTE | 2019-05-16 19:32 | PN_ITS ---
Subjective: Mejia's case was reviewed. It is noted his leukocytosis has resolved, he remains afebrile, and his vitals are stable. He has presumed osteomyelitis to the foot with recurrent ulcer and infection that has caused several episodes of sepsis. Infectious disease is on consultation is greatly appreciated. He continues on IV antibiotics. He understands he is at risk for limb or life loss due to this condition. I have been asked to speak to Mr. Sherwood per his request to potentially consider surgical intervention. Therefore, I spoke with him this evening to review his case and treatment options. The patient states I will leave this world with all of my parts. The patient is not amendable to proceed with surgical intervention as recommended. He is amenable to proceed with long-term or lifelong course of antibiotics with continued wound care. He understands there are complications that may occur with this treatment path and he is prone for continued ulcer formation and infections. This has consistently been his intent for ongoing treatment. No additional intervention is planned at this time. He will continue to be followed while in house by the podiatry team. I recommend he follows up at the wound healing center at time of discharge. He would also benefit from long-term skilled facility placement at time of discharg e as well. I answered his questions. - Physical Exam Vital Signs Temp Pulse Resp BP Pulse Ox 98.0 F 87 18 163/76 H 94 05/17/19 04:38 05/17/19 04:38 05/17/19 04:38 05/17/19 04:38 05/17/19 07:15 Oxygen Delivery Method Room Air Weight: 88.4 kg Body Mass Index (BMI) 26.4 Finger Stick Blood Glucose 455 Intake and Output for Last 24 Hours 05/15/19 05/16/19 05/17/19 23:59 23:59 23:59 Intake Total 3192.95 / 3192.95 4101.13 / 4101.13 781.87 / 781.87 Output Total 600 / 600 Balance 2592.95 / 2592.95 4101.13 / 4101.13 781.87 / 781.87 Microbiology Past 72 Hours 05/14/19 17:00 Blood Culture - Preliminary Blood Culture (Wb) - Right Hand Meth. resistant Staph. aureus 05/14/19 16:50 Gram Stain - Final Wound Abcess - Left Foot Wound Culture - Final Meth. resistant Staph. aureus Proteus mirabilis 05/14/19 17:20 Blood Culture - Preliminary Blood Culture (Wb) - Right Forearm Laboratory Tests Past 24 Hrs 05/16/19 05/17/19 05/17/19 05:50 05:18 05:18 WBC 7.5 RBC 3.25 L Hgb 8.8 L Hct 27.7 L MCV 85.2 MCH 27.1 MCHC 31.8 L RDW Std Deviation 41.3 RDW Coeff of Debra 13.1 Plt Count 254 MPV 9.9 Immature Gran % (Auto) 0.300 Neut % (Auto) 59.1 Lymph % (Auto) 23.9 [place] % (Auto) 12.0 H Eos % (Auto) 4.0 Baso % (Auto) 0.7 Absolute Neuts (auto) 4.4 Absolute Lymphs (auto) 1.79 Nucleated RBC % 0 Sodium 143 Potassium 3.5 Chloride 112 H Carbon Dioxide 21.0 Anion Gap 10 BUN 15 Creatinine 1.05 Estim Creat Clear Calc 81.09 Est GFR (MDRD) Af Amer 92 Est GFR (MDRD) Non-Af 76 BUN/Creatinine Ratio 14.3 Glucose 141 H Calcium 7.8 L Iron 11 L TIBC 157 L Iron Saturation 7.0 L Ferritin 609 H POC Glucose 05/16/19 05/16/19 05/16/19 22:05 17:36 14:01 POC Glucose 259 H 185 H 161 H 05/16/19 09:20 POC Glucose 211 H Medical Necessity - Tobacco Use Smoking Status: Never smoker Assessment/Plan All Active Problems Diabetic foot infection (Acute)
[2019-05-16 20:35] VITALS: BP 167/84; PULSE 89; RESP 16; TEMP 36.8; O2SAT 98
[2019-05-16 22:20] LABS: Bedside Glucose 259 mg/dL (70-110)
[2019-05-17] VITALS (7 sets, daily range): BP systolic 153–163; BP diastolic 72–77; PULSE 73–87; RESP 16–20; TEMP 36.7–37.1; O2SAT 94–97
--- NOTE | 2019-05-17 03:12 | NURSING ---
Pt set off bed alarm getting out of bed to use restroom. This RN assisted pt to brp d/t pt refusing to use urinal in bed, insisted on walking on nwb ordered foot. Pt was very unsteady on feet, refusing to allow RN to aid pt with balance by holding arm or placing hand on pt to keep pt steady. Pt angry about bed alarm on but this RN explained pt not strong enough or steady enough to be independent and orders by MD to not use infected foot. Bed alarm set to on.
[2019-05-17 05:44] LABS: Absolute Lymphocyte Count 1.79 X10^3/uL (0.83-4.51); Absolute Neutrophil Count 4.4 X10^3/uL (2.0-7.7); Basophil# 0.05 X10^3/uL; Basophil% 0.7 % (0-1); Hematocrit 27.7 % (40-54); Hemoglobin 8.8 g/dL (13.0-16.5); Lymphocyte # 1.79 X10^3/ul (4.0); Lymphocyte % 23.9 % (19-41); Mean Corp Hgb Conc 31.8 g/dL (32-36); Mean Corpuscular Hgb 27.1 pg (27.0-32.0); Mean Corpuscular Volume 85.2 fL (80-94); Mean Platelet Vol. 9.9 fl (6.2-12.0); NRBC Flagged by Analyzer 0 % (0-5); Neutrophil # 4.42 X10^3/uL (2.7-7.7); Neutrophil % 59.1 % (47-70); Platelet Count 254 K/mm3 (150-450); RBC Distribution Width CV 13.1 % (11.6-14.6); RBC Distribution Width SD 41.3 fl (35.1-43.9); Red Blood Count 3.25 M/mm3 (4.6-6.2); White Blood Count 7.5 K/mm3 (4.4-11.0)
--- NOTE | 2019-05-17 05:55 | EKG12_ITS ---
Test Reason : AM EKG Blood Pressure : / mmHG Vent. Rate : 083 BPM Atrial Rate : 083 BPM P-R Int : 138 ms QRS Dur : 092 ms QT Int : 372 ms P-R-T Axes : 062 044 056 degrees QTc Int : 437 ms Sinus rhythm with Premature atrial complexes Confirmed by PA TIPTON, MISHEL ([id number]), newspaper managing editor KRISTYN ALMANZAR ([id number]) on 05/22/2019 11:52:38 AM Referred By: Edmond Miguel Confirmed By:MISHEL WINN MD
[2019-05-17 06:02] LABS: Anion Gap 10 (5-15); BUN 15 mg/dL (7-18); BUN/Creat Ratio 14.3 RATIO (10-20); Calcium,Total 7.8 mg/dL (8.5-10.1); Chloride 112 mmol/L (98-107); Creatinine, Serum 1.05 mg/dL (0.70-1.30); EST Glomerular Filtration Rate 76 mL/min (>60); Est Glom Filt Rate - Afr Amer 92 mL/min (>60); Estimated Creatinine Clearance 81.09 ml/min; Glucose 141 mg/dL (74-106); Potassium 3.5 mmol/L (3.5-5.1); Sodium Level 143 mmol/L (136-145)
[2019-05-17] MEDS: Insulin Lispro 100 UNIT/ML INSULN.PEN SC ×3 (08:12→17:31)
[2019-05-17] MEDS: Insulin Lispro 100 UNIT/ML INSULN.PEN 10 UNIT SC (08:13)
[2019-05-17 08:31] LABS: Bedside Glucose 166 mg/dL (70-110)
[2019-05-17] MEDS: 0.9% Normal Saline 1,000 ML 100 ML IV ×2 (08:33→18:39)
--- NOTE | 2019-05-17 10:25 | PN.ID_ITS ---
Subjective: Feeling ok, no complaints. Agrees to echo. - Physical Exam General: Alert, Cooperative, No apparent distress Lungs: Clear to auscultation, Normal air movement Cardiovascular: Regular rate, Regular Rhythm Abdomen: Soft, Non Tender, Non-Distended Skin: Ulcer/ Wound - foot wrapped Vital Signs Temp Pulse Resp BP Pulse Ox 98.0 F 87 16 163/76 H 94 05/17/19 04:38 05/17/19 04:38 05/17/19 08:33 05/17/19 04:38 05/17/19 07:15 Oxygen Delivery Method Room Air Weight: 88.4 kg Body Mass Index (BMI) 26.4 Finger Stick Blood Glucose 455 Intake and Output for Last 24 Hours 05/15/19 05/16/19 05/17/19 23:59 23:59 23:59 Intake Total 3192.95 / 3192.95 4101.13 / 4101.13 1074.58 / 1074.58 Output Total 600 / 600 Balance 2592.95 / 2592.95 4101.13 / 4101.13 1074.58 / 1074.58 Microbiology Past 72 Hours 05/14/19 17:00 Blood Culture - Preliminary Blood Culture (Wb) - Right Hand Meth. resistant Staph. aureus 05/14/19 16:50 Gram Stain - Final Wound Abcess - Left Foot Wound Culture - Final Meth. resistant Staph. aureus Proteus mirabilis 05/14/19 17:20 Blood Culture - Preliminary Blood Culture (Wb) - Right Forearm Laboratory Tests Past 24 Hrs 05/16/19 05/17/19 05/17/19 05:50 05:18 05:18 WBC 7.5 RBC 3.25 L Hgb 8.8 L Hct 27.7 L MCV 85.2 MCH 27.1 MCHC 31.8 L RDW Std Deviation 41.3 RDW Coeff of Debra 13.1 Plt Count 254 MPV 9.9 Immature Gran % (Auto) 0.300 Neut % (Auto) 59.1 Lymph % (Auto) 23.9 Dickinson % (Auto) 12.0 H Eos % (Auto) 4.0 Baso % (Auto) 0.7 Absolute Neuts (auto) 4.4 Absolute Lymphs (auto) 1.79 Nucleated RBC % 0 Sodium 143 Potassium 3.5 Chloride 112 H Carbon Dioxide 21.0 Anion Gap 10 BUN 15 Creatinine 1.05 Estim Creat Clear Calc 81.09 Est GFR (MDRD) Af Amer 92 Est GFR (MDRD) Non-Af 76 BUN/Creatinine Ratio 14.3 Glucose 141 H Calcium 7.8 L Iron 11 L TIBC 157 L Iron Saturation 7.0 L Ferritin 609 H POC Glucose 05/17/19 05/16/19 05/16/19 08:04 22:05 17:36 POC Glucose 166 H 259 H 185 H 05/16/19 14:01 POC Glucose 161 H Medical Necessity - Tobacco Use Smoking Status: Never smoker Route of nutrition/ use of supplements: [] Nutritional Intake: [] IV Site: [] Crawley Catheter: [] - Assessment/Plan Antibiotics: [] Assessment/Plan: [] L foot osteo with staph aureus bacteremia - recurrent infections. Has repeatedly refused surgical debridement/amputation. On vanc/zosyn, cx with MRSA and proteus, podiatry following. Will repeat bcx and check echo. Refuses surgery. Plan is for skilled nursing suppressive abx after completing course of iv. Will follow, d/w lead case manager
[2019-05-17 11:41] LABS: Bedside Glucose 237 mg/dL (70-110)
--- NOTE | 2019-05-17 13:42 | CASEMGMT ---
LEONIDES received a call from [facility]. She received insurance approval. SW let her know that he may not be ready today. She said that is fine and to just let her know. Candida HARDY
[2019-05-17] MEDS: metroNIDAZOLE 500 MG Tablet PO ×2 (14:34→22:05)
[2019-05-17] MEDS: Haloperidol Lactate 5 MG/ML Vial 2 MG IV ×2 (14:37→18:36)
--- NOTE | 2019-05-17 15:34 | PN_ITS ---
Subjective: Day #4 antibiotics All events the past 24 hours of been reviewed. He has been refusing several of his medications. He continues to walk on his left foot. Dr. Bailon talk to him this morning and he continues to refuse any surgery/amputation. He told me that he is a real man and he can heal this wound by himself with god's help. He has healed gangrene before. He is afebrile. Blood pressures are elevated but he has been refusing lisinopril. All lab was personally reviewed. The white blood cell count is normal at 7.5 today with an unremarkable differential. Hemoglobin is stable at 8.8 and platelets are within normal limits. Creatinine is down to 1.05 with holding hydrochlorothiazide and hydrating. Blood sugar record was reviewed. He is sitting in the recliner and does not appear to be in any distress. Denies pain. He is pleasant and not agitated today. No diarrhea and no sores in his mouth - Physical Exam General: Alert, Oriented x3, No apparent distress Oral: Moist Mucosa, No Gingival or Mucosal Lesions/ Ulcerations Neck: Supple Lungs: Clear to auscultation Cardiovascular: Regular rate, Regular Rhythm, Normal S1, Normal S2, No Gallop Abdomen: Bowel Sounds Present, Soft, Non Tender, Non-Distended Extremities: No clubbing, No cyanosis, No edema, - - the wound is dressed....I did not examine today. Podiatry is following Skin: No rashes Neurological: Cranial nerves II-XII grossly intact, Neuro grossly intact Vital Signs Temp Pulse Resp BP Pulse Ox 98.1 F 79 16 153/77 H 95 05/17/19 10:38 05/17/19 10:38 05/17/19 10:38 05/17/19 10:38 05/17/19 10:38 Oxygen Delivery Method Room Air Weight: 194 lb 14.218 oz Body Mass Index (BMI) 26.4 Finger Stick Blood Glucose 455 Intake and Output for Last 24 Hours 05/15/19 05/16/19 05/17/19 23:59 23:59 23:59 Intake Total 3192.95 / 3192.95 4101.13 / 4101.13 1399.58 / 1399.58 Output Total 600 / 600 Balance 2592.95 / 2592.95 4101.13 / 4101.13 1399.58 / 1399.58 Microbiology Past 72 Hours 05/14/19 16:50 Gram Stain - Final Wound Abcess - Left Foot Wound Culture - Final Meth. resistant Staph. aureus Proteus mirabilis Anaerobic Culture - Preliminary Checking for anaerobes, further studies to follow. 05/14/19 17:20 Blood Culture - Preliminary Blood Culture (Wb) - Right Forearm Staphylococcus aureus 05/14/19 17:00 Blood Culture - Preliminary Blood Culture (Wb) - Right Hand Meth. resistant Staph. aureus Laboratory Tests Past 24 Hrs 05/16/19 05/17/19 05/17/19 05:50 05:18 05:18 WBC 7.5 RBC 3.25 L Hgb 8.8 L Hct 27.7 L MCV 85.2 MCH 27.1 MCHC 31.8 L RDW Std Deviation 41.3 RDW Coeff of Debra 13.1 Plt Count 254 MPV 9.9 Immature Gran % (Auto) 0.300 Neut % (Auto) 59.1 Lymph % (Auto) 23.9 [place] % (Auto) 12.0 H Eos % (Auto) 4.0 Baso % (Auto) 0.7 Absolute Neuts (auto) 4.4 Absolute Lymphs (auto) 1.79 Nucleated RBC % 0 Sodium 143 Potassium 3.5 Chloride 112 H Carbon Dioxide 21.0 Anion Gap 10 BUN 15 Creatinine 1.05 Estim Creat Clear Calc 81.09 Est GFR (MDRD) Af Amer 92 Est GFR (MDRD) Non-Af 76 BUN/Creatinine Ratio 14.3 Glucose 141 H Calcium 7.8 L Iron 11 L TIBC 157 L Iron Saturation 7.0 L Ferritin 609 H POC Glucose 05/17/19 05/17/19 05/16/19 11:28 08:04 22:05 POC Glucose 237 H 166 H 259 H 05/16/19 17:36 POC Glucose 185 H Medical Necessity - Tobacco Use Smoking Status: Never smoker Assessment/Plan All Active Problems Diabetic foot infection (Acute) 1. Severe sepsis with bacteremia due to MRSA due to recurrent diabetic foot infection left foot. Podiatry and ID following. If the BC's have no growth tomorrow will insert PICC and DC to the NH on Vanco and Zosyn for 8 weeks and then will need Lifelong suppressive antibiotics. Continues to refuse any surgery of any kind and is going to the grave with all my parts. 2. acute metabolic encephalopathy due to infection 3. DM II-uncontrolled. HBGA1c in March was 13.9%. continue to adjust insulin to keep all the BS's less than 180. 4. Non-compliance with non-weight bearing to the left foot, with medications, with diet, etc 5. suspected mental illness rather than dementia 6. CRF III 7. iron deficiency - on supplement. Repeat Iron Sucrose today 8. HTN - refusing Lisinopril 9. Acute on CRF due to dehydration - resolved PICC tomorrow if the BC's from 05/16 have no growth and then DC to the NH on Vanco and Zosyn for 8 weeks. Code Visit Inpatient E&M: 35620 Subs Hosp L2
[2019-05-17 17:45] LABS: Bedside Glucose 242 mg/dL (70-110)
--- NOTE | 2019-05-17 18:48 | NURSING ---
Reviewed Lydia Higgins's charting.
[2019-05-17 22:17] LABS: Vancomycin, Trough Level 14.8 ug/mL (5.0-15.0)
--- NOTE | 2019-05-17 22:24 | NURSING ---
Patient refusing Hepain SQ, Seroquel, and having blood sugar at bedside tested. Agreed to take Flagly PO. Also, this RN verified with pharmacy if OK to give Vancomycin as sceduled for Vanc. trough of 14.8. Tony pharmacist stated OK to give as ordered.
--- NOTE | 2019-05-17 23:36 | PCM.RX.CS ---
Consult Pharmacy has been consulted to manage selected antiobiotic: Vancomycin Type of Consult: Follow-up Suspected Infection: Sepsis Labs: Sodium 143 mmol/L (136-145) 05/17/19 05:18 Potassium 3.5 mmol/L (3.5-5.1) 05/17/19 05:18 Chloride 112 mmol/L (98-107) H 05/17/19 05:18 Carbon Dioxide 21.0 mmol/L (21.0-32.0) 05/17/19 05:18 10 (5-15) 05/17/19 05:18 BUN 15 mg/dL (7-18) 05/17/19 05:18 1.05 mg/dL (0.70-1.30) 05/17/19 05:18 Est GFR (MDRD) Af Amer 92 mL/min (>60) 05/17/19 05:18 Est GFR (MDRD) Non-Af 76 mL/min (>60) 05/17/19 05:18 14.3 RATIO (10-20) 05/17/19 05:18 Glucose 141 mg/dL (74-106) H 05/17/19 05:18 Vancomycin Trough 14.8 ug/mL (5.0-15.0) 05/17/19 21:30 Microbiology: Microbiology 05/14/19 16:50 Wound Abcess - Left Foot Gram Stain - Final 05/14/19 16:50 Wound Abcess - Left Foot Wound Culture - Final Meth. resistant Staph. aureus Proteus mirabilis 05/14/19 16:50 Wound Abcess - Left Foot Anaerobic Culture - Preliminary Checking for anaerobes, further studies to follow. 05/14/19 17:20 Blood Culture (Wb) - Right Forearm Blood Culture - Preliminary Staphylococcus aureus 05/14/19 17:00 Blood Culture (Wb) - Right Hand Blood Culture - Preliminary Meth. resistant Staph. aureus Goal Trough: 15-20 mcg/mL Pharmacy Plan for Drug Dosing: Pharmacy Service will continue to monitor and adjust dosing as required. TROUGH 14.8 NO CHANGES REDRAW IN 4 DOSES PER INCREASED RENAL FUNCTION Follow-Up Labs: Trough Vancomycin Labs to be done on [date and time ordered]: 05/19 @ 7234
[2019-05-18 03:22] VITALS: BP 163/85; PULSE 87; RESP 18; TEMP 36.9; O2SAT 96
[2019-05-18] MEDS: 0.9% Normal Saline 1,000 ML 100 ML IV (06:41)
[2019-05-18] MEDS: metroNIDAZOLE 500 MG Tablet PO (06:41)
[2019-05-18 07:28] VITALS: O2SAT 96
[2019-05-18] MEDS: Haloperidol Lactate 5 MG/ML Vial 2 MG IV ×2 (08:24→14:04)
[2019-05-18 09:22] VITALS: BP 152/84; PULSE 79; RESP 16; TEMP 36.4; O2SAT 97
[2019-05-18 10:00] VITALS: PULSE 77
[2019-05-18] MEDS: Loratadine 10 MG Tablet PO (10:34)
[2019-05-18] MEDS: QUEtiapine 25 MG Tablet 50 MG PO (10:35)
[2019-05-18] MEDS: Pantoprazole Sodium 40 MG Tablet PO (10:35)
[2019-05-18] MEDS: Iron Polysaccharide Complex 150 MG CAPSULE PO (10:35)
[2019-05-18] MEDS: Lisinopril 40 MG Tablet PO (10:36)
[2019-05-18 11:30] LABS: Bedside Glucose 147 mg/dL (70-110)
--- NOTE | 2019-05-18 11:41 | NURSING ---
wound photo: left foot
--- NOTE | 2019-05-18 12:01 | CASEMGMT ---
LEONIDES called Haley at [facility] and let her know patient will be coming today. LEONIDES told her he will be getting a picc line today at 2p. Candida MONSIVAIS MSW
--- NOTE | 2019-05-18 12:25 | PCM.PN.ID ---
Subjective: Feeling ok, no fevers, wants to leave - Physical Exam General: Alert, Cooperative, No apparent distress Lungs: Clear to auscultation, Normal air movement Cardiovascular: Regular rate, Regular Rhythm Abdomen: Soft, Non Tender, Non-Distended Skin: No rashes Vital Signs Temp Pulse Resp BP Pulse Ox 98.4 F 87 18 163/85 H 96 05/18/19 03:22 05/18/19 03:22 05/18/19 03:22 05/18/19 03:22 05/18/19 07:28 Oxygen Delivery Method Room Air Weight: 88.4 kg Body Mass Index (BMI) 26.4 Finger Stick Blood Glucose 455 Intake and Output for Last 24 Hours 05/16/19 05/17/19 05/18/19 23:59 23:59 23:59 Intake Total 4101.13 / 4101.13 4322.91 / 4322.91 731.67 / 731.67 Output Total 5 / 5 Balance 4101.13 / 4101.13 4317.91 / 4317.91 731.67 / 731.67 Microbiology Past 72 Hours 05/14/19 17:20 Blood Culture - Preliminary Blood Culture (Wb) - Right Forearm Staphylococcus aureus 05/16/19 14:00 Blood Culture - Preliminary Blood Culture (Wb) - Left Hand No growth in 48 hours. 05/14/19 16:50 Gram Stain - Final Wound Abcess - Left Foot Wound Culture - Final Meth. resistant Staph. aureus Proteus mirabilis Anaerobic Culture - Preliminary Checking for anaerobes, further studies to follow. 05/14/19 17:00 Blood Culture - Preliminary Blood Culture (Wb) - Right Hand Meth. resistant Staph. aureus Laboratory Tests Past 24 Hrs 05/17/19 21:30 Vancomycin Trough 14.8 POC Glucose 05/18/19 05/17/19 10:24 17:29 POC Glucose 147 H 242 H Medical Necessity - Tobacco Use Smoking Status: Never smoker Route of nutrition/ use of supplements: [] Nutritional Intake: [] IV Site: [] Crawley Catheter: [] - Assessment/Plan Antibiotics: [] Assessment/Plan: [] L foot osteo with staph aureus bacteremia - recurrent infections. Has repeatedly refused surgical debridement/amputation. On vanc/ceftriaxone/flagyl, cx with MRSA and proteus, podiatry following. Refuses surgery. Plan is for skilled nursing suppressive abx after completing course of iv. Will get picc today, then leave on 8 week course of iv abx, stop date 06/12/19, weekly bmp, cbc, esr, and vanc trough. ID followup in 4 weeks. Will follow, d/w hospice case manager and Dr. Garcia, wrote rx for labs.
[2019-05-18 13:00] VITALS: BP 165/85; PULSE 77; RESP 16; TEMP 36.6; O2SAT 96
--- NOTE | 2019-05-18 14:09 | PCM.TXEXTCAR ---
- Diet 05/14/19 19:46 Diet: Cardiac: Calorie-Controlled Food consistency:: Regular Liquid Consistency:: Regular/Thin How many daily calories?: 2000 calorie Gerard BID - Routine Orders/Code Status Enema Type: Fleetz Enema Frequency: Daily PRN Suppository Type: Dulcolax 10mg Suppository Frequency: Daily PRN O2 Frequency: PRN Keep PO Greater than or Equal to (%): 89 Routine Lab Work: - - weekly BMP, CBC, ESR and Vanc trough while on IV antibbiotics with the results sent to Dr. Luna. - Wound(s) lt foot Wound Type: Neuropathic/Diabetic Foot Ulcer Dressing Change: betadine moistened gauze right distal 3rd toe Wound Type: Pressure Injury - Therapies Weight Bearing: Non weight bearing Extremity Affected:: Left Lower Physical Therapy: Eval and Treat Occupational Therapy: Eval and Treat - Problem/Diagnosis (1) Severe sepsis Status: Acute Comment: Secondary to diabetic foot infection with bacteremia Current Visit: Yes (2) MRSA bacteremia Status: Acute Current Visit: Yes (3) Iron deficiency anemia Status: Chronic Current Visit: Yes (4) Diabetic foot infection Status: Acute Comment: recurrent Current Visit: No (5) Chronic ulcer of left foot with fat layer exposed Status: Chronic Current Visit: No (6) Dementia Status: Chronic Comment: I suspect he is not demented but, has a mental Health diagnosis Current Visit: No (7) Hammer toe of left foot Status: Chronic Current Visit: No (8) Hammertoe of left foot Status: Chronic Current Visit: No (9) Hypertension Status: Chronic Current Visit: No (10) Left second and third toe amputation Status: Chronic Current Visit: No (11) Malnutrition Status: Resolved Current Visit: No (12) Osteomyelitis Status: Chronic Comment: chronic refractory osteomyelitis due to non-complaince and refusal of surgical intervention Current Visit: No (13) Other acquired deformities of left foot Status: Chronic Current Visit: No (14) Peripheral neuropathy Status: Chronic Current Visit: No (15) Type 2 diabetes mellitus Status: Chronic Current Visit: No (16) Type 2 diabetes mellitus with diabetic polyneuropathy Status: Chronic Comment: uncontrolled due to non-complaince Current Visit: No (17) Acute renal failure superimposed on stage 3 chronic kidney disease Status: Chronic Current Visit: Yes (18) Noncompliance Status: Chronic Comment: With diet, medications, nonweightbearing on the left foot Current Visit: Yes (19) Anemia of chronic renal failure, stage 3 (moderate) Status: Chronic Current Visit: Yes - Allergies/Procedures Done in Hospital Allergies/Adverse Reactions: Allergies No Known Allergies Allergy (Verified 05/14/19 16:47) Procedures: 2-D Echocardiogram - Interpretation Summary Limited views were obtained to look for endocarditis. Please see recent previous echo for other details. The estimated ejection fraction is 60 %. No obvious vegetations seen Limited views were obtained. - Type of Care/Length of Stay Estimated LOS: More Than 30 Days Type of Care Needed: Skilled Rehab Potential: Fair Prognosis: Fair - Additional Orders/Day of Discharge Additional Orders: This pt is not competent to make his own decisions and his son, who is the POA, is not much better. I think he would benefit from a psychiatric evaluation and I think we should pursue having a guardian appointed. H&P will serve as current which was dated: 05/14/19 Day of Discharge: 05/18/19 - Dietary and Speech Recommendations Dietitian Recommendations/Changes: Recommend a diet change to 2000 calorie controlled diet. Will d/c Krystle Witt d/t pt refusal. Suggest Gerard 1 packet BID for wound healing--order from pharmacy - Follow Up Care Primary Care Physician: Tony Topete MD [Primary Care Provider] - Please follow up with your Primary Care Physician in: following Discharge from SNF Please Follow Up With: [facility] Wound care center When: weekly Please Follow Up With: Kingston Luna MD When: 4 weeks
--- NOTE | 2019-05-18 14:16 | CASEMGMT ---
This RN JAYDEN received a fax from [facility] previously stating pt was active with them. Call to [facility] to notify them that pt is going [facility] at discharge and they state that pt was discharged from their service d/t hospitalization. Rep voices understanding that pt to be sent to SNF at discharge and is notified which one at this time. SStrizwan CONTI CM
--- NOTE | 2019-05-18 14:35 | PCM.DC.SUM ---
Discharge Date and Diagnosis - Problem List Patient Problems: Active and Suspected Problems Severe sepsis (Acute) Secondary to diabetic foot infection with bacteremia MRSA bacteremia (Acute) Date of Admission: 05/14/19 Date of Discharge: 05/18/19 - Primary Discharge Diagnosis Active and Suspected Problems Severe sepsis (Acute) Secondary to diabetic foot infection with methicillin-resistant staph aureus and Proteus mirabilis with bacteremia due to MRSA MRSA bacteremia (Acute) Acute on Chronic renal failure stage 3 - resolved Acute Metabolic Encephalopathy due to sepsis - Secondary Discharge Diagnosis Chronic Problems Iron deficiency anemia (Chronic) Noncompliance (Chronic) With diet, medications, nonweightbearing on the left foot Chronic ulcer of left foot with fat layer exposed (Chronic) Type 2 diabetes mellitus with diabetic polyneuropathy (Chronic) uncontrolled due to non-compliance with medication, diet Hammertoe of left foot (Chronic) Other acquired deformities of left foot (Chronic) Dementia (Chronic) I suspect he is not demented but, has a mental Health diagnosis instead Hammer toe of left foot (Chronic) Osteomyelitis (Chronic) chronic refractory osteomyelitis due to non-complaince and refusal of surgical intervention Left second and third toe amputation (Chronic) Peripheral neuropathy (Chronic) Hypertension (Chronic) Hospital Course and Treatment Imaging Results: Clinical Impression(s) from Imaging Studies Foot X-Ray 05/14/19 16:50 IMPRESSION: Stable Charcot postsurgical changes of the left foot. Stable calcaneal spurs. Marked soft tissue swelling with no resorption of bone to suggest osteomyelitis. Electronically Signed: Mateo Chandler MD at 17:16 EDT , Service support , Chest X-Ray 05/14/19 16:58 IMPRESSION: Mild hyperexpansion with no acute finding. Electronically Signed: Mateo Chandler MD at 17:17 EDT , Service support , Laboratory Results - last 24 hr 05/17/19 05/17/19 05/18/19 17:29 21:30 10:24 Vancomycin Trough 14.8 POC Glucose 242 H 147 H Microbiology 05/14/19 17:20 Blood Culture (Wb) - Right Forearm Blood Culture - Preliminary Staphylococcus aureus 05/16/19 14:00 Blood Culture (Wb) - Left Hand Blood Culture - Preliminary No growth in 48 hours. 05/14/19 16:50 Wound Abcess - Left Foot Gram Stain - Final 05/14/19 16:50 Wound Abcess - Left Foot Wound Culture - Final Meth. resistant Staph. aureus Proteus mirabilis 05/14/19 16:50 Wound Abcess - Left Foot Anaerobic Culture - Preliminary Checking for anaerobes, further studies to follow. 05/14/19 17:00 Blood Culture (Wb) - Right Hand Blood Culture - Preliminary Meth. resistant Staph. aureus Consultations 05/15/19 08:59 Consult: Onc/Wound/auxiliary equipment tender Routine Comment: Reason for Consult:: osteo Operations: None Procedures: 2-D Echocardiogram - Interpretation Summary Limited views were obtained to look for endocarditis. Please see recent previous echo for other details. The estimated ejection fraction is 60 %. No obvious vegetations seen Limited views were obtained. The exam had to be done sitting up in a chair because he refused to lie down. Summary of Care Provided: The patient is a 63 year old M with a past medical history of poorly controlled diabetes mellitus type 2, chronic renal failure stage III, hypertension, dementia(suspect mental illness and not dementia), multiple diabetic foot infections in the past, osteomyelitis of the L foot with amputation of the second and the third toes on the L, diabetic peripheral polyneuropathy and Charcot foot on the left who presented to the emergency department at [facility] on 05/14/2019 complaining of fevers, confusion and increased drainage from his wounds. He had just been [facility] from the [facility] approximately 1 week prior to presenting to the emergency department after being treated with 6 weeks of IV antibiotics for osteomyelitis of the left foot. The dressing had not been changed since he returned home. He lives with his mother who is very confused and is either demented or mentally ill. He has refused surgery on the left foot recently and despite recommendations from Dr. Saravia from Podiatry. Vital signs at presentation to the emergency room were temperature 102 ?F, pulse rate 125, blood pressure 180/83, respiratory rate 20 and he was 97% saturated on room air. Significant lab included an elevated white blood cell count at 16.9 with a left shift. Sodium was low at 134 and the BUN was 35 with a creatinine of 1.64, up from 1.29 on 04/03/2019. ESR was 27 but the CRP was 157. PCR on the drainage from the wound was positive for MRSA. He was admitted to the hospital and placed on Zosyn and vancomycin. Dr. Saravia was consulted and also Dr. Luna. 2 of 2 blood cultures were positive for MRSA. A limited echocardiogram showed no vegetations on the valves. Repeat blood culture on 05/16/2019 had no growth in 48 hours. Patient continued to refuse surgery after having talked to myself, Dr. Saravia, Dr. Bailon and Dr. uLna. PICC line was inserted on 05/18/2019 and he was [facility] of Rocephin and vancomycin. He will need weekly CBC, BMP, ESR and vancomycin trough while on IV antibiotics with the results faxed to Dr. Luna. He will follow-up weekly in the wound care center at [facility] and will follow up with Dr. Luna in the wound care center in 4 weeks. This pt supposedly has a hx of dementia. I suspect rather than dementia he has an mental illness. His son in the POA and he lives in [place]. The SW was in contact with the son on several occasions and his answer to the patients confusion, non-compliance and inability to care for himself as the patient being tired, hungry or stressed. This pt was only out of the SNF for 1 week before he needed to be readmitted to the acute care hospital with severe sepsis due to recurrent diabetic foot infection. In the week he was out of the NH no one changed the dressing. This is going to keep happening and I feel we need to move forward with having him declared incompetent and have a guardian appointed. He has no one to care for him and likely needs to be in an ECF after the IV antibiotics are completed. - Physical Exam General: Alert, Oriented x3, No apparent distress Oral: Moist Mucosa, No Gingival or Mucosal Lesions/ Ulcerations Neck: Supple Lungs: Clear to auscultation Cardiovascular: Regular rate, Regular Rhythm, Normal S1, Normal S2, No Gallop Abdomen: Bowel Sounds Present, Soft, Non Tender, Non-Distended Extremities: No clubbing, No cyanosis, No edema, - - the wound is dressed....I did not examine today. Podiatry is following Skin: No rashes Neurological: Cranial nerves II-XII grossly intact, Neuro grossly intact This note was generated with [employer] dictation software. It may contain incorrect words, spelling, and punctuation that were not noted in checking the note before signing. Patient Problems: Active and Suspected Problems Severe sepsis (Acute) Secondary to diabetic foot infection with bacteremia MRSA bacteremia (Acute) - Physical Exam Vital Signs Temp Pulse Resp BP Pulse Ox 98.4 F 87 18 163/85 H 96 05/18/19 03:22 05/18/19 03:22 05/18/19 03:22 05/18/19 03:22 05/18/19 07:28 Oxygen Delivery Method Room Air Weight: 194 lb 14.218 oz Body Mass Index (BMI) 26.4 Finger Stick Blood Glucose 455 Intake and Output for Last 24 Hours 05/16/19 05/17/19 05/18/19 23:59 23:59 23:59 Intake Total 4101.13 / 4101.13 4322.91 / 4322.91 731.67 / 731.67 Output Total 5 / Balance 4101.13 / 4101.13 4317.91 / 4317.91 731.67 / 731.67 Microbiology Past 72 Hours 05/14/19 17:20 Blood Culture - Preliminary Blood Culture (Wb) - Right Forearm Staphylococcus aureus 05/16/19 14:00 Blood Culture - Preliminary Blood Culture (Wb) - Left Hand No growth in 48 hours. 05/14/19 16:50 Gram Stain - Final Wound Abcess - Left Foot Wound Culture - Final Meth. resistant Staph. aureus Proteus mirabilis Anaerobic Culture - Preliminary Checking for anaerobes, further studies to follow. 05/14/19 17:00 Blood Culture - Preliminary Blood Culture (Wb) - Right Hand Meth. resistant Staph. aureus Laboratory Tests Past 24 Hrs 05/17/19 21:30 Vancomycin Trough 14.8 POC Glucose 05/18/19 05/17/19 10:24 17:29 POC Glucose 147 H 242 H Home Medications: Medications to take at Discharge Lisinopril [Zestril] 40 mg PO DAILY tablet 11/24/18 Pantoprazole Sodium [Protonix] 40 mg PO DAILY tablet 11/24/18 Insulin Glargine,Hum.rec.anlog [Basaglar Kwikpen U-100] 30 unit SQ DAILY 11/29/18 Loratadine 10 mg PO DAILY 03/26/19 Docusate Sodium [Colace] 100 mg PO BID PRN PRN 05/14/19 Multivitamin with Folic Acid [Thera Tablet] 1 tab PO DAILY 05/14/19 Acetaminophen [Tylenol Tablet] 650 mg PO Q6H PRN PRN tab 05/17/19 Ceftriaxone 2 gm IV Q24 vial 05/17/19 Insulin Lispro [Admelog] 0 units SQ DAILY #1 05/17/19 Iron Polysaccharide Complex [Ferrex 150] 150 mg PO DAILYCM cap 05/17/19 Vancomycin IV 1,250 mg IV Q12H vial 05/17/19 metroNIDAZOLE [Flagyl] 500 mg PO TID tab 05/17/19 Insulin Lispro [Humalog KwikPen] 5 unit SC DAILY insuln.pen 05/18/19 Primary Care Physician: Tony Topete MD [Primary Care Provider] - Please follow up with your Primary Care Physician in: following Discharge from SNF Please Follow Up With: [facility] Wound care center When: weekly Please Follow Up With: Kingston Luna MD When: 4 weeks Disposition: Correction facility Minutes spent on discharge:: 40 Patient Condition:: Stable Medical Necessity - Tobacco Use Smoking Status: Never smoker Tobacco Use: Non-smoker Meaningful Use Info Meaningful Use Diagnoses (Choose all that apply): None applicable Code Visit Inpatient E&M: 74002 Disch Hosp
--- NOTE | 2019-05-18 15:04 | CASEMGMT ---
LEONIDES faxed orders to [facility]. Completed PASRR on HENS. Await PICC line placement. Once done will arrange transport. Candida MONSIVAIS [employer] CONSULTANT
--- NOTE | 2019-05-18 15:42 | CASEMGMT ---
Patient's mom came to the nurses station and asked when patient was coming home today. RN and SW explained he is going [facility] for a little while. She asked what [facility] was and where it was. SW reminded her that she and patient asked SW to make a referral to [facility] earlier this week. She did not seem to remember this and this is not the first time she asked this question. She then went to patient's room. Candida MONSIVAIS MSW
--- NOTE | 2019-05-18 16:18 | CASEMGMT ---
LEONIDES faxed orders to [facility]. Completed PASRR on HENS. SW called [facility] and [facility] and the earliest they can picket labor union patient is 730p. [facility] will picket labor union patient at 730 via cot due to his confusion. LEONIDES notified RN, stenographer secretary, Haley at [facility]. RN notified patient. LEONIDES spoke with Haley from [facility] letting her know patient should not be making decisions for himself. LEONIDES told her his son is his POA, but he is not very helpful as he thinks patient does not have any memory issues. He attributes everything to patient being hungry, tired, or stressed. SW asked if they could pursue guardianship for patient. She said they can look into this. Plan: [facility] at [facility] under skilled level of care on a PASRR. [facility] transported via cot due to confusion. Candida MONSIVAIS MSW
--- NOTE | 2019-05-18 17:23 | PCM.PROGNOTE ---
Patient Problems: Active and Suspected Problems Severe sepsis (Acute) Secondary to diabetic foot infection with bacteremia MRSA bacteremia (Acute) Subjective: Patient was seen today for follow up left foot, refusing surgical intervention, patient to go to nursing facility today, on IV antibiotics. Patient's daughter in room, also asking about right foot. - Physical Exam General: Alert, No apparent distress Extremities: No cyanosis, No Calf Tenderness, - - Left foot with chronic ulceration plantar forefoot with granular base but probes deep to bone - chronic, there is some serous drainage, no purulence, no maloder, no visible abscess, cellulitis much improved, previous toe amputations left foot with residual foot deformity present - chronic, no acute worsening. Right foot with maintained callus medial 1st toe, also area of mild pressure irritation distal 3rd toe with no open lesion or evidence of infection. No open lesions or evidence of infection right foot. No evidence of acute ischemia bilateral foot/ankle. Chronic peripheral neuropathy bilateral foot/ankle. Musculoskeletal: No Tenderness to Palpation of Joints or Extremities Vital Signs Temp Pulse Resp BP Pulse Ox 97.6 F L 77 16 152/84 H 97 05/18/19 09:22 05/18/19 10:00 05/18/19 09:22 05/18/19 09:22 05/18/19 09:22 Oxygen Delivery Method Room Air Weight: 88.4 kg Body Mass Index (BMI) 26.4 Finger Stick Blood Glucose 455 Intake and Output for Last 24 Hours 05/16/19 05/17/19 05/18/19 23:59 23:59 23:59 Intake Total 4101.13 / 4101.13 4322.91 / 4322.91 731.67 / 731.67 Output Total 5 / 5 Balance 4101.13 / 4101.13 4317.91 / 4317.91 731.67 / 731.67 Microbiology Past 72 Hours 05/14/19 17:20 Blood Culture - Preliminary Blood Culture (Wb) - Right Forearm Staphylococcus aureus 05/16/19 14:00 Blood Culture - Preliminary Blood Culture (Wb) - Left Hand No growth in 48 hours. 05/14/19 16:50 Gram Stain - Final Wound Abcess - Left Foot Wound Culture - Final Meth. resistant Staph. aureus Proteus mirabilis Anaerobic Culture - Preliminary Checking for anaerobes, further studies to follow. 05/14/19 17:00 Blood Culture - Preliminary Blood Culture (Wb) - Right Hand Meth. resistant Staph. aureus Laboratory Tests Past 24 Hrs 05/17/19 21:30 Vancomycin Trough 14.8 POC Glucose 05/18/19 05/17/19 10:24 17:29 POC Glucose 147 H 242 H Medical Necessity - Tobacco Use Smoking Status: Never smoker Tobacco Use: Non-smoker Assessment/Plan All Active Problems Severe sepsis (Acute) MRSA bacteremia (Acute) Diabetic foot infection (Acute) Malnutrition (Resolved) Left diabetic foot infection with chronic osteomyelitis refusing surgical intervention MRSA bacteremia Uncontrolled DM with neuropathy Left foot deformity with prominent metatarsal heads Noncompliance/Nonadherence Other comorbidities Re-evaluation performed. Patient refusing surgical intervention to treat the infection. He understands the risks of likely recurrence or worsening infection in future. He understands he may ultimately loss limb or life due to this infection, especially given his noncompliance/nonadherence and going against medical advise. Patient's daughter was in room during discussion and she also expressed understanding and agrement. Continue with IV antibiotics per ID service. Continue with local wound care: the site was irrigated with normal sterile saline. The ulcer site was then dressed with Betadine soaked gauze wicked into ulcer site, 4 x 4's, ABD, Kerlix, and Kishan bandage - change BID. Right foot with maintained callus right medial hallux and mild pressure irritation - no open lesion and no evidence of infection at this time - reviewed importance of keeping offloaded at all times. Ordered surgical shoe to help keep pressure off of site. The patient is to be nonweightbearing to the left forefoot. Patient to follow up with Dr. Bailon at wound center.
--- NOTE | 2019-05-18 17:28 | PCM.DC.POD ---
Weight Bearing Status: No weight bearing - No weightbearing left forefoot Call your doctor if your incision/area has: Continuous Slow Oozing, Sudden Increased Bleeding, Increased Redness, Foul Smelling Discharge, - - Monitor feet for any new open lesions (there is mild pressure irritation distal right 3rd toe) or any signs/symptoms of worsening infection and go to ER if present. Call your doctor if you observe: Fever of 101 or Higher Cleanse incision/area with: - Additional Dressing/Incision Instructions:: Wound care left foot: irrigate with normal sterile saline, then dressed with Betadine soaked gauze wicked into ulcer site, with overlying 4 x 4's, ABD, Kerlix, and Kishan bandage - change twice a day. Allergies/Adverse Reactions: Allergies No Known Allergies Allergy (Verified 05/14/19 16:47) Medications to take at Discharge Lisinopril [Zestril] 40 mg PO DAILY tablet 11/24/18 Pantoprazole Sodium [Protonix] 40 mg PO DAILY tablet 11/24/18 Insulin Glargine,Hum.rec.anlog [Basaglar Kwikpen U-100] 30 unit SQ DAILY 11/29/18 Loratadine 10 mg PO DAILY 03/26/19 Docusate Sodium [Colace] 100 mg PO BID PRN PRN 05/14/19 Multivitamin with Folic Acid [Thera Tablet] 1 tab PO DAILY 05/14/19 Acetaminophen [Tylenol Tablet] 650 mg PO Q6H PRN PRN tab 05/17/19 Ceftriaxone 2 gm IV Q24 vial 05/17/19 Insulin Lispro [Admelog] 0 units SQ DAILY #1 05/17/19 Iron Polysaccharide Complex [Ferrex 150] 150 mg PO DAILYCM cap 05/17/19 Vancomycin IV 1,250 mg IV Q12H vial 05/17/19 metroNIDAZOLE [Flagyl] 500 mg PO TID tab 05/17/19 Insulin Lispro [Humalog KwikPen] 5 unit SUBCUT DAILY insuln.pen 05/18/19 Primary Care Physician: Tony Topete MD [Primary Care Provider] - Please follow up with your Primary Care Physician in: following Discharge from [facility] Test Results: Test results from this visit will be discussed in further detail at your follow-up appointment, if applicable. Please Follow Up With: [facility] Wound care center When: weekly Please Follow Up With: Kingston Luna MD When: 4 weeks
[2019-05-18] MEDS: Insulin Lispro 100 UNIT/ML INSULN.PEN SC ×2 (17:50→17:51)
[2019-05-18 17:51] LABS: Bedside Glucose 205 mg/dL (70-110)
--- NOTE | 2019-05-18 18:15 | NURSING ---
report called to [facility] for transfer, transport to be here @[phone]
[2019-05-18 19:24] VITALS: BP 148/85; PULSE 81; RESP 16; TEMP 36.6; O2SAT 97
--- NOTE | 2019-05-18 20:00 | NURSING ---
turn down man Patty assisted with pts discharge at this time.
== END 2019-05-18 20:00 | disposition skilled nursing facility (03) | DRG 364 ==
LOC: ED 17:16 → PCU 20:00
PROVIDERS: Internal Medicine Infectious Disease; Physician Assistant; Admitting Provider Hospitalist; Emergency Provider Emergency Medicine; Family Provider Family Medicine; PCP Family Medicine; Referring Provider Hospitalist; Visit Provider Internal Medicine
DX: L97.522 Non-pressure chronic ulcer of other part of left foot with fat layer exposed (principal); E11.621 Type 2 diabetes mellitus with foot ulcer; E11.628 Type 2 diabetes mellitus with other skin complications; E11.42 Type 2 diabetes mellitus with diabetic polyneuropathy; L08.9 Local infection of the skin and subcutaneous tissue, unspecified; L89.890 Pressure ulcer of other site, unstageable; G93.41 Metabolic encephalopathy; E11.610 Type 2 diabetes mellitus with diabetic neuropathic arthropathy; B96.4 Proteus (mirabilis) (morganii) as the cause of diseases classified elsewhere; N17.9 Acute kidney failure, unspecified; N18.3 Chronic kidney disease, stage 3 (moderate); E11.22 Type 2 diabetes mellitus with diabetic chronic kidney disease; D50.9 Iron deficiency anemia, unspecified; I12.9 Hypertensive chronic kidney disease with stage 1 through stage 4 chronic kidney disease, or unspecified chronic kidney disease; L84 Corns and callosities; Z91.19 Patient's noncompliance with other medical treatment and regimen; E11.69 Type 2 diabetes mellitus with other specified complication; M86.672 Other chronic osteomyelitis, left ankle and foot; Z79.4 Long term (current) use of insulin; Z89.422 Acquired absence of other left toe(s)
CPT/HCPCS: 36415; 36569; 71045; 73630; 80048; 80053; 80202; 81001; 82728; 82962; 83540; 83550; 83605; 85025; 85610; 85652; 85730; 86140; 87040; 87070; 87075; 87077; 87186; 87205; 87640; 93005; 93308; 97162; 97166; 97530; 97802; 97803; 99285; J1756; J7030; J7050; A4216; J0696

== ENCOUNTER 2019-05-20 15:59 | Inpatient (IN) | payer MEDICAID, SELFPAY ==
[2019-05-20] VITALS (9 sets, daily range): BP systolic 122–179; BP diastolic 81–92; PULSE 87–100; RESP 16–18; TEMP 36.6–36.9; O2SAT 96–99; BMI 29.1
--- NOTE | 2019-05-20 16:53 | CT_ITS ---
STUDY: CT BRAIN WITHOUT CONTRAST REASON FOR EXAM: Male, 63 years old. Altered mental status. RADIATION DOSAGE (If Supplied By Facility): CTDIvol = ( 44.99 ) mGy, DLP = ( 812.98 ) mGycm TECHNIQUE: Transaxial CT imaging of the brain was performed without administration of intravenous contrast material. Individualized dose optimization techniques were used for this CT. COMPARISON: No relevant priors. FINDINGS: Normal soft tissue structures. Normal calvarium. There is mild cerebral atrophy with widening of the extra-axial spaces and ventricular dilatation. There are areas of decreased attenuation within the white matter tracts of the supratentorial brain, consistent with microvascular disease changes. Normal basal ganglia and thalami. Normal brainstem. There is mild cerebellar atrophy. There is no intracranial hemorrhage. There are no findings of an acute ischemic infarction. Normal visualized paranasal sinuses. CT/Brain/Head without Contrast IMPRESSION: Chronic involutional changes of the brain. Small vessel ischemia. Electronically Signed: Barbara Escobar MD at 18:03 EDT Tel , Service support ,
--- NOTE | 2019-05-20 16:53 | EKG12_ITS ---
Test Reason : ALT LOC Blood Pressure : / mmHG Vent. Rate : 090 BPM Atrial Rate : 090 BPM P-R Int : 120 ms QRS Dur : 086 ms QT Int : 368 ms P-R-T Axes : 074 012 050 degrees QTc Int : 450 ms Normal sinus rhythm Normal ECG Confirmed by PA TIPTON, MISHEL ([id number]), news copy editor KRISTYN ALMANZAR ([id number]) on 05/22/2019 11:36:06 AM Referred By: Ck Rowan Confirmed By:MISHEL WINN MD
[2019-05-20] MEDS: Ziprasidone IM 20 MG/ML VIAL 10 MG IM ×2 (17:03→19:10)
[2019-05-20 17:24] LABS: Absolute Lymphocyte Count 3.22 X10^3/uL (0.83-4.51); Absolute Neutrophil Count 5.5 X10^3/uL (2.0-7.7); Basophil# 0.07 X10^3/uL; Basophil% 0.7 % (0-1); Eosinophil# 0.41 X10^3/uL; Hematocrit 30.7 % (40-54); Hemoglobin 9.9 g/dL (13.0-16.5); Lymphocyte # 3.22 X10^3/ul (4.0); Lymphocyte % 31.4 % (19-41); Mean Corp Hgb Conc 32.2 g/dL (32-36); Mean Corpuscular Hgb 27.7 pg (27.0-32.0); Mean Corpuscular Volume 85.8 fL (80-94); Mean Platelet Vol. 8.8 fl (6.2-12.0); Monocyte# 0.97 X10^3/uL; Monocyte% 9.5 % (0-10); NRBC Flagged by Analyzer 0 % (0-5); Neutrophil # 5.45 X10^3/uL (2.7-7.7); Platelet Count 363 K/mm3 (150-450); RBC Distribution Width CV 13.3 % (11.6-14.6); RBC Distribution Width SD 41.9 fl (35.1-43.9); Red Blood Count 3.58 M/mm3 (4.6-6.2); White Blood Count 10.3 K/mm3 (4.4-11.0)
--- NOTE | 2019-05-20 17:25 | ED.VIS.GEN ---
History of Present Illness Chief Complaint: Alt LOC Informant: Patient, Family Narrative: Patient was pink slipped here because of physical and verbally aggressive and threatening behavior at the senior care. He apparently is there because of a diabetic wound on his foot that has been under the care of a electrotyper apprentice, inability to care for himself, and a PICC line through which she gets IV antibiotics. According to the daughter who provides much of the history, the patient has been getting symptoms of dementia for a long while and they have been getting worse. He saw a neurologist, he had an MRI ordered but it was not approved by insurance so it has not been obtained yet, and he is also ordered an EEG and some blood work that has yet to occur, as the neurologist suspects he has dementia. Patient's mother is here with him, she states that she lives with him, daughter states she has significant dementia, and she can provide no useful history. The patient does not understand why he is here in the ER, but states that although his daughter has been helping him with regards to some of his health issues, she is the problem but he cannot discuss any specifics. States he does not remember any of the dates but knows where he is, states that he has admittedly been having some memory problems. He says he thinks he just had surgery on his left foot, the daughter laughs and states that they were wanting to do some type of surgery but the patient refused to allow the electrotyper apprentice to do it. - Past Medical History (1) MRSA bacteremia Status: Resolved (2) Anemia of chronic renal failure, stage 3 (moderate) Status: Chronic (3) Chronic ulcer of left foot with fat layer exposed Status: Chronic (4) Dementia Status: Chronic Comment: I suspect he is not demented but, has a mental Health diagnosis (5) Hypertension Status: Chronic (6) Iron deficiency anemia Status: Chronic (7) Osteomyelitis Status: Chronic Comment: chronic refractory osteomyelitis due to non-complaince and refusal of surgical intervention (8) Type 2 diabetes mellitus Status: Chronic (9) Type 2 diabetes mellitus with diabetic polyneuropathy Status: Chronic Comment: uncontrolled due to non-complaince Past Medical History - Allergies and Home Meds Allergies/Adverse Reactions: Allergies No Known Allergies Allergy (Verified 05/20/19 16:03) Primary Care Physician: Tony Topete MD [Primary Care Provider] - Surgical History: - - Amputation of the left second, third and fifth toe. [facility] Smoking Status: Former smoker - Family History Maternal Family History: Reports: Diabetes Paternal Family History: Reports: - - before I was born. Unknown cause. Review of Systems General: Denies: Chills, Fever, Sweats Eyes: Denies: Visual changes - bilaterally, Diplopia ENT: Denies: Rhinorrhea, Sore throat Cardiovascular: Denies: Chest pain, Palpitations Respiratory: Denies: Dyspnea, Cough, Dyspnea on exertion Gastrointestinal: Denies: Abdominal pain, Nausea, Vomiting, Diarrhea, Melena, Hematochezia Genitourinary: Denies: Dysuria, Hematuria, Frequency Musculoskeletal: Denies: Back pain, Extremity Pain Skin: Reports: Wounds - Left foot, chronic. Denies: Rash Neurological: Reports: Parasthesia - Both feet. Denies: Headache, Weakness Physical Exam Vital Signs/Narrative: Vital Signs Temp Pulse Resp BP Pulse Ox 05/20/19 16:06 98.5 F 95 16 169/84 H 98 05/20/19 16:00 98.5 F 94 18 169/84 H 98 Inital Vital Signs reviewed: Yes General: Well nourished, Well developed, No Acute Distress Head: Normocephalic, Atraumatic Eyes: Perrl, EOMI ENT: Moist mucous membranes, No rhinorrhea Neck: Supple - Full range of motion without any difficulty, Nontender Cardiovascular: Regular rate, Regular rhythm, No murmurs Respiratory: No distress, CTA bilaterally, Chest nontender Abdomen: Soft, Nontender, Nondistended, Normal bowel sounds Back: Nontender, Normal Inspection Extremities: Nontender, No edema Skin: Normal color, No rash, No Trauma, - - 1 cm wound plantar left forefoot, no erythema, discharge expressible, depth is to dermis but not subcutaneous. No abscess. Neurological: Alert, Cranial nerves II-XII grossly intact, Normal Strength, Normal Sensation, Normal Gait, Disoriented - To time but oriented to person, place including city, state, building he is in right now. Negative for: Oriented x3 Psychological: Normal affect, Normal Mood, Agitated - Verbally aggressive and threatening to leave when nursing presents to obtain blood for testing Diagnostic/Tx/Re-eval Impressions Brain CT 05/20/19 16:53 IMPRESSION: Chronic involutional changes of the brain. Small vessel ischemia. Electronically Signed: Barbara Escobar MD at 18:03 EDT Tel , Service support , Chest X-Ray 05/20/19 17:29 IMPRESSION: No acute cardiopulmonary process. Electronically Signed: Barbara Escobar MD at 18:32 EDT Tel , Service support , Foot X-Ray 05/20/19 17:46 IMPRESSION: Stable examination as described above. Electronically Signed: Barbara Escobar MD at 18:39 EDT Tel , Service support , 05/20/19 16:53 Brain/Head without Contrast [CT] Stat 05/20/19 17:29 Chest 1 View (Portable) [RAD] Stat 05/20/19 17:46 Foot min 3 Views [RAD] Stat Laboratory Results 05/20/19 05/20/19 05/20/19 15:15 15:15 15:15 WBC 10.3 RBC 3.58 L Hgb 9.9 L Hct 30.7 L MCV 85.8 MCH 27.7 MCHC 32.2 RDW Std Deviation 41.9 RDW Coeff of Debra 13.3 Plt Count 363 MPV 8.8 Immature Gran % (Auto) 1.400 H Neut % (Auto) 53.0 Lymph % (Auto) 31.4 [place] % (Auto) 9.5 Eos % (Auto) 4.0 Baso % (Auto) 0.7 Absolute Neuts (auto) 5.5 Absolute Lymphs (auto) 3.22 Nucleated RBC % 0 Sodium 139 Potassium 3.6 Chloride 107 Carbon Dioxide 24.0 Anion Gap 8 BUN 27 H Creatinine 1.15 Estim Creat Clear Calc 67.46 Est GFR (MDRD) Af Amer 83 Est GFR (MDRD) Non-Af 69 BUN/Creatinine Ratio 23.5 H Glucose 84 Calcium 9.3 Total Bilirubin 0.40 AST 60 H ALT 42 Alkaline Phosphatase 73 Total Protein 8.1 Albumin 2.9 L Globulin 5.2 H Albumin/Globulin Ratio 0.6 L TSH 0.86 Urine Color Urine Clarity Urine pH Ur Specific [place] Urine Protein Urine Glucose (UA) Urine Ketones Urine Occult Blood Urine Nitrite Urine Bilirubin Urine Urobilinogen Ur Leukocyte Esterase Urine RBC Urine WBC Ur Squamous Epith Cells Urine Bacteria Urine Mucus Urine Opiates Screen Urine Methadone Screen Ur Barbiturates Screen Ur Phencyclidine Scrn Ur Amphetamines Screen U Methamphetamin-MDMA U Benzodiazepines Scrn Urine Cocaine Screen U Cannabinoids Screen Ur Drug Screen Comment Ethyl Alcohol < 3.0 05/20/19 05/20/19 18:48 18:48 WBC RBC Hgb Hct MCV MCH MCHC RDW Std Deviation RDW Coeff of Debra Plt Count MPV Immature Gran % (Auto) Neut % (Auto) Lymph % (Auto) [place] % (Auto) Eos % (Auto) Baso % (Auto) Absolute Neuts (auto) Absolute Lymphs (auto) Nucleated RBC % Sodium Potassium Chloride Carbon Dioxide Anion Gap BUN Creatinine Estim Creat Clear Calc Est GFR (MDRD) Af Amer Est GFR (MDRD) Non-Af BUN/Creatinine Ratio Glucose Calcium Total Bilirubin AST ALT Alkaline Phosphatase Total Protein Albumin Globulin Albumin/Globulin Ratio TSH Urine Color Straw Urine Clarity Clear Urine pH 7.0 Ur Specific [place] 1.005 Urine Protein 30 H Urine Glucose (UA) Normal Urine Ketones Negative Urine Occult Blood Negative Urine Nitrite Negative Urine Bilirubin Negative Urine Urobilinogen Normal Ur Leukocyte Esterase Negative Urine RBC 0 SEEN Urine WBC 0 SEEN Ur Squamous Epith Cells 0 SEEN Urine Bacteria 0 SEEN Urine Mucus 0 SEEN Urine Opiates Screen NEGATIVE Urine Methadone Screen NEGATIVE Ur Barbiturates Screen NEGATIVE Ur Phencyclidine Scrn NEGATIVE Ur Amphetamines Screen NEGATIVE U Methamphetamin-MDMA NEGATIVE U Benzodiazepines Scrn NEGATIVE Urine Cocaine Screen NEGATIVE U Cannabinoids Screen NEGATIVE Ur Drug Screen Comment Ethyl Alcohol - Medical Decision Making Work-up is unremarkable. There is no evidence for osteomyelitis, or clinically acute infection of his left foot. His head scan shows chronic small vessel ischemic abnormalities but nothing acute. No active infection found, other than mild prerenal azotemia, the work-up was unremarkable. He is medically cleared for psychiatric evaluation, I suspect this is behavioral disturbance related to dementia. Crisis consulted. He was pink slipped by police. I concur with this. He attempted to leave and was becoming aggressive toward staff so he was given Geodon 10 mg, that was repeated since it did not do much, this helped calm and down and there were no complications, he was still alert enough to walk. ED Disposition - Plan for ED Patient: Disposition: Psychiatric Hospital or Unit Diagnosis: Dementia with behavioral disturbance Referrals: Tony Topete MD [Primary Care Provider] -
--- NOTE | 2019-05-20 17:29 | RAD_ITS ---
STUDY: X-RAY CHEST REASON FOR EXAM: Male, 63 years old. Altered mental status. TECHNIQUE: Single frontal view of the chest. COMPARISON: June 14, 2019 FINDINGS: The lungs are clear and expanded. There is no demonstrated pleural abnormality. There is a left-sided PICC line in place terminating within the expected region of the superior vena cava. Normal size heart. Normal mediastinum and josé luis. Normal visualized pulmonary arteries. Normal visualized aortic arch and descending thoracic aorta. Normal visualized thoracic spine. Normal visualized ribs, clavicles, and shoulders. There is no demonstrated abnormality of the visualized soft tissue structures of the upper abdomen. RAD/Chest 1 View (Portable) IMPRESSION: No acute cardiopulmonary process. Electronically Signed: Barbara Escobar MD at 18:32 EDT Tel , Service support ,
--- NOTE | 2019-05-20 17:46 | RAD_ITS ---
STUDY: X-RAY - LEFT FOOT CLINICAL: Male, 63 years old. Ongoing foot infection. TECHNIQUE: 3 view(s) of the foot. COMPARISON: May 14, 2019 FINDINGS: There are stable plantar and posterior calcaneal enthesophyte. There are degenerative changes of the midfoot. There is stable resection changes of the second through fifth digits. There are Charcot changes of the first MTP joint. There are stable flexion deformities of the first and fourth digits. There is stable soft tissue swelling. There are vascular calcifications present. RAD/Foot min 3 Views IMPRESSION: Stable examination as described above. Electronically Signed: Barbara Escobar MD at 18:39 EDT Tel , Service support ,
[2019-05-20 17:49] LABS: ALB/GLOB Ratio 0.6 RATIO (0.9-2.4); AST(SGOT) 60 U/L (15-37); Alanine Aminotransfer ALT/SGPT 42 U/L (16-61); Albumin, Serum 2.9 g/dL (3.2-5.0); Alkaline Phosphatase 73 U/L (45-117); Anion Gap 8 (5-15); BUN 27 mg/dL (7-18); BUN/Creat Ratio 23.5 RATIO (10-20); Calcium,Total 9.3 mg/dL (8.5-10.1); Chloride 107 mmol/L (98-107); Creatinine, Serum 1.15 mg/dL (0.70-1.30); EST Glomerular Filtration Rate 69 mL/min (>60); Est Glom Filt Rate - Afr Amer 83 mL/min (>60); Estimated Creatinine Clearance 67.46 ml/min; Globulin 5.2 g/dL (2.2-4.2); Glucose 84 mg/dL (74-106); Potassium 3.6 mmol/L (3.5-5.1); Protein, Total 8.1 g/dL (6.4-8.2); Sodium Level 139 mmol/L (136-145); Thyroid Stim Hormone (TSH) 0.86 uIU/mL (0.358-3.74)
[2019-05-20 18:13] LABS: Alcohol, Blood (Medical)-Serum < 3.0 mg/dL
[2019-05-20 18:53] LABS: Bacteria 0 SEEN /hpf (None Seen); Mucous, Urine 0 SEEN /hpf (<or=2+); Red Blood Cells-Urine 0 SEEN /hpf (0-5); Squamous Epithelial Cells - UA 0 SEEN /hpf (0-5); White Blood Cells 0 SEEN /hpf (0-5)
[2019-05-20 18:54] LABS: Color, Urine Straw (Yellow); Glucose, Dipstick Normal (Normal); Ketone-Dipstick Negative (Negative); Leukocyte Esterase-Dipstick Negative /ul (Negative); Nitrite-Dipstick Negative (Negative); Occult Blood-Urine Negative /ul (Negative); Protein-Dipstick 30 mg/dl (Negative); Specific Gravity, Urine 1.005 (1.002-1.030); Urine Bilirubin Dipstick Negative (Negative); Urine Clarity Clear (Clear); Urine Urobilinogen Normal (Normal)
--- NOTE | 2019-05-20 19:07 | NURSING ---
PT VERBALLY ABUSE TO NURSING STAFF. PT WILL NOT FOLLOW DIRECTIONS. PT INSTRUCTED TO STAY IN BED BUT PT VERBALLY ABUSIVE. NOTIFIED. PHILIPP ORDERED.
[2019-05-20 19:16] LABS: Amphetamine Urine VISTA NEGATIVE (<1000 ng/mL); Barbiturate Urine VISTA NEGATIVE (< 200 ng/mL); Benzodiazepine Urine VISTA NEGATIVE (< 200 ng/mL); Cocaine Urine VISTA NEGATIVE (< 300 ng/mL); Ecstacy Urine VISTA NEGATIVE (< 500 ng/mL); Methadone Urine VISTA NEGATIVE (< 300 ng/mL); PCP Urine VISTA NEGATIVE (< 25 ng/mL); THC Urine VISTA NEGATIVE (< 50 ng/mL); Vista UDS pH Range 5
--- NOTE | 2019-05-20 19:55 | NURSING ---
CALLED CRISIS AT 1954
[2019-05-20 22:00] LABS: Bedside Glucose 114 mg/dL (70-110)
[2019-05-20] MEDS: metroNIDAZOLE 500 MG Tablet PO (23:25)
[2019-05-21] VITALS (15 sets, daily range): BP systolic 134–178; BP diastolic 64–91; PULSE 81–118; RESP 15–18; TEMP 36.6–36.7; O2SAT 96–100; BMI 26.4
--- NOTE | 2019-05-21 03:05 | NURSING ---
CARMEN CONTACTED ABOUT WHEN PT ATB WAS TO END. CHIQUITA SAID NO END DATE. PT WAS TO SEE INFECTION CONTROL IN 4 WEEKS. THEN WOULD ASK THEM WHEN TO D/C. . CASIMIRO FOX NOTIFIED.
--- NOTE | 2019-05-21 03:13 | ED.RN ---
cher martinez will accept patient as long as PICC line can be dc and patient no longer requiring IV atx. Will call infection disease in AM to consult to determine best course of care for patient at this time
[2019-05-21] MEDS: metroNIDAZOLE 500 MG Tablet PO ×3 (05:00→22:53)
--- NOTE | 2019-05-21 06:37 | PCM.RX.CS ---
Consult Pharmacy has been consulted to manage selected antiobiotic: Vancomycin Type of Consult: New start Labs: Sodium 139 mmol/L (136-145) 05/20/19 15:15 Potassium 3.6 mmol/L (3.5-5.1) 05/20/19 15:15 Chloride 107 mmol/L (98-107) 05/20/19 15:15 Carbon Dioxide 24.0 mmol/L (21.0-32.0) 05/20/19 15:15 8 (5-15) 05/20/19 15:15 BUN 27 mg/dL (7-18) H 05/20/19 15:15 1.15 mg/dL (0.70-1.30) 05/20/19 15:15 Est GFR (MDRD) Af Amer 83 mL/min (>60) 05/20/19 15:15 Est GFR (MDRD) Non-Af 69 mL/min (>60) 05/20/19 15:15 23.5 RATIO (10-20) H 05/20/19 15:15 Glucose 84 mg/dL (74-106) 05/20/19 15:15 Goal Trough: 10-15 mcg/mL Pharmacy Plan for Drug Dosing: Pharmacy Service will continue to monitor and adjust dosing as required. Medications Vancomycin HCl (Vancomycin) 1,000 mg in 200 mls @ 200 mls/hr IV Q12H SARITHA Discontinued Medications Vancomycin HCl 1,250 mg/ (Sodium Chloride) 275 mls @ 167 mls/hr IV X1 ONE Stop: 05/21/19 00:55 Last Admin: 05/21/19 01:17 Dose: Infused Documented by: Follow-Up Labs: Trough Vancomycin Labs to be done on [date and time ordered]: 05/22 @ 1100
--- NOTE | 2019-05-21 07:18 | ED.RN ---
Addendum entered by Jamal Bingham 05/21/19 07:20: correction will contact cher martinez not mukund small Original Note: spoke with dr. grande at this time about patient care. concern to discontinue IV atx at this time so early in the treatment. ID doctor following him will be back employee communications coordinator tomorrow. Dr. Grande feels patient should be seen by primary ID doctor before making any changes in treatment plan. Will speak mukund small and crisis and update on care of plan
--- NOTE | 2019-05-21 07:24 | ED.RN ---
cher carlosta made aware of ID issue and will pull referral at this time
[2019-05-21 07:25] LABS: Bedside Glucose 73 mg/dL (70-110)
--- NOTE | 2019-05-21 07:25 | ED.RN ---
APPLE JUICE GIVEN FOR BG
[2019-05-21] MEDS: Iron Polysaccharide Complex 150 MG CAPSULE PO (08:25)
[2019-05-21] MEDS: Multivitamins,Therapeutic Tablet 1 TABLET PO (08:25)
--- NOTE | 2019-05-21 08:48 | ED.RN ---
pt requested to get out of bed into the chair, dr. díaz made aware. dr. díaz said it was ok for the pt to get up into the chair, this nurse and inlayer silver assisted pt to the [facility] where he is resting more comfortably.will continue to monitor the pt.
--- NOTE | 2019-05-21 11:25 | ED.RN ---
Called to inquire about pt returning to facility with rx of haldol. This nurse was informed the pt was not to return to the facility per the travel administrator. She also informed me they did not admin haldol in this facility.
[2019-05-21] MEDS: Loratadine 10 MG Tablet PO (11:40)
[2019-05-21] MEDS: Lisinopril 40 MG Tablet PO (11:41)
[2019-05-21] MEDS: Haloperidol 5 MG Tablet PO (11:42)
[2019-05-21] MEDS: Pantoprazole Sodium 40 MG Tablet PO (11:48)
[2019-05-21 11:50] LABS: Bedside Glucose 269 mg/dL (70-110)
--- NOTE | 2019-05-21 13:31 | HP.PCM_ITS ---
Problem List (1) Severe sepsis Status: Inactive Comment: Secondary to diabetic foot infection with bacteremia (2) MRSA bacteremia Status: Resolved (3) Iron deficiency anemia Status: Chronic (4) Acute renal failure superimposed on stage 3 chronic kidney disease Status: Chronic (5) Noncompliance Status: Chronic Comment: With diet, medications, nonweightbearing on the left foot (6) Anemia of chronic renal failure, stage 3 (moderate) Status: Chronic (7) Dementia with behavioral disturbance Status: Chronic (8) Chronic ulcer of left foot with fat layer exposed Status: Chronic (9) Type 2 diabetes mellitus with diabetic polyneuropathy Status: Chronic Comment: uncontrolled due to non-complaince (10) Hammertoe of left foot Status: Chronic (11) Other acquired deformities of left foot Status: Chronic (12) Diabetic foot infection Status: Chronic Comment: recurrent (13) Hammer toe of left foot Status: Chronic (14) Osteomyelitis Status: Chronic Qualifiers: Comment: chronic refractory osteomyelitis due to non-complaince and refusal of surgical intervention (15) Left second and third toe amputation Status: Chronic (16) Hypertension Status: Chronic History of Present Illness Date of Admission: 05/21/19 Chief Complaint: Aggressive behavior at SNF. The patient is a 63 year old M who presents to the emergency room from SNF due to physical and verbal aggressive and threatening behavior at SNF. He was recently discharged 05/18/2019 following treatment for sepsis/MRSA bacteremia as a result of chronic left foot infections. He apparently pulled out his PICC line at SNF. SNF now refusing to take patient back given behavioral disturbances. Was not able to be transferred to inpatient psychiatric facility given need for IV antibiotics/PICC line. Patient himself rambles about various topics however denies current complaints. States his left foot looks bad. Denies fever, chills. He does acknowledge pulling out his PICC line and reports he is regretful of doing so. Patient's mother at bedside who also seems confused. Patient has a past medical history of poorly controlled type 2 d iabetes mellitus, chronic kidney disease stage III, hypertension, dementia with behavioral disturbances, multiple diabetic foot infections in the past with osteomyelitis of the left foot status post amputation of the second and third toes on the left foot. Past Medical History Past Medical History (Chronic Problems): Chronic Problems Iron deficiency anemia (Chronic) Acute renal failure superimposed on stage 3 chronic kidney disease (Chronic) Noncompliance (Chronic) With diet, medications, nonweightbearing on the left foot Anemia of chronic renal failure, stage 3 (moderate) (Chronic) Dementia with behavioral disturbance (Chronic) Chronic ulcer of left foot with fat layer exposed (Chronic) Type 2 diabetes mellitus with diabetic polyneuropathy (Chronic) uncontrolled due to non-complaince Hammertoe of left foot (Chronic) Other acquired deformities of left foot (Chronic) Diabetic foot infection (Chronic) recurrent Hammer toe of left foot (Chronic) Osteomyelitis (Chronic) chronic refractory osteomyelitis due to non-complaince and refusal of surgical intervention Left second and third toe amputation (Chronic) Hypertension (Chronic) Allergies No Known Allergies Allergy (Verified 05/20/19 16:03) Home Medications: Ambulatory Orders Medication Instructions Recorded Lisinopril [Zestril] 40 mg PO DAILY tablet 11/24/18 Pantoprazole Sodium [Protonix] 40 mg PO DAILY tablet 11/24/18 Insulin Glargine,Hum.rec.anlog 30 unit SQ DAILY 11/29/18 [Basaglar Kwikpen U-100] Loratadine 10 mg PO DAILY 03/26/19 Docusate Sodium [Colace] 100 mg PO BID PRN PRN 05/14/19 Multivitamin with Folic Acid 1 tab PO DAILY 05/14/19 [Thera Tablet] Acetaminophen [Tylenol Tablet] 650 mg PO Q6H PRN PRN tab 05/17/19 Ceftriaxone 2 gm IV Q24 vial 05/17/19 Iron Polysaccharide Complex 150 mg PO DAILYCM cap 05/17/19 [Ferrex 150] Vancomycin IV 1,250 mg IV Q12H vial 05/17/19 metroNIDAZOLE [Flagyl] 500 mg PO TID tab 05/17/19 Argin/Glut/Cahmb/Collag/Mv-Min 1 ea PO BID 05/20/19 [Gerard Packet] Bisacodyl [Gentle Laxative] 10 mg NE DAILY PRN PRN 05/20/19 Insulin Lispro [Admelog] 5 units SQ DAILY 05/20/19 Insulin Lispro [Humalog KwikPen] 10 unit SUBCUT DAILY 05/20/19 Magnesium Hydroxide [Milk Of 30 ml PO DAILY PRN PRN 05/20/19 Magnesia] Mineral Oil 1 bottle NE DAILY PRN PRN 05/20/19 Surgical History: - - Amputation of the left second, third and fifth toe. Psychiatric History: No pertinent psych hx Lives: Skilled Nursing Smoking Status: Former smoker Alcohol: None Drugs: None - *Family History Maternal History Items: Diabetes Paternal History Items: - - before I was born. Unknown cause. Review of Systems Constitutional: Denies: Chills, Fever, Weight Change HEENT: Denies: Head Aches, Sinus Congestion, Sinus Drainage Cardiovascular: Denies: Chest Pain, Palpitations Respiratory: Denies: Cough, Shortness of breath at rest, Sputum production Gastrointestinal: Denies: Abdominal Pain, Nausea, Vomiting Genitourinary: Denies: Dysuria Musculoskeletal: Denies: Joint Pain, Joint Tenderness Skin: Reports: - - Chronic left foot wound, dressing intact.. Denies: Rash Neurological: Denies: Numbness, Tingling, Focal weakness Psychiatric: Denies: Anxiety, Depression, Homicidal Ideations, Suicidal Ideations Hematologic/ Lymphatic: Denies: Easy Bruising, Easy Bleeding VTE Information - Inpt Only VTE Present on Admission: No VTE Mechan Device Prophylaxis: None VTE Pharm Prophylaxis ordered?: Yes - Physical Exam General: Alert, Oriented x3, Cooperative, No apparent distress HEENT: Atraumatic, PERRLA, EOMI, Normocephalic Neck: Supple, No JVD, Negative Carotid Bruits Lungs: Clear to auscultation, Normal air movement Cardiovascular: Regular rate, Regular Rhythm, Normal S1, Normal S2, No murmurs Abdomen: Bowel Sounds Present, Soft, Non Tender, Non-Distended Extremities: No clubbing, No cyanosis, No edema, Capillary Refill Less than 3 Seconds Skin: - - Left foot wound, dressing changed by RN, clean dry and intact. Musculoskeletal: No Tenderness to Palpation of Joints or Extremities Neurological: Cranial nerves II-XII grossly intact Psych/Mental Status: Impulsive, Irrational Behavior Vital Signs Temp Pulse Resp BP Pulse Ox 98 F 97 16 138/83 H 99 05/20/19 18:00 05/21/19 12:51 05/21/19 12:51 05/21/19 12:51 05/21/19 12:51 Oxygen Delivery Method Room Air Weight: 197 lb 5.019 oz Body Mass Index (BMI) 29.1 Finger Stick Blood Glucose 73 Intake and Output for Last 24 Hours 05/19/19 05/20/19 05/21/19 23:59 23:59 23:59 Intake Total 325 / 325 Balance 325 / 325 Laboratory Tests Past 24 Hrs 05/20/19 05/20/19 05/20/19 15:15 15:15 15:15 WBC 10.3 RBC 3.58 L Hgb 9.9 L Hct 30.7 L MCV 85.8 MCH 27.7 MCHC 32.2 RDW Std Deviation 41.9 RDW Coeff of Debra 13.3 Plt Count 363 MPV 8.8 Immature Gran % (Auto) 1.400 H Neut % (Auto) 53.0 Lymph % (Auto) 31.4 [place] % (Auto) 9.5 Eos % (Auto) 4.0 Baso % (Auto) 0.7 Absolute Neuts (auto) 5.5 Absolute Lymphs (auto) 3.22 Nucleated RBC % 0 Sodium 139 Potassium 3.6 Chloride 107 Carbon Dioxide 24.0 Anion Gap 8 BUN 27 H Creatinine 1.15 Estim Creat Clear Calc 67.46 Est GFR (MDRD) Af Amer 83 Est GFR (MDRD) Non-Af 69 BUN/Creatinine Ratio 23.5 H Glucose 84 Calcium 9.3 Total Bilirubin 0.40 AST 60 H ALT 42 Alkaline Phosphatase 73 Total Protein 8.1 Albumin 2.9 L Globulin 5.2 H Albumin/Globulin Ratio 0.6 L TSH 0.86 Urine Color Urine Clarity Urine pH Ur Specific [place] Urine Protein Urine Glucose (UA) Urine Ketones Urine Occult Blood Urine Nitrite Urine Bilirubin Urine Urobilinogen Ur Leukocyte Esterase Urine RBC Urine WBC Ur Squamous Epith Cells Urine Bacteria Urine Mucus Urine Opiates Screen Urine Methadone Screen Ur Barbiturates Screen Ur Phencyclidine Scrn Ur Amphetamines Screen U Methamphetamin-MDMA U Benzodiazepines Scrn Urine Cocaine Screen U Cannabinoids Screen Ur Drug Screen Comment Ethyl Alcohol < 3.0 05/20/19 05/20/19 18:48 18:48 WBC RBC Hgb Hct MCV MCH MCHC RDW Std Deviation RDW Coeff of Debra Plt Count MPV Immature Gran % (Auto) Neut % (Auto) Lymph % (Auto) [place] % (Auto) Eos % (Auto) Baso % (Auto) Absolute Neuts (auto) Absolute Lymphs (auto) Nucleated RBC % Sodium Potassium Chloride Carbon Dioxide Anion Gap BUN Creatinine Estim Creat Clear Calc Est GFR (MDRD) Af Amer Est GFR (MDRD) Non-Af BUN/Creatinine Ratio Glucose Calcium Total Bilirubin AST ALT Alkaline Phosphatase Total Protein Albumin Globulin Albumin/Globulin Ratio TSH Urine Color Straw Urine Clarity Clear Urine pH 7.0 Ur Specific [place] 1.005 Urine Protein 30 H Urine Glucose (UA) Normal Urine Ketones Negative Urine Occult Blood Negative Urine Nitrite Negative Urine Bilirubin Negative Urine Urobilinogen Normal Ur Leukocyte Esterase Negative Urine RBC 0 SEEN Urine WBC 0 SEEN Ur Squamous Epith Cells 0 SEEN Urine Bacteria 0 SEEN Urine Mucus 0 SEEN Urine Opiates Screen NEGATIVE Urine Methadone Screen NEGATIVE Ur Barbiturates Screen NEGATIVE Ur Phencyclidine Scrn NEGATIVE Ur Amphetamines Screen NEGATIVE U Methamphetamin-MDMA NEGATIVE U Benzodiazepines Scrn NEGATIVE Urine Cocaine Screen NEGATIVE U Cannabinoids Screen NEGATIVE Ur Drug Screen Comment Ethyl Alcohol POC Glucose 05/21/19 05/21/19 05/20/19 11:45 07:20 21:57 POC Glucose 269 H 73 114 H Assessment/Plan All Active Problems MRSA bacteremia (Resolved) Malnutrition (Resolved) 1. Dementia with behavioral disturbances-SNF refused to take SNF back. CM consult for DC planning. Currently not showing signs of aggression. 2. Recurrent diabetic left foot infections/osteomyelitis of the left foot status post amputation of the second and third toes, recent MRSA bacteremia-discharged 05/18/2019 with plans for IV Rocephin and IV vancomycin via PICC line for 8 weeks, continue. Consult ID. Wound RN consult. Patient has followed with Dr. Saravia, podiatry in the past and refuses to have surgery on left foot. Nonweightbearing left foot. PT/OT. 3. Poorly controlled type 2 diabetes mellitus with peripheral polyneuropathy- hemoglobin A1c March 2000 1813.9%. Accu-Cheks with sliding scale insulin. Continue home insulin regimen. 4. Chronic kidney disease stage III-at baseline, trend BMP. 5. Hypertension-stable, continue home lisinopril regimen. 6. Anemia of chronic disease-at baseline. DVT prophylaxis-Lovenox subcu This patient was seen by Kindra Mendoza NP-Don under the supervision of Dr. Rowan.
--- NOTE | 2019-05-21 14:19 | NURSING ---
pt flagyl not on unit yet for pt administration
[2019-05-21 16:16] LABS: Bedside Glucose 138 mg/dL (70-110)
[2019-05-21] MEDS: QUEtiapine 100 MG Tablet PO (20:00)
--- NOTE | 2019-05-21 22:12 | NURSING ---
Dr. Luna's answering service called and said that they are not allowed to take consults on weekends or holidays and that this consult (even though completed) will need to be called again to their office on 05/22/19.
[2019-05-21] MEDS: Insulin Lispro 100 UNIT/ML INSULN.PEN SC (22:52)
[2019-05-21 23:06] LABS: Bedside Glucose 155 mg/dL (70-110)
[2019-05-22 06:15] VITALS: BP 153/90; PULSE 78; RESP 18; TEMP 36.9; O2SAT 97
[2019-05-22] MEDS: metroNIDAZOLE 500 MG Tablet PO ×3 (06:28→22:54)
[2019-05-22 07:26] LABS: Bedside Glucose 101 mg/dL (70-110)
[2019-05-22] MEDS: Enoxaparin 40 MG/0.4 ML Syringe SC (09:44)
[2019-05-22] MEDS: QUEtiapine 100 MG Tablet PO ×2 (09:44→19:33)
[2019-05-22] MEDS: Lisinopril 40 MG Tablet PO (09:44)
--- NOTE | 2019-05-22 09:50 | CASEMGMT ---
Social Work Note Pt is from [facility] and per notes, [facility] is not able to accept pt back due to pt's threatening behaviors. LEONIDES placed a call to Haley at [facility]. Haley confirms pt was threatening staff at facility, pt refused to leave facility and was laying on the courtyard, and [place] [employer] had to be called to transport pt to emergency department. Marci Martin DIGITAL MANAGER, PERFORMANCE TEST ARCHITECT
--- NOTE | 2019-05-22 10:04 | CON.PCM_ITS ---
Problem List (1) MRSA bacteremia Status: Resolved Reason for Consult: mrsa Consulted by: Dr. Rowan History of Present Illness: The patient is a 63 year old M with recurrent L foot osteo, recent admit with MRSA bacteremia, discharged with picc to [facility] on vanc, ceftriaxone, po flagyl. Sent back here due to agitation and threats against staff. Denies any complaints this AM, no issues with picc, no fever. Full ROS performed and neg except as noted above. - Medical History Past Medical History (Chronic Problems): Chronic Problems Iron deficiency anemia (Chronic) Acute renal failure superimposed on stage 3 chronic kidney disease (Chronic) Noncompliance (Chronic) With diet, medications, nonweightbearing on the left foot Anemia of chronic renal failure, stage 3 (moderate) (Chronic) Dementia with behavioral disturbance (Chronic) Chronic ulcer of left foot with fat layer exposed (Chronic) Type 2 diabetes mellitus with diabetic polyneuropathy (Chronic) uncontrolled due to non-complaince Hammertoe of left foot (Chronic) Other acquired deformities of left foot (Chronic) Diabetic foot infection (Chronic) recurrent Hammer toe of left foot (Chronic) Osteomyelitis (Chronic) chronic refractory osteomyelitis due to non-complaince and refusal of surgical intervention Left second and third toe amputation (Chronic) Hypertension (Chronic) Allergies/Adverse Reactions: Allergies No Known Allergies Allergy (Verified 05/20/19 16:03) Home Medications: Ambulatory Orders Medication Instructions Recorded Lisinopril [Zestril] 40 mg PO DAILY tablet 11/24/18 Pantoprazole Sodium [Protonix] 40 mg PO DAILY tablet 11/24/18 Insulin Glargine,Hum.rec.anlog 30 unit SQ DAILY 11/29/18 [Basaglar Kwikpen U-100] Loratadine 10 mg PO DAILY 03/26/19 Docusate Sodium [Colace] 100 mg PO BID PRN PRN 05/14/19 Multivitamin with Folic Acid 1 tab PO DAILY 05/14/19 [Thera Tablet] Acetaminophen [Tylenol Tablet] 650 mg PO Q6H PRN PRN tab 05/17/19 Ceftriaxone 2 gm IV Q24 vial 05/17/19 Iron Polysaccharide Complex 150 mg PO DAILYCM cap 05/17/19 [Ferrex 150] Vancomycin IV 1,250 mg IV Q12H vial 05/17/19 metroNIDAZOLE [Flagyl] 500 mg PO TID tab 05/17/19 Argin/Glut/Cahmb/Collag/Mv-Min 1 ea PO BID 05/20/19 [Gerard Packet] Bisacodyl [Gentle Laxative] 10 mg MD DAILY PRN PRN 05/20/19 Insulin Lispro [Admelog] 5 units SQ DAILY 05/20/19 Insulin Lispro [Humalog KwikPen] 10 unit SUBCUT DAILY 05/20/19 Magnesium Hydroxide [Milk Of 30 ml PO DAILY PRN PRN 05/20/19 Magnesia] Mineral Oil 1 bottle MD DAILY PRN PRN 05/20/19 - Social History SMOKING STATUS:: Former smoker Vital Signs Temp Pulse Resp BP Pulse Ox 98.5 F 78 18 153/90 H 97 05/22/19 06:15 05/22/19 06:15 05/22/19 06:15 05/22/19 06:15 05/22/19 06:15 Oxygen Delivery Method Room Air Weight: 88.2 kg Body Mass Index (BMI) 26.4 Finger Stick Blood Glucose 73 - Other Studies Radiology: [] reviewed Other Studies: [] Route of nutrition/ use of supplements: [] Nutritional Intake: [] IV Site: [] Crawley Catheter: [] - Physical Exam General: Alert, Cooperative, No apparent distress HEENT: Atraumatic, PERRLA, EOMI Neck: Supple, No Nodes Lungs: Clear to auscultation, Normal air movement Cardiovascular: Regular rate, Regular Rhythm Abdomen: Soft, Non Tender, Non-Distended Extremities: No edema Skin: Ulcer/ Wound - L foot wrapped IV Site: PICC, without redness Musculoskeletal: No Tenderness to Palpation of Joints or Extremities Neurological: Cranial nerves II-XII grossly intact - Assessment/Plan Antibiotics: [] Assessment/Plan: [] L foot osteo with MRSA bacteremia - recurrent infections. Has repeatedly refused surgical debridement/amputation. On vanc/ceftriaxone/flagyl, cx with MRSA and proteus. Refuses surgery. [facility] after completing course of iv. Continue on 8 week course of iv abx, stop date 06/12/19, weekly bmp, cbc, esr, and vanc trough. Thank you. Will follow, d/w telephonic case manager
[2019-05-22] MEDS: Iron Polysaccharide Complex 150 MG CAPSULE PO (10:31)
[2019-05-22] MEDS: Multivitamins,Therapeutic Tablet 1 TABLET PO (10:31)
[2019-05-22] MEDS: Pantoprazole Sodium 40 MG Tablet PO (10:35)
--- NOTE | 2019-05-22 10:44 | NURSING ---
wound photo: left foot
--- NOTE | 2019-05-22 10:45 | NURSING ---
Addendum entered by Shruthi Julien 05/22/19 10:48: right 3rd toe Original Note: wound photo: left 3rd toe
[2019-05-22 11:30] VITALS: BP 140/74; PULSE 93; PULSE 96; RESP 18; TEMP 36.4; O2SAT 97
[2019-05-22 11:41] LABS: Bedside Glucose 121 mg/dL (70-110)
[2019-05-22 12:22] LABS: Vancomycin, Trough Level 22.5 ug/mL (5.0-15.0)
--- NOTE | 2019-05-22 12:52 | PN_ITS ---
Subjective: Patient seen and examined. Drowsy during assessment. No acute events reported overnight. - Physical Exam General: - - Drowsy, no acute distress HEENT: Atraumatic, PERRLA, EOMI, Normocephalic Neck: Supple, No JVD, Negative Carotid Bruits Lungs: Clear to auscultation, Normal air movement Cardiovascular: Regular rate, Regular Rhythm, Normal S1, Normal S2, No murmurs Abdomen: Bowel Sounds Present, Soft, Non Tender, Non-Distended Extremities: No clubbing, No cyanosis, No edema, Capillary Refill Less than 3 Seconds Skin: - - Left foot wound, dressing clean dry and intact. Right third toe ulceration. Musculoskeletal: No Tenderness to Palpation of Joints or Extremities Neurological: Cranial nerves II-XII grossly intact, Neuro grossly intact Psych/Mental Status: Impulsive, Irrational Behavior Vital Signs Temp Pulse Resp BP Pulse Ox 97.6 F L 96 18 140/74 H 97 05/22/19 11:30 05/22/19 11:30 05/22/19 11:30 05/22/19 11:30 05/22/19 11:30 Oxygen Delivery Method Room Air Weight: 194 lb 7.163 oz Body Mass Index (BMI) 26.4 Finger Stick Blood Glucose 73 Intake and Output for Last 24 Hours 05/20/19 05/21/19 05/22/19 23:59 23:59 23:59 Intake Total 950 / 950 1075 / 1075 Balance 950 / 950 1075 / 1075 Laboratory Tests Past 24 Hrs 05/22/19 11:18 Vancomycin Trough 22.5 H POC Glucose 05/22/19 05/22/19 05/21/19 11:36 07:23 22:51 POC Glucose 121 H 101 155 H 05/21/19 16:04 POC Glucose 138 H Medical Necessity - Tobacco Use Smoking Status: Former smoker Assessment/Plan All Active Problems MRSA bacteremia (Resolved) Malnutrition (Resolved) 1. Dementia with behavioral disturbances-SNF refused to take SNF back. CM consult for DC planning. Currently not showing signs of aggression. Continue Seroquel 100 mg p.o. twice daily. 2. Recurrent diabetic left foot infections/osteomyelitis of the left foot status post amputation of the second and third toes, recent MRSA bacteremia-discharged 05/18/2019 with plans for IV Rocephin and IV vancomycin via PICC line for 8 weeks, continue. Consult ID. Wound RN consult. Patient has followed with Dr. Saravia, podiatry in the past and refuses to have surgery on left foot. Nonweightbearing left foot. PT/OT. 3. Poorly controlled type 2 diabetes mellitus with peripheral polyneuropathy- hemoglobin A1c March 2000 1813.9%. Accu-Cheks with sliding scale insulin. Continue home insulin regimen. 4. Chronic kidney disease stage III-at baseline, trend BMP. 5. Hypertension-stable, continue home lisinopril regimen. 6. Anemia of chronic disease-at baseline. DVT prophylaxis-Lovenox subcu Discharge planning: Pending facility placement/acceptance. This patient was seen by BAKARI Curtis under the supervision of Dr. Rowan.
--- NOTE | 2019-05-22 13:10 | PCM.RX.CS ---
Consult Pharmacy has been consulted to manage selected antiobiotic: Vancomycin Type of Consult: Follow-up Suspected Infection: Skin/Soft tissue Prior Doses of Antibiotics Received/Current Regimen: 3 Labs: Sodium 139 mmol/L (136-145) 05/20/19 15:15 Potassium 3.6 mmol/L (3.5-5.1) 05/20/19 15:15 Chloride 107 mmol/L (98-107) 05/20/19 15:15 Carbon Dioxide 24.0 mmol/L (21.0-32.0) 05/20/19 15:15 8 (5-15) 05/20/19 15:15 BUN 27 mg/dL (7-18) H 05/20/19 15:15 1.15 mg/dL (0.70-1.30) 05/20/19 15:15 Est GFR (MDRD) Af Amer 83 mL/min (>60) 05/20/19 15:15 Est GFR (MDRD) Non-Af 69 mL/min (>60) 05/20/19 15:15 23.5 RATIO (10-20) H 05/20/19 15:15 Glucose 84 mg/dL (74-106) 05/20/19 15:15 Vancomycin Trough 22.5 ug/mL (5.0-15.0) H 05/22/19 11:18 TROUGH LEVEL ORDERED FOR 05/24/19 AT 1130 Weight used for dosin.2 kg Estimated Creatinine Clearance: 67 Goal Trough: 10-15 mcg/mL - NEW DOSE 1 GRAM Q12H, REDRAW TROUGH PRIOR TO 4TH NEW DOSE Pharmacy Plan for Drug Dosing: Pharmacy Service will continue to monitor and adjust dosing as required.
--- NOTE | 2019-05-22 13:11 | CHAPLAIN ---
Type of Pastoral Visit _x__ Initial Visit ___ Follow-up Visit ___ On-call Visit ___ General Patient Visit ___ Spiritual Assessment ___ Family Conference ___ Bereavement ___ Rapid Response ___ Code Blue ___ Other (describe below) Pastoral Care Referral From _x__ Patient ___ Family ___ Nurse ___ Physician ___ Human Resources Safety Manager ___ Storage Administrator ___ Other (describe below) Sacrament/Intervention _x__ Active listening ___ Anointing ___ Pentecostal ___ Bereavement ___ Communion ___ Yelitza exploration ___ ___ Life review _x__ Prayer ___ Reconciliation ___ Sacrament of Sick _x__ Supportive presence ___ Wedding ___ Other (describe below) Pastoral Comments met this patient last week in [place]; sat with patient during mealtime; pt was calm and focused on eating; pt welcomed prayer
--- NOTE | 2019-05-22 14:45 | CASEMGMT ---
Social Work Note LEONIDES placed a call to Shruthi with Crisis. Per Shruthi Crisis doesn't need to come to [facility] everyday to update pink slip and once pt has been accepted to psych facility, if psych facility needs updated [facility] will come to [facility] to sign updated pink slip. Shruthi states pt will need to be medically cleared before he can be placed at SNF. LEONIDES informed Shruthi that pt is medically cleared and pt just needs placement. SW asked Shruthi about [facility]. Shruthi states pt may be a candidate for [facility] and mentioned [place]. Shruthi asked to be updated if pt is accepted to [facility]. LEONIDES placed a call to [facility] and provided referral to [facility]. LEONIDES informed [facility] that pt will need 8 weeks IV antibiotics at discharge. [facility] states she will review referral. LEONIDES faxed referral to [facility] at [facility]. LEONIDES updated by physician that he spoke with pt's daughter Ashli and pt's brother Mejia who is HCPOA. Mejia informed physician that he verbally gives permission for Ashli to also make HCPOA for pt. Physician informed this worker that Dr. Bailon will be up to see pt and pt's daughter today to see about amputation of pt's foot. LEONIDES discussed case with social organization professor Galo Topete. SW will wait to hear from [facility] and will wait to hear from [facility]. Galo Topete states that technically pt's pink slip has been since it has been 24 hours since pink slipped was completed. Pt no longer is required to stay at [facility] under pink slip or go to psych facility. Pt could voluntarily however still go to psych facility if psych facility is able to accept pt. Plan: TBD. Psych facility vs SNF Marci Martin SCREW MACHINE TENDER, BACTERIOLOGIST DAIRY
--- NOTE | 2019-05-22 18:48 | PN_ITS ---
Subjective: Patient was seen and examined today, had lengthy conversations with him about the need for surgery on his left foot, I also had a conversation regarding this in front of his daughter who came to visit today, he has agreed to consider it and I contacted Dr. Bailon who will be seeing him hopefully today to discuss that surgery. Infectious diseases saw him today, he remains delusional but he appears to communicate properly on subjects for the most part and understands that his foot has osteomyelitis and that in order to obtain a cure he must u ndergo a partial foot amputation. At this time, he has agreed to consider it and understands the importance of undergoing the surgery. I attempted to contact the patient's son today who is his co-power of [place] attorney, I was not able to talk with him but I did talk with the patient's daughter (Nishi Montes-[phone])-she states that she would be in favor the patient undergoing the surgery and so what her brother who is co-power of united [place] attorney. I asked her to have her brother contact me if he had any questions. - Physical Exam General: Alert, Cooperative, No apparent distress, Well developed HEENT: Atraumatic, PERRLA, EOMI, Normocephalic Oral: Moist Mucosa Neck: Supple, No JVD, Trachea Midline, Thyroid Normal Size and Texture Lungs: Clear to auscultation, Normal air movement, No rhonchi, No wheeze, No rales Cardiovascular: Regular rate, Regular Rhythm, Normal S1, Normal S2, No murmurs Abdomen: Bowel Sounds Present, Soft, Non Tender Extremities: No clubbing, Capillary Refill Less than 3 Seconds, Edema - There is generalized edema in the left foot, the area is covered with surgical dressing and this was not removed for examination Skin: No rashes, No breakdown Musculoskeletal: No Tenderness to Palpation of Joints or Extremities Neurological: Cranial nerves II-XII grossly intact, Neuro grossly intact, Sensory exam intact to light touch and pain Psych/Mental Status: Normal Affect, Appropriate Vital Signs Temp Pulse Resp BP Pulse Ox 97.6 F L 96 18 140/74 H 97 05/22/19 11:30 05/22/19 11:30 05/22/19 11:30 05/22/19 11:30 05/22/19 11:30 Oxygen Delivery Method Room Air Weight: 88.2 kg Body Mass Index (BMI) 26.4 Finger Stick Blood Glucose 73 Intake and Output for Last 24 Hours 05/20/19 05/21/19 05/22/19 23:59 23:59 23:59 Intake Total 950 / 950 1350 / 1350 Balance 950 / 950 1350 / 1350 Laboratory Tests Past 24 Hrs 05/22/19 11:18 Vancomycin Trough 22.5 H POC Glucose 05/22/19 05/22/19 05/21/19 11:36 07:23 22:51 POC Glucose 121 H 101 155 H Medical Necessity - Tobacco Use Smoking Status: Former smoker Assessment/Plan All Active Problems MRSA bacteremia (Resolved) Malnutrition (Resolved) #1 osteomyelitis of the left foot-again I talked with the patient's POA today and the patient, he wants to proceed with surgical resolution of the problem, I will talk with podiatry concerning this #2 probable dementia-patient's affect is manicky today, he does not appear to be agitated or depressed, he does not appear to be somnolent, he is slightly delusional today but in a pleasant manner, he does appear to understand his medical care and the need for surgery on his left foot. Again I talked with his daughter who is 1 of his POA's tonight, she is in favor the surgery, I will need to talk with the patient's son who is his other POA. #3 type 2 diabetes-continue present treatment #4 Chronic kidney disease stage III-secondary to type 2 diabetes #5 diabetic neuropathy #6 Iron deficiency anemia
--- NOTE | 2019-05-22 19:55 | PN_ITS ---
Subjective: This 63 year old male was seen bedside this evening for left foot ulcer with underlying osteomyelitis. He has been previously resistant to surgical intervention and is now amendable. He relates it is getting really bad this time and he is ready to move forward. He denies current foot pain, fever, chills, nausea this evening. - Physical Exam General: Alert, Oriented x3, Cooperative HEENT: Atraumatic Extremities: No cyanosis, Capillary Refill Less than 3 Seconds - forefoot and remaining digits left foot, Edema Skin: Ulcer/ Wound - granular base plantar central metatarsal head region without purulence, odor, streaking, or maceration noted. no fluctuance on palpation. adjacent skin is hairless and atrophic left foot Musculoskeletal: No Tenderness to Palpation of Joints or Extremities, Muscle Wasting, - - previous digital amputations noted left foot. decreased ankle joint dorsiflexion noted. prominent metatarsal heads left Neurological: - - lack of epicritic sensation via light touch is consistent with neuropathy Psych/Mental Status: Normal Affect, Appropriate Vital Signs Temp Pulse Resp BP Pulse Ox 98 F 97 20 H 140/84 H 100 05/22/19 20:36 05/22/19 20:36 05/22/19 20:36 05/22/19 20:36 05/22/19 20:36 Oxygen Delivery Method Room Air Weight: 88.2 kg Body Mass Index (BMI) 26.4 Finger Stick Blood Glucose 73 Intake and Output for Last 24 Hours 05/20/19 05/21/19 05/22/19 23:59 23:59 23:59 Intake Total 950 / 950 1350 / 1350 Balance 950 / 950 1350 / 1350 Laboratory Tests Past 24 Hrs 05/22/19 11:18 Vancomycin Trough 22.5 H POC Glucose 05/22/19 05/22/19 05/21/19 11:36 07:23 22:51 POC Glucose 121 H 101 155 H Medical Necessity - Tobacco Use Smoking Status: Former smoker Assessment/Plan All Active Problems MRSA bacteremia (Resolved) Malnutrition (Resolved) Left foot infection with previously known chronic osteomyelitis Repeat sepsis is currently resolved Uncontrolled diabetes with neuropathy Foot deformities including hammertoes and prominent metatarsal head equinus left Noncompliance Other comorbidities I reviewed and discussed his case. His foot was clinically evaluated and the dressing was reapplied. His vitals are stable and he is afebrile this evening. His WBC is 10.3. His last set of blood cultures taken during his last admission is negative for bacterial growth so far. His last set of xrays of the left foot demonstrates osteolysis and bone changes at the previous metatarsal head resection site. There is no foreign body or soft tissue emphysema noted. Surgical options were previously recommended and he is now amendable to consider this option. He states he is ready to commit to this plan because 'it got really bad this time'. I explained the purpose of the transmetatarsal amputation and tendon leg lengthening procedure and the healing expectations. This will require compliance and patience during the recovery period. I recommend he goes to a retirement facility to aid in his care. The indications, benefits, risks, complications, anticipated healing time and management were discussed. Complications may include but are not limited to the following: pain, scar, delayed or non healing, need for further surgery, further limb loss, , or loss of function, chronic pain, blood clot, allergic reaction, further infection. Due to previous refusal of this procedure, instability with previous decisions, and potential memory impairment I will review his interests and care plan again tomorrow. The surgery can proceed on afternoon pending medical optimization and continued patient participation. I will also call his power of claim attorney, his son, to review the treatment options and his father's recent interests. Surgical consents will need to be signed. No guarantees were made. I answered his questions. Please do not hesitate to call if you have any questions. Thank you for the re- consultation. The podiatry team will continue to follow him close while in house. Vashti Bailon DPM, [facility] [phone]
[2019-05-22 20:36] VITALS: BP 140/84; PULSE 97; RESP 20; TEMP 36.6; O2SAT 100
--- NOTE | 2019-05-22 21:05 | NURSING ---
The pt wanted to talk to the nurse in charge so I went in and spoke to him. He was apparently upset about a conversation he had with his mother and that he wanted to go out to eat at [facility]. I told him he couldn't leave because he needed to take care of his foot first. I listened to him discuss his conversation with Dr. Bailon and his decision to have surgery on his foot, and he started to calm down. Will continue to offer emotional support.
[2019-05-22] MEDS: Insulin Lispro 100 UNIT/ML INSULN.PEN SC (22:54)
[2019-05-22] MEDS: Vancomycin IV 1,000 MG/200 ML BAG 200 MG IV (23:51)
[2019-05-23 02:10] VITALS: BP 158/80; PULSE 79; RESP 18; TEMP 36.6; O2SAT 95
[2019-05-23 03:24] LABS: Bedside Glucose 184 mg/dL (70-110)
[2019-05-23] MEDS: metroNIDAZOLE 500 MG Tablet PO ×2 (06:47→22:50)
[2019-05-23 06:51] LABS: Bedside Glucose 105 mg/dL (70-110)
[2019-05-23 09:29] VITALS: BP 165/99; PULSE 71; RESP 16; TEMP 36.6; O2SAT 94
[2019-05-23] MEDS: Enoxaparin 40 MG/0.4 ML Syringe SC (10:05)
[2019-05-23] MEDS: Iron Polysaccharide Complex 150 MG CAPSULE PO (10:05)
[2019-05-23] MEDS: Multivitamins,Therapeutic Tablet 1 TABLET PO (10:05)
[2019-05-23] MEDS: QUEtiapine 100 MG Tablet PO ×2 (10:06→22:50)
[2019-05-23] MEDS: Pantoprazole Sodium 40 MG Tablet PO (10:06)
[2019-05-23] MEDS: Lisinopril 40 MG Tablet PO (10:06)
--- NOTE | 2019-05-23 12:28 | PN.ID_ITS ---
Subjective: Surgery planned for tomorrow. No complaints, no fever, no n/v/d. - Physical Exam General: Cooperative, No apparent distress Lungs: Clear to auscultation, Normal air movement Cardiovascular: Regular rate, Regular Rhythm Abdomen: Soft, Non Tender, Non-Distended Skin: Ulcer/ Wound - foot wrapped Vital Signs Temp Pulse Resp BP Pulse Ox 97.9 F 71 16 165/99 H 94 05/23/19 09:29 05/23/19 09:29 05/23/19 09:29 05/23/19 09:29 05/23/19 09:29 Oxygen Delivery Method Room Air Weight: 88.2 kg Body Mass Index (BMI) 26.4 Finger Stick Blood Glucose 73 Intake and Output for Last 24 Hours 05/21/19 05/22/19 05/23/19 23:59 23:59 23:59 Intake Total 950 / 950 2100 / 2100 800 / 800 Balance 950 / 950 2100 / 2100 800 / 800 POC Glucose 05/23/19 05/22/19 06:46 22:51 POC Glucose 105 184 H Medical Necessity - Tobacco Use Smoking Status: Former smoker Route of nutrition/ use of supplements: [] Nutritional Intake: [] IV Site: [] Crawley Catheter: [] - Assessment/Plan Antibiotics: [] Assessment/Plan: [] L foot osteo with MRSA bacteremia - recurrent infections. Has repeatedly refuse d surgical debridement/amputation. On vanc/ceftriaxone/flagyl, cx with MRSA and proteus. Now plan is for OR tomorrow. Given bacteremia, most likely will need to remain on several weeks of iv abx post-op. Will follow, d/w primary team and registered nurse hh case manager
[2019-05-23] MEDS: Vancomycin IV 1,000 MG/200 ML BAG 200 MG IV (12:40)
--- NOTE | 2019-05-23 12:58 | PCM.PROGNOTE ---
Subjective: This 63 year old male was seen bedside this afternoon for left foot ulcer with underlying osteomyelitis. He is amendable to proceed with surgical intervention as scheduled tomorrow. He denies current foot pain, fever, chills, nausea. - Physical Exam General: Alert, Oriented x3, Cooperative Extremities: No cyanosis, Capillary Refill Less than 3 Seconds, No Calf Tenderness - Negative Aric and Bowman sign left, Diminished Peripheral Pulses, Edema - Mild left lower extremity, - - Decreased ankle joint dorsiflexion with the knee extended left lower extremity Skin: Ulcer/ Wound - Left foot dressing is clean, dry, and intact. There is no odor or peripheral streaking or redness. Musculoskeletal: No Tenderness to Palpation of Joints or Extremities, Muscle Wasting Neurological: - - Lack of epicritic sensation consistent with neuropathy left lower extremity Psych/Mental Status: Normal Affect, Appropriate Vital Signs Temp Pulse Resp BP Pulse Ox 97.9 F 71 16 165/99 H 94 05/23/19 09:29 05/23/19 09:29 05/23/19 09:29 05/23/19 09:29 05/23/19 09:29 Oxygen Delivery Method Room Air Weight: 88.2 kg Body Mass Index (BMI) 26.4 Finger Stick Blood Glucose 73 Intake and Output for Last 24 Hours 05/21/19 05/22/19 05/23/19 23:59 23:59 23:59 Intake Total 950 / 950 2100 / 2100 1050 / 1050 Balance 950 / 950 2100 / 2100 1050 / 1050 POC Glucose 05/23/19 05/22/19 06:46 22:51 POC Glucose 105 184 H Medical Necessity - Tobacco Use Smoking Status: Former smoker Assessment/Plan All Active Problems MRSA bacteremia (Resolved) Malnutrition (Resolved) Left foot infection with previously known chronic osteomyelitis Repeat sepsis is currently resolved Uncontrolled diabetes with neuropathy Foot deformities including hammertoes and prominent metatarsal head Gastrocnemius soleus equinus left Noncompliance Other comorbidities I reviewed and discussed his case. His vitals are stable and he is afebrile this afternoon. He is ready to proceed with surgery that is tentatively scheduled for 3 PM tomorrow. He will be consented for left foot transmetatarsal amputation including removal of infected tissue and bone and also posterior leg tendon lengthening. I explained the purpose of the transmetatarsal amputation and tendon leg lengthening procedure and the healing expectations. The indications, benefits, risks, complications, anticipated healing time and management were discussed again today. Complications may include but are not limited to the following: pain, scar, delayed or non healing, need for further surgery, further limb loss, , or loss of function, chronic pain, blood clot, allergic reaction, further infection. He remains calm today during this conversation and would like to proceed forward with the surgery. No guarantees were made. I answered his questions. This plan was also discussed via phone with his power of civil attorney (mary anne Ba and [place]). Preoperative orders including n.p.o. status will be entered electronically. I also recommend continuation of IV antibiotics per guided culture results under the management of infectious disease. Please do not hesitate to call if you have any questions. I will continue to follow him close while in house. Medical management DVT prophylaxis per primary team is appreciated. Vashti Bailon DPM, [facility] [phone]
--- NOTE | 2019-05-23 13:33 | NURSING ---
pt demanding for door to shut and demanding to sit in folding chair to eat. unable to place bed alarm on this chair. pt refused to take flagyl until he talks to dr josue.
[2019-05-23 13:34] VITALS: BP 128/74; PULSE 91; RESP 16; TEMP 36.4; O2SAT 96
--- NOTE | 2019-05-23 14:34 | CASEMGMT ---
Social Work Note LEONIDES discussed pt with physician. Pt is scheduled to have partial foot amputation tomorrow. SW informed physician that pt may be better fit for SNF now with lock down unit/extra supervision as pt is no longer having agitation/aggressive behaviors. Physician agrees with SNF. SW updated PT/OT that pt will need be seen by PT/OT. PT/OT states they will work with pt after pt has foot surgery. LEONIDES placed a call to pt's HCPOA who is pt's son Mejia and updated him that pt will need SNF again at discharge and [facility] is not able to accept pt back. SW explained that pt would benefit from SNF with extra supervision. SW verbally provided pt's son with list of additional SNF in area that accept pt's insurance. Mejia states that he believes pt has been to [facility] before and is agreeable to pt going to [facility]. LEONIDES explained that process with insurance won't be able to be started until pt has foot surgery but that this worker could make initial referral to [facility]. Mejia states understanding. LEONIDES placed a call to Akosua at [facility] and left her a message regarding referral. LEONIDES faxed referral. LEONIDES waiting to hear back from [facility]. Plan: [facility] pending acceptance and pre-cert. Marci Martin CHILDREN'S NURSERY ASSISTANT, BOILER OPERATOR
[2019-05-23 15:22] VITALS: BMI 26.4
[2019-05-23 16:15] LABS: Bedside Glucose 163 mg/dL (70-110)
--- NOTE | 2019-05-23 16:23 | CASEMGMT ---
Social Work Note LEONIDES received message from Akosua at [facility] stating they are not able to accept pt due to pt's behaviors. Akosua states pt was at [facility] from 04/27/2019 to 05/07/2019 and discharged once pt finished his Antibiotics. [facility] states pt was in their dementia unit and his behaviors were difficult to manage. LEONIDES placed a call to [facility] and spoke with Aissatou in Admissions. Per Aissatou she has no beds available but states Candice who is facility administrator at [facility] is interested in reviewing referral. Candice at [facility] has a lock down unit for dementia patients. Aissatou provided fax number [phone]. LEONIDES faxed referral to Candice. LEONIDES also placed a call to [facility] and spoke with Yocasta in admissions. Yocasta states they take pt's insurance and is willing to review referral. LEONIDES faxed referral to [facility]. Plan: SNF pending acceptance and pre-cert Marci Martin MARINE DIESEL MECHANIC, STROBOROMA OPERATOR
--- NOTE | 2019-05-23 18:51 | PCM.PROGNOTE ---
Subjective: Patient was seen and examined today, he remains delusional but he is able to communicate with this examiner and he understands that he is going for surgery tomorrow and he still wants to have the surgery performed. Permission was obtained from the patient's POA's today, at this time patient appears stable for surgery-he appears to this examiner to have moderate risk for cardiovascular problems during procedure chiefly because he is diabetic. - Physical Exam General: Alert, Oriented x3, Cooperative, No apparent distress, Well developed HEENT: Atraumatic, PERRLA, EOMI, Normocephalic Oral: Moist Mucosa Neck: Supple, No JVD, Trachea Midline, Thyroid Normal Size and Texture Lungs: Clear to auscultation, Normal air movement, No rhonchi, No wheeze, No rales Cardiovascular: Regular rate, Regular Rhythm, Normal S1, Normal S2, No murmurs Abdomen: Bowel Sounds Present, Soft, Non Tender, Non-Distended, No hernias noted Extremities: No clubbing, Capillary Refill Less than 3 Seconds, - - Patient's left foot is wrapped in surgical dressing, this was not removed for inspection of the area of the left foot Skin: No rashes, No breakdown Neurological: Cranial nerves II-XII grossly intact, Neuro grossly intact Psych/Mental Status: Normal Affect, Appropriate, - - Patient is alert and responds appropriately to simple questions, he is at times is delusional Vital Signs Temp Pulse Resp BP Pulse Ox 97.6 F L 91 16 128/74 H 96 05/23/19 13:34 05/23/19 13:34 05/23/19 13:34 05/23/19 13:34 05/23/19 13:34 Oxygen Delivery Method Room Air Weight: 88.2 kg Body Mass Index (BMI) 26.4 Finger Stick Blood Glucose 73 Intake and Output for Last 24 Hours 05/21/19 05/22/19 05/23/19 23:59 23:59 23:59 Intake Total 950 / 950 2100 / 2100 1800 / 1800 Balance 950 / 950 2100 / 2100 1800 / 1800 POC Glucose 05/23/19 05/23/19 05/22/19 16:04 06:46 22:51 POC Glucose 163 H 105 184 H Medical Necessity - Tobacco Use Smoking Status: Former smoker Assessment/Plan All Active Problems Severe sepsis (Resolved) MRSA bacteremia (Resolved) Malnutrition (Resolved) #1 osteomyelitis of the left foot-again, patient is consented to surgery tomorrow #2 probable dementia-complicates medical care and recovery time #3 type 2 diabetes-continue present treatment #4 Chronic kidney disease stage III-secondary to type 2 diabetes #5 diabetic neuropathy #6 Iron deficiency anemia Code Visit Inpatient E&M: 03612 Subs Hosp L2
[2019-05-23 23:00] VITALS: BP 176/111; PULSE 78; RESP 18; TEMP 36.9; O2SAT 98
[2019-05-23] MEDS: Insulin Lispro 100 UNIT/ML INSULN.PEN SC (23:14)
[2019-05-24] VITALS (12 sets, daily range): BP systolic 110–154; BP diastolic 65–98; PULSE 69–90; RESP 16–18; TEMP 35.7–36.6; O2SAT 96–100; BMI 26.4
[2019-05-24 00:11] LABS: Bedside Glucose 167 mg/dL (70-110)
[2019-05-24] MEDS: Vancomycin IV 1,000 MG/200 ML BAG 200 MG IV ×3 (01:00→23:57)
[2019-05-24] MEDS: metroNIDAZOLE 500 MG Tablet PO ×2 (06:14→22:37)
[2019-05-24] MEDS: 0.9% NaCl IVPB Med Flush (250 mL) 15 ML IV (07:00)
[2019-05-24 08:06] LABS: Bedside Glucose 98 mg/dL (70-110)
[2019-05-24 08:12] LABS: Hemoglobin A1c 9.3 % (4.2-6.3)
[2019-05-24] MEDS: QUEtiapine 100 MG Tablet PO ×2 (10:05→22:37)
[2019-05-24] MEDS: Lisinopril 40 MG Tablet PO (10:05)
--- NOTE | 2019-05-24 10:25 | NURSING ---
talked w/ [facility] regarding [facility] line. aware placed 05/19/19 single lumen at 46cm, last flushed 05/21/19. no known date of last dressing change. PICC noted to have gauze under dressing. Discussed Dressing with primary RN and perhaps having dressing changed while in surgery as pt not agreeable to having it changed at this time.
--- NOTE | 2019-05-24 10:29 | NURSING ---
discussed PICC and dressing change with Whitney FLORES-RN aware they will change dressing down there
--- NOTE | 2019-05-24 10:32 | PCM.PN.ID ---
Subjective: Feeling ok, OR today, no fever - Physical Exam General: Alert, Cooperative, No apparent distress Lungs: Clear to auscultation, Normal air movement Cardiovascular: Regular rate, Regular Rhythm Abdomen: Soft, Non Tender, Non-Distended Skin: Ulcer/ Wound - foot wrapped Vital Signs Temp Pulse Resp BP Pulse Ox 97.8 F 90 18 154/98 H 100 05/24/19 10:01 05/24/19 10:01 05/24/19 10:01 05/24/19 10:01 05/24/19 10:01 Oxygen Delivery Method Room Air Weight: 88.2 kg Body Mass Index (BMI) 26.4 Finger Stick Blood Glucose 73 Intake and Output for Last 24 Hours 05/22/19 05/23/19 05/24/19 23:59 23:59 23:59 Intake Total 2099 1850 / 2150 500 / 500 Balance 2099 1850 / 2150 500 / 500 Laboratory Tests Past 24 Hrs 05/20/19 15:15 Hemoglobin A1c 9.3 H POC Glucose 05/24/19 05/23/19 05/23/19 06:23 23:14 16:04 POC Glucose 98 167 H 163 H Medical Necessity - Tobacco Use Smoking Status: Former smoker Route of nutrition/ use of supplements: [] Nutritional Intake: [] IV Site: [] Crawley Catheter: [] - Assessment/Plan Antibiotics: [] Assessment/Plan: [] L foot osteo with MRSA bacteremia - recurrent infections. Has repeatedly refused surgical debridement/amputation. On vanc/ceftriaxone/flagyl, cx with MRSA and proteus. Now plan is for OR today. Given bacteremia, most likely will need to remain on several weeks of iv abx post-op. Will follow
[2019-05-24 11:25] LABS: Bedside Glucose 118 mg/dL (70-110)
--- NOTE | 2019-05-24 12:54 | PCM.PROGNOTE ---
Subjective: No complaints. Pain is controlled. No fever/chills. No SOB/cough. Pt remains agreeable to surgery. He also has been up ambulating on his affected extremity today. - Physical Exam General: Alert, Oriented x3, Cooperative HEENT: Atraumatic, PERRLA, EOMI, Normocephalic Neck: Supple, No JVD, Negative Carotid Bruits Lungs: Clear to auscultation, Normal air movement Cardiovascular: Regular rate, No murmurs Abdomen: Bowel Sounds Present, Soft, Non Tender Extremities: No edema, Capillary Refill Less than 3 Seconds Skin: No rashes, No breakdown Musculoskeletal: No Tenderness to Palpation of Joints or Extremities Neurological: Cranial nerves II-XII grossly intact Psych/Mental Status: Normal Affect, Appropriate, Alert and oriented to time, place, person, mood and affect Vital Signs Temp Pulse Resp BP Pulse Ox 97.8 F 90 18 154/98 H 100 05/24/19 10:01 05/24/19 10:01 05/24/19 10:01 05/24/19 10:01 05/24/19 10:01 Oxygen Delivery Method Room Air Weight: 194 lb 7.163 oz Body Mass Index (BMI) 26.4 Finger Stick Blood Glucose 73 Intake and Output for Last 24 Hours 05/22/19 05/23/19 05/24/19 23:59 23:59 23:59 Intake Total 2099 / 2099 1850 / 2150 800 / 800 Balance 2099 / 2099 1850 / 2150 800 / 800 Laboratory Tests Past 24 Hrs 05/20/19 15:15 Hemoglobin A1c 9.3 H POC Glucose 05/24/19 05/24/19 05/23/19 11:20 06:23 23:14 POC Glucose 118 H 98 167 H 05/23/19 16:04 POC Glucose 163 H Medical Necessity - Tobacco Use Smoking Status: Former smoker Assessment/Plan All Active Problems MRSA bacteremia (Resolved) Malnutrition (Resolved) 1. Osteomyelitis left foot - recent bacteremia. to OR today for resection. Podiatry/ID following. No fever/Leukocytosis. Labs in AM. Continue rocephin/vancomycin/flagyl. Prior cx with MRSA/Proteus 2. Dementia with behavioral disturbances - these include hallucinations and violent behavior. stable on scheduled seroquel. 3. Dmt2 with peripheral neuropathy - continue to adjust insulin therapy to response tomorrow after surgery. 4. CKDIII - bmp in AM. 5. Iron def. anemia - ferrex 6. HTN -stable DVT ppx: lovenox. DC planning: SNF This patient was seen by Ever Lozada PA-C under the supervision of Dr. Rowan.
--- NOTE | 2019-05-24 13:28 | CASEMGMT ---
Social Work Note SW attempted to call [facility] to get update on referral. Admissions not available, SW left number for admissions to call. LEONIDES placed a call to Yocasta at [facility] and Yocasta states she never received referral. [facility] fax number is [phone]. SW refaxed referral to [facility]. Plan: SNF pending acceptance and pre-cert Marci Matrin FINISH SANDER, WAREHOUSE ADMINISTRATIVE ASSISTANT
--- NOTE | 2019-05-24 13:43 | NURSING ---
Called report to AC at this time.
--- NOTE | 2019-05-24 14:08 | RAD_ITS ---
STUDY: X-RAY - LEFT FOOT CLINICAL: Male, 63 years old. Left foot pain TECHNIQUE: 3 view(s) of the foot. COMPARISON: None. FINDINGS: Normal talus, calcaneus, and tarsal bones. Normal visualized subtalar, talonavicular, calcaneocuboid, tarsal and tarsometatarsal articulations. There is amputation at the mid metatarsal region. RAD/Foot 2 Views IMPRESSION: Amputation of the mid metatarsals. Electronically Signed: Osmar Lee, at 4:04 EDT Tel , Service support ,
[2019-05-24] MEDS: Lactated Ringers 1,000 ML 100 ML IV ×2 (14:25→22:37)
--- NOTE | 2019-05-24 14:30 | BON_PTH ---
PATIENT: LYNDA UGALDE LOC: MS3 U#:[id number] AGE/SX: 63/M [place] [facility] [place]: Dr. Armani Bradley MD : 1955 BED: 1 DIS: 05/29/2019 SPEC #: [id number] RECD: 05/25/19 07:15 STATUS: IAN REQ #: [id number] CRISTIN: 05/24/19 14:[address]: Vashti Bailon DEPT: SURGICAL PATHOLOGY RECD BY: Jamal Patel ENTERED: 05/25/19 08:43 SP TYPE: Bone OTHR DR: Dr. Vashti Bailon, DPM MD Dr. Ck Yeager, DO Dr. Kingston Luna MD Tissues: A - Bone of foot, NOS B - Bone of foot, NOS Procedures: Decalcification bone/plaque Surgery Specimen Level IV Surgery Specimen Level V Comments: @ Ordering doctor for DEC edited from to @ by SELENA at 05/25/19 1213 @ Ordering doctor for SUIII edited from to @ by SELENA at 05/25/19 1213 @ Submitting doctor edited from to @ by SELENA at 05/25/19 1213 HEADER OPERATION: Amputation transmetatarsal, gastrocnemius resection PRE-OP DIAGNOSIS: Osteomyelitis left foot TISSUE SUBMITTED: A - Transmetatarsal amputation left foot, B - Clearance fragment left foot MICROSCOPIC DIAGNOSIS A. Left foot, transmetatarsal amputation: Skin and soft tissue with ulceration and associated granulation, acute and chronic inflammation. Bone with acute osteomyelitis. B. Clearance fragment bone, left foot, biopsy: No evidence of osteomyelitis. AM:bj 05/30/19 MICROSCOPIC DESCRIPTION Slides are reviewed. GROSS DESCRIPTION A - Received in fixative is one container labeled with the patient's name and designated transmetatarsal amputation left foot. The specimen consists of a portion of two toes measuring 4 x 4 x 2 cm. One of the toes does not show any nail. The second toe show atrophic nail. Also present in the container is a piece of skin with underlying tissue measuring 6 x 3.5 x 1.5 cm. A focal area of ulceration is noted. Also present in the container are two detached pieces of soft tissue and skin measuring in aggregate 3 x 3 x 1 cm. Also present in the container are four pieces of bone consistent with portion of metatarsal bone measuring in aggregate 7 x 4 x 2 cm. Labor Relations Teacher sections are submitted in six cassettes as follows: 1?& 2 - ulcerated area, 3-6 - bone after decalcification. B - Received in fixative is one container labeled with the patient's name and designated clearance fragment left foot. The specimen consists of two piece of bone measuring in aggregate 0.5 x 0.3 x 0.2 cm. The entire specimen is submitted in one cassette after decalcification. / KEEGAN:bj 05/25/19 TC:2 CPT: 09107, 01779, 45402 x2
--- NOTE | 2019-05-24 15:05 | PCA ---
pt off floor
--- NOTE | 2019-05-24 15:06 | CASEMGMT ---
Social Work Note [facility]ID[facility] faxed another referral to [facility] and placed a call to [facility] and spoke with Anton as Nevin is not in today. Anton states she will review referral. Plan: SNF pending acceptance and pre-cert Marci Martin OFFICE SYSTEMS TECHNOLOGY INSTRUCTOR, UTILITY OPERATOR YARN
[2019-05-24] MEDS: Bupivacaine Mpf 0.5% 30 ML VIAL (15:15)
--- NOTE | 2019-05-24 16:52 | OP.PCM_ITS ---
Problem List (1) Chronic ulcer of left foot with fat layer exposed Status: Chronic (2) Severe sepsis Status: Resolved Comment: Secondary to diabetic foot infection with bacteremia (3) Type 2 diabetes mellitus with diabetic polyneuropathy Status: Chronic Comment: uncontrolled due to non-complaince (4) Other acquired deformities of left foot Status: Chronic (5) Diabetic foot infection Status: Chronic Comment: recurrent (6) Osteomyelitis Status: Chronic Qualifiers: Osteomyelitis type: subacute Comment: chronic refractory osteomyelitis due to non-complaince and refusal of surgical intervention Report of Operation Date of Procedure: 05/24/19 Pre-Operative Diagnosis: Acute on chronic infection left foot including osteomyelitis. Gastrocnemius equinus left Post-Operative Diagnosis: Acute on chronic infection left foot including osteomyelitis. Gastrocnemius equinus left Surgery/Procedure Performed:: Left transmetatarsal amputation with complex closure. Left open gastrocnemius recession Description of Surgical Findings:: Hemostasis: Well-padded pneumatic left thigh tourniquet, 350 mmHg, 37 minutes Materials: 2-0 Vicryl, 3-0 and 2-0 Prolene Specimens: Results are pending Complications: None The patient tolerated the procedure and anesthesia well. He was transported to the PACU with vital signs stable and vascular status intact to the left lower extremity. Postoperative x-rays were obtained while in operating room demonstr ating adequate resection and no acute injuries. Specimens were sent to both microbiology and pathology including resected bone and soft tissue and additional clearance fragments of the second and third metatarsals of the left foot. Postoperative orders were entered electronically. journeyman powerhouse operator: none Type of Anesthesia:: General - LMA, Local - Preoperative: 17 cc of one-to-one mixture of 1% lidocaine plain 0.5% Marcaine plain administered typical left ankle block fashion. Intraoperative: 8 cc of 1% lidocaine with epinephrine administered to open gastrocnemius recession site of the left lower extremity Specimen's removed: 1. Soft tissue and bone resection of left foot sent to microbiology (aerobic, anaerobic, acid-fast, fungal). 2. Soft tissue and bone resection of left foot sent to pathology. 3. Metatarsal clearance fragment sent to microbiology (aerobic, anaerobic, acid-fast, fungal). 4. Metatarsal clearance fragment sent to pathology Description of Procedure: Indications: This 63-year-old male with multiple comorbidities including diabetic neuropathy, anemia of chronic disease, psychiatric disorder, dementia with behavioral disturbances, chronic kidney disease, and hypertension continues to have chronic recurrent and nonhealing left plantar foot ulcer is noted foot deformities including partial ray resections and prominent metatarsal head and tight gastrocnemius is noted and contributing to this chronic condition. He has been admitted to the hospitalist on several occasions due to sepsis secondary to recurrent osteomyelitis and abscess formation to the plantar foot. Most recently, he was placed on a PICC line and went to a residential facility. The infection recurred and the patient relates it got real bad this time. He has recently consented and would like to proceed with the transmetatarsal amputation to prevent recurrence and improve his quality of life. The preoperative x-rays demonstrate osseous destruction and ostial lysis of the second metatarsal, ankylosing and osseous destruction of the first metatarsophalangeal joint and dorsal contraction of lesser digits. There is no soft tissue emphysema, retained foreign body, or other acute injuries noted. His MRI from a previous recent hospital admission demonstrate osteomyelitis of the aforementioned metatarsals. He had leukocytosis and elevated sedimentation rate. Clinically, he has a chronic plantar central foot ulcer that probes to the central metatarsal head region with resolved purulence on expression. There is no current erythema or streaking noted today. He also has -5 degrees of ankle dorsiflexion with the knee extended and this was improved with the knee flexed. He continues on IV antibiotics under the management of infectious disease. He has been preoperatively optimized with hospitalist service and the plan is for him to go to a residential facility for continue rehabilitation. The indications, planned procedure, possible benefits, risk, complications, and anticipated healing time and management were discussed in detail with the patient on multiple previous occasions and additionally today in the preoperative setting. No guarantees were made. He understands risks and complications may include but are not limited to the following: Pain, swelling, scarring, recurrent ulcers, transfer lesions, need for further surgery, continued infection, continued delayed or nonhealing, blood clot, allergic reaction, loss of limb, function, life. The informed surgical consent and limb were signed. Answered all his questions. The plan was discussed in detail with his family including both of his power of attorneys. The surgical consent was also cosigned by the power of ranch cook via phone with witness. Procedure in detail: The patient was transferred to the operating room via cart and placed on the operating table in the supine position. Final verification of the patient, surgery, limb designation was performed via the timeout procedure. LMA was initiated by the anesthesia team. IV antibiotics were continued as ordered on the medical surgical floor. The podiatry team administered the left lower extremity local anesthetic block. A well-padded pneumatic left thigh tourniquet was placed. The left lower extremity was prepped and draped in the usual aseptic manner. The left lower extremity was placed in a frog-leg position and surgery began in the following manner: Attention was directed to the posterior left leg in which local infiltrative injection was administered to the open gastrocnemius recession site. A 3 cm linear incision was made about 3 cm distal to the medial gastrocnemius head through the skin in a linear manner. Blunt dissection was performed down to the posterior muscle compartment aponeurosis. Care was taken to identify, protect, and retract all neurovascular structures at this point and throughout the remainder of surgery. A rent was made in this fascial layer and the gastrocnemius aponeurosis was clearly identified. The medial margin was identified and 15 blade was used to carefully resect this layer. At this level this was not separate from the soleus aponeurosis and upon resection the soleus muscle was identified. This was successfully performed in a transverse manner without direct visualization of the sural nerve or other vascular structures. Adequate resection was performed and improved ankle dorsiflexion was noted with the knee extended. Saline irrigation was performed and the deep compartment fascial layer was reapproximated with Vicryl suture. Deep closure was performed with Vicryl suture and the skin was further reapproximated with Prolene suture utilizing horizontal mattress technique. Attention was next directed to the left foot for the transmetatarsal amputation part of the procedure. An Esmarch bandage was used to exsanguinate the left lower extremity and the tourniquet was inflated at this time. The full-thickness fishmouth incision was performed to the distal forefoot and the metatarsal phalangeal joints were incised and the remaining digits and chronic forefoot ulcer were removed in total from the table without difficulty. It is noted that a triangular wedge of the plantar soft tissue was used to excise the ulcer which was included in this resected soft tissue and bone specimen. Next a 15 blade and fernandez elevator were used to reflect the soft tissue from the metatarsals. A sagittal saw was next used to resect the metatarsals taking care to bevel these bones and maintain a good parabola to minimize pressure points during the healing process. These resected bones were removed from the table at a level proximal to the visually devitalized tissue. Care was next taken to excise any devitalized and avascular structures including remaining tendons, plantar plates, and devitalized subcutaneous tissue. There was not any no purulence or deep necrosis was noted at this level. The wound bed was copiously irrigated with normal saline. This was sent to pathology and microbiology as noted. At this time, new gloves, drapes, instruments were utilized. A clean rongeur was used to resect clearance fragments of the second and third metatarsals. This was sent to microbiology and pathology as noted. The postoperative x-ray was reviewed with intraoperative fluoroscopy without acute injuries noted. Adequate resection was confirmed. Next additional flap remodeling was performed and minimal deep closure was performed with 2-0 Vicryl suture. The remaining open wound measured approximately 12 cm in width. The tourniquet was deflated at this time and brisk capillary refill time was noted to all margins of the amputation site. No pulsatile bleeding was noted. Electrocauterization, pressure, and one stick tie suture was applied for hemostasis control. The flap was reapproximated utilizing no touch technique utilizing retention simple sutures, vertical mattress, horizontal mattress, and Allgower technique. This was performed in a non-tensile manner, layered closure. A postoperative dressing was applied including Adaptic, Betadine gauze, abdominal pads, Kerlix. A well- padded posterior mold with the left lower extremity in a neutral position was next applied. After procedure: The patient tolerated the procedure anesthesia well. He was transferred back to the PACU with vital signs stable and vascular status intact to left lower extremity. He will keep his dressing clean, dry, and intact. His postoperative x-rays were reviewed as noted. He was advised to maintain a strict nonweightbearing status to left lower extremity. He will ice and elevate for pain and inflammation management. He will continue on antibiotics per infectious disease recommendations. Specimens were sent to microbiology and pathology including clearance fragments; these results are pending. It is encouraging there is no purulence or deep necrosis noted after the resection was performed. I recommend he goes to a residential facility to help with compliance in the postoperative setting. Medical management and DVT prophylaxis per primary team is greatly appreciated. His postoperative orders were entered electronically. His postoperative care plan was reviewed and discussed with his family as well this evening. Vashti Bailon DPM, [facility] [place] Grafts/Implants Used: none - Complications none - Admit VTE Documentation VTE Present on Admission: No VTE Mechan Device Prophylaxis: SCD's VTE Pharm Prophylaxis ordered?: Yes
--- NOTE | 2019-05-24 17:03 | CASEMGMT ---
Social Work Note SW received call from Myriam at [facility] stating she is able to accept pt as long as pt has good behavior tonight after his surgery. LEONIDES to fax updated clinicals tomorrow. Plan: [facility] pending pre-cert Marci Martin CAR RUNNER, WELT BUTTER HAND
--- NOTE | 2019-05-24 17:15 | SUR.PHASEI ---
pule posterior pop assessed left leg
--- NOTE | 2019-05-24 17:19 | SUR.PHASEI ---
blood glucose 95
[2019-05-24 17:20] LABS: Bedside Glucose 95 mg/dL (70-110)
--- NOTE | 2019-05-24 17:20 | RAD_ITS ---
STUDY: X-RAY - LEFT FOOT CLINICAL: Male, 63 years old. Transmetatarsal amputation. TECHNIQUE: 3 view(s) of the foot. COMPARISON: Comparison is made with prior examination dated May 20, 2019 and May 24, 2019. FINDINGS: The patient is status post transmetatarsal amputation. Postoperative soft tissue changes. RAD/Foot min 3 Views IMPRESSION: Transmetatarsal amputation. Postoperative soft tissue changes. Electronically Signed: Ángel Banks, at 8:29 EDT , Service support ,
[2019-05-24 22:46] LABS: Bedside Glucose 129 mg/dL (70-110)
--- NOTE | 2019-05-25 00:54 | PCM.RX.CS ---
Consult Pharmacy has been consulted to manage selected antiobiotic: Vancomycin Type of Consult: Follow-up Suspected Infection: Skin/Soft tissue Prior Doses of Antibiotics Received/Current Regimen: Medications Discontinued Medications Vancomycin HCl (Vancomycin) 1,000 mg in 200 mls @ 200 mls/hr IV Q12H SARITHA Last Admin: 05/24/19 23:57 Dose: 200 mls/hr Labs: Sodium 139 mmol/L (136-145) 05/20/19 15:15 Potassium 3.6 mmol/L (3.5-5.1) 05/20/19 15:15 Chloride 107 mmol/L (98-107) 05/20/19 15:15 Carbon Dioxide 24.0 mmol/L (21.0-32.0) 05/20/19 15:15 Anion Gap 8 (5-15) 05/20/19 15:15 BUN 27 mg/dL (7-18) H 05/20/19 15:15 Creatinine 1.15 mg/dL (0.70-1.30) 05/20/19 15:15 Est GFR (MDRD) Af Amer 83 mL/min (>60) 05/20/19 15:15 Est GFR (MDRD) Non-Af 69 mL/min (>60) 05/20/19 15:15 BUN/Creatinine Ratio 23.5 RATIO (10-20) H 05/20/19 15:15 Glucose 84 mg/dL (74-106) 05/20/19 15:15 Vancomycin Trough 25.0 ug/mL (5.0-15.0) H 05/24/19 23:45 Weight used for dosin.2 kg Estimated Creatinine Clearance: 67 Goal Trough: 10-15 mcg/mL Pharmacy Plan for Drug Dosing: Trough level drawn 05/24/19 was high at 25.0. Will cancel current dosing, re-draw trough level 05/25, and re-calculate further dosing from that result. Pharmacy Service will continue to monitor and adjust dosing as required. Follow-Up Labs: Trough Vancomycin Labs to be done on [date and time ordered]: 05/25/19 @[id number]
[2019-05-25 03:16] VITALS: BP 168/93; PULSE 106; RESP 18; TEMP 37.3; O2SAT 97
[2019-05-25] MEDS: 0.9% NaCl Peripheral Flush Adult/Peds IV (06:12)
[2019-05-25 06:25] LABS: Bedside Glucose 153 mg/dL (70-110)
[2019-05-25 06:32] LABS: Absolute Lymphocyte Count 2.43 X10^3/uL (0.83-4.51); Absolute Neutrophil Count 7.3 X10^3/uL (2.0-7.7); Basophil# 0.06 X10^3/uL; Basophil% 0.5 % (0-1); Eosinophil# 0.29 X10^3/uL; Eosinophils% 2.5 % (0-5); Hematocrit 31.4 % (40-54); Hemoglobin 10.1 g/dL (13.0-16.5); Lymphocyte # 2.43 X10^3/ul (4.0); Lymphocyte % 21.2 % (19-41); Mean Corp Hgb Conc 32.2 g/dL (32-36); Mean Corpuscular Hgb 27.8 pg (27.0-32.0); Mean Corpuscular Volume 86.5 fL (80-94); Mean Platelet Vol. 9.4 fl (6.2-12.0); Monocyte# 1.28 X10^3/uL; Monocyte% 11.2 % (0-10); NRBC Flagged by Analyzer 0 % (0-5); Neutrophil # 7.32 X10^3/uL (2.7-7.7); Platelet Count 358 K/mm3 (150-450); RBC Distribution Width CV 14.1 % (11.6-14.6); RBC Distribution Width SD 43.8 fl (35.1-43.9); Red Blood Count 3.63 M/mm3 (4.6-6.2); White Blood Count 11.5 K/mm3 (4.4-11.0)
[2019-05-25 06:37] LABS: Anion Gap 9 (5-15); BUN 26 mg/dL (7-18); BUN/Creat Ratio 18.1 RATIO (10-20); Calcium,Total 8.8 mg/dL (8.5-10.1); Chloride 106 mmol/L (98-107); Creatinine, Serum 1.44 mg/dL (0.70-1.30); EST Glomerular Filtration Rate 53 mL/min (>60); Est Glom Filt Rate - Afr Amer 64 mL/min (>60); Estimated Creatinine Clearance 59.13 ml/min; Glucose 155 mg/dL (74-106); Potassium 4.2 mmol/L (3.5-5.1); Sodium Level 140 mmol/L (136-145)
--- NOTE | 2019-05-25 08:05 | CASEMGMT ---
Addendum entered by Marci Martin 05/25/19 10:38: The last facility that is in [place] that accept pt's insurance is [facility]. LEONIDES did call Valentina at [facility] and provided referral. Valentina states that it is unlikely they will be able to accept pt but is willing to look at referral. LEONIDES faxed referral to [facility]. Original Note: Social Work Note SW received call from Nevin at [facility] stating she is not able to accept. Marci Martin DRIVER'S LICENSE EXAMINER, MANAGER SAP
[2019-05-25] MEDS: Iron Polysaccharide Complex 150 MG CAPSULE PO (10:38)
[2019-05-25] MEDS: Multivitamins,Therapeutic Tablet 1 TABLET PO (10:38)
[2019-05-25] MEDS: Lisinopril 40 MG Tablet PO (10:38)
[2019-05-25] MEDS: QUEtiapine 100 MG Tablet PO ×2 (10:38→20:54)
[2019-05-25] MEDS: metroNIDAZOLE 500 MG Tablet PO ×3 (10:38→20:54)
[2019-05-25] MEDS: Pantoprazole Sodium 40 MG Tablet PO (10:38)
--- NOTE | 2019-05-25 11:03 | CASEMGMT ---
Addendum entered by Marci Martin 05/25/19 13:17: SW received call from Myriam at [facility]. Myriam confirms she received updated clinicals and will submit for pre-cert. Plan: [facility] pending pre-cert Original Note: Social Work Note SW received message from Valentina at [facility] stating she is not able to accept pt. SW in to speak with pt. Pt stating that he is eating breakfast and wants this worker to leave. SW asked if this worker could just speak with him real quick. Pt agreeable to this worker speaking to him. SW introduced self and role at [facility]. Pt is alert and orientated, does appear to have some agitation. SW informed pt that this worker has been speaking with his son Mejia and Mejia is agreeable to pt going to SNF at discharge. SW explained that this worker tried all the SNF that accept pt's insurance in [place] and none of them are able to accept pt. SW explained that this worker faxed referral to next closest facility which is [facility] in [place] and they are able to accept pt. SW informed pt that [place] is close to [place] and pt states I know where [place] is compared to [place]. SW explained that this worker was just trying to explain the SNF and where it is located at. SW informed pt that this worker will update his son Mejia. SW placed a call to pt's son Mejia. SW informed Mejia that this worker tried all in network SNF with pt's insurance in [place] and none in [place] are able to accept pt due to his previous behaviors. SW informed Mejia that this worker tried the next closest SNF which is [facility] in [place] who is able to accept pt pending pre-cert. Mejia asked if pt would be discharged with Seroquel and this worker informed Mejia that pt will be discharged with Seroquel. Mejia states understanding. SW faxed updated clinicals to Myriam at [facility]. SW attempted to call Myriam at [facility] and Myriam is not available. SW left message for Davonte to have Myriam give this worker a call. Plan: [facility] pending pre-cert. Marci Martin STONEWORKER, EMBROIDERY FINISHER
[2019-05-25 12:35] LABS: Vancomycin, Trough Level 27.1 ug/mL (5.0-15.0)
[2019-05-25 12:55] LABS: Bedside Glucose 194 mg/dL (70-110)
[2019-05-25] MEDS: Insulin Lispro 100 UNIT/ML INSULN.PEN SC ×2 (12:55→21:11)
--- NOTE | 2019-05-25 12:55 | PN_ITS ---
Subjective: This 63-year-old male was seen bedside postoperative day #1 left lower extremity transmetatarsal amputation and open gastrocnemius recession for treatment of chronic osteomyelitis with recurrent infections including sepsis. He denies fever, chill, nausea, vomiting. His pain is moderate and on an intermittent basis. Per nursing staff he does walk on his foot and is intermittently agitated today. - Physical Exam General: Alert, Oriented x3, Cooperative Extremities: No cyanosis, Capillary Refill Less than 3 Seconds - To dorsal and plantar aspects of the amputation flap stump site, Edema - Mild surgical limb, Peripheral Pulses Normal - Palpable dorsalis pedis Skin: Incision - Well aligned and coapted with Prolene sutures intact to the transmetatarsal amputation site as well as a gastrocnemius recession site. There is no gapping, necrosis, or signs of infection. No erythema, streaking, odor left lower extremity. The peripheral skin is hairless and atrophic Musculoskeletal: No Tenderness to Palpation of Joints or Extremities, Muscle Wasting, - - Left transmetatarsal amputation intact. Compartments lower extremity remain soft to palpate. Improved ankle dorsiflexion with the knee flexed and extended Neurological: - - Lack of normal epicritic sensation consistent with neuropathy left lower extremity Psych/Mental Status: Normal Affect, Appropriate, - - Very lethargic Vital Signs Temp Pulse Resp BP Pulse Ox 99.2 F H 106 H 18 168/93 H 97 05/25/19 03:16 05/25/19 03:16 05/25/19 03:16 05/25/19 03:16 05/25/19 03:16 Oxygen Flow Rate (L/min) 2 Oxygen Delivery Method Room Air Weight: 88.2 kg Body Mass Index (BMI) 26.4 Finger Stick Blood Glucose 73 Intake and Output for Last 24 Hours 05/23/19 05/24/19 05/25/19 23:59 23:59 23:59 Intake Total 1850 / 2150 2969.17 / 2969.17 1363.33 / 1363.33 Output Total 850 / 850 700 / 700 Balance 1850 / 2150 2119.17 / 211.17 663.33 / 663.33 Microbiology Past 72 Hours 05/24/19 17:04 Gram Stain - Final Wound - Left Foot Wound Culture - Preliminary Gram positive organism 05/24/19 17:04 Gram Stain - Final Wound - Left Foot Wound Culture - Preliminary No growth-Final to follow Laboratory Tests Past 24 Hrs 05/24/19 05/25/19 05/25/19 23:45 06:15 06:15 WBC 11.5 H RBC 3.63 L Hgb 10.1 L Hct 31.4 L MCV 86.5 MCH 27.8 MCHC 32.2 RDW Std Deviation 43.8 RDW Coeff of Debra 14.1 Plt Count 358 MPV 9.4 Immature Gran % (Auto) 0.600 Neut % (Auto) 64.0 Lymph % (Auto) 21.2 Rutherford % (Auto) 11.2 H Eos % (Auto) 2.5 Baso % (Auto) 0.5 Absolute Neuts (auto) 7.3 Absolute Lymphs (auto) 2.43 Nucleated RBC % 0 Sodium 140 Potassium 4.2 Chloride 106 Carbon Dioxide 25.0 Anion Gap 9 BUN 26 H Creatinine 1.44 H Estim Creat Clear Calc 59.13 Est GFR (MDRD) Af Amer 64 Est GFR (MDRD) Non-Af 53 L BUN/Creatinine Ratio 18.1 Glucose 155 H Calcium 8.8 Vancomycin Trough 25.0 H 05/25/19 11:37 WBC RBC Hgb Hct MCV MCH MCHC RDW Std Deviation RDW Coeff of Debra Plt Count MPV Immature Gran % (Auto) Neut % (Auto) Lymph % (Auto) Rutherford % (Auto) Eos % (Auto) Baso % (Auto) Absolute Neuts (auto) Absolute Lymphs (auto) Nucleated RBC % Sodium Potassium Chloride Carbon Dioxide Anion Gap BUN Creatinine Estim Creat Clear Calc Est GFR (MDRD) Af Amer Est GFR (MDRD) Non-Af BUN/Creatinine Ratio Glucose Calcium Vancomycin Trough 27.1 H POC Glucose 05/25/19 05/24/19 05/24/19 06:15 22:35 17:19 POC Glucose 153 H 129 H 95 Medical Necessity - Tobacco Use Smoking Status: Former smoker Assessment/Plan All Active Problems Severe sepsis (Resolved) MRSA bacteremia (Resolved) Malnutrition (Resolved) POD #1 left transmetatarsal amputation and gastrocnemius recession secondary to left foot infection with previously known chronic osteomyelitis, bacteremia, and gastrocnemius equinus Uncontrolled diabetes with neuropathy (HgA1C 9) Noncompliance Other comorbidities I reviewed and discussed his case. His vitals are stable and it is noted he had a low grade fever documented this morning. This may be postoperative and will be monitored. CBC and CMP were also evaluated. It is noted his hemoglobin A1c has decreased to 9 and I encourage him to control his blood glucose levels. The surgical site was evaluated and a new dressing was applied consisting of Betadine gauze, abdominal pad, Kerlix. The well-padded posterior splint was reapplied with the lower extremity in a rectus position. This will be kept in place for the next week. The site appears intact with continued viability and no sign of local infection. Hemostasis is controlled and it is okay to resume anticoagulation medication. His metatarsal clearance fragments from surgery yesterday are pending. Previous wound cultures were positive for MRSA and Proteus and he continues on vancomycin, ceftriaxone, and Flagyl under the management of infectious disease which is appreciated. I recommend strict nonweightbearing while the surgical site heals. He will continue to work with physical therapy. I also recommend senior living facility placement to improve his outcome; this is pending. I will continue to follow him close while in house. Medical management and DVT prophylaxis per primary team is appreciated. Please do not hesitate to call if you have any questions. Vashti Bailon DPM, [facility] [phone]
--- NOTE | 2019-05-25 12:56 | PCM.RX.CS ---
Consult Pharmacy has been consulted to manage selected antiobiotic: Vancomycin Type of Consult: Follow-up Prior Doses of Antibiotics Received/Current Regimen: Vancomycin 1000mg IV q12h Labs: Sodium 140 mmol/L (136-145) 05/25/19 06:15 Potassium 4.2 mmol/L (3.5-5.1) 05/25/19 06:15 Chloride 106 mmol/L (98-107) 05/25/19 06:15 Carbon Dioxide 25.0 mmol/L (21.0-32.0) 05/25/19 06:15 Anion Gap 9 (5-15) 05/25/19 06:15 BUN 26 mg/dL (7-18) H 05/25/19 06:15 Creatinine 1.44 mg/dL (0.70-1.30) H 05/25/19 06:15 Est GFR (MDRD) Af Amer 64 mL/min (>60) 05/25/19 06:15 Est GFR (MDRD) Non-Af 53 mL/min (>60) L 05/25/19 06:15 BUN/Creatinine Ratio 18.1 RATIO (10-20) 05/25/19 06:15 Glucose 155 mg/dL (74-106) H 05/25/19 06:15 Vancomycin Trough 27.1 ug/mL (5.0-15.0) H 05/25/19 11:37 Microbiology: Microbiology 05/24/19 17:04 Wound - Left Foot Gram Stain - Final 05/24/19 17:04 Wound - Left Foot Wound Culture - Preliminary Gram positive organism 05/24/19 17:04 Wound - Left Foot Gram Stain - Final 05/24/19 17:04 Wound - Left Foot Wound Culture - Preliminary No growth-Final to follow Weight used for dosin kg Goal Trough: 15-20 mcg/mL Pharmacy Plan for Drug Dosing: Last dose of Vancomycin was 1000mg IV on 05/24/19 at 2352. The am dose on 05/25/19 was held due to a previous trough of 25. Pt's trough on 05/25/19 at 1130 resulted in 27.1. Medication will continue to be held. Random levels will be drawn every morning. Medication will be re-started once the trough level is under 20. Pharmacy Service will continue to monitor and adjust dosing as required. Follow-Up Labs: Trough Vancomycin - Random 05/26/19 @ 0600
--- NOTE | 2019-05-25 13:30 | PN.ID_ITS ---
Subjective: Sleeping, no fever. - Physical Exam General: No apparent distress Lungs: Clear to auscultation, Normal air movement Cardiovascular: Regular rate, Regular Rhythm Abdomen: Soft, Non Tender, Non-Distended Skin: Ulcer/ Wound - foot wrapped Vital Signs Temp Pulse Resp BP Pulse Ox 99.2 F H 106 H 18 168/93 H 97 05/25/19 03:16 05/25/19 03:16 05/25/19 03:16 05/25/19 03:16 05/25/19 03:16 Oxygen Flow Rate (L/min) 2 Oxygen Delivery Method Room Air Weight: 88.2 kg Body Mass Index (BMI) 26.4 Finger Stick Blood Glucose 73 Intake and Output for Last 24 Hours 05/23/19 05/24/19 05/25/19 23:59 23:59 23:59 Intake Total 1850 / 2150 2969.17 / 2969.17 1363.33 / 1363.33 Output Total 850 / 850 700 / 700 Balance 1850 / 2150 2119.17 / 2119.17 663.33 / 663.33 Microbiology Past 72 Hours 05/24/19 17:04 Gram Stain - Final Wound - Left Foot Wound Culture - Preliminary Gram positive organism 05/24/19 17:04 Gram Stain - Final Wound - Left Foot Wound Culture - Preliminary No growth-Final to follow Laboratory Tests Past 24 Hrs 05/24/19 05/25/19 05/25/19 23:45 06:15 06:15 WBC 11.5 H RBC 3.63 L Hgb 10.1 L Hct 31.4 L MCV 86.5 MCH 27.8 MCHC 32.2 RDW Std Deviation 43.8 RDW Coeff of Debra 14.1 Plt Count 358 MPV 9.4 Immature Gran % (Auto) 0.600 Neut % (Auto) 64.0 Lymph % (Auto) 21.2 [place] % (Auto) 11.2 H Eos % (Auto) 2.5 Baso % (Auto) 0.5 Absolute Neuts (auto) 7.3 Absolute Lymphs (auto) 2.43 Nucleated RBC % 0 Sodium 140 Potassium 4.2 Chloride 106 Carbon Dioxide 25.0 Anion Gap 9 BUN 26 H Creatinine 1.44 H Estim Creat Clear Calc 59.13 Est GFR (MDRD) Af Amer 64 Est GFR (MDRD) Non-Af 53 L BUN/Creatinine Ratio 18.1 Glucose 155 H Calcium 8.8 Vancomycin Trough 25.0 H 05/25/19 11:37 WBC RBC Hgb Hct MCV MCH MCHC RDW Std Deviation RDW Coeff of Debra Plt Count MPV Immature Gran % (Auto) Neut % (Auto) Lymph % (Auto) [place] % (Auto) Eos % (Auto) Baso % (Auto) Absolute Neuts (auto) Absolute Lymphs (auto) Nucleated RBC % Sodium Potassium Chloride Carbon Dioxide Anion Gap BUN Creatinine Estim Creat Clear Calc Est GFR (MDRD) Af Amer Est GFR (MDRD) Non-Af BUN/Creatinine Ratio Glucose Calcium Vancomycin Trough 27.1 H POC Glucose 05/25/19 05/25/19 05/24/19 12:51 06:15 22:35 POC Glucose 194 H 153 H 129 H 05/24/19 17:19 POC Glucose 95 Medical Necessity - Tobacco Use Smoking Status: Former smoker Route of nutrition/ use of supplements: [] Nutritional Intake: [] IV Site: [] Crawley Catheter: [] - Assessment/Plan Antibiotics: [] Assessment/Plan: [] L foot osteo with MRSA bacteremia - recurrent infections. Has repeatedly refused surgical debridement/amputation. On vanc/ceftriaxone/flagyl, cx with MRSA and proteus. Now s/p TMA on 05/24. Given bacteremia, most likely will need to remain on several weeks of iv abx post-op, though could have some oral options if surgical margins are clear of residual infection. Will follow
[2019-05-25 14:50] VITALS: BP 150/75; PULSE 73; RESP 16; TEMP 36.8; O2SAT 97
--- NOTE | 2019-05-25 16:31 | PCM.PROGNOTE ---
Subjective: Seen and examined today, he was at times slightly agitated today and he remains delusional, he answers some questions appropriately however. Physical therapy states the patient has been walking on his foot today despite instructions not to do that. I talked to infectious diseases, they stated that depending on what the surgical biopsies and cultures showed, patient may be able to be treated on oral antibiotics when he goes to an extended care facility. - Physical Exam General: Alert, Cooperative, No apparent distress, Well developed HEENT: Atraumatic, PERRLA, EOMI, Normocephalic Oral: Moist Mucosa Neck: Supple, Trachea Midline, Thyroid Normal Size and Texture Lungs: Clear to auscultation, Normal air movement, No rhonchi, No wheeze, No rales Cardiovascular: Regular rate, Regular Rhythm, Normal S1, Normal S2, No murmurs Abdomen: Bowel Sounds Present, Soft, Non Tender, Non-Distended, No hernias noted Extremities: No clubbing, Capillary Refill Less than 3 Seconds, - - Left foot is wrapped with surgical dressing, this was not removed for inspection Skin: No rashes, No breakdown Musculoskeletal: No Tenderness to Palpation of Joints or Extremities Neurological: Cranial nerves II-XII grossly intact, Neuro grossly intact, Sensory exam intact to light touch and pain Psych/Mental Status: Delusions, Impulsive, Irrational Behavior Vital Signs Temp Pulse Resp BP Pulse Ox 98.2 F 73 16 150/75 H 97 05/25/19 14:50 05/25/19 14:50 05/25/19 14:50 05/25/19 14:50 05/25/19 14:50 Oxygen Flow Rate (L/min) 2 Oxygen Delivery Method Room Air Weight: 88.2 kg Body Mass Index (BMI) 26.4 Finger Stick Blood Glucose 73 Intake and Output for Last 24 Hours 05/23/19 05/24/19 05/25/19 23:59 23:59 23:59 Intake Total 0 / 0 2969.17 / 2969.17 1363.33 / 1363.33 Output Total 850 / 850 700 / 700 Balance 1850 / 2150 2119.17 / 211.17 663.33 / 663.33 Microbiology Past 72 Hours 05/24/19 17:04 Gram Stain - Final Wound - Left Foot Wound Culture - Preliminary Gram positive organism 05/24/19 17:04 Gram Stain - Final Wound - Left Foot Wound Culture - Preliminary No growth-Final to follow Laboratory Tests Past 24 Hrs 05/24/19 05/25/19 05/25/19 23:45 06:15 06:15 WBC 11.5 H RBC 3.63 L Hgb 10.1 L Hct 31.4 L MCV 86.5 MCH 27.8 MCHC 32.2 RDW Std Deviation 43.8 RDW Coeff of Debra 14.1 Plt Count 358 MPV 9.4 Immature Gran % (Auto) 0.600 Neut % (Auto) 64.0 Lymph % (Auto) 21.2 [place] % (Auto) 11.2 H Eos % (Auto) 2.5 Baso % (Auto) 0.5 Absolute Neuts (auto) 7.3 Absolute Lymphs (auto) 2.43 Nucleated RBC % 0 Sodium 140 Potassium 4.2 Chloride 106 Carbon Dioxide 25.0 Anion Gap 9 BUN 26 H Creatinine 1.44 H Estim Creat Clear Calc 59.13 Est GFR (MDRD) Af Amer 64 Est GFR (MDRD) Non-Af 53 L BUN/Creatinine Ratio 18.1 Glucose 155 H Calcium 8.8 Vancomycin Trough 25.0 H 05/25/19 11:37 WBC RBC Hgb Hct MCV MCH MCHC RDW Std Deviation RDW Coeff of Debra Plt Count MPV Immature Gran % (Auto) Neut % (Auto) Lymph % (Auto) [place] % (Auto) Eos % (Auto) Baso % (Auto) Absolute Neuts (auto) Absolute Lymphs (auto) Nucleated RBC % Sodium Potassium Chloride Carbon Dioxide Anion Gap BUN Creatinine Estim Creat Clear Calc Est GFR (MDRD) Af Amer Est GFR (MDRD) Non-Af BUN/Creatinine Ratio Glucose Calcium Vancomycin Trough 27.1 H POC Glucose 05/25/19 05/25/19 05/24/19 12:51 06:15 22:35 POC Glucose 194 H 153 H 129 H 05/24/19 17:19 POC Glucose 95 Medical Necessity - Tobacco Use Smoking Status: Former smoker Assessment/Plan All Active Problems Severe sepsis (Resolved) MRSA bacteremia (Resolved) Malnutrition (Resolved) #1 osteomyelitis of the left foot-again this is assumed to be from MRSA and Proteus-postop day #1 left transmetatarsal amputation with complex closure, left open gastrocnemius recession, infectious diseases is participating in his care, continue PT and OT #2 probable dementia-complicates medical care and recovery time #3 type 2 diabetes-continue present treatment #4 Chronic kidney disease stage III-secondary to type 2 diabetes #5 diabetic neuropathy #6 Iron deficiency anemia Code Visit Inpatient E&M: 22656 Subs Hosp L2
[2019-05-25 20:47] VITALS: BP 170/86; PULSE 110; RESP 18; TEMP 37; O2SAT 98
[2019-05-25 21:21] LABS: Bedside Glucose 185 mg/dL (70-110)
[2019-05-26] MEDS: metroNIDAZOLE 500 MG Tablet PO ×3 (05:42→22:05)
[2019-05-26 05:45] VITALS: BP 144/82; PULSE 89; RESP 18; TEMP 36.6; O2SAT 95
[2019-05-26 06:11] LABS: Bedside Glucose 147 mg/dL (70-110)
[2019-05-26] MEDS: Multivitamins,Therapeutic Tablet 1 TABLET PO (07:34)
[2019-05-26] MEDS: Iron Polysaccharide Complex 150 MG CAPSULE PO (07:34)
--- NOTE | 2019-05-26 10:12 | PN_ITS ---
Subjective: This 63-year-old male was seen bedside postoperative day #2 left lower extremity transmetatarsal amputation and open gastrocnemius recession for treatment of chronic osteomyelitis with recurrent infections including sepsis. He denies fever, chill, nausea, vomiting. Patient relates his pain is well controlled today. Patient is resting comfortably in bed today and seems to be in good spirits and is very talkative. - Physical Exam General: Alert, Oriented x3, Cooperative Extremities: - - Patient's dressing was kept intact. Patient denies any calf pain today. Skin: - - Surgical site not evaluated today as dressing was left intact. No strikethrough noted. Musculoskeletal: - - Patient denies tenderness to the left lower extremity today. Neurological: - - Lack of epicritic sensation consistent with diabetic neuropathy Psych/Mental Status: Normal Affect, Appropriate Vital Signs Temp Pulse Resp BP Pulse Ox 97.8 F 89 18 144/82 H 95 05/26/19 05:45 05/26/19 05:45 05/26/19 05:45 05/26/19 05:45 05/26/19 05:45 Oxygen Flow Rate (L/min) 2 Oxygen Delivery Method Room Air Weight: 88.2 kg Body Mass Index (BMI) 26.4 Finger Stick Blood Glucose 73 Intake and Output for Last 24 Hours 05/24/19 05/25/19 05/26/19 23:59 23:59 23:59 Intake Total 2969.17 / 2969.17 1563.33 / 1563.33 120 / 120 Output Total 850 / 850 700 / 700 Balance 2119.17 / 2119.17 863.33 / 863.33 120 / 120 Microbiology Past 72 Hours 05/24/19 17:04 Gram Stain - Final Wound - Left Foot Wound Culture - Preliminary Gram positive organism 05/24/19 17:04 Gram Stain - Final Wound - Left Foot Wound Culture - Preliminary No growth-Final to follow Laboratory Tests Past 24 Hrs 05/25/19 05/26/19 11:37 09:40 Vancomycin Trough 27.1 H Random Vancomycin Pending POC Glucose 05/26/19 05/25/19 05/25/19 05:53 21:10 12:51 POC Glucose 147 H 185 H 194 H Medical Necessity - Tobacco Use Smoking Status: Former smoker Assessment/Plan All Active Problems Severe sepsis (Resolved) MRSA bacteremia (Resolved) Malnutrition (Resolved) POD #2 left transmetatarsal amputation and gastrocnemius recession secondary to left foot infection with previously known chronic osteomyelitis, bacteremia, and gastrocnemius equinus Uncontrolled diabetes with neuropathy (HgA1C 9) Noncompliance Other comorbidities Patient was carefully examined and evaluated today resting in his bed. Patient is very alert and talkative this morning. He had no acute events overnight. His vitals are stable. The patient's dressing is clean dry and intact currently. The dressing was not taken down today as his dressing will not need to be changed until this coming week. His metatarsal clearance fragments from surgery yesterday are pending. Previous wound cultures were positive for MRSA and Proteus and he continues on vancomycin, ceftriaxone, and Flagyl under the management of infectious disease which is appreciated. Podiatry continues to recommend strict nonweightbearing while the surgical site heals. He will continue to work with physical therapy. I also recommend retirement fac ility placement to improve his outcome. Podiatry will continue to follow him close while in house. Medical management and DVT prophylaxis per primary team is appreciated.
[2019-05-26] MEDS: Enoxaparin 40 MG/0.4 ML Syringe SC (10:26)
[2019-05-26] MEDS: Pantoprazole Sodium 40 MG Tablet PO (10:26)
[2019-05-26] MEDS: QUEtiapine 100 MG Tablet PO ×2 (10:27→22:05)
[2019-05-26] MEDS: Lisinopril 40 MG Tablet PO (10:27)
[2019-05-26 10:41] LABS: Vancomycin, Random Level 26.5 ug/mL (0.0-15.0)
--- NOTE | 2019-05-26 11:02 | PCM.RX.CS ---
Consult Pharmacy has been consulted to manage selected antiobiotic: Vancomycin Type of Consult: Follow-up Suspected Infection: Osteomyelitis Prior Doses of Antibiotics Received/Current Regimen: Last dose was 1gm IV on 05.24.19 @2761. Labs: Sodium 140 mmol/L (136-145) 05/25/19 06:15 Potassium 4.2 mmol/L (3.5-5.1) 05/25/19 06:15 Chloride 106 mmol/L (98-107) 05/25/19 06:15 Carbon Dioxide 25.0 mmol/L (21.0-32.0) 05/25/19 06:15 Anion Gap 9 (5-15) 05/25/19 06:15 BUN 26 mg/dL (7-18) H 05/25/19 06:15 Creatinine 1.44 mg/dL (0.70-1.30) H 05/25/19 06:15 Est GFR (MDRD) Af Amer 64 mL/min (>60) 05/25/19 06:15 Est GFR (MDRD) Non-Af 53 mL/min (>60) L 05/25/19 06:15 BUN/Creatinine Ratio 18.1 RATIO (10-20) 05/25/19 06:15 Glucose 155 mg/dL (74-106) H 05/25/19 06:15 Vancomycin Trough 27.1 ug/mL (5.0-15.0) H 05/25/19 11:37 Random Vancomycin 26.5 ug/mL (0.0-15.0) H 05/26/19 09:40 Microbiology: Microbiology 05/24/19 17:04 Wound - Left Foot Gram Stain - Final 05/24/19 17:04 Wound - Left Foot Wound Culture - Preliminary Gram positive organism 05/24/19 17:04 Wound - Left Foot Gram Stain - Final 05/24/19 17:04 Wound - Left Foot Wound Culture - Preliminary No growth-Final to follow Weight used for dosin.2 kg Estimated Creatinine Clearance: ~59ml/min Goal Trough: 15-20 mcg/mL Pharmacy Plan for Drug Dosing: Random level today @0940 still high (26.5 mcg/ml). Renal function reviewed, Cr 1.44 with Cr Cl ~59 ml/min. Will not give any vancomycin today and will reorder another random level for 9.8.19 in AM. Pharmacy Service will continue to monitor and adjust dosing as required. Follow-Up Labs: Trough Other - vanco random level 0900 9.8.19
[2019-05-26] MEDS: Insulin Lispro 100 UNIT/ML INSULN.PEN SC ×3 (11:09→22:05)
[2019-05-26 11:15] LABS: Bedside Glucose 158 mg/dL (70-110)
[2019-05-26 14:34] VITALS: BP 140/67; PULSE 110; RESP 16; TEMP 36.9; O2SAT 99
--- NOTE | 2019-05-26 14:39 | PCM.PROGNOTE ---
Subjective: Patient's mood is highly labile, he quickly changes from enthusiastic and happy, to aggressive and violent, and also to sad and crying. He denies pain in his affected extremity. He is noncompliant with his nonweightbearing to his affected extremity. He is up walking in his room frequently. He has no fevers or chills. No shortness of breath or cough, no issues eating, no nausea vomiting or abdominal pain, no diarrhea. - Physical Exam General: Alert, Cooperative HEENT: Atraumatic, PERRLA, EOMI, Normocephalic Neck: Supple, No JVD, Negative Carotid Bruits Lungs: Clear to auscultation, Normal air movement Cardiovascular: Regular rate, No murmurs Abdomen: Bowel Sounds Present, Soft, Non Tender Extremities: No edema, Capillary Refill Less than 3 Seconds Skin: No rashes, No breakdown Musculoskeletal: No Tenderness to Palpation of Joints or Extremities Neurological: Cranial nerves II-XII grossly intact Psych/Mental Status: - - Labile affect Vital Signs Temp Pulse Resp BP Pulse Ox 98.4 F 110 H 16 140/67 H 99 05/26/19 14:34 05/26/19 14:34 05/26/19 14:34 05/26/19 14:34 05/26/19 14:34 Oxygen Flow Rate (L/min) 2 Oxygen Delivery Method Room Air Weight: 194 lb 7.163 oz Body Mass Index (BMI) 26.4 Finger Stick Blood Glucose 73 Intake and Output for Last 24 Hours 05/24/19 05/25/19 05/26/19 23:59 23:59 23:59 Intake Total 2969.17 / 2969.17 1563.33 / 1563.33 120 / 120 Output Total 850 / 850 700 / 700 Balance 2119.17 / 2119.17 863.33 / 863.33 120 / 120 Microbiology Past 72 Hours 05/24/19 17:04 Gram Stain - Final Wound - Left Foot Wound Culture - Preliminary Gram positive organism 05/24/19 17:04 Gram Stain - Final Wound - Left Foot Wound Culture - Preliminary No growth-Final to follow Laboratory Tests Past 24 Hrs 05/26/19 09:40 Random Vancomycin 26.5 H POC Glucose 05/26/19 05/26/19 05/25/19 11:06 05:53 21:10 POC Glucose 158 H 147 H 185 H Medical Necessity - Tobacco Use Smoking Status: Former smoker Assessment/Plan All Active Problems Severe sepsis (Resolved) MRSA bacteremia (Resolved) Malnutrition (Resolved) 1. Osteomyelitis left foot - recent bacteremia. Postop day #2 transmetatarsal amputation. Podiatry/ID following. No fever/Leukocytosis. Labs in AM. Continue rocephin/vancomycin/flagyl. Prior cx with MRSA/Proteus. Mild leukocytosis suspect reactive to his recent surgery. Will recheck in a.m. No fevers. Ongoing noncompliance with nonweightbearing. 2. Dementia with behavioral disturbances - these include hallucinations and violent behavior, very labile affect. continue scheduled seroquel. TSH was normal. 3. Dmt2 with peripheral neuropathy -stable. Continue to titrate insulin to response. A1c is 9.3. 4. CKDIII -recheck BMP in a.m. 5. Iron def. anemia - ferrex 6. HTN -fluctuant-trend. DVT ppx: lovenox. DC planning: SNF, awaiting pre-cert. This patient was seen by Ever Lozada PA-C under the supervision of Dr. Rowan.
[2019-05-26 16:16] LABS: Bedside Glucose 205 mg/dL (70-110)
[2019-05-26 20:28] VITALS: BP 138/73; PULSE 84; RESP 16; TEMP 36.9; O2SAT 98
[2019-05-26] MEDS: 0.9% NaCl Peripheral Flush Adult/Peds IV ×2 (22:04→23:02)
[2019-05-26] MEDS: 0.9% NaCl IVPB Med Flush (250 mL) 15 ML IV (22:20)
[2019-05-26 22:31] LABS: Bedside Glucose 169 mg/dL (70-110)
[2019-05-27 03:15] VITALS: BP 137/79; PULSE 81; RESP 20; TEMP 36.6; O2SAT 100
--- NOTE | 2019-05-27 05:10 | NURSING ---
Spoke with Estuardo in pharmacy regarding Vanc level to be drawn today at 0900. He verified that this level does need to be drawn as they are still dosing Vancomycin
[2019-05-27] MEDS: 0.9% NaCl Peripheral Flush Adult/Peds IV ×3 (06:03→14:18)
[2019-05-27] MEDS: metroNIDAZOLE 500 MG Tablet PO ×3 (06:04→22:50)
[2019-05-27 06:08] LABS: Absolute Lymphocyte Count 2.63 X10^3/uL (0.83-4.51); Absolute Neutrophil Count 2.8 X10^3/uL (2.0-7.7); Basophil# 0.05 X10^3/uL; Basophil% 0.7 % (0-1); Eosinophil# 0.39 X10^3/uL; Eosinophils% 5.8 % (0-5); Hematocrit 27.3 % (40-54); Hemoglobin 8.8 g/dL (13.0-16.5); Lymphocyte # 2.63 X10^3/ul (4.0); Lymphocyte % 39.4 % (19-41); Mean Corp Hgb Conc 32.2 g/dL (32-36); Mean Corpuscular Hgb 27.7 pg (27.0-32.0); Mean Corpuscular Volume 85.8 fL (80-94); Mean Platelet Vol. 9.6 fl (6.2-12.0); Monocyte# 0.73 X10^3/uL; Monocyte% 10.9 % (0-10); NRBC Flagged by Analyzer 0 % (0-5); Neutrophil # 2.83 X10^3/uL (2.7-7.7); Neutrophil % 42.6 % (47-70); Platelet Count 360 K/mm3 (150-450); RBC Distribution Width CV 14.1 % (11.6-14.6); RBC Distribution Width SD 44.1 fl (35.1-43.9); Red Blood Count 3.18 M/mm3 (4.6-6.2); White Blood Count 6.7 K/mm3 (4.4-11.0)
[2019-05-27 06:24] LABS: Anion Gap 4 (5-15); BUN 27 mg/dL (7-18); BUN/Creat Ratio 21.6 RATIO (10-20); Calcium,Total 8.6 mg/dL (8.5-10.1); Chloride 108 mmol/L (98-107); Creatinine, Serum 1.25 mg/dL (0.70-1.30); EST Glomerular Filtration Rate 62 mL/min (>60); Est Glom Filt Rate - Afr Amer 75 mL/min (>60); Estimated Creatinine Clearance 68.12 ml/min; Glucose 151 mg/dL (74-106); Potassium 3.9 mmol/L (3.5-5.1); Sodium Level 140 mmol/L (136-145)
[2019-05-27 07:36] LABS: Bedside Glucose 164 mg/dL (70-110)
[2019-05-27 08:44] VITALS: BP 177/105; PULSE 95; RESP 18; TEMP 36.7; O2SAT 99
[2019-05-27] MEDS: Iron Polysaccharide Complex 150 MG CAPSULE PO (08:50)
[2019-05-27] MEDS: Multivitamins,Therapeutic Tablet 1 TABLET PO (08:50)
[2019-05-27] MEDS: QUEtiapine 100 MG Tablet PO ×2 (10:12→22:50)
[2019-05-27] MEDS: Lisinopril 40 MG Tablet PO (10:12)
[2019-05-27] MEDS: Enoxaparin 40 MG/0.4 ML Syringe SC (10:12)
[2019-05-27] MEDS: Pantoprazole Sodium 40 MG Tablet PO (10:12)
[2019-05-27 10:20] VITALS: PULSE 64
--- NOTE | 2019-05-27 10:48 | PN_ITS ---
Subjective: Pt is feeling well today. He denies any pain at all. He has no SOB/cough, no fever/chills. His memory remains poor, for example he states that he has never seen Dr. Saravia, Dr. Bailon, myself, or Dr. Rowan this admission at all. He is ambulating in the room on the affected extremity again. His mood seems more stable at this time. He is agreeable to placement in SNF tomorrow. - Physical Exam General: Alert, Oriented x3, Cooperative HEENT: Atraumatic, PERRLA, EOMI, Normocephalic Neck: Supple, No JVD, Negative Carotid Bruits Lungs: Clear to auscultation, Normal air movement Cardiovascular: Regular rate, No murmurs Abdomen: Bowel Sounds Present, Soft, Non Tender Extremities: No edema, Capillary Refill Less than 3 Seconds Skin: No rashes, No breakdown Musculoskeletal: No Tenderness to Palpation of Joints or Extremities Neurological: Cranial nerves II-XII grossly intact Psych/Mental Status: Normal Affect, Appropriate, Alert and oriented to time, place, person, mood and affect Vital Signs Temp Pulse Resp BP Pulse Ox 98.1 F 95 18 177/105 H 99 05/27/19 08:44 05/27/19 08:44 05/27/19 08:44 05/27/19 08:44 05/27/19 08:44 Oxygen Flow Rate (L/min) 2 Oxygen Delivery Method Room Air Weight: 194 lb 7.163 oz Body Mass Index (BMI) 26.4 Finger Stick Blood Glucose 73 Intake and Output for Last 24 Hours 05/25/19 05/26/19 05/27/19 23:59 23:59 23:59 Intake Total 1563.33 / 1563.33 170.5 / 170.5 720 / 720 Output Total 700 / 700 Balance 863.33 / 863.33 170.5 / 170.5 720 / 720 Microbiology Past 72 Hours 05/24/19 17:04 Gram Stain - Final Wound - Left Foot Wound Culture - Final Staphylococcus simulans Staphylococcus capitis 05/24/19 17:04 Gram Stain - Final Wound - Left Foot Wound Culture - Final Staphylococcus capitis Laboratory Tests Past 24 Hrs 05/27/19 05/27/19 05/27/19 05:58 05:58 09:10 WBC 6.7 RBC 3.18 L Hgb 8.8 L Hct 27.3 L MCV 85.8 MCH 27.7 MCHC 32.2 RDW Std Deviation 44.1 H RDW Coeff of Debra 14.1 Plt Count 360 MPV 9.6 Immature Gran % (Auto) 0.600 Neut % (Auto) 42.6 L Lymph % (Auto) 39.4 [place] % (Auto) 10.9 H Eos % (Auto) 5.8 H Baso % (Auto) 0.7 Absolute Neuts (auto) 2.8 Absolute Lymphs (auto) 2.63 Nucleated RBC % 0 Sodium 140 Potassium 3.9 Chloride 108 H Carbon Dioxide 28.0 Anion Gap 4 L BUN 27 H Creatinine 1.25 Estim Creat Clear Calc 68.12 Est GFR (MDRD) Af Amer 75 Est GFR (MDRD) Non-Af 62 BUN/Creatinine Ratio 21.6 H Glucose 151 H Calcium 8.6 Random Vancomycin Pending POC Glucose 05/27/19 05/26/19 05/26/19 07:31 22:03 16:04 POC Glucose 164 H 169 H 205 H 05/26/19 11:06 POC Glucose 158 H Medical Necessity - Tobacco Use Smoking Status: Former smoker Assessment/Plan All Active Problems Severe sepsis (Resolved) MRSA bacteremia (Resolved) Malnutrition (Resolved) 1. Osteomyelitis left foot - recent bacteremia. Postop day #3 transmetatarsal amputation. Podiatry/ID following. No fever/Leukocytosis. Labs in AM. Continue rocephin/vancomycin/flagyl. Prior cx with MRSA/Proteus. 2. Dementia with behavioral disturbances - these include hallucinations and violent behavior, with a very labile affect. continue scheduled seroquel. TSH was normal. 3. Dmt2 with peripheral neuropathy - stable. Continue to titrate insulin to response. A1c is 9.3. 4. CKDIII -stable 5. Iron def. anemia - ferrex 6. HTN -fluctuant-trend. DVT ppx: lovenox. DC planning: SNF, awaiting pre-cert. This patient was seen by Ever Lozada PA-C under the supervision of Dr. Rowan.
[2019-05-27 11:00] LABS: Vancomycin, Random Level 7.6 ug/mL (0.0-15.0)
--- NOTE | 2019-05-27 13:41 | PCM.RX.CS ---
Consult Pharmacy has been consulted to manage selected antiobiotic: Vancomycin Type of Consult: Follow-up Suspected Infection: Osteomyelitis Prior Doses of Antibiotics Received/Current Regimen: Received 1gm iv q12h x 2 doses on 05.24.19. Further dosing had been held since then due to high random levels. Labs: Sodium 140 mmol/L (136-145) 05/27/19 05:58 Potassium 3.9 mmol/L (3.5-5.1) 05/27/19 05:58 Chloride 108 mmol/L (98-107) H 05/27/19 05:58 Carbon Dioxide 28.0 mmol/L (21.0-32.0) 05/27/19 05:58 Anion Gap 4 (5-15) L 05/27/19 05:58 BUN 27 mg/dL (7-18) H 05/27/19 05:58 Creatinine 1.25 mg/dL (0.70-1.30) 05/27/19 05:58 Est GFR (MDRD) Af Amer 75 mL/min (>60) 05/27/19 05:58 Est GFR (MDRD) Non-Af 62 mL/min (>60) 05/27/19 05:58 BUN/Creatinine Ratio 21.6 RATIO (10-20) H 05/27/19 05:58 Glucose 151 mg/dL (74-106) H 05/27/19 05:58 Vancomycin Trough 27.1 ug/mL (5.0-15.0) H 05/25/19 11:37 Random Vancomycin 7.6 ug/mL (0.0-15.0) 05/27/19 09:10 Microbiology: Microbiology 05/24/19 17:04 Wound - Left Foot Gram Stain - Final 05/24/19 17:04 Wound - Left Foot Wound Culture - Final Staphylococcus simulans Staphylococcus capitis 05/24/19 17:04 Wound - Left Foot Gram Stain - Final 05/24/19 17:04 Wound - Left Foot Wound Culture - Final Staphylococcus capitis Weight used for dosin.2 kg Estimated Creatinine Clearance: ~68ml/min Goal Trough: 15-20 mcg/mL Pharmacy Plan for Drug Dosing: Random level today has decreased to 7.6 therefore will re-initiate therapy at 750mg iv q12h. A trough level has been ordered for 05.29.19 after 48hrs of new dosing. Pharmacy Service will continue to monitor and adjust dosing as required. Follow-Up Labs: Trough Vancomycin - 9.10.19 @1230 before 1300 dose
[2019-05-27 14:20] VITALS: BP 137/88; PULSE 97; RESP 18; TEMP 37.3; O2SAT 99
[2019-05-27 17:06] LABS: Bedside Glucose 139 mg/dL (70-110)
[2019-05-27] MEDS: Insulin Lispro 100 UNIT/ML INSULN.PEN SC (23:00)
[2019-05-28 01:21] LABS: Bedside Glucose 221 mg/dL (70-110)
[2019-05-28 02:43] VITALS: BP 142/74; PULSE 68; RESP 16; TEMP 36.9; O2SAT 96
[2019-05-28] MEDS: metroNIDAZOLE 500 MG Tablet PO (06:44)
[2019-05-28 06:55] LABS: Bedside Glucose 127 mg/dL (70-110)
--- NOTE | 2019-05-28 09:39 | CASEMGMT ---
Social Work Note SW faxed updated clinicals to Myriam at [facility]. Plan: [facility] pending pre-cert Marci Martin SHUTTLE REPAIRER, [employer]
[2019-05-28 10:09] VITALS: BP 144/82; PULSE 83; RESP 16; TEMP 36.6; O2SAT 96
[2019-05-28] MEDS: Iron Polysaccharide Complex 150 MG CAPSULE PO (10:11)
[2019-05-28] MEDS: Lisinopril 40 MG Tablet PO (10:11)
[2019-05-28] MEDS: Multivitamins,Therapeutic Tablet 1 TABLET PO (10:11)
[2019-05-28] MEDS: QUEtiapine 100 MG Tablet PO ×2 (10:11→22:28)
[2019-05-28] MEDS: Pantoprazole Sodium 40 MG Tablet PO (10:11)
--- NOTE | 2019-05-28 11:44 | CASEMGMT ---
Addendum entered by Marci Martin 05/28/19 13:21: LEONIDES faxed IV antibiotic script to [facility]. Original Note: Social Work Note LEONIDES received message from Anahy at [facility] requesting updates be faxed to [phone]. LEONIDES faxed updates to [phone] and did write on fax cover sheet that this worker did send updates to [facility] this morning. Plan: [facility] pending pre-cert Marci Martin [employer] ENGINEER, GRAIN TRIMMER
[2019-05-28] MEDS: 0.9% NaCl Peripheral Flush Adult/Peds IV ×3 (12:29→23:02)
[2019-05-28] MEDS: Insulin Lispro 100 UNIT/ML INSULN.PEN SC ×2 (12:29→17:04)
[2019-05-28 12:31] LABS: Bedside Glucose 277 mg/dL (70-110)
--- NOTE | 2019-05-28 13:47 | PCM.PN.ID ---
Subjective: Feeling ok, walking to the bathroom with his iv pole, no fever, no n/v/d. - Physical Exam General: Alert, Cooperative, No apparent distress Lungs: Clear to auscultation, Normal air movement Cardiovascular: Regular rate, Regular Rhythm Abdomen: Soft, Non Tender, Non-Distended Skin: Ulcer/ Wound - foot wrapped Vital Signs Temp Pulse Resp BP Pulse Ox 97.8 F 83 16 144/82 H 96 05/28/19 10:05/28/19 10:05/28/19 10:05/28/19 10:05/28/19 10:09 Oxygen Flow Rate (L/min) 2 Oxygen Delivery Method Room Air Weight: 88.2 kg Body Mass Index (BMI) 26.4 Finger Stick Blood Glucose 73 Intake and Output for Last 24 Hours 05/26/19 05/27/19 05/28/19 23:59 23:59 23:59 Intake Total 170.5 / 170.5 1735 / 1735 315 / 315 Balance 170.5 / 170.5 1735 / 1735 315 / 315 Microbiology Past 72 Hours 05/24/19 17:04 Gram Stain - Final Wound - Left Foot Wound Culture - Final Staphylococcus simulans Staphylococcus capitis Anaerobic Culture - Preliminary Checking for anaerobes, further studies to follow. 05/24/19 17:04 Gram Stain - Final Wound - Left Foot Wound Culture - Final Staphylococcus capitis POC Glucose 05/28/19 05/28/19 05/27/19 12:25 06:47 22:59 POC Glucose 277 H 127 H 221 H 05/27/19 16:59 POC Glucose 139 H Medical Necessity - Tobacco Use Smoking Status: Former smoker Route of nutrition/ use of supplements: [] Nutritional Intake: [] IV Site: [] Crawley Catheter: [] - Assessment/Plan Antibiotics: [] Assessment/Plan: [] L foot osteo with MRSA bacteremia - recurrent infections. Has repeatedly refused surgical debridement/amputation. On vanc/ceftriaxone/flagyl, cx with MRSA and proteus. Now s/p TMA on 05/24. Surg cxs with CoNS. Will stop ceftriaxone and flagyl. Plan on d/c to ECF on iv vanc for 6 weeks, stop date 07/04/19, weekly bmp/cbc/esr/vanc trough. Wrote rx. ID followup in 2-23 weeks. Will follow, d/w primary team
--- NOTE | 2019-05-28 13:49 | PCM.PROGNOTE ---
<Ever Lozada - Last Filed: 05/28/19 13:49> Subjective: Pt is anxious for discharge. He still is somewhat confused. He again does not remember me from yesterday or any other visits. He also still claims podiatry has not seen him. No fevers or chills. He denies any pain in the LE. No cough/sob. No N/V/abd pain. - Physical Exam General: Alert, Cooperative, Confused HEENT: Atraumatic, PERRLA, EOMI, Normocephalic Neck: Supple, No JVD, Negative Carotid Bruits Lungs: Clear to auscultation, Normal air movement Cardiovascular: Regular rate, No murmurs Abdomen: Bowel Sounds Present, Soft, Non Tender Extremities: No edema, Capillary Refill Less than 3 Seconds Skin: No rashes, No breakdown Musculoskeletal: No Tenderness to Palpation of Joints or Extremities Neurological: Cranial nerves II-XII grossly intact Psych/Mental Status: - - labile Vital Signs Temp Pulse Resp BP Pulse Ox 97.8 F 83 16 144/82 H 96 05/28/19 10:09 05/28/19 10:09 05/28/19 10:05/28/19 10:05/28/19 10:09 Oxygen Flow Rate (L/min) 2 Oxygen Delivery Method Room Air Weight: 194 lb 7.163 oz Body Mass Index (BMI) 26.4 Finger Stick Blood Glucose 73 Intake and Output for Last 24 Hours 05/26/19 05/27/19 05/28/19 23:59 23:59 23:59 Intake Total 170.5 / 170.5 1735 / 1735 315 / 315 Balance 170.5 / 170.5 1735 / 1735 315 / 315 Microbiology Past 72 Hours 05/24/19 17:04 Gram Stain - Final Wound - Left Foot Wound Culture - Final Staphylococcus simulans Staphylococcus capitis Anaerobic Culture - Preliminary Checking for anaerobes, further studies to follow. 05/24/19 17:04 Gram Stain - Final Wound - Left Foot Wound Culture - Final Staphylococcus capitis POC Glucose 05/28/19 05/28/19 05/27/19 12:25 06:47 22:59 POC Glucose 277 H 127 H 221 H 05/27/19 16:59 POC Glucose 139 H Medical Necessity - Tobacco Use Smoking Status: Former smoker Assessment/Plan All Active Problems Severe sepsis (Resolved) MRSA bacteremia (Resolved) Malnutrition (Resolved) 1. Osteomyelitis left foot - recent bacteremia. s/p transmetatarsal amputation. Podiatry/ID following. No fever/Leukocytosis. Labs in AM. Continue rocephin/vancomycin/flagyl. Prior cx with MRSA/Proteus. Plan for DC on IV abx. 2. Dementia with behavioral disturbances - these include hallucinations and violent behavior, with a very labile affect. continue scheduled seroquel. TSH was normal. 3. Dmt2 with peripheral neuropathy - stable. Continue to titrate insulin to response. A1c is 9.3. 4. CKDIII -stable 5. Iron def. anemia - ferrex 6. HTN -fluctuant-trend. DVT ppx: lovenox. DC planning: SNF, awaiting pre-cert. This patient was seen by Ever Lozada PA-C under the supervision of Dr. Bradley. <Armani Bradley - Last Filed: 05/28/19 16:00> Subjective: Seen and examined. Patient has cognitive/memory lapses. It seems mainly patient has both anterograde and retrograde amnesia. - Physical Exam General: Alert, Cooperative, Confused HEENT: Atraumatic, PERRLA, EOMI, Normocephalic Neck: Supple, No JVD, Negative Carotid Bruits Lungs: Clear to auscultation, Normal air movement, No rhonchi, No wheeze, No rales Cardiovascular: Regular rate, Regular Rhythm, Normal S1, Normal S2, No murmurs Abdomen: Bowel Sounds Present, Soft, Non Tender, Non-Distended Extremities: No edema, Capillary Refill Less than 3 Seconds Skin: Ulcer/ Wound - Left transmetatarsal amputation. Dressing with Kishan wrap bandage. Musculoskeletal: No Tenderness to Palpation of Joints or Extremities, Arthritic Changes, Tenderness Vital Signs Temp Pulse Resp BP Pulse Ox 97.8 F 83 16 144/82 H 96 05/28/19 10:05/28/19 10:05/28/19 10:05/28/19 10:05/28/19 10:09 Oxygen Flow Rate (L/min) 2 Oxygen Delivery Method Room Air Weight: 194 lb 7.163 oz Body Mass Index (BMI) 26.4 Finger Stick Blood Glucose 73 Intake and Output for Last 24 Hours 05/26/19 05/27/19 05/28/19 23:59 23:59 23:59 Intake Total 170.5 / 170.5 1735 / 1735 580 / 580 Balance 170.5 / 170.5 1735 / 1735 580 / 580 Microbiology Past 72 Hours 05/24/19 17:04 Gram Stain - Final Wound - Left Foot Wound Culture - Final Staphylococcus simulans Staphylococcus capitis Anaerobic Culture - Preliminary Checking for anaerobes, further studies to follow. 05/24/19 17:04 Gram Stain - Final Wound - Left Foot Wound Culture - Final Staphylococcus capitis POC Glucose 05/28/19 05/28/19 05/27/19 12:25 06:47 22:59 POC Glucose 277 H 127 H 221 H 05/27/19 16:59 POC Glucose 139 H Assessment/Plan This patient was seen in conjunction with Ever CORTEZ. I have independently interviewed and examined the patient and reviewed pertinent history, examination findings, laboratory and plan of management. I have reviewed the note and agree with the documented findings with the few additional points. In brief, patient is admitted for left diabetic foot infection with acute on chronic osteomyelitis with previous amputation of second and third toes, recurrent MRSA bacteremia. This time, patient had transmetatarsal amputation. Patient was seen by salvage engineer. Wound left foot is growing Staphylococcus simulans and Staphylococcus sensitive to vancomycin, doxycycline and Bactrim. Rocephin and Flagyl have been discontinued. Patient has PICC line. Pending pre-CERT. Patient has other comorbidities including diabetes mellitus type 2, CKD stage III, chronic iron deficiency anemia and hypertension: Blood sugar variable between 140- 277. Insulin titrated up. Started on insulin lispro 6 units 3 times daily with meal. Blood pressure is reasonably controlled. I have discussed my assessment with Ever CORTEZ and orders have been reviewed. Code Visit Inpatient E&M: 14074 Subs Hosp L3
[2019-05-28 16:56] LABS: Bedside Glucose 236 mg/dL (70-110)
[2019-05-28 17:03] VITALS: BP 161/93; PULSE 95; RESP 18; TEMP 37; O2SAT 99
[2019-05-28] MEDS: Insulin Lispro 100 UNIT/ML INSULN.PEN 6 UNIT SC (17:04)
--- NOTE | 2019-05-28 18:14 | PN_ITS ---
Subjective: This 63-year-old male was seen bedside postoperative day #4 left lower extremity transmetatarsal amputation and open gastrocnemius recession for treatment of chronic osteomyelitis with recurrent infections including sepsis. He denies fever, chill, nausea, vomiting. He denies pain. - Physical Exam General: Alert, Oriented x3, Cooperative, Confused - at time during the exam Extremities: No Calf Tenderness Skin: - - dressing and splint is clean, dry, intact without strikethrough noted Musculoskeletal: - - rectus position left lower extremity Neurological: - Psych/Mental Status: Anxious, - - talkative, pleasant Vital Signs Temp Pulse Resp BP Pulse Ox 98.6 F 95 18 161/93 H 99 05/28/19 17:03 05/28/19 17:03 05/28/19 17:03 05/28/19 17:03 05/28/19 17:03 Oxygen Flow Rate (L/min) 2 Oxygen Delivery Method Room Air Weight: 88.2 kg Body Mass Index (BMI) 26.4 Finger Stick Blood Glucose 73 Intake and Output for Last 24 Hours 05/26/19 05/27/19 05/28/19 23:59 23:59 23:59 Intake Total 170.5 / 170.5 1735 / 1735 580 / 580 Balance 170.5 / 170.5 1735 / 1735 580 / 580 Microbiology Past 72 Hours 05/24/19 17:04 Gram Stain - Final Wound - Left Foot Wound Culture - Final Staphylococcus simulans Staphylococcus capitis Anaerobic Culture - Preliminary Checking for anaerobes, further studies to follow. 05/24/19 17:04 Gram Stain - Final Wound - Left Foot Wound Culture - Final Staphylococcus capitis POC Glucose 05/28/19 05/28/19 05/28/19 16:47 12:25 06:47 POC Glucose 236 H 277 H 127 H 05/27/19 22:59 POC Glucose 221 H Medical Necessity - Tobacco Use Smoking Status: Former smoker Assessment/Plan All Active Problems Severe sepsis (Resolved) MRSA bacteremia (Resolved) Malnutrition (Resolved) status post left transmetatarsal amputation and gastrocnemius recession secondary to left foot infection with previously known chronic osteomyelitis, bacteremia, and gastrocnemius equinus Uncontrolled diabetes with neuropathy (HgA1C 9) Noncompliance Other comorbidities I reviewed and discussed his case. His vitals are stable and he is afebrile. No leukocytosis is noted. His metatarsal clearance fragment sent to pathology from surgery is still pending. The clearance fragment sent to [employer] has staph capitis growth so far. He will complete a 6 wk course of IV vancomycin per infectious disease recommendations. I recommend strict nonweightbearing while the surgical site heals. He will continue to work with physical therapy. I also recommend chcf facility placement to improve his outcome; this is still pending. I will continue to follow him while in house. Medical management and DVT prophylaxis per primary team is appreciated. Please do not hesitate to call if you have any questions. Vashti Bailon DPM, [facility] [phone]
[2019-05-28 22:35] LABS: Bedside Glucose 88 mg/dL (70-110)
[2019-05-28 22:47] VITALS: BP 183/99; PULSE 72; RESP 16; TEMP 37; O2SAT 99
[2019-05-28 23:01] VITALS: BP 183/99; PULSE 72
[2019-05-28] MEDS: hydrALAZINE 20 MG/ML Vial IV (23:01)
--- NOTE | 2019-05-28 23:20 | PCM.DC.POD ---
Weight Bearing Status: No weight bearing Keep extremity elevated above heart level: Left Leg Call your doctor if your incision/area has: Continuous Slow Oozing, Sudden Increased Bleeding, Increased Pain/ Swelling, Increased Redness, Foul Smelling Discharge, Swelling at the incision site Call your doctor if you observe: Fever of 101 or Higher Cleanse incision/area with: Keep Dressing Clean & Dry Allergies/Adverse Reactions: Allergies No Known Allergies Allergy (Verified 05/20/19 16:03) Medications to take at Discharge Lisinopril [Zestril] 40 mg PO DAILY tablet 11/24/18 Pantoprazole Sodium [Protonix] 40 mg PO DAILY tablet 11/24/18 Insulin Glargine,Hum.rec.anlog [Basaglar Kwikpen U-100] 30 unit SQ DAILY 11/29/18 Loratadine 10 mg PO DAILY 03/26/19 Docusate Sodium [Colace] 100 mg PO BID PRN PRN 05/14/19 Multivitamin with Folic Acid [Thera Tablet] 1 tab PO DAILY 05/14/19 Acetaminophen [Tylenol Tablet] 650 mg PO Q6H PRN PRN tab 05/17/19 Iron Polysaccharide Complex [Ferrex 150] 150 mg PO DAILYCM cap 05/17/19 Argin/Glut/Cahmb/Collag/Mv-Min [Gerard Packet] 1 ea PO BID 05/20/19 Bisacodyl [Gentle Laxative] 10 mg VT DAILY PRN PRN 05/20/19 Insulin Lispro [Admelog] 5 units SQ DAILY 05/20/19 Insulin Lispro [Humalog KwikPen] 10 unit SUBCUT DAILY 05/20/19 Magnesium Hydroxide [Milk Of Magnesia] 30 ml PO DAILY PRN PRN 05/20/19 Mineral Oil 1 bottle VT DAILY PRN PRN 05/20/19 Vancomycin IV 750 mg IV Q12H 38 Days #76 vial 05/28/19 The following prescriptions were given: Vancomycin IV 750 mg IV Q12H 38 Days #76 vial Prescription Printed Primary Care Physician: Tony Topete MD [Primary Care Provider] - Test Results: Test results from this visit will be discussed in further detail at your follow-up appointment, if applicable. Please Follow Up With: Vashti Bailon DPM When: [facility] within one week; call [phone]
[2019-05-29] MEDS: 0.9% NaCl IVPB Med Flush (250 mL) 15 ML IV (01:25)
[2019-05-29] MEDS: 0.9% NaCl Peripheral Flush Adult/Peds IV ×2 (01:26→12:18)
[2019-05-29 01:58] VITALS: BP 128/84; PULSE 78; RESP 18; TEMP 36.9; O2SAT 99
[2019-05-29 02:11] LABS: Bedside Glucose 114 mg/dL (70-110)
[2019-05-29] MEDS: Insulin Lispro 100 UNIT/ML INSULN.PEN SC ×2 (08:03→12:12)
[2019-05-29] MEDS: Insulin Lispro 100 UNIT/ML INSULN.PEN 6 UNIT SC ×2 (08:05→12:12)
[2019-05-29] MEDS: Multivitamins,Therapeutic Tablet 1 TABLET PO (08:06)
[2019-05-29] MEDS: Iron Polysaccharide Complex 150 MG CAPSULE PO (08:06)
--- NOTE | 2019-05-29 08:56 | NURSING ---
pt noncompliant with nonweight bearing status of left foot. pt up walking around refusing to use walker, putting weight on left foot when walking.
[2019-05-29 09:00] LABS: Bedside Glucose 188 mg/dL (70-110)
--- NOTE | 2019-05-29 09:16 | CASEMGMT ---
Addendum entered by Marci Martin 05/29/19 09:24: LEONIDES received call from Myriam at [facility] stating Anahy still hasn't received pre-cert yet. Original Note: Social Work Note LEONIDES placed a call to Myriam at [facility] to ask about update regarding pre-cert. Myriam states she hasn't received pre-cert yet but will be calling Anahy in the business office to determine if she has heard anything. LEONIDES updated Myriam that pt is medically cleared once pre-cert is obtained. Myriam to call this worker back. Plan: [facility] pending pre-cert Marci Martin CASTING MACHINE SERVICE OPERATOR, E MARKETING SPECIALIST
--- NOTE | 2019-05-29 09:57 | PN.ID_ITS ---
Subjective: Feeling great. No fever, still walking on foot. - Physical Exam General: Cooperative, No apparent distress Lungs: Clear to auscultation, Normal air movement Cardiovascular: Regular rate, Regular Rhythm Abdomen: Soft, Non Tender, Non-Distended Skin: No rashes Vital Signs Temp Pulse Resp BP Pulse Ox 98.4 F 78 18 128/84 H 99 05/29/19 01:58 05/29/19 01:58 05/29/19 01:58 05/29/19 01:58 05/29/19 01:58 Oxygen Flow Rate (L/min) 2 Oxygen Delivery Method Room Air Weight: 88.2 kg Body Mass Index (BMI) 26.4 Finger Stick Blood Glucose 73 Intake and Output for Last 24 Hours 05/27/19 05/28/19 05/29/19 23:59 23:59 23:59 Intake Total 1735 / 1735 1080 / 1080 272.75 / 272.75 Balance 1735 / 1735 1080 / 1080 272.75 / 272.75 Microbiology Past 72 Hours 05/24/19 17:04 Gram Stain - Final Wound - Left Foot Wound Culture - Final Staphylococcus simulans Staphylococcus capitis Anaerobic Culture - Preliminary Checking for anaerobes, further studies to follow. 05/24/19 17:04 Gram Stain - Final Wound - Left Foot Wound Culture - Final Staphylococcus capitis POC Glucose 05/29/19 05/29/19 05/28/19 08:02 01:43 22:25 POC Glucose 188 H 114 H 88 05/28/19 05/28/19 16:47 12:25 POC Glucose 236 H 277 H Medical Necessity - Tobacco Use Smoking Status: Former smoker Route of nutrition/ use of supplements: [] Nutritional Intake: [] IV Site: [] Crawley Catheter: [] - Assessment/Plan Antibiotics: [] Assessment/Plan: [] L foot osteo with MRSA bacteremia - recurrent infections. Has repeatedly refused surgical debridement/amputation. On vanc, prior cx with MRSA and proteus. Now s/p TMA on 05/24. Surg cxs with CoNS. Plan on d/c to ECF on iv vanc for 6 weeks, stop date 07/04/19, weekly bmp/cbc/esr/vanc trough. Wrote rx. ID followup in 2-3 weeks. Will follow, d/w case making machine operator
[2019-05-29] MEDS: Pantoprazole Sodium 40 MG Tablet PO (10:12)
[2019-05-29] MEDS: Lisinopril 40 MG Tablet PO (10:12)
[2019-05-29] MEDS: QUEtiapine 100 MG Tablet PO (10:12)
[2019-05-29 10:17] VITALS: BP 175/117; PULSE 100; RESP 18; TEMP 37.1; O2SAT 98
[2019-05-29 12:20] LABS: Bedside Glucose 195 mg/dL (70-110)
--- NOTE | 2019-05-29 12:40 | PN_ITS ---
<Ever Lozada - Last Filed: 05/29/19 12:40> Subjective: Pt ambulating in room. No complaints. Waiting for precert. No fever/chills. Denies pain. - Physical Exam General: Alert, Cooperative, Confused HEENT: Atraumatic, PERRLA, EOMI, Normocephalic Neck: Supple, No JVD, Negative Carotid Bruits Lungs: Clear to auscultation, Normal air movement Cardiovascular: Regular rate, No murmurs Abdomen: Bowel Sounds Present, Soft, Non Tender Extremities: No edema, Capillary Refill Less than 3 Seconds Skin: No rashes, No breakdown Musculoskeletal: No Tenderness to Palpation of Joints or Extremities Neurological: Cranial nerves II-XII grossly intact Psych/Mental Status: - - labile Vital Signs Temp Pulse Resp BP Pulse Ox 98.7 F 100 18 175/117 H 98 05/29/19 10:17 05/29/19 10:17 05/29/19 10:17 05/29/19 10:17 05/29/19 10:17 Oxygen Flow Rate (L/min) 2 Oxygen Delivery Method Room Air Weight: 194 lb 7.163 oz Body Mass Index (BMI) 26.4 Finger Stick Blood Glucose 73 Intake and Output for Last 24 Hours 05/27/19 05/28/19 05/29/19 23:59 23:59 23:59 Intake Total 1735 / 1735 1080 / 1080 272.75 / 272.75 Balance 1735 / 1735 1080 / 1080 272.75 / 272.75 Microbiology Past 72 Hours 05/24/19 17:04 Gram Stain - Final Wound - Left Foot Wound Culture - Final Staphylococcus simulans Staphylococcus capitis Anaerobic Culture - Final No anaerobic bacteria isolated. 05/24/19 17:04 Gram Stain - Final Wound - Left Foot Wound Culture - Final Staphylococcus capitis POC Glucose 05/29/19 05/29/19 05/29/19 12:10 08:02 01:43 POC Glucose 195 H 188 H 114 H 05/28/19 05/28/19 22:25 16:47 POC Glucose 88 236 H Medical Necessity - Tobacco Use Smoking Status: Former smoker Assessment/Plan All Active Problems Severe sepsis (Resolved) MRSA bacteremia (Resolved) Malnutrition (Resolved) 1. Osteomyelitis left foot - recent bacteremia. s/p transmetatarsal amputation. Podiatry/ID following. No fever/Leukocytosis. Labs in AM. Continue rocephin/vancomycin/flagyl. Prior cx with MRSA/Proteus. Plan for DC on IV abx. 2. Dementia with behavioral disturbances - these include hallucinations and violent behavior, with a very labile affect. Behavior has stabilized. continue scheduled seroquel. TSH was normal. 3. Dmt2 with peripheral neuropathy - stable. Continue to titrate insulin to response. A1c is 9.3. 4. CKDIII -stable 5. Iron def. anemia - ferrex 6. HTN -resumed home BP med. DVT ppx: lovenox. DC planning: SNF, awaiting pre-cert. This patient was seen by Ever Lozada PA-C under the supervision of Dr. Bradley. <Armani Bradley - Last Filed: 05/29/19 13:05> Subjective: Patient does not have a specific complaint. His pain in the left foot, transmetatarsal site is well controlled. Hemodynamically stable. Waiting for pre-CERT. - Physical Exam General: Alert, Oriented x3, Cooperative, - - Memory loss HEENT: Atraumatic, PERRLA, EOMI, Normocephalic Neck: Supple, No JVD, Negative Carotid Bruits Lungs: Clear to auscultation, Normal air movement, No rhonchi Cardiovascular: Regular rate, Regular Rhythm, Normal S1, Normal S2, No murmurs Abdomen: Bowel Sounds Present, Soft, Non Tender, Non-Distended Extremities: No edema, Capillary Refill Less than 3 Seconds Skin: No rashes, No breakdown, Ulcer/ Wound - Left MTA surgial wound with surgical dressing and radha wrap bandage. Musculoskeletal: No Tenderness to Palpation of Joints or Extremities, Arthritic Changes Neurological: Cranial nerves II-XII grossly intact, Deep Tendon Reflexes 2+/4 and Symmetrical, Neuro grossly intact Psych/Mental Status: Normal Affect, Appropriate Vital Signs Temp Pulse Resp BP Pulse Ox 98.7 F 100 18 175/117 H 98 05/29/19 10:17 05/29/19 10:17 05/29/19 10:17 05/29/19 10:05/29/19 10:17 Oxygen Flow Rate (L/min) 2 Oxygen Delivery Method Room Air Weight: 194 lb 7.163 oz Body Mass Index (BMI) 26.4 Finger Stick Blood Glucose 73 Intake and Output for Last 24 Hours 05/27/19 05/28/19 05/29/19 23:59 23:59 23:59 Intake Total 1735 / 1735 1080 / 1080 272.75 / 272.75 Balance 1735 / 1735 1080 / 1080 272.75 / 272.75 Microbiology Past 72 Hours 05/24/19 17:04 Gram Stain - Final Wound - Left Foot Wound Culture - Final Staphylococcus simulans Staphylococcus capitis Anaerobic Culture - Final No anaerobic bacteria isolated. 05/24/19 17:04 Gram Stain - Final Wound - Left Foot Wound Culture - Final Staphylococcus capitis POC Glucose 05/29/19 05/29/19 05/29/19 12:10 08:02 01:43 POC Glucose 195 H 188 H 114 H 05/28/19 05/28/19 22:25 16:47 POC Glucose 88 236 H Assessment/Plan This patient was seen in conjunction with Ever CORTEZ. I have independently interviewed and examined the patient and reviewed pertinent history, examination findings, laboratory and plan of management. I have reviewed the note and agree with the documented findings with the few additional points. In brief, patient is admitted for left diabetic foot infection with acute on chronic osteomyelitis with previous amputation of second and third toes, recurrent MRSA bacteremia. This time, patient had transmetatarsal amputation. Patient was seen by machine bender. Wound left foot is growing Staphylococcus simulans and Staphylococcus sensitive to vancomycin, doxycycline and Bactrim. Rocephin and Flagyl have been discontinued. Patient has PICC line. Pending pre-CERT. Patient has other comorbidities including diabetes mellitus type 2, CKD stage III, chronic iron deficiency anemia and hypertension: Blood sugar variable between 140- 277. Insulin titrated up. Started on insulin lispro 6 units 3 times daily with meal. Blood pressure is elevated. Started on Hydralazine 25 mg TID and along with Hydralazine 20 mg IV prn. I have discussed my assessment with Ever CORTEZ and orders have been reviewed. Code Visit Inpatient E&M: 61655 Subs Hosp L2
--- NOTE | 2019-05-29 14:24 | PCM.EXTCARCO ---
<Ever Lozada - Last Filed: 05/29/19 14:24> - Diet 05/24/19 16:51 Diet: Carbohydrate Controlled Food consistency:: Mechanical Soft/Ground Is pt able to select menu?: No Diet Comments: PLEASE SEND GLUCERNA CHOCOLATE PUDDING ON EACH TRAY INSTEAD OF LIUID - Routine Orders/Code Status Suppository Type: Dulcolax 10mg Suppository Frequency: Daily PRN Routine Lab Work: CBC - 3 days, BMP - 3 days Code Status: Full Code - Wound(s) left foot Wound Type: Surgical Incision Dressing Change: betadine moistened gauze right 3rd toe Wound Type: Pressure Injury right foot great toe Wound Type: per pt callous from shoe - Therapies Weight Bearing: Non weight bearing Physical Therapy: Eval and Treat Occupational Therapy: Eval and Treat - Problem/Diagnosis (1) Osteomyelitis Status: Acute Comment: chronic refractory osteomyelitis due to non-complaince and refusal of surgical intervention Current Visit: No (2) Chronic ulcer of left foot with fat layer exposed Status: Acute Current Visit: No (3) MRSA bacteremia Status: Resolved Current Visit: No (4) Iron deficiency anemia Status: Chronic Current Visit: No (5) Noncompliance Status: Chronic Comment: With diet, medications, nonweightbearing on the left foot Current Visit: No (6) Anemia of chronic renal failure, stage 3 (moderate) Status: Chronic Current Visit: No (7) Dementia with behavioral disturbance Status: Chronic Current Visit: Yes (8) Type 2 diabetes mellitus with diabetic polyneuropathy Status: Chronic Comment: uncontrolled due to non-complaince Current Visit: No (9) Hypertension Status: Chronic Current Visit: No - Allergies/Procedures Done in Hospital Allergies/Adverse Reactions: Allergies No Known Allergies Allergy (Verified 05/20/19 16:03) Procedures: None - Type of Care/Length of Stay Estimated LOS: Convalescent Care Less Than 30 days Type of Care Needed: Skilled Rehab Potential: Poor Prognosis: Poor - Additional Orders/Day of Discharge Day of Discharge: 05/29/19 - Dietary and Speech Recommendations Dietitian Recommendations/Changes: Recommend a diet change to 2000 calorie controlled diet. Recommend continue Gerard 1 packet BID to promote wound healing. Glucerna chocolate pudding is not on formulary, will offer regular pudding with 1 scoop beneprotein w/ meals instead. - Follow Up Care Primary Care Physician: Tony Topete MD [Primary Care Provider] - Please follow up with your Primary Care Physician in: 1-2 weeks Please Follow Up With: Vashti Bailon DPM When: at [facility] within one week; call [phone] <KirkArmani - Last Filed: 05/29/19 15:01> - Diet 05/24/19 16:51 Diet: Carbohydrate Controlled Food consistency:: Mechanical Soft/Ground Is pt able to select menu?: No Diet Comments: PLEASE SEND GLUCERNA CHOCOLATE PUDDING ON EACH TRAY INSTEAD OF LIUID - Follow Up Care Please Follow Up With: Kingston Luna MD When: in 2 weeks for IV antibiots
--- NOTE | 2019-05-29 14:52 | CASEMGMT ---
Social Work Note LEONIDES received message from Nohemi at [facility] stating pre-cert has been obtained and pt is able to discharge today. Physician updated. LEONIDES placed a call to [facility] to arrange transportation and earliest they can transport is 6:30pm. LEONIDES placed a call to [facility] and earliest they can transport pt is 4:00pm. LEONIDES arranged transportation through [facility] via cot for 4:00pm. Transportation form completed and placed on SNF folder and copy on pt's chart. RN and materials supervisor updated on transportation time. LEONIDES completed [facility] in [facility]. Original in SNF folder and copy on pt's chart. LEONIDES faxed completed discharge paperwork to Nohemi at [facility] including transfer to extended care facility, signed medication list and any scripts. Original in SNF folder and copy on pt's chart. LEONIDES attempted to call pt's son Mejia but no answer and voicemail is full. LEONIDES placed a call to pt's daughter Ashli who is listed as emergency contact and updated her that pt will be discharged to [facility] today at 4:00pm. LEONIDES informed Ashli that this worker attempted to update pt's son but there was no answer and his voicemail is full. LEONIDES placed a call to [facility] and updated Nohemi on transportation time. Plan: Pt to discharge to [facility] skilled today with [facility] transporting via cot at 4:00pm Marci Martin MSW, ALLEY CLEANER
[2019-05-29 14:58] VITALS: BP 196/100; PULSE 88; RESP 18; TEMP 36.9; O2SAT 95
[2019-05-29 15:06] VITALS: PULSE 88
[2019-05-29] MEDS: hydrALAZINE 25 MG Tablet PO (15:06)
--- NOTE | 2019-05-30 12:08 | PCM.DC.SUM ---
<Ever Lozada - Last Filed: 05/30/19 12:21> Discharge Date and Diagnosis Date of Admission: 05/21/19 Date of Discharge: 05/30/19 - Primary Discharge Diagnosis Nonhealing diabetic foot wounds Osteomyelitis, MRSA, proteus Dementia with behavioral disturbance Noncompliance with medical therapy DMt2 with peripheral neuropathy CKDIII Iron deficiency anemia HTN - Secondary Discharge Diagnosis Chronic Problems Iron deficiency anemia (Chronic) Acute renal failure superimposed on stage 3 chronic kidney disease (Chronic) Noncompliance (Chronic) With diet, medications, nonweightbearing on the left foot Anemia of chronic renal failure, stage 3 (moderate) (Chronic) Dementia with behavioral disturbance (Chronic) Type 2 diabetes mellitus with diabetic polyneuropathy (Chronic) uncontrolled due to non-complaince Hammertoe of left foot (Chronic) Other acquired deformities of left foot (Chronic) Diabetic foot infection (Chronic) recurrent Hammer toe of left foot (Chronic) Left second and third toe amputation (Chronic) Hypertension (Chronic) Hospital Course and Treatment Imaging Results: RAD/Foot min 3 Views IMPRESSION: Transmetatarsal amputation. Postoperative soft tissue changes. RAD/Foot 2 Views IMPRESSION: Amputation of the mid metatarsals. Consultations 05/21/19 16:26 Consult: Onc/Wound/pharmacy sales assistant Routine Comment: Reason for Consult:: d/c 05/18 to [facility] now has tunneling in [facility] Infectious Disease - [facility] Manjit Bailon Operations: - - Transmetatarsal amputation, left foot Procedures: None Summary of Care Provided: Hospital Course: The patient is a 63 year old M w pmhx of DMt2 with peripheral neuropathy, dementia with behavioral disturbances, and recent bacteremia and osteomyelitis from a diabetic foot infection. He had previously cleared the bacteremia and was sent to SNF. At the SNF he was violent, noncompliant, and pullsed his PICC line. He also disregarded all nonweightbearing orders. He was sent to the ER. He was admitted for ongoing osteomyelitis. He was placed on IV abx. He was felt to need amputation in the past however had refused. He was started out on IV vanc and rocephin as previously prescribed by ID, ID added flagyl later. Wound cultures show Staph simulans, Staph capitis, prior blood culture showed MRSA, prior wound culture showed MRSA and Proteus mirabilis. ID and podiatry were consulted. He was started on scheduled seroquel for his ongoing confusion, agitation, and combative behavior. He tolerated this well and his behavior was controlled, however he still remains emotionally labile. He eventually consented to transmetatarsal amputation which Dr. Saravia successfully performed 05/24/2019. He recovered well, though unfortunately he has no regard for his nonweight bearing status. He was discharged to SNF in stable condition on IV vancomycin for 6 weeks stop date 07/04/2019. [facility] need follow up with ID in 2 weeks, podiatry within 1 week, and with PCP in 1-2 weeks. This patient was seen by Ever Lozada PA-C under the supervision of Dr. Bradley. [] - Physical Exam General: Alert, Cooperative, Confused HEENT: Atraumatic, PERRLA, EOMI, Normocephalic Neck: Supple, No JVD, Negative Carotid Bruits Lungs: Clear to auscultation, Normal air movement Cardiovascular: Regular rate, No murmurs Abdomen: Bowel Sounds Present, Soft, Non Tender Extremities: No edema, Capillary Refill Less than 3 Seconds Skin: No rashes, No breakdown Musculoskeletal: No Tenderness to Palpation of Joints or Extremities Neurological: Cranial nerves II-XII grossly intact Psych/Mental Status: - - labile affect Vital Signs Temp Pulse Resp BP Pulse Ox 98.5 F 88 18 196/100 H 95 05/29/19 14:58 05/29/19 15:06 05/29/19 14:58 05/29/19 14:58 05/29/19 14:58 Oxygen Flow Rate (L/min) 2 Oxygen Delivery Method Room Air Weight: 194 lb 7.163 oz Body Mass Index (BMI) 26.4 Finger Stick Blood Glucose 73 Intake and Output for Last 24 Hours 05/28/19 05/29/19 05/30/19 23:59 23:59 23:59 Intake Total 2434 / 1401 551.75 / 551.75 Balance 1080 / 1080 551.75 / 551.75 Microbiology Past 72 Hours 05/24/19 17:04 Gram Stain - Final Wound - Left Foot Wound Culture - Final Staphylococcus simulans Staphylococcus capitis Anaerobic Culture - Final No anaerobic bacteria isolated. 05/24/19 17:04 Gram Stain - Final Wound - Left Foot Wound Culture - Final Staphylococcus capitis Laboratory Tests Past 24 Hrs 05/29/19 12:32 Vancomycin Trough 17.0 H POC Glucose 05/29/19 12:10 POC Glucose 195 H Discharge Diet: Low fat/ Low Cholesterol, 1800 Calorie Control Diet, 2000 mg Sodium Diet Discharge Activity: Return to Normal Activity Weight Bearing Status: No weight bearing Keep extremity elevated above heart level: Left Leg Call your doctor if your incision/area has: Continuous Slow Oozing, Sudden Increased Bleeding, Increased Pain/ Swelling, Increased Redness, Foul Smelling Discharge, Swelling at the incision site Call your doctor if you observe: Fever of 101 or Higher Cleanse incision/area with: Keep Dressing Clean & Dry Home Medications: Medications to take at Discharge Acetaminophen [Tylenol Tablet] 650 mg PO Q6H PRN PRN tab 05/17/19 Vancomycin IV 750 mg IV Q12H 38 Days #76 vial 05/28/19 Insulin Glargine [Lantus SoloStar Pen] 10 units SUBCUT DINNER pen 05/29/19 Insulin Glargine [Lantus SoloStar Pen] 20 units SUBCUT DAILY pen 05/29/19 Insulin Lispro [Humalog KwikPen] 10 unit SUBCUT TIDAC insuln.pen 05/29/19 Insulin Lispro [Humalog KwikPen] See Protocol SUBCUT ACHS insuln.pen 05/29/19 Iron Polysaccharide Complex [Ferrex 150] 150 mg PO DAILYCM cap 05/29/19 Lisinopril [Zestril] 40 mg PO DAILY tab 05/29/19 Multivitamins,Therapeutic [Multivitamin] 1 tab PO DAILYCM tab 05/29/19 Nutritional Supplement [Gerard - ORANGE FLAVOR] 1 packet PO BID packet 05/29/19 Pantoprazole Sodium [Protonix] 40 mg PO DAILY tab 05/29/19 Quetiapine Fumarate [Seroquel] 100 mg PO BID tab 05/29/19 hydrALAZINE [Apresoline] 25 mg PO TID tab 05/29/19 Following Prescrptions Were Given to Patient: Vancomycin IV 750 mg IV Q12H 38 Days #76 vial Prescription Printed Primary Care Physician: Tony Topete MD [Primary Care Provider] - Please follow up with your Primary Care Physician in: 1-2 weeks Please Follow Up With: Vashti Bailon DPM When: at [facility] within one week; call [phone] Please Follow Up With: Kingston Luna MD When: in 2 weeks for IV antibiots Disposition: Senior Care facility Minutes spent on discharge:: 40 Patient Condition:: Stable Medical Necessity - Tobacco Use Smoking Status: Former smoker Meaningful Use Info Meaningful Use Diagnoses (Choose all that apply): None applicable <Armani Bradley - Last Filed: 05/30/19 13:58> Discharge Date and Diagnosis Date of Discharge: 05/29/19 - Secondary Discharge Diagnosis Chronic Problems Iron deficiency anemia (Chronic) Acute renal failure superimposed on stage 3 chronic kidney disease (Chronic) Noncompliance (Chronic) With diet, medications, nonweightbearing on the left foot Anemia of chronic renal failure, stage 3 (moderate) (Chronic) Dementia with behavioral disturbance (Chronic) Type 2 diabetes mellitus with diabetic polyneuropathy (Chronic) uncontrolled due to non-complaince Hammertoe of left foot (Chronic) Other acquired deformities of left foot (Chronic) Diabetic foot infection (Chronic) recurrent Hammer toe of left foot (Chronic) 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 I have independently interviewed and examined the patient and reviewed pertinent history, examination findings, laboratory and plan of management. I have reviewed the note and agree with the documented findings with the few additional points. In brief, patient is 63 gentleman with history of type 2 diabetes mellitus admitted for left diabetic foot infection with acute on chronic osteomyelitis with previous amputation of second and third toes, recurrent MRSA bacteremia. This time, patient had transmetatarsal amputation. Patient was seen by healthcare technician. Wound left foot is growing Staphylococcus simulans and Staphylococcus sensitive to vancomycin, doxycycline and Bactrim. Rocephin and Flagyl have been discontinued. Patient has PICC line. Patient discharged on IV vancomycin as per ID recommendation, with a stop date on 07/04/2019. Follow-up weekly CBC, BMP, ESR and Vanco trough with ID office.. Follow-up with ID in 2 weeks. Patient has other comorbidities including diabetes mellitus type 2, CKD stage III, chronic iron deficiency anemia and hypertension: Blood sugar variable between 140- 277. Insulin titrated up. On Lantus 20 units in the morning and 10 units at dinnertime along with Humalog insulin 10 units subcutaneous 3 times daily with meal. Measure Accu-Chek before meals and at bedtime and cover with NovoLog sliding scale. Blood pressure swings between 128/84-180/110. Blood pressure is elevated. Patient on lisinopril 40 mg daily. The patient was started hydralazine 25 mg TID and along with Hydralazine 20 mg IV prn. Needs further titration up hydralazine depending on his blood pressure trend. Follow-up PCP in 1 week. Discharge medication reconciliation done. Discharge follow-up instructions completed. Discharge process discussed with the patient and all questions were answered to patient's satisfaction.. Total time spent, exact 35 minutes on discharge meds reconciliation, examination, review of imaging and blood test and discussion with the patient on follow-up instructions. I have discussed my assessment with Ever CORTEZ and orders have been reviewed. [] Subjective: The patient was seen and examined on the day of discharge. Please see progress note. - Physical Exam Vital Signs Temp Pulse Resp BP Pulse Ox 98.5 F 88 18 196/100 H 95 05/29/19 14:58 05/29/19 15:06 05/29/19 14:58 05/29/19 14:58 05/29/19 14:58 Oxygen Flow Rate (L/min) 2 Oxygen Delivery Method Room Air Weight: 194 lb 7.163 oz Body Mass Index (BMI) 26.4 Finger Stick Blood Glucose 73 Intake and Output for Last 24 Hours 05/28/19 05/29/19 05/30/19 23:59 23:59 23:59 Intake Total 1080 / 1080 551.75 / 551.75 Balance 1080 / 1080 551.75 / 551.75 Microbiology Past 72 Hours 05/24/19 17:04 Gram Stain - Final Wound - Left Foot Wound Culture - Final Staphylococcus simulans Staphylococcus capitis Anaerobic Culture - Final No anaerobic bacteria isolated. Code Visit Inpatient E&M: [id number] Disch Hosp
== END 2019-05-29 16:10 | disposition skilled nursing facility (03) | DRG 305 ==
LOC: ED 05-21 09:42 → MS3 05-21 14:56
PROVIDERS: Anesthesiology; Emergency Medicine; Internal Medicine Infectious Disease; Physician Assistant; Podiatrist; Admitting Provider Internal Medicine; Emergency Provider Emergency Medicine; Family Provider Family Medicine; PCP Family Medicine; Referring Provider Internal Medicine; Visit Provider Internal Medicine
PROC: 0Y6N0Z9 Detachment at Left Foot, Partial 1st Ray, Open Approach (ICD-10-PCS; CPT 28805; principal; 2019-05-24 14:15)
DX: E11.69 Type 2 diabetes mellitus with other specified complication (principal); F03.91 Unspecified dementia, unspecified severity, with behavioral disturbance; M86.172 Other acute osteomyelitis, left ankle and foot; N18.3 Chronic kidney disease, stage 3 (moderate); I12.9 Hypertensive chronic kidney disease with stage 1 through stage 4 chronic kidney disease, or unspecified chronic kidney disease; E11.22 Type 2 diabetes mellitus with diabetic chronic kidney disease; E11.42 Type 2 diabetes mellitus with diabetic polyneuropathy; M62.462 Contracture of muscle, left lower leg; B96.4 Proteus (mirabilis) (morganii) as the cause of diseases classified elsewhere; B95.62 Methicillin resistant Staphylococcus aureus infection as the cause of diseases classified elsewhere; B95.7 Other staphylococcus as the cause of diseases classified elsewhere; E11.65 Type 2 diabetes mellitus with hyperglycemia; D50.9 Iron deficiency anemia, unspecified; Z79.4 Long term (current) use of insulin; Z89.422 Acquired absence of other left toe(s); Z91.19 Patient's noncompliance with other medical treatment and regimen; L97.519 Non-pressure chronic ulcer of other part of right foot with unspecified severity; E11.628 Type 2 diabetes mellitus with other skin complications; L08.9 Local infection of the skin and subcutaneous tissue, unspecified
CPT/HCPCS: 36415; 36592; 70450; 71045; 73620; 73630; 76000; 80048; 80053; 80202; 80307; 80320; 81001; 82962; 83036; 84443; 85025; 87070; 87075; 87077; 87102; 87186; 87205; 87206; 88304; 88305; 88307; 88311; 93005; 97116; 97163; 97166; 97530; 97535; 97802; 99284; J7050; J7120; A4216; G0480; J0696; J2405; J3486

== ENCOUNTER 2019-07-18 12:59 | Observation (INO) | payer MEDICARE, MEDICAID, SELFPAY ==
[2019-05-24 13:19] VITALS: BMI 26.4
[2019-07-18] VITALS (11 sets, daily range): BP systolic 117–163; BP diastolic 67–87; PULSE 54–73; RESP 16–18; TEMP 36.7–37.3; O2SAT 96–100; BMI 30.4; BMI 27.1
[2019-07-18] MEDS: Naloxone 2 MG/2 ML Syringe IV (13:54)
[2019-07-18 14:01] LABS: Bedside Glucose 222 mg/dL (70-110)
[2019-07-18 14:02] LABS: Absolute Lymphocyte Count 2.38 X10^3/uL (0.83-4.51); Absolute Neutrophil Count 3.4 X10^3/uL (2.0-7.7); Basophil# 0.08 X10^3/uL; Basophil% 1.2 % (0-1); Eosinophil# 0.19 X10^3/uL; Eosinophils% 2.8 % (0-5); Hematocrit 34.8 % (40-54); Hemoglobin 11.4 g/dL (13.0-16.5); Lymphocyte # 2.38 X10^3/ul (4.0); Lymphocyte % 35.5 % (19-41); Mean Corp Hgb Conc 32.8 g/dL (32-36); Mean Corpuscular Hgb 27.7 pg (27.0-32.0); Mean Corpuscular Volume 84.7 fL (80-94); Mean Platelet Vol. 9.4 fl (6.2-12.0); Monocyte# 0.63 X10^3/uL; Monocyte% 9.4 % (0-10); NRBC Flagged by Analyzer 0 % (0-5); Neutrophil % 50.8 % (47-70); Platelet Count 292 K/mm3 (150-450); RBC Distribution Width CV 14.5 % (11.6-14.6); RBC Distribution Width SD 44.7 fl (35.1-43.9); Red Blood Count 4.11 M/mm3 (4.6-6.2); White Blood Count 6.7 K/mm3 (4.4-11.0)
[2019-07-18 14:21] LABS: Lactic Acid 1.6 mmol/L (0.4-2.0)
[2019-07-18 14:23] LABS: ALB/GLOB Ratio 0.9 RATIO (0.9-2.4); AST(SGOT) 12 U/L (15-37); Alanine Aminotransfer ALT/SGPT 21 U/L (16-61); Albumin, Serum 3.6 g/dL (3.2-5.0); Alkaline Phosphatase 72 U/L (45-117); Anion Gap 7 (5-15); BUN 28 mg/dL (7-18); BUN/Creat Ratio 16.2 RATIO (10-20); Calcium,Total 8.6 mg/dL (8.5-10.1); Chloride 107 mmol/L (98-107); Creatinine, Serum 1.73 mg/dL (0.70-1.30); EST Glomerular Filtration Rate 43 mL/min (>60); Est Glom Filt Rate - Afr Amer 52 mL/min (>60); Estimated Creatinine Clearance 44.27 ml/min; Globulin 3.9 g/dL (2.2-4.2); Glucose 223 mg/dL (74-106); Lipase 169 U/L (73-393); Potassium 3.8 mmol/L (3.5-5.1); Protein, Total 7.5 g/dL (6.4-8.2); Sodium Level 140 mmol/L (136-145); Thyroid Stim Hormone (TSH) 1.14 uIU/mL (0.358-3.74)
--- NOTE | 2019-07-18 15:10 | CT_ITS ---
STUDY: CT BRAIN WITHOUT CONTRAST REASON FOR EXAM: Male, 64 years old. Altered mental status. Increased fatigue. RADIATION DOSAGE (If Supplied By Facility): CTDIvol = ( 44.99 ) mGy, DLP = ( 829.85 ) mGycm TECHNIQUE: Transaxial CT imaging of the brain was performed without administration of intravenous contrast material. Individualized dose optimization techniques were used for this CT. COMPARISON: Comparison is made with prior study dated May 20, 2019. FINDINGS: Normal soft tissue structures. Normal calvarium. There is mild cerebral atrophy with widening of the extra-axial spaces and ventricular dilatation. There are areas of decreased attenuation within the white matter tracts of the supratentorial brain, consistent with microvascular disease changes. Normal basal ganglia and thalami. Normal brainstem. Normal cerebellum. There is no intracranial hemorrhage. There are no findings of an acute ischemic infarction. Normal visualized paranasal sinuses. CT/Brain/Head without Contrast IMPRESSION: Chronic involutional changes of the brain. Electronically Signed: Ángel Banks, at 15:51 EDT , Service support ,
--- NOTE | 2019-07-18 16:30 | ED.DCSUM_ITS ---
- ER Visit Summary Date of Service: 07/18/19 Chief Complaint: Altered mental status History of Present Illness: The patient is a 64 M who presents with altered mental status that was noticed today at lunchtime by his mother. Mother states that the patient fell asleep while he was eating lunch and was difficult to wake up. Mother states the patient is not acting like his normal self and appears to be very fatigued and weak. Mother denies any fevers or chills. Patient denies any chest pain or shortness of breath. Patient denies any nausea or vomiting. Patient denies any headaches. Physical Examination: Vital signs are stable. Patient is afebrile. Patient is in no acute distress. Patient is awake and does respond to verbal stimuli. Patient is able to localize pain. Patient will answer questions with one-word answers. Oral mucosa is pink and somewhat dry. Neck is supple. Trachea is midline. There is no JVD. Heart was regular rate and rhythm. Lungs are clear and equal bilaterally. Abdomen is soft. Bowel sounds are normal. There is no tenderness. Test Results: CT scan of the brain was obtained. There are chronic changes. There are no acute abnormalities noted. CBC showed a slight anemia with a hemoglobin of 11.4 and hematocrit 34.8. Comprehensive metabolic profile showed a slightly elevated creatinine of 1.73 and a BUN of 28. Ammonia was normal at 16. TSH was normal at 1.14. Emergency Department Course and Treatment: Patient was given Narcan. Patient initially had no response to this. Later, on reevaluation the patient was a little more awake and alert. Patient was opening his eyes spontaneously on reevaluation. Patient was given IV fluids. Case was discussed with the hospitalist. Patient will be admitted for observation. Disposition: Admit for observation Impression: 1. Altered mental status This note was generated with [employer] dictation software. It may contain incorrect words, spelling, and punctuation that were not noted in review of the chart prior to signing ED Disposition - Plan for ED Patient: Disposition: Acute Care Hospital [facility] Diagnosis: Altered mental status Referrals: Tony Topete MD [Primary Care Provider] -
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
[2019-07-18] MEDS: 0.9% Normal Saline 1,000 ML 1000 ML IV (17:14)
--- NOTE | 2019-07-18 17:18 | ED.RN ---
bindu from pharmacy awaiting med list from pts sister
--- NOTE | 2019-07-18 18:14 | NURSING ---
Pt being none compliant angry that he is at the hospital, refuses to answer questions, and is refusing assessment at this time. States he wants to eat and be left alone. Tv dinner in microwave and pop provided. Will attempt to finish assessment after pt eats
--- NOTE | 2019-07-18 20:30 | NURSING ---
Refusing to have his cam walker boot removed for assessment
[2019-07-18] MEDS: 0.9% Normal Saline 1,000 ML 150 ML IV (21:20)
[2019-07-18] MEDS: QUEtiapine 100 MG Tablet PO (21:21)
[2019-07-18] MEDS: hydrALAZINE 25 MG Tablet PO (21:21)
[2019-07-18] MEDS: Insulin Lispro 100 UNIT/ML INSULN.PEN SC (21:21)
[2019-07-18 23:21] LABS: Bedside Glucose 220 mg/dL (70-110)
[2019-07-19 04:30] VITALS: BP 142/87; PULSE 85; RESP 16; TEMP 36.5; O2SAT 99
[2019-07-19 04:36] VITALS: PULSE 85
[2019-07-19] MEDS: hydrALAZINE 25 MG Tablet PO (04:36)
[2019-07-19 04:54] VITALS: PULSE 62
[2019-07-19 06:38] LABS: Anion Gap 8 (5-15); BUN 22 mg/dL (7-18); BUN/Creat Ratio 18.5 RATIO (10-20); Chloride 111 mmol/L (98-107); Creatinine, Serum 1.19 mg/dL (0.70-1.30); EST Glomerular Filtration Rate 66 mL/min (>60); Est Glom Filt Rate - Afr Amer 80 mL/min (>60); Estimated Creatinine Clearance 70.64 ml/min; Glucose 149 mg/dL (74-106); Potassium 3.7 mmol/L (3.5-5.1); Sodium Level 143 mmol/L (136-145)
[2019-07-19 08:30] VITALS: PULSE 79
--- NOTE | 2019-07-19 09:27 | CASEMGMT ---
Addendum entered by Padma Leslie 07/19/19 11:41: Pt gives SUSHILA CARPENTER permission to contact his mother to discuss discharge planning w/her. Call placed to pt's mother, Pearl, at this time. Pearl made aware pt wishes to return home with her @ discharge and mother is agreeable to this plan. She denies having any concerns w/pt returning home or discharge planning needs. She asks that someone from [facility] calls her to let her know once pt ready for discharge. RNSulema, made aware. Pearl confirms that pharmacy is [facility] in [place]. Original Note: SUSHILA CARPENTER NOTE: To room to talk with pt/discuss discharge planning. Introduced self and role to pt. Pt rolled his eyes at SUSHILA CARPENTER. Pt states his plan is to return home with his mother. When asked pt what pharmacy he uses, pt states he is not sure. He asks SUSHILA CARPENTER to go over questsions/talk with his mother when she comes in. Ju MARTIN RN, CM
[2019-07-19] MEDS: QUEtiapine 100 MG Tablet PO (10:15)
[2019-07-19] MEDS: Iron Polysaccharide Complex 150 MG CAPSULE PO (10:15)
[2019-07-19] MEDS: Pantoprazole Sodium 40 MG Tablet PO (10:15)
[2019-07-19] MEDS: Multivitamins,Therapeutic Tablet 1 TABLET PO (10:15)
[2019-07-19] MEDS: Insulin Lispro 100 UNIT/ML INSULN.PEN 10 UNIT SC (10:16)
--- NOTE | 2019-07-19 11:10 | NURSING ---
pt refusing to allow vital signs or assessment to be completed. Was able to give medications. Will attempt assessment again after breakfast.
--- NOTE | 2019-07-19 11:40 | PCM.DC ---
- Discharge Diagnoses Current Active Problems: Current Active and Chronic Problems Altered mental status (Acute) You will use the following diet at home:: Calorie/Carbohydrate Controlled (specify 1200, 1400, etc) - 1800 wali / day, Cardiac Your food should be the consistency of: Regular Your liquids should be the consistency of: Regular/Thin Discharge Activity: Return to Normal Activity Allergies/Adverse Reactions: Allergies No Known Allergies Allergy (Verified 05/20/19 16:03) Medications to take at Discharge Acetaminophen [Tylenol Tablet] 650 mg PO Q6H PRN PRN tab 05/17/19 Insulin Glargine [Lantus SoloStar Pen] 10 units SUBCUT DINNER pen 05/29/19 Insulin Glargine [Lantus SoloStar Pen] 20 units SUBCUT DAILY pen 05/29/19 Insulin Lispro [Humalog KwikPen] 10 unit SUBCUT TIDAC insuln.pen 05/29/19 Insulin Lispro [Humalog KwikPen] See Protocol SUBCUT ACHS insuln.pen 05/29/19 Iron Polysaccharide Complex [Ferrex 150] 150 mg PO DAILYCM cap 05/29/19 Multivitamins,Therapeutic [Multivitamin] 1 tab PO DAILYCM tab 05/29/19 Nutritional Supplement [Gerard - ORANGE FLAVOR] 1 packet PO BID packet 05/29/19 Pantoprazole Sodium [Protonix] 40 mg PO DAILY tab 05/29/19 Quetiapine Fumarate [Seroquel] 100 mg PO BID tab 05/29/19 hydrALAZINE [Apresoline] 25 mg PO TID tab 05/29/19 Amlodipine [Norvasc] 5 mg PO DAILY #30 tab 07/19/19 The following prescriptions were given: Amlodipine [Norvasc] 5 mg PO DAILY #30 tab Transmission Status: Pending to [facility] Primary Care Physician: Tony Topete MD [Primary Care Provider] - Please follow up with your Primary Care Physician in: 1 week Test Results: Test results from this visit will be discussed in further detail at your follow-up appointment, if applicable. Please Follow Up With: Vashti Bailon DPM When: as directed Proposed Discharge Date: 07/19/19
[2019-07-19 12:00] VITALS: PULSE 78
[2019-07-19 13:26] VITALS: BP 151/72; PULSE 91; RESP 18; TEMP 36.7; O2SAT 95
[2019-07-19 13:56] LABS: Bedside Glucose 128 mg/dL (70-110)
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
== END 2019-07-19 13:46 | disposition home or self-care (01) ==
LOC: ED 17:07 → MS3 17:20
PROVIDERS: Emergency Provider Emergency Medicine; Family Provider Family Medicine; PCP Family Medicine; Visit Provider Internal Medicine
DX: E86.0 Dehydration (principal); N17.9 Acute kidney failure, unspecified; E11.42 Type 2 diabetes mellitus with diabetic polyneuropathy; E11.22 Type 2 diabetes mellitus with diabetic chronic kidney disease; I12.9 Hypertensive chronic kidney disease with stage 1 through stage 4 chronic kidney disease, or unspecified chronic kidney disease; N18.3 Chronic kidney disease, stage 3 (moderate); D63.1 Anemia in chronic kidney disease; F03.91 Unspecified dementia, unspecified severity, with behavioral disturbance; E11.65 Type 2 diabetes mellitus with hyperglycemia; Z87.891 Personal history of nicotine dependence; Z91.14 Patient's other noncompliance with medication regimen; Z91.19 Patient's noncompliance with other medical treatment and regimen; Z79.899 Other long term (current) drug therapy; Z79.4 Long term (current) use of insulin; Z89.422 Acquired absence of other left toe(s)
CPT/HCPCS: 36415; 70450; 80048; 80053; 82140; 82962; 83605; 83690; 84443; 85025; 96361; 96374; 99218; 99285; J7030; A4216; G0378